=== PATIENT | male | born 1935 | race Caucasian/White ===

== ENCOUNTER 2016-11-29 00:54 | Inpatient (IN) | payer OTHER ==
[2016-11-29] VITALS (12 sets, daily range): BP systolic 162–170; BP diastolic 66–93; PULSE 68–85; TEMP 36.4–36.7; O2SAT 93–98; Ht 167.6 cm; Wt 61.0 kg
[~2016-11-29] VITALS: Ht 167.6 cm; Wt 61.0 kg
[~2016-11-29 00:54] MED LIST: ALBUAER INH; FERR325T51 PO; GLIP10TA3 PO; GUAI100L PO; ISOS-10 PO; MULT-506 PO
[2016-11-29] MEDS ORDERED: SODIUM CHLORIDE 0.9% 500ML 500 ML IV STA (01:03)
--- NOTE | 2016-11-29 01:09 | EMERGENCY ROOM VISIT NOTE ---
History Report prepared by Scribe: Rosy Osullivan Under the Supervision of: Dr. Matt Maynard M.D. First contact with patient: 00:56 Chief Complaint: ALTERED MENTAL STATUS Stated Complaint: ALTERED MENTAL STATUS History of Present Illness The patient is an 81 year old male who presents to the Emergency Room with complaints of altered mental status that started prior to arrival. He was brought to the ED via EMS from his home. EMS reports the patient was found nonverbal and unable to follow commands. He has a history of diabetes and his BSG was 88, 71 and 65 when checked by EMS. He was given 125 mls of D10 in the field which helped his mental state according to EMS. His lung sounds were course and his Oxygen saturation was at 92% on room air so he was also given a DuoNeb when EMS arrived, which provided relief. The patient states he does remember feeling confused earlier this evening, but feels better here in the ED currently. He denies any recent nausea, vomiting or abdominal pain. 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 A total of 10 systems reviewed and were otherwise negative. Past Medical & Surgical Medical Problems: (1) Aortic valve stenosis (2) COPD (chronic obstructive pulmonary disease) (3) Diabetes mellitus (4) Elevated troponin (5) Heart disease (6) Hypertension (7) Hypoglycemia (8) Myocardial infarction (9) Unresponsive episode Family History FH: cancer FH: diabetes mellitus FH: heart disease FH: hypertension Social History Smoking Status: Former Smoker Alcohol Use: occasionally Drug Use: none Marital Status: Housing Status: lives with family Occupation Status: retired Current/Historical Medications Scheduled Aspirin (Ecotrin Low Strength), 81 MG PO DAILY Atorvastatin (Lipitor), 80 MG PO QPM Budesonide/Formoterol Fumarate (Symbicort 160/4.5 Inhaler ), 2 PUFFS INH BID Cyanocobalamin (B-12), 1,000 MCG PO QAM Ferrous Sulfate (Ferrous Sulfate), 325 MGPE PO BID Folic Acid (Folic Acid), 1 MG PO QAM Glipizide (Glucotrol), 10 MG PO QAM Glipizide (Glucotrol), 5 MG PO QPM Isosorbide Mononitrate (Isosorbide Mononitrate ER), 60 MG PO QAM Lisinopril (Lisinopril), 20 MG PO QAM Metformin Hcl (Glucophage), 1,000 MG PO BID Metoprolol Tartrate (Lopressor) (Lopressor), 75 MG PO BID Multivitamin (Multivitamin), 1 TAB PO QAM Oxybutynin Chloride (Ditropan), 5 MG PO AMPM Scheduled PRN Ipratropium-Albuterol (Duoneb), 1 TREATMENT INH QID PRN for SOB/Wheezing Allergies Coded Allergies: No Known Allergies (Unverified , 11/29/16) Physical Exam Vital Signs Date Time Temp Pulse Resp B/P Pulse Ox O2 Delivery O2 Flow Rate FiO2 11/29/16 02:00 78 24 157/68 93 Room Air 11/29/16 01:10 93 Room Air 11/29/16 01:05 78 11/29/16 00:58 36.4 76 16 169/99 94 Room Air Physical Exam GENERAL: Patient is in no acute distress. HEENT: No acute trauma, normocephalic atraumatic, mucous membranes moist, no nasal congestion, no scleral icterus. NECK: No stridor, no adenopathy, no meningismus, trachea is midline. LUNGS: Moist cough noted, rhonchi at the bases, especially with exhalation, breath sounds are equal, no wheezing. HEART: Without murmurs gallops or rubs, regular rate and rhythm. ABDOMEN: Soft, nontender, bowel sounds positive, no hernias, no peritonitis. EXTREMITIES: No cyanosis or edema, full range of motion of all the joints without pain or difficulty, no signs for acute trauma. NEUROLOGIC: Awake and alert. Moving all extremities. Following commands, no speech slur, no facial droop. SKIN: No rash, no jaundice, no diaphoresis. Medical Decision & Procedures ER Provider Diagnostic Interpretation: This X-Ray was reviewed and interpreted by myself as we do not have a radiologist on staff overnight. CHEST X-RAY There is a potential right base infiltrate. No CHF or pneumothorax seen on X- Ray. This CT scan was reviewed and interpreted by the radiologist and reviewed by myself. CT HEAD: Comparison: 04/28/2016 No evidence of acute infarct, hemorrhage, mass or edema. Chronic small vessel ischemic disease and senescent changes. Mild mucosal thickening of the paranasal sinuses. Partial opacification mastoid air cells. No acute osseous abnormality. Radiologist: Abundio Hamilton MD Laboratory Results 11/29/16 01:25 Red Blood Count 3.66, Mean Corpuscular Volume 91.0, Mean Corpuscular Hemoglobin 30.9, Mean Corpuscular Hemoglobin Concent 33.9, Mean Platelet Volume 9.7, Neutrophils (%) (Auto) 75.1, Lymphocytes (%) (Auto) 10.8, Monocytes (%) (Auto) 10.0, Eosinophils (%) (Auto) 3.3, Basophils (%) (Auto) 0.3, Neutrophils # (Auto ) 9.21, Lymphocytes # (Auto) 1.32, Monocytes # (Auto) 1.22, Eosinophils # (Auto ) 0.40, Basophils # (Auto) 0.04 11/29/16 01:25 Test 11/29/16 01:01 11/29/16 01:25 Bedside Glucose 89 mg/dl (70-99) White Blood Count 12.25 K/uL (4.8-10.8) Red Blood Count 3.66 M/uL (4.7-6.1) Hemoglobin 11.3 g/dL (14.0-18.0) Hematocrit 33.3 % (42-52) Mean Corpuscular Volume 91.0 fL (80-100) Mean Corpuscular Hemoglobin 30.9 pg (25-34) Mean Corpuscular Hemoglobin Concent 33.9 g/dl (32-36) Platelet Count 235 K/uL (130-400) Mean Platelet Volume 9.7 fL (7.4-10.4) Neutrophils (%) (Auto) 75.1 % Lymphocytes (%) (Auto) 10.8 % Monocytes (%) (Auto) 10.0 % Eosinophils (%) (Auto) 3.3 % Basophils (%) (Auto) 0.3 % Neutrophils # (Auto) 9.21 K/uL (1.4-6.5) Lymphocytes # (Auto) 1.32 K/uL (1.2-3.4) Monocytes # (Auto) 1.22 K/uL (0.11-0.59) Eosinophils # (Auto) 0.40 K/uL (0-0.5) Basophils # (Auto) 0.04 K/uL (0-0.2) RDW Standard Deviation 45.2 fL (36.4-46.3) RDW Coefficient of Variation 13.8 % (11.5-14.5) Immature Granulocyte % (Auto) 0.5 % Immature Granulocyte # (Auto) 0.06 K/uL (0.00-0.02) Prothrombin Time 10.7 SECONDS (9.0-12.0) Prothromb Time International Ratio 1.0 (0.9-1.1) Activated Partial Thromboplast Time 28.6 SECONDS (21.0-31.0) Partial Thromboplastin Ratio 1.1 Urine Color YELLOW Urine Appearance CLEAR (CLEAR) Urine pH 7.0 (4.5-7.5) Urine Specific [place] 1.013 (1.000-1.030) Urine Protein 2+ (NEG) Urine Glucose (UA) NEG (NEG) Urine Ketones NEG (NEG) Urine Occult Blood NEG (NEG) Urine Nitrite NEG (NEG) Urine Bilirubin NEG (NEG) Urine Urobilinogen NEG (NEG) Urine Leukocyte Esterase NEG (NEG) Urine WBC (Auto) 0 /hpf (0-5) Urine RBC (Auto) 0-4 /hpf (0-4) Urine Hyaline Casts (Auto) 1-5 /lpf (0-5) Urine Epithelial Cells (Auto) 10-20 /lpf (0-5) Urine Bacteria (Auto) NEG (NEG) Anion Gap 12.0 mmol/L (3-11) Est Creatinine Clear Calc Drug Dose 38.8 ml/min Estimated GFR () 58.5 Estimated GFR (Non- 50.5 BUN/Creatinine Ratio 21.9 (10-20) Calcium Level 8.6 mg/dl (8.5-10.1) Magnesium Level 1.5 mg/dl (1.8-2.4) Total Bilirubin 0.5 mg/dl (0.2-1) Direct Bilirubin 0.1 mg/dl (0-0.2) Aspartate Amino Transf (AST/SGOT) 17 U/L (15-37) Alanine Aminotransferase (ALT/SGPT) 30 U/L (12-78) Alkaline Phosphatase 227 U/L (45-117) Troponin I < 0.015 ng/ml (0-0.045) Total Protein 7.1 gm/dl (6.4-8.2) Albumin 3.3 gm/dl (3.4-5.0) Thyroid Stimulating Hormone (TSH) 2.420 uIu/ml (0.300-4.500) Urine Opiates Screen NEG (NEG) Urine Methadone, Qualitative NEG (NEG) Urine Barbiturates NEG (NEG) Urine Phencyclidine (PCP) Level NEG (NEG) Ur Amphetamine/Methamphetamine NEG (NEG) MDMA (Ecstasy) Screen NEG (NEG) Urine Benzodiazepines Screen NEG (NEG) Urine Cocaine Metabolite NEG (NEG) Urine Marijuana (THC) NEG (NEG) Laboratory results reviewed by me. Medications Administered Medications (Trade) Dose Ordered Sig/Caesar Route Start Time Stop Time Status Last Admin Dose Admin Sodium Chloride (Nss 500ml) 500 ml @ 999 mls/hr Q31M STAT IV 11/29/16 01:03 11/29/16 01:33 DC 11/29/16 01:31 999 MLS/HR Magnesium Sulfate (Magnesium Sulfate) 1 gm NOW STAT IV 11/29/16 01:59 11/29/16 02:00 DC 11/29/16 02:18 1 GM Piperacillin Sod/ Tazobactam Sod (Zosyn Iv) 4.5 gm NOW STAT IV 11/29/16 02:19 11/29/16 02:20 DC 11/29/16 02:54 4.5 GM ECG Indication: altered mental status Rate (beats per minute): 77 Rhythm: normal sinus (normal sinus rhythm) Findings: no acute ischemic change, no ectopy, other (baseline artifact) ED Course 0058: The patient was evaluated in room B7. A complete history and physical exam was performed. 0103: NSS 500 ml @ 999 mls/hr IV. 0159: Magnesium Sulfate 1 gm IV. 0219: Zosyn 4.5 gm IV. 0239: I reevaluated the patient. He is resting comfortably. I discussed my recommendation that he remain in the hospital for further evaluation and management with his family and they verbalized complete understanding and agreement. 0314: I discussed the patients case with Dr. Terrell, [facility] Hospitalist. The patient will be further evaluated. Medical Decision The differential diagnoses considered include stroke, electrolyte imbalance, anemia, dysrhythmia, infection, intracranial bleeding and dehydration. There is a mild leukocytosis at 12,000, this could be consistent with infection. No significant anemia. No evidence for kidney failure. Magnesium is low at 1.5. No hepatitis. The patient does appear to be in a euthyroid state. Urinalysis does not show infection. EKG shows a sinus rhythm, no acute ischemia. Cardiac enzyme testing times one is not consistent with acute cardiac injury. Chest film shows a right lower lung pneumonia, no pneumothorax or CHF. Blood cultures are pending. Urine tox is negative. Brain CT shows some possible sinus disease, no acute bleed or mass effect. On exam, the patient did not have any focal neurologic deficits. There is no speech slurring or facial droop. The patient was able to eat a turkey sandwich here without difficulty-this was given to keep his sugar adequate. He has maintained his baseline mentation and neurologic status while here in the emergency room. He was given IV saline, he received IV magnesium, he received a dose of IV Zosyn as antibiotic coverage. Given the change in mental status, the leukocytosis, the pneumonia, admission/ observation was felt warranted. I suspect the pneumonia is the root cause of his difficulty this evening. I spoke to the patient and his family. I spoke with case management. The on-call hospitalist was consulted. Consults Time Called: [phone] Consulting Physician: Dr. Terrell [facility] Hospitalist Returned Call: [phone] I discussed the patients case with Dr. Terrell [facility] Hospitalist. The patient will be further evaluated. Impression Primary Impression: Change in mental status Additional Impressions: Pneumonia Hypomagnesemia Scribe Attestation The scribe's documentation has been prepared under my direction and personally reviewed by me in its entirety. I confirm that the note above accurately reflects all work, treatment, procedures, and medical decision making performed by me. Departure Information Dispostion Being Evaluated By Hospitalist Referrals Kassy Purvis (PCP) Patient Instructions My [facility] Problem Qualifiers
[2016-11-29 01:36] LABS: BASO % 0.3 %; BASO ABS # 0.04 K/uL (0-0.2); COMPLETE YES; EOS % 3.3 %; HEMATOCRIT 33.3 % (42-52); IG% 0.5 %; LYMPH % 10.8 %; LYMPH ABS # 1.32 K/uL (1.2-3.4); MEAN CORPUSCULAR HEMOGLOBIN 30.9 pg (25-34); MEAN CORPUSCULAR HGB CONC 33.9 g/dl (32-36); MEAN PLATELET VOLUME 9.7 fL (7.4-10.4); NEUT % 75.1 %; PLATELET COUNT 235 K/uL (130-400); RED BLOOD COUNT 3.66 M/uL (4.7-6.1); WHITE BLOOD COUNT 12.25 K/uL (4.8-10.8)
[2016-11-29 01:47] LABS: PARTIAL THROMBOPLASTIN RATIO 1.1; PROTHROMBIN TIME (PATIENT) 10.7 SECONDS (9.0-12.0)
[2016-11-29 01:57] LABS: BENZODIAZEPINE, URINE NEG (NEG); COCAINE,URINE NEG (NEG); PHENCYCLIDINE, URINE NEG (NEG)
[2016-11-29 01:58] LABS: ALT/SGPT 30 U/L (12-78); AST/SGOT 17 U/L (15-37); BLOOD UREA NITROGEN 28 mg/dl (7-18); BUN/CREATININE RATIO 21.9 (10-20); CALCIUM 8.6 mg/dl (8.5-10.1); CARBON DIOXIDE 25 mmol/L (21-32); CHLORIDE 107 mmol/L (98-107); GLUCOSE 114 mg/dl (70-99); MAGNESIUM 1.5 mg/dl (1.8-2.4); POTASSIUM 3.7 mmol/L (3.5-5.1); SODIUM 144 mmol/L (136-145)
[2016-11-29] MEDS ORDERED: MAGNESIUM SULFATE 1GM / D5W 1 GM BAG IV STA (01:59)
[2016-11-29 02:09] LABS: ALKALINE PHOSPHATASE 227 U/L (45-117)
[2016-11-29] MEDS ORDERED: PIPERACILLIN/TAZOBACTAM 4.5 GM/100ML D5W IV STA (02:19)
[2016-11-29 02:24] LABS: URINE APPEARANCE CLEAR (CLEAR); URINE BILIRUBIN NEG (NEG); URINE COLOR YELLOW; URINE NITRITE NEG (NEG); URINE SPECIFIC GRAVITY 1.013 (1.000-1.030); UROBILINOGEN NEG (NEG)
[2016-11-29 02:34] LABS: MANUAL MICROSCOPIC REQUIRED? NO; REVIEW REQ? NO
--- NOTE | 2016-11-29 03:39 | History and Physical ---
History & Physical Date & Time of Service: Nov 29, 2016 at 03:39 Chief Complaint: Altered Mental Status Primary Care Physician: Kassy Purvis History of Present Illness Source: patient, family This is an 81 y/o M with a history of COPD, Type 2 DM, CAD s/p stent, Mitral Valve replacement, Mild dementia who presents to the ED after being found by family to be minimally responsive and unable to follow commands. Family report that he was found on the couch zoned out and not responding to verbal stimuli. They called EMS and when they arrived, BSG readings were 88, 71 and 65. He was given D10, after which he returned to baseline mentation. EMS also gave him nebulizer treatments. Family report that he has generally been well the last few days though he has his moments were he will be zoned out. The patient currently says he feels fine. He says he's here because of pneumonia but denies chest pain, shortness of breath. He has a history of unresponsive episodes attributed primarily to dehydration. Quit smoking few years ago. He denies chest pain, shortness o fbreath, headaches, dizziness, presyncope, abdminal pain, nausea/vomiting, fevers, chill, numbness/tingling, weakness of extremities, speech difficulties Family reports he has a regular diet- has not had any trouble with dysphagia. Past Medical/Surgical History Medical Problems: (1) Aortic valve stenosis Status: Chronic (2) COPD (chronic obstructive pulmonary disease) Status: Chronic (3) Diabetes mellitus Status: Chronic (4) Heart disease Status: Chronic (5) Hypertension Status: Chronic (6) Myocardial infarction Status: Resolved Family History FH: cancer FH: diabetes mellitus FH: heart disease FH: hypertension Social History Smoking Status: Former Smoker Alcohol Use: none Drug Use: none Marital Status: Housing status: lives alone Occupational Status: retired Immunizations History of Influenza Vaccine: Unknown Influenza Vaccine Date: May 23, 2011 History of Tetanus Vaccine?: Unknown History of Pneumococcal: Unknown History of Hepatitis B Vaccine: Unknown Multi-Drug Resistant Organisms History of MDRO: No Allergies Coded Allergies: No Known Allergies (Unverified , 11/29/16) Home Medications Scheduled Aspirin (Ecotrin Low Strength), 81 MG PO DAILY Atorvastatin (Lipitor), 80 MG PO QPM Budesonide/Formoterol Fumarate (Symbicort 160/4.5 Inhaler ), 2 PUFFS INH BID Cyanocobalamin (B-12), 1,000 MCG PO QAM Ferrous Sulfate (Ferrous Sulfate), 325 MGPE PO BID Folic Acid (Folic Acid), 1 MG PO QAM Glipizide (Glucotrol), 10 MG PO QAM Glipizide (Glucotrol), 5 MG PO QPM Isosorbide Mononitrate (Isosorbide Mononitrate ER), 60 MG PO QAM Lisinopril (Lisinopril), 20 MG PO QAM Metformin Hcl (Glucophage), 1,000 MG PO BID Metoprolol Tartrate (Lopressor) (Lopressor), 75 MG PO BID Multivitamin (Multivitamin), 1 TAB PO QAM Oxybutynin Chloride (Ditropan), 5 MG PO AMPM Scheduled PRN Ipratropium-Albuterol (Duoneb), 1 TREATMENT INH QID PRN for SOB/Wheezing Review of Systems Constitutional: No chills, No fever Eyes: No worsening of vision ENT: No hearing loss Respiratory: + cough, + sputum, + wheezing, No dyspnea at rest, No dyspnea on exertion, No shortness of breath Cardiovascular: No chest pain Abdomen: No diarrhea, No nausea, No pain, No vomiting Genitourinary - Male: No dysuria, No hematuria, No urinary frequency Neurologic: No numbness/tingling, No paralysis, No vertigo, No weakness Physical Exam Vital Signs Date Time Temp Pulse Resp B/P Pulse Ox O2 Delivery O2 Flow Rate FiO2 11/29/16 02:00 78 24 157/68 93 Room Air 11/29/16 01:10 93 Room Air 11/29/16 01:05 78 11/29/16 00:58 36.4 76 16 169/99 94 Room Air General Appearance: no apparent distress Head: normocephalic, atraumatic Eyes: PERRL, EOMI ENT: hearing grossly normal (with aids) Neck: supple, no adenopathy, no JVD Respiratory/Chest: no respiratory distress, no accessory muscle use, + decreased breath sounds (R>L), + rhonchi, + wheezing Cardiovascular: regular rate, rhythm, no edema, + systolic murmur Abdomen/GI: normal bowel sounds, non tender, soft Back: normal inspection, no CVA tenderness, normal range of motion Extremities/Musculoskelatal: normal capillary refill, no pedal edema, normal range of motion, + pertinent finding (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) 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1 % Lymphocytes (%) (Auto) 10.8 % Monocytes (%) (Auto) 10.0 % Eosinophils (%) (Auto) 3.3 % Basophils (%) (Auto) 0.3 % Neutrophils # (Auto) 9.21 1.4-6.5 K/uL Lymphocytes # (Auto) 1.32 1.2-3.4 K/uL Monocytes # (Auto) 1.22 0.11-0.59 K/uL Eosinophils # (Auto) 0.40 0-0.5 K/uL Basophils # (Auto) 0.04 0-0.2 K/uL RDW Standard Deviation 45.2 36.4-46.3 fL RDW Coefficient of Variation 13.8 11.5-14.5 % Immature Granulocyte % (Auto) 0.5 % Immature Granulocyte # (Auto) 0.06 0.00-0.02 K/uL Prothrombin Time 10.7 9.0-12.0 SECONDS Prothromb Time International Ratio 1.0 0.9-1.1 Activated Partial Thromboplast Time 28.6 21.0-31.0 SECONDS Partial Thromboplastin Ratio 1.1 Urine Color YELLOW Urine Appearance CLEAR CLEAR Urine pH 7.0 4.5-7.5 Urine Specific [place] 1.013 1.000-1.030 Urine Protein 2+ NEG Urine Glucose (UA) NEG NEG Urine Ketones NEG NEG Urine Occult Blood NEG NEG Urine Nitrite NEG NEG Urine Bilirubin NEG NEG Urine Urobilinogen NEG NEG Urine Leukocyte Esterase NEG NEG Urine WBC (Auto) 0 0-5 /hpf Urine RBC (Auto) 0-4 0-4 /hpf Urine Hyaline Casts (Auto) 1-5 0-5 /lpf Urine Epithelial Cells (Auto) 10-20 0-5 /lpf Urine Bacteria (Auto) NEG NEG Sodium Level 144 136-145 mmol/L Potassium Level 3.7 3.5-5.1 mmol/L Chloride Level 107 98-107 mmol/L Carbon Dioxide Level 25 21-32 mmol/L Anion Gap 12.0 3-11 mmol/L Blood Urea Nitrogen 28 7-18 mg/dl Creatinine 1.30 0.60-1.40 mg/dl Est Creatinine Clear Calc Drug Dose 38.8 ml/min Estimated GFR () 58.5 Estimated GFR (Non- 50.5 BUN/Creatinine Ratio 21.9 10-20 Random Glucose 114 70-99 mg/dl Calcium Level 8.6 8.5-10.1 mg/dl Magnesium Level 1.5 1.8-2.4 mg/dl Total Bilirubin 0.5 0.2-1 mg/dl Direct Bilirubin 0.1 0-0.2 mg/dl Aspartate Amino Transf (AST/SGOT) 17 15-37 U/L Alanine Aminotransferase (ALT/SGPT) 30 12-78 U/L Alkaline Phosphatase 227 45-117 U/L Troponin I < 0.015 0-0.045 ng/ml Total Protein 7.1 6.4-8.2 gm/dl Albumin 3.3 3.4-5.0 gm/dl Thyroid Stimulating Hormone (TSH) 2.420 0.300-4.500 uIu/ml Urine Opiates Screen NEG NEG Urine Methadone, Qualitative NEG NEG Urine Barbiturates NEG NEG Urine Phencyclidine (PCP) Level NEG NEG Ur Amphetamine/Methamphetamine NEG NEG MDMA (Ecstasy) Screen NEG NEG Urine Benzodiazepines Screen NEG NEG Urine Cocaine Metabolite NEG NEG Urine Marijuana (THC) NEG NEG Microbiology Results 11/29/16 Blood Culture, Received Pending 4/3/17 Blood Culture, Received Pending Impression Assessment and Plan This is an 81 y/o M who presents with altered mental status AMS (Metabolic derangements vs. Infection vs. CVA) CT head negative for hemorrhage /CVA, mild sinus disease Metabolic derangements include Hypomag, and reported Hypoglycemia by EMS BSG AC/hs Patient is currently at baseline mentation possibly secondary to RLL pneumonia Dysphagia screen Neuro checks RLL pneumonia Aspiration vs. CAP mild leucocytosis Will treat with Zosyn and Levaquin Sputum Cultures/ blood cultures pending add pro-dameon COPD with mild exacerbation Continue Duonebs, Symbicort Hypomagnesemia: Replaced with 1 gm- recheck tomorrow Normocytic, normochromic Anemia: At baseline would follow outpatient with iron studies/ 12/folate Elevated Alkphos possibly some underlying hepatic steatosis Diabetes BSG Accuchecks Start with ISS, can add lantus if necessary monitor for hypoglycemia- aggressive goals CAD continue Imdur, Aspirin, Statin, metoprolol, lisinopril DVT: Lovenox Code: Full Level of Care Telemetry Resuscitation Status FULL RESUSCITATION Assessment and Plan Attending Addendum: I have physically seen and examined this patient, have directed their medical care, have supervised the medical residents activities, and agree with the H&P as noted above, with the following changes: The patient is awake, well-developed and adequately nourished, alert and oriented 3, normocephalic and atraumatic, lying in bed and in no acute distress. HEENT--PERRL, EOMI, mucous membranes and oropharynx dry. Neck--supple, no JVD or bruits, thyroid normal, trachea midline, no adenopathy. Heart--normal S1 and S2, 2/6 systolic murmur, no rubs or gallops. Lungs--decreased breath sounds throughout, few coarse breath sounds and wheezes bilaterally, no respiratory distress, no accessory muscle use. Abdomen--normal bowel sounds and soft, nontender and nondistended, no hernias or masses, no organomegaly. Extremities--no cyanosis, clubbing or edema. There are good distal pulses b/l. 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 Dermatologic--normal skin turgor, normal color, warm and dry, no abnormal lymph nodes, no rash. Neurologic--cranial nerves II through XII grossly intact, motor and sensory examination normal. Rheumatologic--normal range of motion, nontender, muscles and joints. Psychiatric--normal affect. Assessment and Plan: Altered mental status--likely multifactorial, was transient and has returned to baseline. Right lower lobe pneumonia/COPD exacerbation--possible aspiration. Place on vancomycin IV, Zosyn IV and Levaquin IV. Follow sputum Gram stain and cultures and blood cultures. We'll continue DuoNeb's, and hold Symbicort. CAD/hypertension--continue aspirin 81 mg by mouth daily, isosorbide mononitrate ER 60 mg by mouth every morning, lisinopril 20 mg by mouth every morning and metoprolol tartrate 75 mg by mouth twice a day with hold parameters. Diabetes mellitus--patient was hypoglycemic on arrival. Will hold glipizide 10 mg by mouth every morning 5 mg by mouth every afternoon and metformin 1000 mg by mouth twice a day. Place on Accu-Cheks before meals and at bedtime with NovoLog coverage. Hypercholesterolemia--continue atorvastatin 80 mg by mouth every afternoon. Vitamin B-12 deficiency--continue supplement 1000micrograms by mouth every morning. Bladder spasm--continue oxybutynin 5 mg by mouth twice a day.
[2016-11-29] MEDS ORDERED: MAGNESIUM HYDROXIDE SUSP 30 ML UDC PO PRN (03:45)
[2016-11-29] MEDS ORDERED: NITROGLYCERIN 0.4 MG SL PER TAB CHARGE SL PRN (03:45)
[2016-11-29] MEDS ORDERED: POLYETHYLENE (MIRALAX) 17 GM PACK PO PRN (03:45)
[2016-11-29] MEDS ORDERED: ALBUT/IPRATROP 3MG/0.5MG NEB 3 ML VIAL INH PRN (03:45)
[2016-11-29] MEDS ORDERED: ONDANSETRON INJ 2 MG/ML 2 ML VIAL IV PRN (03:45)
[2016-11-29] MEDS ORDERED: ALUMINUM/MAGNESIUM/SIMETH (MAALOX MAX) 30 ML UDC PO PRN (03:45)
[2016-11-29] MEDS ORDERED: ACETAMINOPHEN 325 MG TAB PO PRN (03:45)
[2016-11-29] MEDS ORDERED: GLUCAGON FOR INJ 1 MG VIAL SQ PRN (05:00)
[2016-11-29] MEDS ORDERED: GLUCOSE 10 TABS/TUBE PO PRN (05:00)
[2016-11-29] MEDS ORDERED: GLUCOSE 40% GEL 15 GM TUBE PO PRN (05:00)
[2016-11-29] MEDS ORDERED: DEXTROSE 50% 50 ML SYR IV PRN (05:00)
[2016-11-29] MEDS: INSULIN ASPART 100 UNITS/ML 3 ML PEN SC SCH ×3 (06:00→18:00)
[2016-11-29] MEDS: SODIUM CHLORIDE 0.9% 1000ML 1,000 ML IV SCH ×2 (06:28→17:22)
--- NOTE | 2016-11-29 06:46 | DIAGNOSTIC IMAGING REPORT ---
CHEST ONE VIEW PORTABLE CLINICAL HISTORY: Stroke mental status change COMPARISON STUDY: 04/28/2016 FINDINGS: Mild stable cardiomegaly. Increased prominence of pulmonary vasculature. Diaphragms smooth. IMPRESSION: Mild congestive heart failure Electronically signed by: Will Light M.D. 11/29/2016 6:45 AM Dictated Date/Time: 11/29/2016 6:44 AM
[2016-11-29] MEDS ORDERED: PIPERACILL/TAZOBAC CONSULT ACTIVE PRN (07:15)
[2016-11-29] MEDS ORDERED: LEVOFLOXACIN CONSULT ACTIVE PRN (07:15)
--- NOTE | 2016-11-29 07:29 | DIAGNOSTIC IMAGING REPORT ---
HEAD CT NONCONTRAST CT DOSE: 537.48 mGy.cm HISTORY: Stroke TECHNIQUE: Multiaxial CT images of the head were performed without the use of intravenous contrast. Automated exposure control was utilized for this study. Comparison: None. Findings: The paranasal sinuses and mastoid air cells are clear. The calvarium and skull base are intact. There is no mass, hematoma, midline shift, acute infarct. White matter hypodensity is nonspecific but suggestive of microvascular ischemic change. The ventricles and sulci demonstrate mild age-related involutional changes. Impression: No significant change compared to the prior study. No acute intracranial abnormality. Electronically signed by: Homero Rodriguez M.D. 11/29/2016 7:27 AM Dictated Date/Time: 11/29/2016 7:24 AM
[2016-11-29] MEDS: LEVOFLOXACIN / D5W 750 MG in PREMIXED IN D5W 150 ML IV SCH (08:00)
[2016-11-29] MEDS: BUDESONIDE/FORMOTEROL FUMARATE 160/4.5 60 PUFFS/INHALER INH SCH ×2 (08:00→20:49)
[2016-11-29] MEDS: ASPIRIN 81 MG ECTAB PO SCH (08:00)
[2016-11-29] MEDS: MULTIVITAMIN TAB PO SCH (08:01)
[2016-11-29] MEDS: LISINOPRIL 20 MG TAB PO SCH (08:01)
[2016-11-29] MEDS: CYANOCOBALAMIN 500 MCG TAB (VIT B-12) PO SCH (08:01)
[2016-11-29] MEDS: OXYBUTYNIN CHLORIDE 5 MG TAB PO SCH ×2 (08:01→20:50)
[2016-11-29] MEDS: ISOSORBIDE MONONITRATE 60 MG TABCR PO SCH (08:01)
[2016-11-29] MEDS: METOPROLOL TARTRATE 50 MG TAB PO SCH ×2 (08:02→20:50)
[2016-11-29] MEDS: ENOXAPARIN 40 MG/0.4 ML SYR SC SCH (08:03)
[2016-11-29] MEDS: ALBUT/IPRATROP 3MG/0.5MG NEB 3 ML VIAL INH SCH ×4 (08:12→19:24)
[2016-11-29] MEDS: PIPERACILL/TAZOBAC IV 3.375 GM in DEXTROSE 5% 100ML 100 ML IV SCH ×2 (10:42→17:22)
--- NOTE | 2016-11-29 19:12 | Progress Note ---
Progress Note Date of Service Nov 29, 2016. Progress Note seen in f/u from early AM admission notes breathing feeling better nursing notes did very poorly on bedside swallow lungs R base rhonchi vitals noted no respiratory distress AMS (Metabolic derangements & Infection) CT head negative for hemorrhage /CVA, mild sinus disease Metabolic derangements include Hypomag, and reported Hypoglycemia by EMS BSG AC/hs Patient is currently at baseline mentation apparently also secondary to RLL pneumonia Dysphagia screen/speech eval RLL pneumonia Aspiration vs. CAP but aspiration far more likely mild leucocytosis Will treat with levaquin and hold zosyn Sputum Cultures/ blood cultures pending COPD with mild exacerbation Continue Duonebs, Symbicort Hypomagnesemia: Replaced with 1 gm- recheck tomorrow Normocytic, normochromic Anemia: At baseline would follow outpatient with iron studies/ 12/folate Elevated Alkphos possibly some underlying hepatic steatosis Diabetes BSG Accuchecks Start with ISS, can add lantus if necessary monitor for hypoglycemia- aggressive goals CAD continue Imdur, Aspirin, Statin, metoprolol, lisinopril DVT: Lovenox Code: Full
[2016-11-29] MEDS: ATORVASTATIN 40 MG TAB PO SCH (20:51)
[2016-11-30] VITALS (11 sets, daily range): BP systolic 148–194; BP diastolic 63–86; PULSE 75–93; TEMP 36.3–36.7; O2SAT 93–96
[2016-11-30] MEDS ORDERED: NURSING VERBAL MED ORDER ONE (01:45)
[2016-11-30] MEDS: HydrALAZINE HCL 20 MG/ML VIAL IV. PRN ×2 (03:43→16:28)
[2016-11-30] MEDS ORDERED: AMLODIPINE BESYLATE 5 MG TAB PO STA (05:00)
[2016-11-30] MEDS: SODIUM CHLORIDE 0.9% 1000ML 1,000 ML IV SCH ×2 (05:53→19:26)
[2016-11-30] MEDS: INSULIN ASPART 100 UNITS/ML 3 ML PEN SC SCH ×5 (06:00→21:09)
[2016-11-30] MEDS: ALBUT/IPRATROP 3MG/0.5MG NEB 3 ML VIAL INH SCH ×4 (07:17→20:13)
[2016-11-30 08:04] LABS: BASO % 0.2 %; BASO ABS # 0.02 K/uL (0-0.2); COMPLETE YES; EOS % 2.7 %; HEMATOCRIT 31.3 % (42-52); IG% 0.5 %; LYMPH % 10.4 %; LYMPH ABS # 0.99 K/uL (1.2-3.4); MEAN CELL VOLUME 90.5 fL (80-100); MEAN CORPUSCULAR HEMOGLOBIN 30.3 pg (25-34); MEAN CORPUSCULAR HGB CONC 33.5 g/dl (32-36); MEAN PLATELET VOLUME 10.2 fL (7.4-10.4); MONO % 10.1 %; NEUT % 76.1 %; PLATELET COUNT 235 K/uL (130-400); RED BLOOD COUNT 3.46 M/uL (4.7-6.1); WHITE BLOOD COUNT 9.55 K/uL (4.8-10.8)
[2016-11-30 08:30] LABS: ALB/GLOB RATIO 0.8 (0.9-2); BUN/CREATININE RATIO 13.7 (10-20); CALCIUM 8.7 mg/dl (8.5-10.1); CREATININE 1.1 mg/dl (0.60-1.40); MAGNESIUM 1.5 mg/dl (1.8-2.4); POTASSIUM 3.3 mmol/L (3.5-5.1)
[2016-11-30] MEDS: MULTIVITAMIN TAB PO SCH (08:36)
[2016-11-30] MEDS: METOPROLOL TARTRATE 50 MG TAB PO SCH ×2 (08:36→19:28)
[2016-11-30] MEDS: ASPIRIN 81 MG ECTAB PO SCH (08:36)
[2016-11-30] MEDS: OXYBUTYNIN CHLORIDE 5 MG TAB PO SCH ×2 (08:36→19:27)
[2016-11-30] MEDS: CYANOCOBALAMIN 500 MCG TAB (VIT B-12) PO SCH (08:36)
[2016-11-30] MEDS: ENOXAPARIN 40 MG/0.4 ML SYR SC SCH (08:37)
[2016-11-30] MEDS: LISINOPRIL 20 MG TAB PO SCH (08:37)
[2016-11-30] MEDS: BUDESONIDE/FORMOTEROL FUMARATE 160/4.5 60 PUFFS/INHALER INH SCH ×2 (08:37→19:27)
[2016-11-30] MEDS: ISOSORBIDE MONONITRATE 60 MG TABCR PO SCH (08:37)
[2016-11-30] MEDS: ATORVASTATIN 40 MG TAB PO SCH (19:26)
--- NOTE | 2016-11-30 19:34 | Progress Note ---
Subjective Date of Service: Nov 30, 2016. Subjective Pt evaluation today including: conversation w/ patient, physical exam, chart review, lab review, review of inpatient medication list no meaningful HPI or ROS obtainble from pt denies sob denies cp doesn't recall choking on food, but also relates that he lives with his sisters , "who are in their 20's" Problem List Medical Problems: (1) Altered mental status Status: Acute (2) Change in mental status Status: Acute (3) Hypoglycemia Status: Acute (4) Hypomagnesemia Status: Acute (5) Non-STEMI (non-ST elevated myocardial infarction) Status: Acute (6) Pneumonia Status: Acute Review of Systems ros otherwise negative except for as above as best can be ascertained Objective Vital Signs Date Time Temp Pulse Resp B/P Pulse Ox O2 Delivery O2 Flow Rate FiO2 11/30/16 17:31 148/63 11/30/16 16:00 Nasal Cannula 2.0 11/30/16 15:59 85 16 95 Nasal Cannula 2.0 11/30/16 15:56 36.7 93 16 171/72 94 Room Air 2.0 11/30/16 11:47 85 16 95 Nasal Cannula 2.0 11/30/16 10:30 Nasal Cannula 2.0 11/30/16 09:59 36.3 75 17 153/73 95 Nasal Cannula 2.0 11/30/16 09:59 36.3 75 17 95 2.0 11/30/16 08:21 36.5 87 20 194/82 96 Nasal Cannula 2.0 11/30/16 08:00 Nasal Cannula 2.0 11/30/16 07:17 85 16 96 Nasal Cannula 2.0 11/30/16 04:00 93 Nasal Cannula 2.0 11/30/16 03:40 36.4 75 18 183/86 94 Nasal Cannula 2.0 11/29/16 23:59 93 Nasal Cannula 2.0 11/29/16 23:59 36.5 76 18 170/93 97 Nasal Cannula 2.0 11/29/16 20:09 36.4 82 18 169/75 94 Nasal Cannula 2.0 11/29/16 20:00 93 Nasal Cannula 2.0 Physical Exam General Appearance: no apparent distress Eyes: EOMI ENT: hearing grossly normal Neck: trachea midline Respiratory/Chest: no respiratory distress, no accessory muscle use Extremities: normal range of motion 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 tested, alert, normal mood/affect Laboratory Results Last 24 Hours Test 11/30/16 00:23 11/30/16 06:20 11/30/16 07:20 11/30/16 11:44 Bedside Glucose 88 mg/dl 111 mg/dl 154 mg/dl White Blood Count 9.55 K/uL Red Blood Count 3.46 M/uL Hemoglobin 10.5 g/dL Hematocrit 31.3 % Mean Corpuscular Volume 90.5 fL Mean Corpuscular Hemoglobin 30.3 pg Mean Corpuscular Hemoglobin Concent 33.5 g/dl Platelet Count 235 K/uL Mean Platelet Volume 10.2 fL Neutrophils (%) (Auto) 76.1 % Lymphocytes (%) (Auto) 10.4 % Monocytes (%) (Auto) 10.1 % Eosinophils (%) (Auto) 2.7 % Basophils (%) (Auto) 0.2 % Neutrophils # (Auto) 7.27 K/uL Lymphocytes # (Auto) 0.99 K/uL Monocytes # (Auto) 0.96 K/uL Eosinophils # (Auto) 0.26 K/uL Basophils # (Auto) 0.02 K/uL RDW Standard Deviation 45.2 fL RDW Coefficient of Variation 13.8 % Immature Granulocyte % (Auto) 0.5 % Immature Granulocyte # (Auto) 0.05 K/uL Sodium Level 144 mmol/L Potassium Level 3.3 mmol/L Chloride Level 109 mmol/L Carbon Dioxide Level 25 mmol/L Anion Gap 10.0 mmol/L Blood Urea Nitrogen 15 mg/dl Creatinine 1.10 mg/dl Est Creatinine Clear Calc Drug Dose 43.4 ml/min Estimated GFR () 71.6 Estimated GFR (Non- 61.8 BUN/Creatinine Ratio 13.7 Random Glucose 119 mg/dl Calcium Level 8.7 mg/dl Magnesium Level 1.5 mg/dl Total Bilirubin 0.5 mg/dl Direct Bilirubin 0.2 mg/dl Aspartate Amino Transf (AST/SGOT) 16 U/L Alanine Aminotransferase (ALT/SGPT) 24 U/L Alkaline Phosphatase 208 U/L Total Protein 6.7 gm/dl Albumin 3.0 gm/dl Globulin 3.7 gm/dl Albumin/Globulin Ratio 0.8 Test 11/30/16 16:28 Bedside Glucose 184 mg/dl Assessment and Plan AMS (Metabolic derangements & Infection) CT head negative for hemorrhage /CVA, mild sinus disease Metabolic derangements include Hypomag, and reported Hypoglycemia by EMS BSG AC/hs also secondary to RLL pneumonia Dysphagia screen/speech eval appreciated Patient is currently at baseline mentation apparently RLL pneumonia Aspiration vs. CAP but aspiration far more likely mild leucocytosis improved - treat w short course of levaquin as long as ongoing improvement Sputum Cultures/ blood cultures pending COPD with mild exacerbation Continue Duonebs Symbicort Hypomagnesemia: -ongoing replacement Normocytic, normochromic Anemia: At baseline would follow outpatient with iron studies/ 12/folate Elevated Alkphos possibly some underlying hepatic steatosis Diabetes BSG Accuchecks Start with ISS, can add lantus if necessary but sugars have been reasonable CAD continue Imdur, Aspirin, Statin, metoprolol, lisinopril DVT proph: Lovenox Code: Full dispo - will need to discuss w family - with apparently severe dementia, aspiration risk - will likely need 24hr supervision
[2016-11-30] MEDS: MAGNESIUM OXIDE 400 MG TAB PO SCH (21:08)
[2016-12-01] VITALS (7 sets, daily range): BP systolic 130–184; BP diastolic 55–74; PULSE 77–89; TEMP 36.3–36.7; O2SAT 91–96
[2016-12-01] MEDS: INSULIN ASPART 100 UNITS/ML 3 ML PEN SC SCH ×4 (06:30→21:41)
[2016-12-01] MEDS: HydrALAZINE HCL 20 MG/ML VIAL IV. PRN (06:37)
[2016-12-01] MEDS: ALBUT/IPRATROP 3MG/0.5MG NEB 3 ML VIAL INH SCH ×4 (07:07→19:58)
[2016-12-01 07:56] LABS: BUN/CREATININE RATIO 15.2 (10-20); CALCIUM 8.3 mg/dl (8.5-10.1); CREATININE 1.1 mg/dl (0.60-1.40); POTASSIUM 3.3 mmol/L (3.5-5.1)
[2016-12-01] MEDS: MAGNESIUM OXIDE 400 MG TAB PO SCH ×2 (09:21→20:14)
[2016-12-01] MEDS: LEVOFLOXACIN / D5W 750 MG in PREMIXED IN D5W 150 ML IV SCH (09:21)
[2016-12-01] MEDS: BUDESONIDE/FORMOTEROL FUMARATE 160/4.5 60 PUFFS/INHALER INH SCH ×2 (09:21→20:10)
[2016-12-01] MEDS: METOPROLOL TARTRATE 50 MG TAB PO SCH ×2 (09:22→20:13)
[2016-12-01] MEDS: MULTIVITAMIN TAB PO SCH (09:23)
[2016-12-01] MEDS: ISOSORBIDE MONONITRATE 60 MG TABCR PO SCH (09:24)
[2016-12-01] MEDS: CYANOCOBALAMIN 500 MCG TAB (VIT B-12) PO SCH (09:24)
[2016-12-01] MEDS: ASPIRIN 81 MG ECTAB PO SCH (09:24)
[2016-12-01] MEDS: OXYBUTYNIN CHLORIDE 5 MG TAB PO SCH ×2 (09:25→20:11)
[2016-12-01] MEDS: LISINOPRIL 20 MG TAB PO SCH (09:25)
[2016-12-01] MEDS: ENOXAPARIN 40 MG/0.4 ML SYR SC SCH (09:26)
[2016-12-01] MEDS: SODIUM CHLORIDE 0.9% 1000ML 1,000 ML IV SCH ×2 (09:27→21:43)
--- NOTE | 2016-12-01 19:02 | Progress Note ---
Subjective Date of Service: Dec 01, 2016. Subjective Pt evaluation today including: conversation w/ patient, physical exam, chart review, lab review, review of inpatient medication list waiting for family to arrive to have face to face discussion pt denies sob denies cp/pressure, no abdominal pain no troubles pleasantly confused, however, significantly limiting HPI and ROS Problem List Medical Problems: (1) Altered mental status Status: Acute (2) Change in mental status Status: Acute (3) Hypoglycemia Status: Acute (4) Hypomagnesemia Status: Acute (5) Non-STEMI (non-ST elevated myocardial infarction) Status: Acute (6) Pneumonia Status: Acute Review of Systems ros otherwise negative except for as above Objective Vital Signs Date Time Temp Pulse Resp B/P Pulse Ox O2 Delivery O2 Flow Rate FiO2 12/01/16 16:00 93 Room Air 12/01/16 15:38 36.7 86 16 130/55 93 Room Air 12/01/16 11:17 20 91 Room Air 12/01/16 11:15 Nasal Cannula 2.0 12/01/16 10:23 89 16 92 Room Air 12/01/16 07:07 80 16 96 Nasal Cannula 2.0 12/01/16 06:46 36.3 87 20 184/74 95 Nasal Cannula 2.0 12/01/16 00:00 Nasal Cannula 2.0 11/30/16 20:13 86 16 95 Nasal Cannula 2.0 11/30/16 20:00 93 156/69 11/30/16 19:30 Nasal Cannula 2.0 Physical Exam General Appearance: no apparent distress Eyes: EOMI ENT: hearing grossly normal Neck: trachea midline Respiratory/Chest: lungs clear, normal breath sounds, no respiratory distress, no accessory muscle use Cardiovascular: regular rate, rhythm 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 as tested, alert, + disoriented Laboratory Results Last 24 Hours Test 11/30/16 20:25 12/01/16 06:06 12/01/16 09:18 12/01/16 11:30 Bedside Glucose 209 mg/dl 160 mg/dl 198 mg/dl Sodium Level 145 mmol/L Potassium Level 3.3 mmol/L Chloride Level 113 mmol/L Carbon Dioxide Level 24 mmol/L Anion Gap 8.0 mmol/L Blood Urea Nitrogen 17 mg/dl Creatinine 1.10 mg/dl Est Creatinine Clear Calc Drug Dose 44.7 ml/min Estimated GFR () 71.6 Estimated GFR (Non- 61.8 BUN/Creatinine Ratio 15.2 Random Glucose 137 mg/dl Calcium Level 8.3 mg/dl Test 12/01/16 16:41 Bedside Glucose 148 mg/dl Assessment and Plan AMS (Metabolic derangements & Infection) CT head negative for hemorrhage /CVA, mild sinus disease Metabolic derangements include Hypomag, and reported Hypoglycemia by EMS BSG AC/hs also secondary to RLL pneumonia Dysphagia screen/speech eval appreciated Patient is currently at baseline mentation apparently appears to have been metabolic encephalopathy from above that has now settled to baseline RLL pneumonia Aspiration vs. CAP but aspiration far more likely improved - treat w short course of levaquin as long as ongoing improvement big concern will be ongoing risk for recurrent aspiration - which likely will require ongoing modified diet and supervision COPD with mild exacerbation Continue Duonebs, Symbicort Hypomagnesemia: -ongoing replacement Normocytic, normochromic Anemia: At baseline would follow outpatient with iron studies/ 12/folate Elevated Alkphos possibly some underlying hepatic steatosis Diabetes BSG Accuchecks Start with ISS, can add lantus if necessary but sugars have been reasonable CAD continue Imdur, Aspirin, Statin, metoprolol, lisinopril dementia -seems to have fairly severe baseline dementia -concern on home situation given mental state, aspiration, etc - want to discuss w family - would prefer face to face but have not seen as of yet DVT proph: Lovenox Code: Full dispo - will need to discuss w family - with apparently severe dementia, aspiration risk - will likely need 24hr supervision
[2016-12-01] MEDS: ATORVASTATIN 40 MG TAB PO SCH (20:12)
[2016-12-02] VITALS (9 sets, daily range): BP systolic 162–192; BP diastolic 73–88; PULSE 77–85; TEMP 36.4–36.7; O2SAT 91–95
[2016-12-02 07:03] LABS: HEMATOCRIT 34.2 % (42-52); MEAN CELL VOLUME 90.5 fL (80-100); MEAN CORPUSCULAR HGB CONC 34.2 g/dl (32-36); PLATELET COUNT 278 K/uL (130-400); RED BLOOD COUNT 3.78 M/uL (4.7-6.1); WHITE BLOOD COUNT 9.37 K/uL (4.8-10.8)
[2016-12-02 07:11] LABS: CREATININE 1.3 mg/dl (0.60-1.40)
[2016-12-02] MEDS: ALBUT/IPRATROP 3MG/0.5MG NEB 3 ML VIAL INH SCH ×4 (07:31→20:12)
[2016-12-02] MEDS: INSULIN ASPART 100 UNITS/ML 3 ML PEN SC SCH ×4 (08:09→21:14)
[2016-12-02] MEDS: LISINOPRIL 20 MG TAB PO SCH (09:46)
[2016-12-02] MEDS: ENOXAPARIN 40 MG/0.4 ML SYR SC SCH (09:46)
[2016-12-02] MEDS: MAGNESIUM OXIDE 400 MG TAB PO SCH ×2 (09:46→21:08)
[2016-12-02] MEDS: CYANOCOBALAMIN 500 MCG TAB (VIT B-12) PO SCH (09:47)
[2016-12-02] MEDS: OXYBUTYNIN CHLORIDE 5 MG TAB PO SCH ×2 (09:47→21:09)
[2016-12-02] MEDS: ISOSORBIDE MONONITRATE 60 MG TABCR PO SCH (09:47)
[2016-12-02] MEDS: METOPROLOL TARTRATE 50 MG TAB PO SCH ×2 (09:48→21:07)
[2016-12-02] MEDS: ASPIRIN 81 MG ECTAB PO SCH (09:48)
[2016-12-02] MEDS: BUDESONIDE/FORMOTEROL FUMARATE 160/4.5 60 PUFFS/INHALER INH SCH ×2 (09:49→21:06)
[2016-12-02] MEDS: MULTIVITAMIN TAB PO SCH (09:49)
[2016-12-02] MEDS: SODIUM CHLORIDE 0.9% 1000ML 1,000 ML IV SCH (11:41)
[2016-12-02] MEDS: HydrALAZINE HCL 20 MG/ML VIAL IV. PRN (15:38)
--- NOTE | 2016-12-02 18:18 | Progress Note ---
Subjective Date of Service: Dec 02, 2016. Subjective Pt evaluation today including: conversation w/ patient, physical exam, chart review, lab review, review of inpatient medication list feeling OK doesn't know where he is no sob no cp no abdominal pain no noted choking when eating case management working with family for safe return home and 21/03 supervision Problem List Medical Problems: (1) Altered mental status Status: Acute (2) Change in mental status Status: Acute (3) Hypoglycemia Status: Acute (4) Hypomagnesemia Status: Acute (5) Non-STEMI (non-ST elevated myocardial infarction) Status: Acute (6) Pneumonia Status: Acute Review of Systems ros essentially negative although can't be meaningfully obtained w mental status Objective Vital Signs Date Time Temp Pulse Resp B/P Pulse Ox O2 Delivery O2 Flow Rate FiO2 12/02/16 16:00 Room Air 12/02/16 15:38 79 18 91 Room Air 12/02/16 15:28 36.4 78 16 164/77 92 187/87 12/02/16 11:49 85 18 92 Room Air 12/02/16 11:06 84 93 12/02/16 08:07 Room Air 12/02/16 07:36 84 18 93 Room Air 12/02/16 07:02 36.4 85 16 192/88 92 Room Air 12/02/16 00:58 36.7 77 18 162/73 91 Room Air 12/02/16 00:00 95 Room Air 12/01/16 19:58 77 18 95 Room Air Physical Exam General Appearance: no apparent distress Eyes: EOMI ENT: hearing grossly normal Neck: trachea midline Respiratory/Chest: lungs clear, normal breath sounds, no respiratory distress, no accessory muscle use Cardiovascular: regular rate, rhythm Extremities: normal range of motion 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 as tested, alert, + disoriented Skin: normal color Laboratory Results Last 24 Hours Test 12/01/16 20:45 12/02/16 06:18 12/02/16 07:13 12/02/16 11:17 Bedside Glucose 183 mg/dl 151 mg/dl 228 mg/dl White Blood Count 9.37 K/uL Red Blood Count 3.78 M/uL Hemoglobin 11.7 g/dL Hematocrit 34.2 % Mean Corpuscular Volume 90.5 fL Mean Corpuscular Hemoglobin 31.0 pg Mean Corpuscular Hemoglobin Concent 34.2 g/dl RDW Standard Deviation 45.7 fL RDW Coefficient of Variation 13.8 % Platelet Count 278 K/uL Mean Platelet Volume 10.0 fL Creatinine 1.30 mg/dl Est Creatinine Clear Calc Drug Dose 37.1 ml/min Estimated GFR () 58.5 Estimated GFR (Non- 50.5 Test 12/02/16 16:39 Bedside Glucose 242 mg/dl Assessment and Plan AMS (Metabolic derangements & Infection) CT head negative for hemorrhage /CVA, mild sinus disease Metabolic derangements include Hypomag, and reported Hypoglycemia by EMS BSG AC/hs also secondary to RLL pneumonia Dysphagia screen/speech eval appreciated Patient is currently at baseline mentation apparently appears to have been metabolic encephalopathy from above that has now settled to baseline RLL pneumonia Aspiration vs. CAP but aspiration far more likely improving, finish course of levaquin big concern will be ongoing risk for recurrent aspiration - which likely will require ongoing modified diet and supervision COPD with mild exacerbation Continue Duonelatricia Symbicort, appearing stable, probably around baseline Hypomagnesemia: -ongoing replacement Normocytic, normochromic Anemia: At baseline would follow outpatient with iron studies/ 12/folate Elevated Alkphos possibly some underlying hepatic steatosis Diabetes BSG Accuchecks Start with ISS, can add lantus if necessary but continue to follow sugars for now - a few higher readings to day - if continues into tomorrow will add basal CAD continue Imdur, Aspirin, Statin, metoprolol, lisinopril dementia -seems to have fairly severe baseline dementia -concern on home situation given mental state, aspiration, etc - will need 24/7 supervision - case management working with family in this regard DVT proph: Lovenox Code: Full dispo - - with apparently severe dementia, aspiration risk - will likely need 24hr supervision
[2016-12-02] MEDS: ATORVASTATIN 40 MG TAB PO SCH (21:08)
[2016-12-03] VITALS (8 sets, daily range): BP systolic 145–186; BP diastolic 68–89; PULSE 75–101; TEMP 36.4–36.5; O2SAT 91–94
[2016-12-03] MEDS: INSULIN ASPART 100 UNITS/ML 3 ML PEN SC SCH ×3 (06:30→16:30)
[2016-12-03] MEDS: HydrALAZINE HCL 20 MG/ML VIAL IV. PRN (07:00)
[2016-12-03] MEDS: ALBUT/IPRATROP 3MG/0.5MG NEB 3 ML VIAL INH SCH ×3 (07:29→15:25)
[2016-12-03] MEDS: CYANOCOBALAMIN 500 MCG TAB (VIT B-12) PO SCH (09:02)
[2016-12-03] MEDS: MULTIVITAMIN TAB PO SCH (09:02)
[2016-12-03] MEDS: ASPIRIN 81 MG ECTAB PO SCH (09:02)
[2016-12-03] MEDS: MAGNESIUM OXIDE 400 MG TAB PO SCH (09:02)
[2016-12-03] MEDS: ISOSORBIDE MONONITRATE 60 MG TABCR PO SCH (09:02)
[2016-12-03] MEDS: BUDESONIDE/FORMOTEROL FUMARATE 160/4.5 60 PUFFS/INHALER INH SCH (09:02)
[2016-12-03] MEDS: OXYBUTYNIN CHLORIDE 5 MG TAB PO SCH (09:02)
[2016-12-03] MEDS: LISINOPRIL 20 MG TAB PO SCH (09:02)
[2016-12-03] MEDS: METOPROLOL TARTRATE 50 MG TAB PO SCH (09:03)
[2016-12-03] MEDS: ENOXAPARIN 40 MG/0.4 ML SYR SC SCH (09:03)
[2016-12-03] MEDS ORDERED: LEVOFLOXACIN 750 MG TAB PO SCH (11:00)
--- NOTE | 2016-12-03 12:30 | Discharge Instructions ---
Discharge Instructions Date of Service Dec 03, 2016. Admission Reason for Admission: Change In Mental Status, Hypoglycemia Discharge Discharge Diagnosis / Problem: aspiration pneumonia Discharge Goals Goal(s): Diagnostic testing, Therapeutic intervention Activity Recommendations Activity Limitations: resume your previous activity . Instructions / Follow-Up Instructions / Follow-Up pneumonia -the pneumonia appears very consistent with an aspiration pneumonia, meaning food went down the wrong pipe and caused irritation in his lungs. based on the speech evaluation here, as well as his coughing at meals described by you all, it appears this has probably been slowly building for a while - as is often the case. the speech therapist has modified the consistencies of the food and liquids in his diet and so far he's done well with these changes; our care team is arranging speech therapy to help work with him at home as well -the pneumonia itself has been treated and he fortunately doesn't need to go home on any further antibiotics dementia -as we discussed, his clinical presentation is quite consistent with fairly severe dementia. certainly have him follow up with his regular doctors, and it never hurts to have input from a neurologist as far as helping to define the type of dementia - but most commonly it would be Alzheimer's type (as is most consistent with what we've seen while he's here). the medications that "treat" Alzheimer's really just (maybe) slow the progression of things a little bit, so it's not clear that they'd be of much benefit to him (and they can cause agitation and nausea, so if his family doc does feel they might be worth a try, I'd have you watch for anything with agitation or change in appetite closely for a few weeks after starting). most importantly is just keeping him safe. fortunately he does appear quite functional, he just needs 24 hour supervision to not be at risk of wandering off, eating/drinking things he could aspirate on , or other similar problems Current Hospital Diet Patient's current hospital diet: Diabetes Type 2 Diet, AHA Diet (Heart Healthy) Discharge Diet Recommended Diet: AHA Diet (Heart Healthy) (with modified consistencies of food and liquids as defined by the speech therapists), Diabetes Type 2 Diet Pending Studies Studies pending at discharge: no Medical Emergencies . Who to Call and When: Medical Emergencies: If at any time you feel your situation is an emergency, please call 911 immediately. . Non-Emergent Contact Non-Emergency issues call your: Primary Care Provider . . "Provider Documentation" section prepared by Abundio Dalton. VTE Core Measure Inpt VTE Proph given/why not?: Enoxaparin (Lovenox)SQ
--- NOTE | 2016-12-03 16:09 | Discharge Summary ---
Discharge Summary Date of Service Dec 03, 2016. Discharge Summary Admission Date: Nov 29, 2016 at 03:44 Discharge Date: Dec 03, 2016 Discharge Disposition: Home with services Principal Diagnosis: aspiration pneumonia Problems/Secondary Diagnoses: dementia Immunizations: Have You Had Influenza Vaccine: Unknown Influenza Vaccine Date: May 23, 2011 History of Tetanus Vaccine?: Unknown History of Pneumococcal: Unknown History of Hepatitis B Vaccine: Unknown Procedures: CHEST ONE VIEW PORTABLE CLINICAL HISTORY: Stroke mental status change COMPARISON STUDY: 04/28/2016 FINDINGS: Mild stable cardiomegaly. Increased prominence of pulmonary vasculature. Diaphragms smooth. IMPRESSION: Mild congestive heart failure Electronically signed by: Will Light M.D. 11/29/2016 6:45 AM Dictated Date/Time: 11/29/2016 6:44 AM Consultations: speech: Rehab Assessment Type * Speech/Language Eval [facility]LE CONSULTANT Evaluation Type * Bedside Swallowing Assess Admission Date * Nov 29, 2016 Admission Diagnosis * Change in mental status Events Leading to Admission * This patient was admitted to [facility] from home after being found on the couch and was minimally responsive. He was also hypoglycemic. A speech evaluation was ordered as the patient was having coughing episodes with water and has noted right lung base rhonchi. Other Past Medical Hx (Including Prior [facility]LE CONSULTANT Intervention) * Dementia, MVR, CAD s/p stent, COPD, DM II No previous speech treatments documented at [facility]. Current Diet * NPO Results of Imaging Studies * Head CT: Findings: The paranasal sinuses and mastoid air cells are clear. The calvarium and skull base are intact. There is no mass, hematoma, midline shift, acute infarct. White matter hypodensity is nonspecific but suggestive of microvascular ischemic change. The ventricles and sulci demonstrate mild age-related involutional changes. Impression: No significant change compared to the prior study. No acute intracranial abnormality. CXR: FINDINGS: Mild stable cardiomegaly. Increased prominence of pulmonary vasculature. Diaphragms smooth. IMPRESSION: Mild congestive heart failure Report * Swallowing evaluation completed today at ~ 920. The patient was alert and oriented to person only. Confusion noted. He was unsure of the month or year, and stated he was in [place]. Also a little restless but cooperative with redirection. Removed oxygen at times also and needed to be redirected. Oral motor assessment limited as the patient did not always follow directions. Lingual ROM was generally wnl, oral mucosa noted to be dry. The patient was positioned upright in bed and was given ice chips, sips of water from the teaspoon and cup, applesauce, and a club cracker. No difficulty with mastication and swallowing the ice chips. Swallow was mildly delayed with reduced hyolaryngeal excursion. With teaspoon sips x2, the patient was noted to have increased crackles but voicing was clear. He then presented with a delayed wet cough, suspicious for aspiraion. He did not have a baseline cough at the onset of the evaluation. A rest break was given. The patient was then able to self-present 4 oz of applesauce. Tended to take large bites quickly. No difficulty with oral propulsion or swallowing. No coughing. Increased time was needed to masicate the cracker, partially due to dry oral mucosa. With time he was able to propel and swallow, no overt aspiration. Mild retention cleared with applesauce bolus. He did have some increased SOB with chewing. Water was then re-assessed with small sips from the cup, self-presented. Again, vocal quality was initially clear but he presented with another delayed wet cough. No further water trials given due to aspiration. Report was given to the patient (uncertain as to full comprehension of his swallowing issues given his compromised cognitive status) and Rayn SKAGGS. Also, ORACLE CONSULTANT is uncertain of this patient's baseline cognitive status but given his current confusion and dementia his safety at home independantly would be a concern for discharge planning. Speech will continue to follow for tolerance. May benefit from a video swallow study when closer to discharge as well. Time spent: 20 minutes Recommendations * 1. Mechanical soft diet and [place] thick liquids. 2. Aspiration precautions, No straws. Fully upright for meals and for 30-60 minutes after meals are complete. Stringent oral care to reduced oral bacteria than can be aspirated in saliva. 3. Small bite, small sips, slow rate. Alternate solids and liquids. 4. Speech will follow for tolerance. Speech Therapy Discharge Instructions * 1. Moist Mechanical soft diet and [place] thick liquids. 2. Aspiration Precautions: No straws. Fully upright for meals and for 30-60 minutes after meals are complete. Small bite, small sips, slow rate. Alternate solids and liquids. 3. Follow oral hygiene protocol 4. Would be beneficial to have Home Health [facility]LE CONSULTANT services for dysphagia management. Diet, Aspiration Precautions and Oral Hygiene Protocol provided in writing, as well. Medication Reconciliation Continued Medications: Aspirin (Ecotrin Low Strength) 81 Mg Tab 81 MG PO DAILY Atorvastatin (Lipitor) 80 Mg Tab 80 MG PO QPM, TAB Budesonide/Formoterol Fumarate (Symbicort 160/4.5 Inhaler ) Aero 2 PUFFS INH BID, INHALER Cyanocobalamin (B-12) 500 Mcg Tab 1000 MCG PO QAM Ferrous Sulfate (Ferrous Sulfate) 325 Mg Tab 325 MGPE PO BID Folic Acid (Folic Acid) 1 Mg Tab 1 MG PO QAM Glipizide (Glucotrol) 10 Mg Tab 10 MG PO QAM, 3 Refills Ipratropium-Albuterol (Duoneb) 3 Ml Nebu 1 TREATMENT INH QID PRN for SOB/Wheezing, INHA Isosorbide Mononitrate (Isosorbide Mononitrate ER) 60 Mg Tabcr 60 MG PO QAM for 30 Days, TABS 1 Refill Lisinopril (Lisinopril) 20 Mg Tab 20 MG PO QAM Metformin Hcl (Glucophage) 1,000 Mg Tab 1000 MG PO BID, TAB Metoprolol Tartrate (Lopressor) (Lopressor) 50 Mg Tab 75 MG PO BID, TAB 1&1/2 tab dose Multivitamin (Multivitamin) Tab 1 TAB PO QAM CENTRUM Oxybutynin Chloride (Ditropan) 5 Mg Tab 5 MG PO AMPM, TAB Discontinued Medications: Glipizide (Glucotrol) 10 Mg Tab 5 MG PO QPM 1/2 TABLET DOSE Discharge Exam Physical Exam: General Appearance: no apparent distress Eyes: EOMI Neck: trachea midline Respiratory/Chest: no respiratory distress, no accessory muscle use 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 CAP but aspiration far more likely improving, finished course of levaquin big concern will be ongoing risk for recurrent aspiration - which likely will require ongoing modified diet and supervision (see speech notes above dysphagia -as above COPD with mild exacerbation Continue Duonebs, Symbicort, appearing stable, probably around baseline Hypomagnesemia: -outpt f/u level in ~1-2wks Normocytic, normochromic Anemia: At baseline would follow outpatient with iron studies/ 12/folate Elevated Alkphos f/u as outpt with above labs Diabetes -d/c home on home meds, except with degree of dementia will stop PM sulfonylurea to protect against lows. ongoign outpt f/u -- may need to reduce meds further slowly CAD continue Imdur, Aspirin, Statin, metoprolol, lisinopril dementia -seems to have fairly severe baseline dementia -concern on home situation given mental state, aspiration, etc - will need 24/7 supervision -ongoing PCP f/u DVT proph: Lovenox utilized during his stay stable for home as above PCP f/u in short order home speech set up Total Time Spent: Greater than 30 minutes This includes examination of the patient, discharge planning, medication reconciliation, and communication with other providers. Discharge Instructions Please refer to the electronic Patient Visit Report (Discharge Instructions) for additional information.
[2017-05-05] MEDS ORDERED: FLV1 PO (00:37)
[2017-05-05] MEDS ORDERED: ASPI-428 PO (00:39)
[2017-05-05] MEDS ORDERED: METO50TA16 PO (01:22)
[2017-05-05] MEDS ORDERED: CYAN1TAB4 PO (01:23)
[2017-05-05] MEDS ORDERED: FERR325T5 PO (01:42)
[2017-05-05] MEDS ORDERED: METF-384 PO (01:45)
[2017-05-05] MEDS ORDERED: IPRASOL4 INH (01:46)
[2017-05-05] MEDS ORDERED: DTR/5 PO (01:48)
[2017-05-05] MEDS ORDERED: LSN20 PO (01:48)
[2017-05-05] MEDS ORDERED: ATOR-26 PO (01:51)
[2017-05-05] MEDS ORDERED: GLIP10TA3 PO (01:51)
[2017-05-05] MEDS ORDERED: SYMIN160 INH (01:52)
[2017-05-07] MEDS ORDERED: AMOX1TAB43 PO ×2 (10:33→16:19)
[2017-05-07] MEDS ORDERED: METH4PAK PO ×2 (10:34→16:19)
[2017-07-06] MEDS ORDERED: AMOX1TAB43 PO (11:23)
== END 2016-12-03 18:53 | disposition home or self-care (01) | DRG 190 ==
LOC: ENRESERVTM → ENRESERVDT → EDBD 00:54 → C.EDB 00:54 → C.2T 03:44 → EDBEDREQ 03:48 → C.MS4W 11-30 09:57
PROVIDERS: ADMIT Student in an Organized Health Care Education/Training Program; ATTEND Family Medicine
DX: J44.0 Chronic obstructive pulmonary disease with (acute) lower respiratory infection (principal); J69.0 Pneumonitis due to inhalation of food and vomit; J44.1 Chronic obstructive pulmonary disease with (acute) exacerbation; E11.649 Type 2 diabetes mellitus with hypoglycemia without coma; I25.10 Atherosclerotic heart disease of native coronary artery without angina pectoris; E83.42 Hypomagnesemia; F03.90 Unspecified dementia, unspecified severity, without behavioral disturbance, psychotic disturbance, mood disturbance, and anxiety; E78.00 Pure hypercholesterolemia, unspecified; R41.82 Altered mental status, unspecified; R74.8 Abnormal levels of other serum enzymes; D64.9 Anemia, unspecified; N32.89 Other specified disorders of bladder; R13.10 Dysphagia, unspecified; I35.0 Nonrheumatic aortic (valve) stenosis; I10 Essential (primary) hypertension; Z95.2 Presence of prosthetic heart valve; I25.2 Old myocardial infarction; Z87.891 Personal history of nicotine dependence; Z95.5 Presence of coronary angioplasty implant and graft; Z79.82 Long term (current) use of aspirin; Z79.51 Long term (current) use of inhaled steroids; Z79.84 Long term (current) use of oral hypoglycemic drugs; Z79.899 Other long term (current) drug therapy

== ENCOUNTER 2017-03-04 11:53 | Emergency (ER) | payer OTHER ==
[~2017-03-04] VITALS: Ht 167.6 cm; Wt 62.6 kg
[~2017-03-04 11:53] MED LIST changes: -ALBUAER INH; -FERR325T51 PO; -GLIP10TA3 PO; -GUAI100L PO
[2017-03-04 12:10] VITALS: TEMP 36.8; Ht 167.6 cm; Wt 62.6 kg
[2017-03-04] MEDS ORDERED: SODIUM CHLORIDE 0.9% 1000ML 500 ML IV STA (12:33)
[2017-03-04 12:58] VITALS: O2SAT 95
--- NOTE | 2017-03-04 12:58 | DIAGNOSTIC IMAGING REPORT ---
CHEST ONE VIEW PORTABLE HISTORY:81 yearsMaleEVALUATE ALTERED MENTAL STATUS/WEAKNESS COMPARISON: Portable chest radiograph 11/29/2016. TECHNIQUE: Upright AP view of the chest. FINDINGS: Cardiac silhouette is upper limits of normal and unchanged. Prior median sternotomy. There is no pneumothorax or large pleural effusion. Minimal blunting of the right costophrenic angle suggests atelectasis. There is mild pulmonary vascular congestion with background coarsened reticular opacities, unchanged. The bones are grossly intact. IMPRESSION: Cardiomegaly with mild pulmonary vascular congestion and reticular opacities suggests mild pulmonary edema or chronic parenchymal changes. The above report was generated using voice recognition software. It may contain grammatical, syntax or spelling errors. Electronically signed by: Ryan Moffett 03/04/2017 12:57 PM Dictated Date/Time: 03/04/2017 12:55 PM
[2017-03-04 13:16] LABS: BASO % 0.5 %; BASO ABS # 0.03 K/uL (0-0.2); COMPLETE YES; EOS % 4.3 %; HEMATOCRIT 36.1 % (42-52); IG% 0.5 %; LYMPH % 11.1 %; MEAN CELL VOLUME 92.8 fL (80-100); MEAN CORPUSCULAR HEMOGLOBIN 29.8 pg (25-34); MEAN CORPUSCULAR HGB CONC 32.1 g/dl (32-36); MEAN PLATELET VOLUME 9.9 fL (7.4-10.4); MONO % 8.1 %; NEUT % 75.5 %; PLATELET COUNT 247 K/uL (130-400); RED BLOOD COUNT 3.89 M/uL (4.7-6.1); WHITE BLOOD COUNT 6.32 K/uL (4.8-10.8)
[2017-03-04 13:18] LABS: URINE APPEARANCE CLEAR (CLEAR); URINE BILIRUBIN NEG (NEG); URINE COLOR YELLOW; URINE EPITHELIAL CELL AUTO 0-5 /lpf (0-5); URINE NITRITE NEG (NEG); URINE SPECIFIC GRAVITY 1.012 (1.000-1.030); UROBILINOGEN NEG (NEG); ZZUR CULT IF INDIC CLEAN CATCH NO
[2017-03-04 13:19] LABS: MANUAL MICROSCOPIC REQUIRED? NO; REVIEW REQ? NO
[2017-03-04 13:36] LABS: ALT/SGPT 30 U/L (12-78); BLOOD UREA NITROGEN 22 mg/dl (7-18); BUN/CREATININE RATIO 18.7 (10-20); CALCIUM 9.2 mg/dl (8.5-10.1); CARBON DIOXIDE 25 mmol/L (21-32); CHLORIDE 108 mmol/L (98-107); GLUCOSE 142 mg/dl (70-99); POTASSIUM 4.3 mmol/L (3.5-5.1); SODIUM 141 mmol/L (136-145)
[2017-03-04 13:47] LABS: ALKALINE PHOSPHATASE 183 U/L (45-117); AST/SGOT 18 U/L (15-37); THYROID STIMULATING HORMONE 0.836 uIu/ml (0.300-4.500)
--- NOTE | 2017-03-04 14:01 | EMERGENCY ROOM VISIT NOTE ---
History Report prepared by Bobbi: Vicente Marsh Under the Supervision of: Dr. Matt Maynard M.D. First contact with patient: 12:26 Chief Complaint: LETHARGIC Stated Complaint: lethagy Nursing Triage Summary: Family reporting patient to be lethargic this AM, noted improvement since then. History of Present Illness The patient is a 81 year old male who presents to the Emergency Room by EMS with complaints of an episode of shortness of breath occurring a few hours ago. Per family, the patient's caregiver reported that the patient had difficulty with shortness of breath which was resolved with use of a nebulizer. They state that the patient was reported to have been "unable to communicate" as well during that time. They state that upon arrival of EMS, the patient was able to communicate again and his shortness of breath had improved. The patient's family states that the patient appears to be at his mental baseline. They deny any fevers. They feel that the patient could possibly be dehydrated. The patient 's family denies any known falls. They note that the patient has a history of chronic cough. The patient is not on supplemental oxygen at home. HPI limited secondary to dementia. Source of History: family History Limited By: dementia Onset: A few hours ago Quality: other (shortness of breath) Timing: other (episode) Modifying Factors (Relieving): other (Nebulizer) Associated Symptoms: No fevers Review of Systems ROS limited secondary to dementia. Past Medical & Surgical Medical Problems: (1) Aortic valve stenosis (2) COPD (chronic obstructive pulmonary disease) (3) Diabetes mellitus (4) Elevated troponin (5) Heart disease (6) Hypertension (7) Hypoglycemia (8) Myocardial infarction (9) Unresponsive episode Family History FH: cancer FH: diabetes mellitus FH: heart disease FH: hypertension Social History Smoking Status: Unknown if Ever Smoked Alcohol Use: occasionally Drug Use: none Marital Status: Housing Status: lives with family Occupation Status: retired Current/Historical Medications Scheduled Aspirin (Ecotrin Low Strength), 81 MG PO DAILY Atorvastatin (Lipitor), 80 MG PO QPM Budesonide/Formoterol Fumarate (Symbicort 160/4.5 Inhaler ), 2 PUFFS INH BID Cyanocobalamin (B-12), 1,000 MCG PO QAM Ferrous Sulfate (Ferrous Sulfate), 325 MGPE PO BID Folic Acid (Folic Acid), 1 MG PO QAM Glipizide (Glucotrol), 10 MG PO QAM Isosorbide Mononitrate (Isosorbide Mononitrate ER), 60 MG PO QAM Lisinopril (Lisinopril), 20 MG PO QAM Metformin Hcl (Glucophage), 1,000 MG PO BID Metoprolol Tartrate (Lopressor) (Lopressor), 75 MG PO BID Multivitamin (Multivitamin), 1 TAB PO QAM Oxybutynin Chloride (Ditropan), 5 MG PO AMPM Scheduled PRN Ipratropium-Albuterol (Duoneb), 1 TREATMENT INH QID PRN for SOB/Wheezing Allergies Coded Allergies: No Known Allergies (Unverified , 11/29/16) Physical Exam Vital Signs Date Time Temp Pulse Resp B/P (MAP) Pulse Ox O2 Delivery O2 Flow Rate FiO2 03/04/17 15:28 65 18 182/70 96 03/04/17 14:38 66 22 200/74 96 Room Air 03/04/17 13:00 70 17 186/78 95 Room Air 03/04/17 12:58 95 Room Air 03/04/17 12:10 36.8 70 18 193/92 94 Room Air 03/04/17 12:07 71 Physical Exam GENERAL: Patient is in no acute distress. HEENT: No acute trauma, normocephalic atraumatic, mucous membranes dry, no nasal congestion, no scleral icterus. NECK: No stridor, no adenopathy, no meningismus, trachea is midline. LUNGS: Clear to auscultation bilaterally when listening anterior, no wheeze, no rhonchi, breath sounds equal. HEART: 2/6 systolic murmur with a regular rate and rhythm. ABDOMEN: Soft, nontender, bowel sounds positive, no hernias, no peritonitis. EXTREMITIES: No cyanosis or edema, full range of motion of all the joints without pain or difficulty, no signs for acute trauma. NEUROLOGIC: Awake and alert. Moving all extremities equally. Following simple commands. SKIN: No rash, no jaundice, no diaphoresis. Medical Decision & Procedures ER Provider Diagnostic Interpretation: Radiology results as stated below per my review and radiologist interpretation: HEAD CT NONCONTRAST Findings: The paranasal sinuses and mastoid air cells are clear. The calvarium and skull base are intact. The ventricles and sulci are within normal limits. There is no mass, hematoma, midline shift, or acute infarct. Impression: No acute intracranial abnormality. Electronically signed by: Will Light M.D. CHEST ONE VIEW PORTABLE FINDINGS: Cardiac silhouette is upper limits of normal and unchanged. Prior median sternotomy. There is no pneumothorax or large pleural effusion. Minimal blunting of the right costophrenic angle suggests atelectasis. There is mild pulmonary vascular congestion with background coarsened reticular opacities, unchanged. The bones are grossly intact. IMPRESSION: Cardiomegaly with mild pulmonary vascular congestion and reticular opacities suggests mild pulmonary edema or chronic parenchymal changes. The above report was generated using voice recognition software. It may contain grammatical, syntax or spelling errors. Electronically signed by: Ryan Moffett Laboratory Results 03/04/17 12:50 Red Blood Count 3.89, Mean Corpuscular Volume 92.8, Mean Corpuscular Hemoglobin 29.8, Mean Corpuscular Hemoglobin Concent 32.1, Mean Platelet Volume 9.9, Neutrophils (%) (Auto) 75.5, Lymphocytes (%) (Auto) 11.1, Monocytes (%) (Auto) 8.1, Eosinophils (%) (Auto) 4.3, Basophils (%) (Auto) 0.5, Neutrophils # (Auto) 4.78, Lymphocytes # (Auto) 0.70, Monocytes # (Auto) 0.51, Eosinophils # (Auto) 0.27, Basophils # (Auto) 0.03 03/04/17 12:50 Test 03/04/17 12:50 White Blood Count 6.32 K/uL (4.8-10.8) Red Blood Count 3.89 M/uL (4.7-6.1) Hemoglobin 11.6 g/dL (14.0-18.0) Hematocrit 36.1 % (42-52) Mean Corpuscular Volume 92.8 fL (80-100) Mean Corpuscular Hemoglobin 29.8 pg (25-34) Mean Corpuscular Hemoglobin Concent 32.1 g/dl (32-36) Platelet Count 247 K/uL (130-400) Mean Platelet Volume 9.9 fL (7.4-10.4) Neutrophils (%) (Auto) 75.5 % Lymphocytes (%) (Auto) 11.1 % Monocytes (%) (Auto) 8.1 % Eosinophils (%) (Auto) 4.3 % Basophils (%) (Auto) 0.5 % Neutrophils # (Auto) 4.78 K/uL (1.4-6.5) Lymphocytes # (Auto) 0.70 K/uL (1.2-3.4) Monocytes # (Auto) 0.51 K/uL (0.11-0.59) Eosinophils # (Auto) 0.27 K/uL (0-0.5) Basophils # (Auto) 0.03 K/uL (0-0.2) RDW Standard Deviation 47.0 fL (36.4-46.3) RDW Coefficient of Variation 13.8 % (11.5-14.5) Immature Granulocyte % (Auto) 0.5 % Immature Granulocyte # (Auto) 0.03 K/uL (0.00-0.02) Urine Color YELLOW Urine Appearance CLEAR (CLEAR) Urine pH 7.0 (4.5-7.5) Urine Specific [place] 1.012 (1.000-1.030) Urine Protein 2+ (NEG) Urine Glucose (UA) NEG (NEG) Urine Ketones NEG (NEG) Urine Occult Blood NEG (NEG) Urine Nitrite NEG (NEG) Urine Bilirubin NEG (NEG) Urine Urobilinogen NEG (NEG) Urine Leukocyte Esterase NEG (NEG) Urine WBC (Auto) 0 /hpf (0-5) Urine RBC (Auto) 0-4 /hpf (0-4) Urine Hyaline Casts (Auto) 0 /lpf (0-5) Urine Epithelial Cells (Auto) 0-5 /lpf (0-5) Urine Bacteria (Auto) NEG (NEG) Anion Gap 8.0 mmol/L (3-11) Est Creatinine Clear Calc Drug Dose 41.3 ml/min Estimated GFR () 64.4 Estimated GFR (Non- 55.6 BUN/Creatinine Ratio 18.7 (10-20) Calcium Level 9.2 mg/dl (8.5-10.1) Total Bilirubin 0.4 mg/dl (0.2-1) Aspartate Amino Transf (AST/SGOT) 18 U/L (15-37) Alanine Aminotransferase (ALT/SGPT) 30 U/L (12-78) Alkaline Phosphatase 183 U/L (45-117) Troponin I < 0.015 ng/ml (0-0.045) Total Protein 7.1 gm/dl (6.4-8.2) Albumin 3.5 gm/dl (3.4-5.0) Globulin 3.6 gm/dl (2.5-4.0) Albumin/Globulin Ratio 1.0 (0.9-2) Thyroid Stimulating Hormone (TSH) 0.836 uIu/ml (0.300-4.500) Laboratory results reviewed by me. Medications Administered Medications (Trade) Dose Ordered Sig/Caesar Route Start Time Stop Time Status Last Admin Dose Admin Sodium Chloride 500 ml @ 999 mls/hr Q31M STAT IV 03/04/17 12:33 03/04/17 13:03 DC 03/04/17 14:13 999 MLS/HR ECG Indication: SOB/dyspnea Rate (beats per minute): 69 Rhythm: normal sinus Findings: no acute ischemic change, no ectopy, other (Old septal infarct) ED Course 1227: The patient was evaluated in room A3. A complete history and physical exam was performed. 1233: Ordered Sodium Chloride 500 ml @ 999 mls/hr IV. 1425: Reevaluated the patient. Discussed results and discharge instructions: his family verbalized understanding and agreement. The patient is ready for discharge. Medical Decision The patient is a 81 year old male who presents to the ED with complaints of an episode of shortness of breath. Differential diagnoses considered include ICH, stroke, dehydration, infection, electrolyte imbalance, anemia, DC, pneumonia, and UTI. Blood Pressure Screening: Patient was found to have an elevated blood pressure and was referred to their primary doctor for recheck and further treatment. Medication Reconciliation: I attest that I have personally reviewed the patient' s current medication list. There is no leukocytosis or concerning anemia. No significant electrolyte abnormality or kidney failure, no hepatitis. Urinalysis does not show infection. Brain CT shows no acute bleed or mass effect. EKG shows a sinus rhythm, no acute ischemia. Cardiac enzyme testing 1 is not consistent with acute cardiac injury. Chest x-ray shows some chronic findings, no CHF, no obvious pneumonia. The patient appears to be in a euthyroid state. On exam, there are no focal neurologic deficits. The patient was given IV saline, his has done well. His mentation is back to baseline as per his family, he has no complaints, he is not febrile. The patient is being discharged to have his care continued as before. If he has a fever, more shortness breath or worsening mental status issues, he can be brought back for reassessment. At this point, the cause for the presentation is unclear. Impression Primary Impression: Change in mental status Additional Impression: Dehydration Scribe Attestation The scribe's documentation has been prepared under my direction and personally reviewed by me in its entirety. I confirm that the note above accurately reflects all work, treatment, procedures, and medical decision making performed by me. Departure Information Dispostion Home / Self-Care Referrals Kassy Purvis (PCP) Forms HOME CARE DOCUMENTATION FORM, IMPORTANT VISIT INFORMATION, WORK / SCHOOL INSTRUCTIONS Patient Instructions My [facility] Additional Instructions stay better hydrated return for worsening symptoms or fever see chuy meyer for a recheck this week testing today was all ok Problem Qualifiers
--- NOTE | 2017-03-04 14:04 | DIAGNOSTIC IMAGING REPORT ---
HEAD CT NONCONTRAST CT DOSE: 638.56 mGycm HISTORY: Mental status change EVALUATE ALTERED MENTAL STATUS/WEAKNESS TECHNIQUE: Multiaxial CT images of the head were performed without the use of intravenous contrast. Comparison: 11/29/2016 Findings: The paranasal sinuses and mastoid air cells are clear. The calvarium and skull base are intact. The ventricles and sulci are within normal limits. There is no mass, hematoma, midline shift, or acute infarct. Impression: No acute intracranial abnormality. Electronically signed by: Will Light M.D. 03/04/2017 2:02 PM Dictated Date/Time: 03/04/2017 1:53 PM
[2017-03-04 15:28] VITALS: BP 182/70; PULSE 65; O2SAT 96
[2017-05-05] MEDS ORDERED: FLV1 PO (00:37)
[2017-05-05] MEDS ORDERED: ASPI-428 PO (00:39)
[2017-05-05] MEDS ORDERED: METO50TA16 PO (01:22)
[2017-05-05] MEDS ORDERED: CYAN1TAB4 PO (01:23)
[2017-05-05] MEDS ORDERED: FERR325T5 PO (01:42)
[2017-05-05] MEDS ORDERED: METF-384 PO (01:45)
[2017-05-05] MEDS ORDERED: IPRASOL4 INH (01:46)
[2017-05-05] MEDS ORDERED: LSN20 PO (01:48)
[2017-05-05] MEDS ORDERED: OXYB5TAB74 PO (01:48)
[2017-05-05] MEDS ORDERED: ATOR-26 PO (01:51)
[2017-05-05] MEDS ORDERED: GLIP10TA3 PO (01:51)
[2017-05-05] MEDS ORDERED: SYMIN160 INH (01:52)
[2017-05-07] MEDS ORDERED: AMOX1TAB43 PO ×2 (10:33→16:19)
[2017-05-07] MEDS ORDERED: METH4PAK PO ×2 (10:34→16:19)
== END 2017-03-04 15:32 | disposition home or self-care (01) ==
LOC: EDBD 11:53 → C.EDA 11:53
DX: R41.82 Altered mental status, unspecified (principal); E86.0 Dehydration; I35.0 Nonrheumatic aortic (valve) stenosis; J44.9 Chronic obstructive pulmonary disease, unspecified; E11.9 Type 2 diabetes mellitus without complications; I10 Essential (primary) hypertension; I25.2 Old myocardial infarction; Z80.9 Family history of malignant neoplasm, unspecified; Z83.3 Family history of diabetes mellitus; Z82.49 Family history of ischemic heart disease and other diseases of the circulatory system; Z79.82 Long term (current) use of aspirin; Z79.899 Other long term (current) drug therapy

== ENCOUNTER 2017-05-05 15:42 | Inpatient (IN) | payer OTHER ==
[~2017-05-05] VITALS: Ht 167.6 cm; Wt 61.5 kg
[~2017-05-05 15:42] MED LIST changes: +ASPI-428 PO; +ATOR-26 PO; +CYAN1TAB4 PO; +FERR325T5 PO; +FLV1 PO; +GLIP10TA3 PO; +IPRASOL4 INH; +LSN20 PO; +METF-384 PO; +METO50TA16 PO; +OXYB5TAB74 PO; +SYMIN160 INH
[2017-05-05] MEDS ORDERED: METHYLPREDNISOLONE 125 MG VIAL IV STA (15:54)
[2017-05-05] MEDS ORDERED: MAGNESIUM SULFATE 1GM / D5W 1 GM BAG IV STA (15:54)
[2017-05-05] MEDS ORDERED: ALBUT/IPRATROP 3MG/0.5MG NEB 3 ML VIAL INH ONE (16:00)
[2017-05-05 16:13] LABS: VEN BLOOD GAS BASE EXCESS 0.7 mEq/L; VENOUS BLOOD GAS PCO2 52 mmHg (38.0-50.0); VENOUS BLOOD GAS PO2 28 mmHg
[2017-05-05 16:18] VITALS: PULSE 70; O2SAT 94
[2017-05-05 16:19] LABS: BASO % 0.3 %; BASO ABS # 0.04 K/uL (0-0.2); COMPLETE YES; EOS % 4.5 %; HEMATOCRIT 32.4 % (42-52); IG% 0.6 %; LYMPH % 7.2 %; LYMPH ABS # 0.89 K/uL (1.2-3.4); MEAN CELL VOLUME 93.9 fL (80-100); MEAN CORPUSCULAR HEMOGLOBIN 31.6 pg (25-34); MEAN CORPUSCULAR HGB CONC 33.6 g/dl (32-36); MEAN PLATELET VOLUME 10.1 fL (7.4-10.4); MONO % 4.9 %; NEUT % 82.5 %; PLATELET COUNT 229 K/uL (130-400); RED BLOOD COUNT 3.45 M/uL (4.7-6.1); WHITE BLOOD COUNT 12.34 K/uL (4.8-10.8)
--- NOTE | 2017-05-05 16:19 | EMERGENCY ROOM VISIT NOTE ---
History Report prepared by Bobbi: Zheng Hercules Under the Supervision of: Dr. Jluis Lorenzo M.D. First contact with patient: 15:46 Chief Complaint: COUGH Stated Complaint: SYNCOPE/NAUSEA, VOMIT History of Present Illness The patient is a 82 year old male who presents to the Emergency Room with complaints of a constant cough since earlier today in the setting of worsening cough and congestion x 2 weeks. The patient additionally states that he is nauseous and vomiting. The patient states that he does not smoke or use chewing tobacco. He denies any abdominal pain. History limited 2/2 dementia. Source of History: patient Onset: earlier today Position: other (global) Quality: other (cough) Timing: constant Associated Symptoms: + nausea, + vomiting, No abdominal pain Review of Systems See HPI for pertinent positives and negatives. A total of ten systems were reviewed and were otherwise negative. Past Medical & Surgical Medical Problems: (1) Aortic valve stenosis (2) COPD (chronic obstructive pulmonary disease) (3) Diabetes mellitus (4) Elevated troponin (5) Heart disease (6) Hypertension (7) Hypoglycemia (8) Myocardial infarction (9) Unresponsive episode Family History FH: cancer FH: diabetes mellitus FH: heart disease FH: hypertension Social History Smoking Status: Unknown if Ever Smoked Alcohol Use: occasionally Drug Use: none Marital Status: Housing Status: lives with family Occupation Status: retired Current/Historical Medications Scheduled Aspirin (Ecotrin Low Strength), 81 MG PO DAILY Atorvastatin (Lipitor), 80 MG PO QPM Budesonide/Formoterol Fumarate (Symbicort 160/4.5 Inhaler ), 2 PUFFS INH BID Cyanocobalamin (B-12), 1,000 MCG PO QAM Ferrous Sulfate (Ferrous Sulfate), 325 MG PO BID Folic Acid (Folic Acid), 1 MG PO QAM Glipizide (Glucotrol), 10 MG PO QAM Glipizide (Glipizide), 5 MG PO QPM Isosorbide Mononitrate Ext Rel (Imdur Ext Rel), 60 MG PO QAM Lisinopril (Lisinopril), 20 MG PO QAM Metformin Hcl (Glucophage), 1,000 MG PO BID Metoprolol Tartrate (Lopressor) (Lopressor), 75 MG PO BID Multiple Vitamins W/ Minerals (Centrum), 1 TAB PO QAM Oxybutynin Chloride (Ditropan), 5 MG PO AMPM Scheduled PRN Guaifenesin (Guaifenesin), 10 ML PO UD PRN for Cough Ipratropium-Albuterol (Duoneb), 1 TREATMENT INH QID PRN for SOB/Wheezing Allergies Coded Allergies: No Known Allergies (Unverified , 11/29/16) Physical Exam Vital Signs Date Time Temp Pulse Resp B/P (MAP) Pulse Ox O2 Delivery O2 Flow Rate FiO2 05/05/17 18:26 86 20 180/80 97 Nasal Cannula 4.0 05/05/17 18:01 92 Nasal Cannula 4.0 05/05/17 17:39 88 19 161/70 98 05/05/17 17:13 81 22 208/86 100 Nebulizer 05/05/17 16:18 70 23 94 Room Air 05/05/17 16:06 Room Air 05/05/17 15:57 36.7 71 24 145/61 95 Room Air 05/05/17 15:50 74 Physical Exam GENERAL: Awake, alert, chronicaly ill appearing, in no distress HENT: Dy mucous membranes. Normocephalic, atraumatic. Oropharynx unremarkable. EYES: Normal conjunctiva. Sclera non-icteric. NECK: Supple. No nuchal rigidity. FROM. No JVD. RESPIRATORY: Diminished breath sounds at the bases with scattered wheezes. CARDIAC: Regular rate, normal rhythm. Extremities warm and well perfused. Pulses equal. ABDOMEN: Soft, non-distended. No tenderness to palpation. No rebound or guarding. No masses. RECTAL: Deferred. MUSCULOSKELETAL: Chest examination reveals no tenderness. The back is symmetrical on inspection without obvious abnormality. There is no CVA tenderness to palpation. No joint edema. LOWER EXTREMITIES: Calves are equal size bilaterally and non-tender. No edema. No discoloration. NEURO: Normal sensorium. No sensory or motor deficits noted. SKIN: No rash or jaundice noted. Medical Decision & Procedures ER Provider Diagnostic Interpretation: Radiology results as stated below per my review and radiologist interpretation: CHEST ONE VIEW PORTABLE CLINICAL HISTORY: Chest pain and shortness of breath. COMPARISON STUDY: Chest radiograph March 04, 2017. FINDINGS: There are median sternotomy wires. No pneumothorax or pleural effusion is present. There is no consolidation. Mild cardiomegaly is unchanged. There is pulmonary vascular congestion without overt pulmonary edema. IMPRESSION: No change in pulmonary vascular congestion. Electronically signed by: Alon Olsen M.D. 05/05/2017 4:32 PM Dictated Date/Time: 05/05/2017 4:29 PM US has a limited bedside ech done, and it was grossly normal LV and RH function. Laboratory Results 05/05/17 16:00 Red Blood Count 3.45, Mean Corpuscular Volume 93.9, Mean Corpuscular Hemoglobin 31.6, Mean Corpuscular Hemoglobin Concent 33.6, Mean Platelet Volume 10.1, Neutrophils (%) (Auto) 82.5, Lymphocytes (%) (Auto) 7.2, Monocytes (%) (Auto) 4.9, Eosinophils (%) (Auto) 4.5, Basophils (%) (Auto) 0.3, Neutrophils # (Auto) 10.18, Lymphocytes # (Auto) 0.89, Monocytes # (Auto) 0.60, Eosinophils # (Auto) 0.55, Basophils # (Auto) 0.04 05/05/17 16:00 Test 05/05/17 16:00 White Blood Count 12.34 K/uL (4.8-10.8) Red Blood Count 3.45 M/uL (4.7-6.1) Hemoglobin 10.9 g/dL (14.0-18.0) Hematocrit 32.4 % (42-52) Mean Corpuscular Volume 93.9 fL (80-100) Mean Corpuscular Hemoglobin 31.6 pg (25-34) Mean Corpuscular Hemoglobin Concent 33.6 g/dl (32-36) Platelet Count 229 K/uL (130-400) Mean Platelet Volume 10.1 fL (7.4-10.4) Neutrophils (%) (Auto) 82.5 % Lymphocytes (%) (Auto) 7.2 % Monocytes (%) (Auto) 4.9 % Eosinophils (%) (Auto) 4.5 % Basophils (%) (Auto) 0.3 % Neutrophils # (Auto) 10.18 K/uL (1.4-6.5) Lymphocytes # (Auto) 0.89 K/uL (1.2-3.4) Monocytes # (Auto) 0.60 K/uL (0.11-0.59) Eosinophils # (Auto) 0.55 K/uL (0-0.5) Basophils # (Auto) 0.04 K/uL (0-0.2) RDW Standard Deviation 47.3 fL (36.4-46.3) RDW Coefficient of Variation 13.9 % (11.5-14.5) Immature Granulocyte % (Auto) 0.6 % Immature Granulocyte # (Auto) 0.08 K/uL (0.00-0.02) Prothrombin Time 10.3 SECONDS (9.0-12.0) Prothromb Time International Ratio 1.0 (0.9-1.1) Activated Partial Thromboplast Time 24.3 SECONDS (21.0-31.0) Partial Thromboplastin Ratio 0.9 Venous Blood pH 7.34 (7.36-7.41) Venous Blood Partial Pressure CO2 52 mmHg (38.0-50.0) Venous Blood Partial Pressure O2 28 mmHg Venous Blood HCO3 27 mmol/L Venous Blood Oxygen Saturation < 60.0 % Venous Blood Base Excess 0.7 mEq/L Anion Gap 7.0 mmol/L (3-11) Est Creatinine Clear Calc Drug Dose 41.3 ml/min Estimated GFR () 64.0 Estimated GFR (Non- 55.2 BUN/Creatinine Ratio 26.5 (10-20) Calcium Level 9.2 mg/dl (8.5-10.1) Total Bilirubin 0.3 mg/dl (0.2-1) Direct Bilirubin < 0.1 mg/dl (0-0.2) Aspartate Amino Transf (AST/SGOT) 21 U/L (15-37) Alanine Aminotransferase (ALT/SGPT) 32 U/L (12-78) Alkaline Phosphatase 153 U/L (45-117) Troponin I < 0.015 ng/ml (0-0.045) Pro-B-Type Natriuretic Peptide 891 pg/ml (0-1800) Total Protein 7.3 gm/dl (6.4-8.2) Albumin 3.6 gm/dl (3.4-5.0) Lipase 238 U/L (73-393) Laboratory results reviewed by me Medications Administered Medications (Trade) Dose Ordered Sig/Caesar Route Start Time Stop Time Status Last Admin Dose Admin Albuterol/ Ipratropium (Duoneb) 12 ml ONE ONCE INH 05/05/17 16:00 05/05/17 16:01 DC 05/05/17 16:18 12 ML Methylprednisolone Sodium Succinate (Solu-Medrol IV) 125 mg NOW STAT IV 05/05/17 15:54 05/05/17 15:56 DC 05/05/17 16:10 125 MG Magnesium Sulfate (Magnesium Sulfate) 2 gm NOW STAT IV 05/05/17 15:54 05/05/17 15:56 DC 05/05/17 16:13 2 GM Azithromycin 500 mg/Dextrose 255 ml @ 125 mls/hr ONE ONCE IV 05/05/17 18:15 05/05/17 19:08 DC 05/05/17 18:27 125 MLS/HR Ondansetron HCl (Zofran Inj) 4 mg Q6H PRN IV 05/05/17 18:45 06/04/17 18:44 05/05/17 20:41 4 MG ECG Indication: vomiting, other (cough) Rate (beats per minute): 70 Rhythm: normal sinus Findings: other (normal intervals) Comparison ECG Date: 03/04/17 Change: no significant change ED Course 1546: The patient was evaluated in room A10. A complete history and physical exam was performed. 1554: Magnesium Sulfate 2gm IV, Solu-Medrol 125mg IV 1600: DuoNeb 12ml INH 1755: I reevaluated the patient, and he was 88% on room air. I discussed the treatment plan with the patient, and he was agreeable. He was only marginally improved with breathing treatments. 1815: Azithromycin 500mg/ Dextrose 255ml @ 125ml/hr IV 1820: Discussed the patient's case with Dr. Story, [facility] Hospitalist. The patient will be evaluated for further treatment and disposition. Medical Decision I reviewed the patient's past medical history, medications, and the nursing notes as described above. Differential Diagnoses include: COPD exacerbation, pneumonia, bronchitis, ACS, CHF, PE, gastritis, and pancreatitis. Patient is a 82-year-old gentleman with past medical history of dementia COPD, ACS who presents to emergency Department with persisting cough and congestion sputum production per history of present illness. On exam, patient has diffuse wheezing and diminished at the bases c/w COPD exacerbation. No JVD or lower extremity edema to suggest CHF at this time. Will treat with nebs and steroids and reassess. Will further r/o for possible pneumonia or ACS. Chest x-ray negative for pneumonia and otherwise shows stable vascular congestion without overt pulmonary edema. BNP within normal limits. Limited bedside echo shows grossly normal LV and RV function. Troponin negative. EKG unremarkable. The patient did have marginal improvement with nebs, therefore will add azithromycin for COPD exacerbation. Case discussed with medicine hospitalist who will admit the patient for further management. Medication Reconcilliation Current Medication List: was personally reviewed by me Blood Pressure Screening Patient's blood pressure: Elevated blood pressure Monitored by the hospitalist Consults Time Called: 1814 Consulting Physician: Dr. Story Returned Call: [phone] Discussed the patient's case with Dr. Story, [facility] Hospitalist. The patient will be evaluated for further treatment and disposition. Impression Primary Impression: COPD exacerbation Scribe Attestation The scribe's documentation has been prepared under my direction and personally reviewed by me in its entirety. I confirm that the note above accurately reflects all work, treatment, procedures, and medical decision making performed by me. Departure Information Dispostion Being Evaluated By Hospitalist Referrals Kassy Purvis (PCP) Patient Instructions My [facility]
[2017-05-05 16:24] LABS: VEN BLD GAS O2 SATURATION < 60.0 %
--- NOTE | 2017-05-05 16:33 | DIAGNOSTIC IMAGING REPORT ---
CHEST ONE VIEW PORTABLE CLINICAL HISTORY: Chest pain and shortness of breath. COMPARISON STUDY: Chest radiograph March 04, 2017. FINDINGS: There are median sternotomy wires. No pneumothorax or pleural effusion is present. There is no consolidation. Mild cardiomegaly is unchanged. There is pulmonary vascular congestion without overt pulmonary edema. IMPRESSION: No change in pulmonary vascular congestion. Electronically signed by: Alon Olsen M.D. 05/05/2017 4:32 PM Dictated Date/Time: 05/05/2017 4:29 PM
[2017-05-05 16:39] LABS: ALT/SGPT 32 U/L (12-78); AST/SGOT 21 U/L (15-37); BLOOD UREA NITROGEN 32 mg/dl (7-18); BUN/CREATININE RATIO 26.5 (10-20); CALCIUM 9.2 mg/dl (8.5-10.1); CARBON DIOXIDE 27 mmol/L (21-32); CHLORIDE 110 mmol/L (98-107); GLUCOSE 97 mg/dl (70-99); POTASSIUM 4.5 mmol/L (3.5-5.1); SODIUM 144 mmol/L (136-145)
[2017-05-05 16:44] LABS: ALKALINE PHOSPHATASE 153 U/L (45-117)
[2017-05-05] MEDS ORDERED: GLIP10TA10 PO (16:48)
[2017-05-05] MEDS ORDERED: GUAI100S16 PO (16:49)
[2017-05-05] MEDS ORDERED: MULTTAB5 PO (16:49)
[2017-05-05] MEDS ORDERED: ISOS60TA25 PO (16:49)
[2017-05-05] MEDS ORDERED: AZITHROMYCIN IV 500 MG in DEXTROSE 5% 250ML 250 ML IV ONE (18:15)
[2017-05-05] MEDS ORDERED: MAGNESIUM HYDROXIDE SUSP 30 ML UDC PO PRN (18:45)
[2017-05-05] MEDS ORDERED: POLYETHYLENE (MIRALAX) 17 GM PACK PO PRN (18:45)
[2017-05-05] MEDS ORDERED: ACETAMINOPHEN 325 MG TAB PO PRN (18:45)
[2017-05-05] MEDS ORDERED: ALUMINUM/MAGNESIUM/SIMETH (MAALOX MAX) 30 ML UDC PO PRN (18:45)
[2017-05-05] MEDS ORDERED: ONDANSETRON INJ 2 MG/ML 2 ML VIAL IV PRN (18:45)
[2017-05-05] MEDS ORDERED: SODIUM CHLORIDE 0.9% 1000ML 1,000 ML IV ONE (19:15)
--- NOTE | 2017-05-05 19:15 | History and Physical ---
History & Physical Date & Time of Service: May 05, 2017 at 18:54 Chief Complaint: Syncope/Nausea, Vomit Primary Care Physician: Kassy Purvis History of Present Illness Source: patient, family (at bedside), clinic records, hospital records Patient is a pleasant 82 y/o male, with PMHx of COPD, T2DM, HTN, CAD s/p stent placement, mitral valve replacement, mild dementia, and chronic anemia, who presented to the ED because of excessive cough x1 day. Due to patient's dementia /difficulty w/ hearing, majority of history came from family present at bedside. Per family, they are the patient's primary caretakers, with caretakers who visit the house while they were working. While family was at work, they got a call from the caretakers who state patient was eating lunch when he started choking, coughing, and vomited x1. Since that time, patient has been coughing excessively, producing large amounts of phlegm, and worsening SOB. Patient has a known history of aspiration. He was last seen at [facility] in November with aspiration PNA. He was seen by speech therapy who recommended mechanical soft and nectar thick liquids- per family, he has been following this diet at home. Patient denies any fever, chills, sweats, lightheadedness, dizziness, vision changes, CP, palpitations, edema, wheezing, abdominal pain, nausea, diarrhea, urinary symptoms, melena, numbness/tingling, weakness, muscle/joint pain, anxiety/depression, active bleeding, or new skin discoloration/changes. 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 Family History FH: cancer FH: diabetes mellitus FH: heart disease FH: hypertension Social History Smoking Status: Unknown if Ever Smoked Drug Use: none Marital Status: Housing status: lives alone Occupational Status: retired Immunizations History of Influenza Vaccine: Unknown Influenza Vaccine Date: May 23, 2011 History of Tetanus Vaccine?: Unknown History of Pneumococcal: Unknown History of Hepatitis B Vaccine: Unknown Multi-Drug Resistant Organisms History of MDRO: No Allergies Coded Allergies: No Known Allergies (Unverified , 11/29/16) Home Medications Scheduled Aspirin (Ecotrin Low Strength), 81 MG PO DAILY Atorvastatin (Lipitor), 80 MG PO QPM Budesonide/Formoterol Fumarate (Symbicort 160/4.5 Inhaler ), 2 PUFFS INH BID Cyanocobalamin (B-12), 1,000 MCG PO QAM Ferrous Sulfate (Ferrous Sulfate), 325 MG PO BID Folic Acid (Folic Acid), 1 MG PO QAM Glipizide (Glucotrol), 10 MG PO QAM Glipizide (Glipizide), 5 MG PO QPM Isosorbide Mononitrate Ext Rel (Imdur Ext Rel), 60 MG PO QAM Lisinopril (Lisinopril), 20 MG PO QAM Metformin Hcl (Glucophage), 1,000 MG PO BID Metoprolol Tartrate (Lopressor) (Lopressor), 75 MG PO BID Multiple Vitamins W/ Minerals (Centrum), 1 TAB PO QAM Oxybutynin Chloride (Ditropan), 5 MG PO AMPM Scheduled PRN Guaifenesin (Guaifenesin), 10 ML PO UD PRN for Cough Ipratropium-Albuterol (Duoneb), 1 TREATMENT INH QID PRN for SOB/Wheezing Physical Exam Vital Signs Date Time Temp Pulse Resp B/P (MAP) Pulse Ox O2 Delivery O2 Flow Rate FiO2 05/05/17 18:26 86 20 180/80 97 Nasal Cannula 4.0 05/05/17 18:01 92 Nasal Cannula 4.0 05/05/17 17:39 88 19 161/70 98 05/05/17 17:13 81 22 208/86 100 Nebulizer 05/05/17 16:18 70 23 94 Room Air 05/05/17 16:06 Room Air 05/05/17 15:57 36.7 71 24 145/61 95 Room Air 05/05/17 15:50 74 General Appearance: no apparent distress, + pertinent finding (frail appearing ) Head: normocephalic, atraumatic Eyes: normal inspection, PERRL ENT: + pertinent finding (hard of hearing ) Neck: supple Respiratory/Chest: no respiratory distress, no accessory muscle use, + decreased breath sounds Cardiovascular: regular rate, rhythm, + systolic murmur Abdomen/GI: normal bowel sounds, non tender, soft Back: normal inspection Extremities/Musculoskelatal: no calf tenderness, no pedal edema Neurologic/Psych: alert, normal mood/affect Skin: normal color, warm/dry, no rash Diagnostics Laboratory Results Results Past 24 Hours Test 05/05/17 16:00 Range/Units White Blood Count 12.34 4.8-10.8 K/uL Red Blood Count 3.45 4.7-6.1 M/uL Hemoglobin 10.9 14.0-18.0 g/dL Hematocrit 32.4 42-52 % Mean Corpuscular Volume 93.9 80-100 fL Mean Corpuscular Hemoglobin 31.6 25-34 pg Mean Corpuscular Hemoglobin Concent 33.6 32-36 g/dl Platelet Count 229 130-400 K/uL Mean Platelet Volume 10.1 7.4-10.4 fL Neutrophils (%) (Auto) 82.5 % Lymphocytes (%) (Auto) 7.2 % Monocytes (%) (Auto) 4.9 % Eosinophils (%) (Auto) 4.5 % Basophils (%) (Auto) 0.3 % Neutrophils # (Auto) 10.18 1.4-6.5 K/uL Lymphocytes # (Auto) 0.89 1.2-3.4 K/uL Monocytes # (Auto) 0.60 0.11-0.59 K/uL Eosinophils # (Auto) 0.55 0-0.5 K/uL Basophils # (Auto) 0.04 0-0.2 K/uL RDW Standard Deviation 47.3 36.4-46.3 fL RDW Coefficient of Variation 13.9 11.5-14.5 % Immature Granulocyte % (Auto) 0.6 % Immature Granulocyte # (Auto) 0.08 0.00-0.02 K/uL Venous Blood pH 7.34 7.36-7.41 Venous Blood Partial Pressure CO2 52 38.0-50.0 mmHg Venous Blood Partial Pressure O2 28 mmHg Venous Blood HCO3 27 mmol/L Venous Blood Oxygen Saturation < 60.0 % Venous Blood Base Excess 0.7 mEq/L Sodium Level 144 136-145 mmol/L Potassium Level 4.5 3.5-5.1 mmol/L Chloride Level 110 98-107 mmol/L Carbon Dioxide Level 27 21-32 mmol/L Anion Gap 7.0 3-11 mmol/L Blood Urea Nitrogen 32 7-18 mg/dl Creatinine 1.20 0.60-1.40 mg/dl Est Creatinine Clear Calc Drug Dose 41.3 ml/min Estimated GFR () 64.0 Estimated GFR (Non- 55.2 BUN/Creatinine Ratio 26.5 10-20 Random Glucose 97 70-99 mg/dl Calcium Level 9.2 8.5-10.1 mg/dl Total Bilirubin 0.3 0.2-1 mg/dl Direct Bilirubin < 0.1 0-0.2 mg/dl Aspartate Amino Transf (AST/SGOT) 21 15-37 U/L Alanine Aminotransferase (ALT/SGPT) 32 12-78 U/L Alkaline Phosphatase 153 45-117 U/L Troponin I < 0.015 0-0.045 ng/ml Pro-B-Type Natriuretic Peptide 891 0-1800 pg/ml Total Protein 7.3 6.4-8.2 gm/dl Albumin 3.6 3.4-5.0 gm/dl Lipase 238 73-393 U/L Diagnostic Radiology CHEST ONE VIEW PORTABLE CLINICAL HISTORY: Chest pain and shortness of breath. COMPARISON STUDY: Chest radiograph March 04, 2017. FINDINGS: There are median sternotomy wires. No pneumothorax or pleural effusion is present. There is no consolidation. Mild cardiomegaly is unchanged. There is pulmonary vascular congestion without overt pulmonary edema. IMPRESSION: No change in pulmonary vascular congestion. Electronically signed by: Alon Olsen M.D. 05/05/2017 4:32 PM Dictated Date/Time: 05/05/2017 4:29 PM The status of this report is Signed. Draft = Not yet reviewed or approved by Radiologist. Signed = Reviewed and approved by Radiologist. EKG HIGINIO PANDYA ID:[id number] 05-MAY-2017 15:50:41 [facility] sinus rhythm Poor R wave progression, consider anterior [place] vs. lead placement vs. LVH Abnormal ECG When compared with ECG of 04-MAR-2017 12:56, Confirmed by Leo Giraldo ([id number]) on 05/05/2017 5:24:50 PM 25mm/s 10mm/mV 150Hz 8.0 SP2 12SL 241 BRANDI: 10 Referred by: ED Confirmed By: Leo Hernandez. rate 70 BPM [place] interval 158 ms QRS duration 78 ms QT/QTc 402/434 ms P-R-T axes -7 3 72 1935 (82 yr) Male Room: Loc:15 Oracle Database Developer:Verónica Nugent ind: Impression Assessment and Plan Patient is a pleasant 82 y/o male, with PMHx of COPD, T2DM, HTN, CAD s/p stent placement, mitral valve replacement, mild dementia, who presented to the ED because of excessive cough x1 day. Acute on chronic COPD exacerbation, ?secondary to aspiration: - Admit to med/surg - O2 protocol, wean as tolerated- does NOT wear O2 supplement at home - DuoNeb QID and PRN SOB/wheezing - IV Solu Medrol 125 mg given in ED; IV Solu Medrol 60 mg daily w/ taper - Continue Symbicort - Given Azithromycin 500 mg x1 in ED; start Augmentin 875 mg BID to cover aspiration PNA - Sputum culture and MRSA nasal swab pending - Speech therapy consultation - Follow CBC and PRP CAD s/p stent, mitral valve replacement, HDL: ASA 81 mg daily, Imdur 60 daily, Lopressor 75 mg BID, Lipitor 80 mg HS T2DM: - Hold Glipizide and Metformin - BSG ACHS and sliding insulin scale HTN: - Lisinopril 20 mg daily - Hydralazine 10 mg IV PRN sbp >180 or dbp >100 Chronic anemia- STABLE: Continue b12/folate and iron supplement Urinary incontinence: Oxybutynin 5 mg BID GI prophylaxis: Protonix 40 mg daily DVT prophylaxis: Heparin SQ BID Code Status: LEVEL III, FULL NO MECH VENTILATION Dispo: From home, lives w/ family, has caretakers- social work nurse consulted Level of Care Med/Surg Resuscitation Status FULL NO MECH VENTILATION VTE Prophylaxis VTE Risk Assessment Done? Y/N: Yes Risk Level: Moderate Given or contraindicated: Unfractionated heparin SQ, T.E.D. Stockings, SCD's Reviewed: Pt Seen/Exam by Me History Pt brought to ED by family. Apparently he started choking with lunch and then had an ongoing cough that lead to emesis in which they noted pieces of food. Pt with hx of aspiration PNA in November. Was d/c'd with nectar think/mech soft diet which family states he is compliant with and was not straying from this today when choking event occurred. Pt denies current SOB. He is still somewhat nauseated and holding an emesis bag. Agree with HPI/ROS as noted. General Appearance: WD/WN, no apparent distress Respiratory: normal breath sounds, no respiratory distress Cardiovascular: normal peripheral pulses, regular rate, rhythm Gastrointestinal: non tender, soft Neurologic/Psychiatric: alert (answers some questions, follows basic commands) Skin Characteristics: normal color, warm/dry Assessment/Plan Agree with plan as outlined above Pt with cough and emesis with food Recent asp PNA, concern for same CXR neg, but would not expect to see asp PNA for 48 hours on XR Augmentin PO Mildly elevated WBC Hx of COPD, no wheezing noted but is s/p nebs/steroids Continue Speech eval pending
[2017-05-05] MEDS ORDERED: HydrALAZINE HCL 20 MG/ML VIAL IV. PRN (19:30)
[2017-05-05 20:00] VITALS: BP_SYST 179; BP_SYST 189; BP_DIAS 74; BP_DIAS 79; PULSE 86; TEMP 36.8; O2SAT 94; Ht 167.6 cm; Wt 61.5 kg
[2017-05-05 20:03] LABS: PARTIAL THROMBOPLASTIN RATIO 0.9; PROTHROMBIN TIME (PATIENT) 10.3 SECONDS (9.0-12.0)
[2017-05-05 21:00] VITALS: PULSE 75; O2SAT 96
[2017-05-05] MEDS: ALBUT/IPRATROP 3MG/0.5MG NEB 3 ML VIAL INH SCH (21:00)
[2017-05-05] MEDS: BUDESONIDE/FORMOTEROL FUMARATE 160/4.5 60 PUFFS/INHALER INH SCH (21:30)
[2017-05-05] MEDS: METOPROLOL TARTRATE 50 MG TAB PO SCH (21:31)
[2017-05-05] MEDS: ATORVASTATIN 40 MG TAB PO SCH (21:32)
[2017-05-05] MEDS: FERROUS SULFATE 325 MG TAB PO SCH (21:32)
[2017-05-05] MEDS: OXYBUTYNIN CHLORIDE 5 MG TAB PO SCH (21:32)
[2017-05-05] MEDS: HEPARIN SOD 5000 UNIT/0.5 ML CARP SQ SCH (21:34)
[2017-05-05] MEDS: INSULIN ASPART 100 UNITS/ML 3 ML PEN SC SCH (21:49)
[2017-05-05 23:38] VITALS: BP 139/61; PULSE 85; TEMP 36.6; O2SAT 96
[2017-05-06] VITALS (8 sets, daily range): BP systolic 146–161; BP diastolic 63–67; PULSE 69–80; TEMP 36.4–36.6; O2SAT 91–99
[2017-05-06] MEDS: ALBUT/IPRATROP 3MG/0.5MG NEB 3 ML VIAL INH SCH ×4 (07:09→19:07)
[2017-05-06 07:40] LABS: HEMATOCRIT 30.9 % (42-52); MEAN CELL VOLUME 93.9 fL (80-100); MEAN CORPUSCULAR HEMOGLOBIN 30.4 pg (25-34); MEAN CORPUSCULAR HGB CONC 32.4 g/dl (32-36); MEAN PLATELET VOLUME 10.3 fL (7.4-10.4); PLATELET COUNT 216 K/uL (130-400); RED BLOOD COUNT 3.29 M/uL (4.7-6.1); WHITE BLOOD COUNT 16.23 K/uL (4.8-10.8)
[2017-05-06] MEDS ORDERED: LISINOPRIL 20 MG TAB PO SCH (08:00)
[2017-05-06 08:13] LABS: CALCIUM 8.8 mg/dl (8.5-10.1); CREATININE 1.5 mg/dl (0.60-1.40); POTASSIUM 4.1 mmol/L (3.5-5.1)
[2017-05-06] MEDS: INSULIN ASPART 100 UNITS/ML 3 ML PEN SC SCH ×4 (08:34→21:22)
[2017-05-06] MEDS: HEPARIN SOD 5000 UNIT/0.5 ML CARP SQ SCH ×2 (08:35→21:20)
[2017-05-06] MEDS: BUDESONIDE/FORMOTEROL FUMARATE 160/4.5 60 PUFFS/INHALER INH SCH ×2 (08:36→19:37)
[2017-05-06] MEDS: METHYLPREDNISOLONE IV 60 MG in SYRINGE 0 ML IV SCH (08:37)
[2017-05-06] MEDS: AMOXICILLIN/CLAVULANATE TAB 875 MG TAB PO SCH ×2 (08:39→18:39)
[2017-05-06] MEDS: OXYBUTYNIN CHLORIDE 5 MG TAB PO SCH ×2 (08:39→21:16)
[2017-05-06] MEDS: ISOSORBIDE MONONITRATE 60 MG TABCR PO SCH (08:40)
[2017-05-06] MEDS: FERROUS SULFATE 325 MG TAB PO SCH ×2 (08:40→21:16)
[2017-05-06] MEDS: ASPIRIN 81 MG ECTAB PO SCH (08:40)
[2017-05-06] MEDS: METOPROLOL TARTRATE 50 MG TAB PO SCH ×2 (08:41→19:38)
[2017-05-06] MEDS: CYANOCOBALAMIN 500 MCG TAB (VIT B-12) PO SCH (08:42)
[2017-05-06] MEDS: CEROVITE ADV FORMULA TAB PO SCH (08:42)
[2017-05-06] MEDS: PANTOprazole SOD 40 MG TAB PO SCH (08:42)
[2017-05-06] MEDS ORDERED: AZITHROMYCIN 250 MG TAB PO SCH (09:00)
--- NOTE | 2017-05-06 13:17 | DIAGNOSTIC IMAGING REPORT ---
VIDEO SWALLOW HISTORY: Aspiration. Stroke. TECHNIQUE: Video fluoroscopic evaluation of swallowing was performed in the AP and lateral projections by the speech pathology staff. The patient is fed nectar-thick and thin liquid barium, a barium coated wafer, and barium pudding. FLUOROSCOPY TIME: 2 minutes. NUMBER OF FLUOROSCOPY IMAGES: 0 COMPARISON STUDY: None. FINDINGS: The patient was administered thin liquid barium via a teaspoon. There was an episode of penetration as well as an episode of aspiration. The patient was then administered thin liquid barium via cup. There was penetration and vallecular residue aspiration. There was no aspiration when swallowing pudding or a cracker with paste. There is no aspiration when swallowing nectar thick liquids. There is mild disordered esophageal motility. IMPRESSION: 1. Aspiration of thin liquids was identified. 2. Please see the speech pathologist report for detailed findings and recommendations. Electronically signed by: Boby Jefferson M.D. 05/06/2017 1:16 PM Dictated Date/Time: 05/06/2017 1:14 PM
--- NOTE | 2017-05-06 15:41 | Progress Note ---
Subjective Date of Service: May 06, 2017. Subjective Pt evaluation today including: conversation w/ patient, physical exam, chart review, lab review, review of studies, review of inpatient medication list Resting comfortably in bed Poor historian States he is hungry No acute events overnight Problem List Medical Problems: (1) Altered mental status Status: Acute (2) Change in mental status Status: Acute (3) Change in mental status Status: Acute (4) COPD exacerbation Status: Acute (5) Dehydration Status: Acute (6) Hypoglycemia Status: Acute (7) Hypomagnesemia Status: Acute (8) Non-STEMI (non-ST elevated myocardial infarction) Status: Acute (9) Pneumonia Status: Acute Review of Systems Constitutional: No fever, No chills, No sweats, No weight loss ENT: + trouble swallowing, No hearing loss, No unusual epistaxis, No nasal symptoms, No sore throat Respiratory: No cough, No sputum, No wheezing, No shortness of breath, No dyspnea on exertion Cardiac: No chest pain, No orthopnea, No PND, No edema Abdomen: No pain, No nausea, No vomiting, No diarrhea, No constipation Musculoskeletal: No joint pain, No muscle pain, No swelling, No calf pain Male : No dysuria, No urinary frequency, No incontinence, No nocturia more than once/night Neurologic: No memory loss, No paralysis, No weakness, No numbness/tingling Psychiatric: No depression symptoms, No anhedonism, No anxiety, No insomnia Heme: No abnormal bleeding/bruising, No clotting problems Endo: No fatigue, No excessive thirst Skin: No rash, No itch Objective Vital Signs Date Time Temp Pulse Resp B/P (MAP) Pulse Ox O2 Delivery O2 Flow Rate FiO2 05/06/17 15:25 36.6 69 18 158/67 (97) 99 Room Air 05/06/17 11:10 80 16 93 Room Air 05/06/17 08:00 91 Room Air 05/06/17 07:23 36.4 74 20 146/66 (92) 99 Room Air 05/06/17 07:09 77 18 94 Room Air 05/06/17 00:05 Nasal Cannula 2.0 05/05/17 23:38 36.6 85 16 139/61 (87) 96 Nasal Cannula 2.0 05/05/17 21:00 75 18 96 Nasal Cannula 2.0 05/05/17 20:00 36.8 86 16 179/79 94 Nasal Cannula 3.0 189/74 05/05/17 19:22 85 20 169/73 99 Nasal Cannula 4.0 05/05/17 18:26 86 20 180/80 97 Nasal Cannula 4.0 05/05/17 18:01 92 Nasal Cannula 4.0 05/05/17 17:39 88 19 161/70 98 05/05/17 17:13 81 22 208/86 100 Nebulizer 05/05/17 16:18 70 23 94 Room Air 05/05/17 16:06 Room Air 05/05/17 15:57 36.7 71 24 145/61 95 Room Air 05/05/17 15:50 74 Physical Exam General Appearance: WD/WN, no apparent distress Eyes: normal inspection, PERRL, EOMI, sclerae normal ENT: normal ENT inspection, hearing grossly normal, TMs normal, pharynx normal Neck: supple, no adenopathy, thyroid normal, no JVD Respiratory/Chest: chest non-tender, lungs clear, normal breath sounds, no respiratory distress Cardiovascular: regular rate, rhythm, no edema, no gallop, no JVD Abdomen: normal bowel sounds, non tender, soft, no organomegaly Extremities: normal range of motion, non-tender, normal inspection, no pedal edema Neurologic/Psychiatric: no motor/sensory deficits, alert, normal mood/affect, + disoriented Laboratory Results Last 24 Hours Test 05/05/17 16:00 05/05/17 21:43 05/06/17 06:56 05/06/17 07:40 White Blood Count 12.34 K/uL 16.23 K/uL Red Blood Count 3.45 M/uL 3.29 M/uL Hemoglobin 10.9 g/dL 10.0 g/dL Hematocrit 32.4 % 30.9 % Mean Corpuscular Volume 93.9 fL 93.9 fL Mean Corpuscular Hemoglobin 31.6 pg 30.4 pg Mean Corpuscular Hemoglobin Concent 33.6 g/dl 32.4 g/dl Platelet Count 229 K/uL 216 K/uL Mean Platelet Volume 10.1 fL 10.3 fL Neutrophils (%) (Auto) 82.5 % Lymphocytes (%) (Auto) 7.2 % Monocytes (%) (Auto) 4.9 % Eosinophils (%) (Auto) 4.5 % Basophils (%) (Auto) 0.3 % Neutrophils # (Auto) 10.18 K/uL Lymphocytes # (Auto) 0.89 K/uL Monocytes # (Auto) 0.60 K/uL Eosinophils # (Auto) 0.55 K/uL Basophils # (Auto) 0.04 K/uL RDW Standard Deviation 47.3 fL 47.2 fL RDW Coefficient of Variation 13.9 % 13.7 % Immature Granulocyte % (Auto) 0.6 % Immature Granulocyte # (Auto) 0.08 K/uL Prothrombin Time 10.3 SECONDS Prothromb Time International Ratio 1.0 Activated Partial Thromboplast Time 24.3 SECONDS Partial Thromboplastin Ratio 0.9 Venous Blood pH 7.34 Venous Blood Partial Pressure CO2 52 mmHg Venous Blood Partial Pressure O2 28 mmHg Venous Blood HCO3 27 mmol/L Venous Blood Oxygen Saturation < 60.0 % Venous Blood Base Excess 0.7 mEq/L Sodium Level 144 mmol/L 141 mmol/L Potassium Level 4.5 mmol/L 4.1 mmol/L Chloride Level 110 mmol/L 109 mmol/L Carbon Dioxide Level 27 mmol/L 24 mmol/L Anion Gap 7.0 mmol/L 8.0 mmol/L Blood Urea Nitrogen 32 mg/dl 38 mg/dl Creatinine 1.20 mg/dl 1.50 mg/dl Est Creatinine Clear Calc Drug Dose 41.3 ml/min 31.9 ml/min Estimated GFR () 64.0 48.8 Estimated GFR (Non- 55.2 42.1 BUN/Creatinine Ratio 26.5 25.0 Random Glucose 97 mg/dl 222 mg/dl Calcium Level 9.2 mg/dl 8.8 mg/dl Total Bilirubin 0.3 mg/dl Direct Bilirubin < 0.1 mg/dl Aspartate Amino Transf (AST/SGOT) 21 U/L Alanine Aminotransferase (ALT/SGPT) 32 U/L Alkaline Phosphatase 153 U/L Troponin I < 0.015 ng/ml Pro-B-Type Natriuretic Peptide 891 pg/ml Total Protein 7.3 gm/dl Albumin 3.6 gm/dl Lipase 238 U/L Bedside Glucose 262 mg/dl 215 mg/dl Test 05/06/17 11:43 Bedside Glucose 216 mg/dl Assessment and Plan Patient is a pleasant 82 y/o male, with PMHx of COPD, T2DM, HTN, CAD s/p stent placement, mitral valve replacement, mild dementia, who presented to the ED because of excessive cough x1 day. Acute on chronic COPD exacerbation, ?secondary to aspiration: - Admit to med/surg, WBC elev from 12-->16 - O2 protocol, wean as tolerated- does NOT wear O2 supplement at home - DuoNeb QID and PRN SOB/wheezing - IV Solu Medrol 125 mg given in ED; IV Solu Medrol 60 mg daily w/ taper - Continue Symbicort - Given Azithromycin 500 mg x1 in ED; cont Augmentin 875 mg BID to cover aspiration PNA - Sputum culture and MRSA nasal swab pending - Speech therapy consultation, rec honey thick mechanical soft - Follow CBC and PRP AMBER likely related to dehydration, Cont IVF, hold lisinopril CAD s/p stent, mitral valve replacement, HDL: ASA 81 mg daily, Imdur 60 daily, Lopressor 75 mg BID, Lipitor 80 mg HS T2DM: - Hold Glipizide and Metformin - BSG ACHS and sliding insulin scale HTN: - Hold Lisinopril 20 mg daily - Hydralazine 10 mg IV PRN sbp >180 or dbp >100 Chronic anemia- STABLE: Continue b12/folate and iron supplement Urinary incontinence: Oxybutynin 5 mg BID GI prophylaxis: Protonix 40 mg daily DVT prophylaxis: Heparin SQ BID Code Status: LEVEL III, FULL NO MECH VENTILATION Dispo: From home, lives w/ family, has caretakers- pediatric social worker consulted
[2017-05-06] MEDS: ATORVASTATIN 40 MG TAB PO SCH (21:17)
[2017-05-07 00:47] VITALS: BP 160/73; PULSE 81; TEMP 36.6; O2SAT 92
[2017-05-07 07:22] VITALS: BP 164/71; PULSE 72; TEMP 36.7; O2SAT 90
[2017-05-07 07:43] LABS: HEMATOCRIT 30.3 % (42-52); MEAN CELL VOLUME 93.8 fL (80-100); MEAN CORPUSCULAR HEMOGLOBIN 29.7 pg (25-34); MEAN CORPUSCULAR HGB CONC 31.7 g/dl (32-36); MEAN PLATELET VOLUME 9.7 fL (7.4-10.4); PLATELET COUNT 201 K/uL (130-400); RED BLOOD COUNT 3.23 M/uL (4.7-6.1); WHITE BLOOD COUNT 11.91 K/uL (4.8-10.8)
[2017-05-07] MEDS: ALBUT/IPRATROP 3MG/0.5MG NEB 3 ML VIAL INH SCH ×3 (08:00→15:14)
[2017-05-07 08:23] LABS: BUN/CREATININE RATIO 24.7 (10-20); CALCIUM 9.1 mg/dl (8.5-10.1); CREATININE 1.5 mg/dl (0.60-1.40); POTASSIUM 3.9 mmol/L (3.5-5.1)
[2017-05-07] MEDS: BUDESONIDE/FORMOTEROL FUMARATE 160/4.5 60 PUFFS/INHALER INH SCH (08:28)
[2017-05-07] MEDS: METHYLPREDNISOLONE IV 60 MG in SYRINGE 0 ML IV SCH (08:28)
[2017-05-07] MEDS: OXYBUTYNIN CHLORIDE 5 MG TAB PO SCH (08:29)
[2017-05-07] MEDS: AMOXICILLIN/CLAVULANATE TAB 875 MG TAB PO SCH (08:29)
[2017-05-07] MEDS: FERROUS SULFATE 325 MG TAB PO SCH (08:29)
[2017-05-07] MEDS: METOPROLOL TARTRATE 50 MG TAB PO SCH (08:30)
[2017-05-07] MEDS: HEPARIN SOD 5000 UNIT/0.5 ML CARP SQ SCH (08:33)
[2017-05-07] MEDS: ASPIRIN 81 MG ECTAB PO SCH (10:23)
[2017-05-07] MEDS: CEROVITE ADV FORMULA TAB PO SCH (10:23)
[2017-05-07] MEDS: ISOSORBIDE MONONITRATE 60 MG TABCR PO SCH (10:23)
[2017-05-07] MEDS: PANTOprazole SOD 40 MG TAB PO SCH (10:24)
[2017-05-07] MEDS: INSULIN ASPART 100 UNITS/ML 3 ML PEN SC SCH ×2 (10:31→13:29)
[2017-05-07] MEDS ORDERED: AMOX1TAB43 PO ×2 (10:33→16:19)
[2017-05-07] MEDS ORDERED: METH4PAK PO ×2 (10:34→16:19)
--- NOTE | 2017-05-07 10:39 | Discharge Instructions ---
Discharge Instructions Date of Service May 07, 2017. Admission Reason for Admission: Copd Exacerbation Discharge Discharge Diagnosis / Problem: Aspiration pneumonia, copd exacerbation Discharge Goals Goal(s): Decrease discomfort, Improve function, Increase independence, Improve disease control, Improve nutritional status, Learn about illness, Diagnostic testing, Prevent Disease Progression Activity Recommendations Activity Limitations: resume your previous activity Exercise/Sports Limitations: as tolerated . Instructions / Follow-Up Instructions / Follow-Up Patient likely presented with aspiration pneumonia in addition to COPD exacerbation Prescriptions for antibiotic augmentin twice a day for 6 more days Please also take prednisone taper as directed for COPD exacerbation Prescriptions sent electronically to pharmacy. Speech-Language Pathologist recommendations: This patient presents with moderate oral-pharyngeal dysphagia and s/s esophageal dysfunction. The following is recommended: 1.MOIST mechanical soft; Continue NECTAR THICK LIQUIDS 2.Aspiration precautions: FULLY UPRIGHT for meals and for 15-30 minutes after meals; No straws; encourage throat clearing throughout meal 3.Pt will need STRINGENT oral hygiene to minimize bacteria he will aspirate in his own secretions/saliva and with pharyngeal residuals. Clean all surfaces of mouth PRIOR TO oral intake in the morning, after meals, and before going to bed for the night. This patient will be high risk for aspiration at all times due to the combination of age, dementia and COPD. There is no way to eliminate aspiration risk. Oral hygiene will be most helpful in minimizing risks associated with aspiration. Current Hospital Diet Patient's current hospital diet: AHA Diet (Heart Healthy), Diabetes Type 2 Diet Discharge Diet Recommended Diet: AHA Diet (Heart Healthy), Diabetes Type 2 Diet Liquid Consistency: [place] Thick Pending Studies Studies pending at discharge: no Medical Emergencies . Who to Call and When: Medical Emergencies: If at any time you feel your situation is an emergency, please call 911 immediately. . Non-Emergent Contact Non-Emergency issues call your: Primary Care Provider Call Non-Emergent contact if: you have a fever . . "Provider Documentation" section prepared by Armin Bean. . VTE Core Measure Inpt VTE Proph given/why not?: Unfractionated heparin RADHA, T.ERebecca Thurston, SCD 's
[2017-05-07] MEDS: CYANOCOBALAMIN 500 MCG TAB (VIT B-12) PO SCH (10:44)
[2017-05-07 11:14] VITALS: PULSE 76; O2SAT 90
[2017-05-07 11:34] VITALS: BP 173/74; PULSE 67; O2SAT 91
--- NOTE | 2017-05-07 12:56 | Discharge Summary ---
Discharge Summary Date of Service May 07, 2017. Discharge Summary Admission Date: May 05, 2017 at 18:53 Discharge Date: May 07, 2017 Discharge Disposition: Home Principal Diagnosis: COPD exacerbation, Aspiration pneumonia Immunizations: Have You Had Influenza Vaccine: Unknown Influenza Vaccine Date: May 23, 2011 History of Tetanus Vaccine?: Unknown History of Pneumococcal: Unknown History of Hepatitis B Vaccine: Unknown Medication Reconciliation New Medications: Methylprednisolone (Medrol Dosepak) 4 Mg Dontrell 0 PO DAILY, #1 PKT Amoxicillin & Pot Clavulanate (Amoxicillin/Clavulanate P) 1 Tab Tab 875 MG PO BIDM for 6 Days, #12 TAB Continued Medications: Aspirin (Ecotrin Low Strength) 81 Mg Tab 81 MG PO DAILY Atorvastatin (Lipitor) 80 Mg Tab 80 MG PO QPM, TAB Budesonide/Formoterol Fumarate (Symbicort 160/4.5 Inhaler ) Aero 2 PUFFS INH BID, INHALER Cyanocobalamin (B-12) 500 Mcg Tab 1000 MCG PO QAM Ferrous Sulfate (Ferrous Sulfate) 325 Mg Tab 325 MG PO BID Folic Acid (Folic Acid) 1 Mg Tab 1 MG PO QAM Glipizide (Glucotrol) 10 Mg Tab 10 MG PO QAM Glipizide (Glipizide) 10 Mg Tab 5 MG PO QPM Guaifenesin (Guaifenesin) 100 Mg/5 Ml Syp 10 ML PO UD PRN for Cough TAKE PER PACKAGE DIRECTIONS Ipratropium-Albuterol (Duoneb) 3 Ml Nebu 1 TREATMENT INH QID PRN for SOB/Wheezing, INHA Isosorbide Mononitrate Ext Rel (Imdur Ext Rel) 60 Mg Ertab 60 MG PO QAM, TAB Lisinopril (Lisinopril) 20 Mg Tab 20 MG PO QAM Metformin Hcl (Glucophage) 1,000 Mg Tab 1000 MG PO BID, TAB Metoprolol Tartrate (Lopressor) (Lopressor) 50 Mg Tab 75 MG PO BID, TAB 1&1/2 tab dose Multiple Vitamins W/ Minerals (Centrum) 1 Tab Tab 1 TAB PO QAM Oxybutynin Chloride (Ditropan) 5 Mg Tab 5 MG PO AMPM, TAB Discharge Exam Review of Systems: Constitutional: No fever, No chills ENT: No hearing loss, No unusual epistaxis, No nasal symptoms, No sore throat, No tinnitus Respiratory: No cough, No sputum, No wheezing, No shortness of breath Cardiovascular: No chest pain, No orthopnea, No PND Abdomen: No pain, No nausea, No vomiting, No diarrhea Musculoskeletal: No joint pain, No muscle pain, No swelling Genitourinary - Male: No hematuria, No dysuria, No urinary frequency, No urinary urgency Neurologic: No memory loss, No paralysis, No weakness, No numbness/tingling Psychiatric: No depression symptoms, No anhedonism, No anxiety, No insomnia Endocrine: No fatigue, No excessive thirst Integumentary: No rash, No itch Physical Exam: General Appearance: WD/WN, no apparent distress Eyes: normal inspection, PERRL, EOMI, sclerae normal Neck: supple, no adenopathy, thyroid normal, no JVD Respiratory/Chest: chest non-tender, lungs clear, normal breath sounds, no respiratory distress Cardiovascular: regular rate, rhythm, no edema, no gallop, no JVD Abdomen / GI: normal bowel sounds, non tender, soft, no organomegaly Extremities: normal inspection, no calf tenderness, normal capillary refill , no pedal edema Neurologic/Psychiatric: no motor/sensory deficits, alert, normal mood/affect , + disoriented Skin: normal color, warm/dry, no rash Lymphatic: no adenopathy Hospital Course Patient is a pleasant 82 y/o male, with PMHx of COPD, T2DM, HTN, CAD s/p stent placement, mitral valve replacement, mild dementia, who presented to the ED because of excessive cough x1 day. Acute on chronic COPD exacerbation, ?secondary to aspiration: - Admit to med/surg, WBC elev from 12-->16-->11 - O2 protocol, wean as tolerated- does NOT wear O2 supplement at home - DuoNeb QID and PRN SOB/wheezing - IV Solu Medrol 125 mg given in ED, steroid taper on DC - Continue Symbicort - Given Azithromycin 500 mg x1 in ED; cont Augmentin 875 mg BID to cover aspiration PNA, 6 more days of augmentin on DC - Sputum culture and MRSA nasal swab neg - Speech therapy consultation, rec honey thick mechanical soft AMBER likely related to dehydration, Cont IVF, hold lisinopril, cont on DC CAD s/p stent, mitral valve replacement, HDL: ASA 81 mg daily, Imdur 60 daily, Lopressor 75 mg BID, Lipitor 80 mg HS T2DM: - Hold Glipizide and Metformin - BSG ACHS and sliding insulin scale HTN: - Hold Lisinopril 20 mg daily, cont on DC - Hydralazine 10 mg IV PRN sbp >180 or dbp >100 Chronic anemia- STABLE: Continue b12/folate and iron supplement Urinary incontinence: Oxybutynin 5 mg BID GI prophylaxis: Protonix 40 mg daily DVT prophylaxis: Heparin SQ BID Code Status: LEVEL III, FULL NO MECH VENTILATION Dispo: From home, lives w/ family, has caretakers- drug abuse social worker consulted Total Time Spent: Greater than 30 minutes This includes examination of the patient, discharge planning, medication reconciliation, and communication with other providers. Discharge Instructions Please refer to the electronic Patient Visit Report (Discharge Instructions) for additional information. Additional Copies To Kassy Purvis
[2017-05-07 13:31] VITALS: BP 173/74; PULSE 67; TEMP 36.7; O2SAT 91
[2017-05-07 15:14] VITALS: PULSE 64; O2SAT 93
[2017-05-07] MEDS ORDERED: AMOXICILLIN/CLAVULANATE TAB 875 MG TAB PO SCH (16:15)
== END 2017-05-07 17:21 | disposition home or self-care (01) | DRG 178 ==
LOC: EDBD 15:42 → C.EDA 15:44 → C.4E 18:53 → ENRESERV 19:15
PROVIDERS: ADMIT Family Medicine; ATTEND Hospitalist
DX: J69.0 Pneumonitis due to inhalation of food and vomit (principal); N17.9 Acute kidney failure, unspecified; J44.1 Chronic obstructive pulmonary disease with (acute) exacerbation; R32 Unspecified urinary incontinence; E11.9 Type 2 diabetes mellitus without complications; I10 Essential (primary) hypertension; I25.10 Atherosclerotic heart disease of native coronary artery without angina pectoris; D64.9 Anemia, unspecified; F03.90 Unspecified dementia, unspecified severity, without behavioral disturbance, psychotic disturbance, mood disturbance, and anxiety; Z83.3 Family history of diabetes mellitus; Z79.82 Long term (current) use of aspirin; Z79.84 Long term (current) use of oral hypoglycemic drugs; Z79.899 Other long term (current) drug therapy; Z95.2 Presence of prosthetic heart valve; Z95.5 Presence of coronary angioplasty implant and graft

== ENCOUNTER → 2017-12-31 | Outpatient (CLI) | payer OTHER ==
[~2017-12-31] MED LIST changes: +AMOX1TAB43 PO; +DTR/5 PO; +GUAI100S66 PO; -ISOS-10 PO; +ISOS60TA25 PO; -MULT-506 PO; +MULTTAB5 PO; -OXYB5TAB74 PO
== END | disposition home or self-care (01) ==
LOC: C.LABWYN 10:35
PROVIDERS: ATTEND Physician Assistant
DX: N39.0 Urinary tract infection, site not specified (principal)

== ENCOUNTER 2018-01-07 12:09 | Inpatient (IN) | payer OTHER ==
[~2018-01-07] VITALS: Ht 167.6 cm; Wt 59.9 kg
[2018-01-07] MEDS ORDERED: SODIUM CHLORIDE 0.9% 1000ML 1,000 ML IV STA (12:29)
--- NOTE | 2018-01-07 13:00 | DIAGNOSTIC IMAGING REPORT ---
HEAD WITHOUT CONTRAST (CT) CLINICAL HISTORY: 82 years-old Male with EVALUATE WEAKNESS. Acute weakness with altered mental status TECHNIQUE: Multiple axial CT images of the head were obtained without contrast. A dose lowering technique was utilized adhering to the principles of ALARA. CT DOSE: 687.98 mGy.cm COMPARISON: CT head 07/03/2017. FINDINGS: No acute intracranial hemorrhage, midline shift, intracranial mass, hydrocephalus, territorial ischemia or abnormal extra-axial collection. Moderate atrophy with ex vacuo ventriculomegaly. Cerebral vascular calcifications are seen at the level of the skull base. Mild degree of ill-defined low-attenuation within the periventricular white matter suggests chronic microvascular ischemic changes. The calvarium is intact. The paranasal sinuses, mastoid air cells, and middle ear cavities are clear. Leftward bowing and spurring of the nasal septum. Evidence of prior bilateral cataract repair. IMPRESSION: No acute intracranial abnormality identified. The above report was generated using voice recognition software. It may contain grammatical, syntax or spelling errors. Electronically signed by: Ryan Moffett M.D. 01/07/2018 12:59 PM Dictated Date/Time: 01/07/2018 12:55 PM
--- NOTE | 2018-01-07 13:11 | DIAGNOSTIC IMAGING REPORT ---
CHEST ONE VIEW PORTABLE HISTORY: 82 years-old Male EVALUATE WEAKNESS acute weakness COMPARISON: Chest radiograph 07/04/2017 TECHNIQUE: Portable AP view of the chest FINDINGS: Cardiomediastinal and hilar silhouettes are within normal limits. There is no pneumothorax, pleural effusion, focal airspace consolidation or overt pulmonary edema. Prior median sternotomy. Atherosclerosis of the aorta. Degenerative changes of the shoulders and spine. IMPRESSION: No acute process. The above report was generated using voice recognition software. It may contain grammatical, syntax or spelling errors. Electronically signed by: Ryan Moffett M.D. 01/07/2018 1:10 PM Dictated Date/Time: 01/07/2018 1:09 PM
[2018-01-07] MEDS ORDERED: POLY1POW2 PO (13:30)
[2018-01-07] MEDS ORDERED: DONE10TA12 PO (13:30)
[2018-01-07] MEDS ORDERED: GLIP5TAB3 PO (13:30)
[2018-01-07] MEDS ORDERED: IPRA1AER2 INH (13:30)
[2018-01-07] MEDS ORDERED: CYAN10004 PO (13:30)
[2018-01-07 13:41] LABS: BASO % 0.5 %; BASO ABS # 0.04 K/uL (0-0.2); EOS % 2.3 %; HEMATOCRIT 34.2 % (42-52); HEMOGLOBIN 11.6 g/dL (14.0-18.0); IG# 0.06 K/uL (0.00-0.02); LYMPH % 13.9 %; LYMPH ABS # 1.19 K/uL (1.2-3.4); MEAN CELL VOLUME 90.7 fL (80-100); MEAN CORPUSCULAR HEMOGLOBIN 30.8 pg (25-34); MEAN CORPUSCULAR HGB CONC 33.9 g/dl (32-36); MEAN PLATELET VOLUME 9.5 fL (7.4-10.4); MONO % 6.2 %; MONO ABS # 0.53 K/uL (0.11-0.59); NEUT % 76.4 %; NEUT ABS # 6.52 K/uL (1.4-6.5); PLATELET COUNT 236 K/uL (130-400); RED CELL DISTRIBUTION WIDTH CV 13.2 % (11.5-14.5); RED CELL DISTRIBUTION WIDTH SD 43.4 fL (36.4-46.3); WHITE BLOOD COUNT 8.54 K/uL (4.8-10.8)
[2018-01-07 13:51] LABS: PTT PATIENT 23.5 SECONDS (21.0-31.0)
[2018-01-07 14:00] LABS: ALBUMIN 3.3 gm/dl (3.4-5.0); ALT/SGPT 22 U/L (12-78); AST/SGOT 13 U/L (15-37); BLOOD UREA NITROGEN 44 mg/dl (7-18); CALCIUM 8.9 mg/dl (8.5-10.1); CARBON DIOXIDE 26 mmol/L (21-32); CREATININE 1.37 mg/dl (0.60-1.40); GLUCOSE 117 mg/dl (70-99); LIPASE 157 U/L (73-393); POTASSIUM 4.2 mmol/L (3.5-5.1); SODIUM 143 mmol/L (136-145)
[2018-01-07 14:08] LABS: ALKALINE PHOSPHATASE 185 U/L (45-117); CKMB 1.1 ng/ml (0.5-3.6); TOTAL PROTEIN 7.2 gm/dl (6.4-8.2)
[2018-01-07] MEDS ORDERED: SODIUM CHLORIDE 0.9% 500ML 500 ML IV STA (14:10)
--- NOTE | 2018-01-07 14:11 | EMERGENCY ROOM VISIT NOTE ---
History Report prepared by Bobbi: Perez Mac Under the Supervision of: Dr. Ajay Neri M.D. First contact with patient: 12:22 Stated Complaint: AMS / [place] History of Present Illness The patient is an 82 year old male with a history of diabetes and hypertension who presents to the Emergency Room from the [facility] with persistent lack of responsiveness this morning. Per the nursing staff, the patient had a choking episode a couple days ago, and "now he does not respond". The nursing staff notes that "he looks like he is slowly dying". Per notes from the senior living, they want us to do a chest x-ray and evaluate for possible sepsis. History limited secondary to patient's unresponsiveness. Per the patient's notes , he is okay with antibiotics but does not want prolonged tube feedings. CPR is okay but he does not want to be on a ventilator. Source of History: nursing staff History Limited By: other (unresponsiveness) Onset: This morning Position: other (global) Symptom Intensity: "looks like slowly dying" Quality: other (lack of responsiveness) Timing: other (persistent) Note: Associated symptoms: Choking episode a couple days ago. Review of Systems ROS limited secondary to patient's unresponsiveness. Past Medical & Surgical Medical Problems: (1) Aortic valve stenosis (2) Aspiration pneumonia (3) COPD (chronic obstructive pulmonary disease) (4) Diabetes mellitus (5) Elevated troponin (6) Heart disease (7) Hypertension (8) Hypoglycemia (9) Myocardial infarction (10) Unresponsive episode Family History FH: cancer FH: diabetes mellitus FH: heart disease FH: hypertension Social History Smoking Status: Unknown if Ever Smoked Alcohol Use: occasionally Drug Use: none Marital Status: Housing Status: lives with family Occupation Status: retired Current/Historical Medications Scheduled Aspirin (Ecotrin Low Strength), 81 MG PO DAILY Atorvastatin (Lipitor), 80 MG PO QPM Budesonide/Formoterol Fumarate (Symbicort 160/4.5 Inhaler ), 2 PUFFS INH BID Cyanocobalamin (Vitamin B-12 1000 Mcg), 2,000 MCG PO DAILY Donepezil Hydrochloride (Aricept), 10 MG PO DAILY Ferrous Sulfate (Ferrous Sulfate), 325 MG PO BID Folic Acid (Folic Acid), 1 MG PO QAM Glipizide (Glucotrol), 5 MG PO BID Ipratropium-Albuterol (Duoneb), 1 TREATMENT INH QID Ipratropium-Albuterol (Combivent Respimat), 1 PUFFS INH BID Isosorbide Mononitrate Ext Rel (Imdur Ext Rel), 60 MG PO QAM Lisinopril (Lisinopril), 20 MG PO QAM Metformin Hcl (Glucophage), 1,000 MG PO BID Metoprolol Tartrate (Lopressor) (Lopressor), 75 MG PO BID Multiple Vitamins W/ Minerals (Centrum), 1 TAB PO QAM Oxybutynin Chloride (Ditropan), 5 MG PO AMPM Polyethylene Glycol 3350 (Bulk (Polyethylene Glycol 3350), 17 GM PO DAILY Scheduled PRN Guaifenesin (Guaifenesin), 10 ML PO UD PRN for Cough Allergies Coded Allergies: No Known Allergies (Unverified , 07/03/17) Physical Exam Vital Signs Date Time Temp Pulse Resp B/P (MAP) Pulse Ox O2 Delivery O2 Flow Rate FiO2 01/07/18 15:53 72 18 168/76 92 Room Air 01/07/18 15:10 91 Room Air 01/07/18 15:00 74 21 170/100 91 Room Air 01/07/18 14:30 76 20 179/80 91 Room Air 01/07/18 14:00 72 20 161/77 93 Room Air 01/07/18 13:39 73 16 162/75 Room Air 01/07/18 12:51 72 20 164/74 92 Room Air 01/07/18 12:44 69 01/07/18 12:11 93 Room Air 01/07/18 12:11 37.5 68 14 168/70 94 Room Air Physical Exam GENERAL: Grimaces to pain, minimally responsive, not following commands. HENT: Normocephalic, atraumatic. Oropharynx unremarkable. EYES: Normal conjunctiva. Sclera non-icteric. NECK: Supple. No nuchal rigidity. FROM. No masses. RESPIRATORY: Clear to auscultation. No wheezes. No rales. Normal respiratory effort. CARDIAC: Normal rate. Normal rhythm. No murmurs. No rubs. Extremities warm and well perfused. Pulses equal. No JVD. GI: Soft, non-distended. No tenderness to palpation. No rebound or guarding. No masses. RECTAL: Deferred. 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 Chest examination reveals no tenderness. The back is symmetrical on inspection without obvious abnormality. There is no CVA tenderness to palpation. No joint edema. LOWER EXTREMITIES: Calves are equal size bilaterally and non-tender. No edema. No discoloration. NEURO: Grimaces to pain, minimally responsive, not following commands. SKIN: No rash or jaundice noted. Medical Decision & Procedures ER Provider Diagnostic Interpretation: Radiology results as stated below per my review and radiologist interpretation: HEAD WITHOUT CONTRAST (CT) CLINICAL HISTORY: 82 years-old Male with EVALUATE WEAKNESS. Acute weakness with altered mental status TECHNIQUE: Multiple axial CT images of the head were obtained without contrast. A dose lowering technique was utilized adhering to the principles of ALARA. CT DOSE: 687.98 mGy.cm COMPARISON: CT head 07/03/2017. FINDINGS: No acute intracranial hemorrhage, midline shift, intracranial mass, hydrocephalus, territorial ischemia or abnormal extra-axial collection. Moderate atrophy with ex vacuo ventriculomegaly. Cerebral vascular calcifications are seen at the level of the skull base. Mild degree of ill-defined low-attenuation within the periventricular white matter suggests chronic microvascular ischemic changes. The calvarium is intact. The paranasal sinuses, mastoid air cells, and middle ear cavities are clear. Leftward bowing and spurring of the nasal septum. Evidence of prior bilateral cataract repair. IMPRESSION: No acute intracranial abnormality identified. The above report was generated using voice recognition software. It may contain grammatical, syntax or spelling errors. Electronically signed by: Ryan Moffett M.D. 01/07/2018 12:59 PM Dictated Date/Time: 01/07/2018 12:55 PM CHEST ONE VIEW PORTABLE HISTORY: 82 years-old Male EVALUATE WEAKNESS acute weakness COMPARISON: Chest radiograph 07/04/2017 TECHNIQUE: Portable AP view of the chest FINDINGS: Cardiomediastinal and hilar silhouettes are within normal limits. There is no pneumothorax, pleural effusion, focal airspace consolidation or overt pulmonary edema. Prior median sternotomy. Atherosclerosis of the aorta. Degenerative changes of the shoulders and spine. IMPRESSION: No acute process. The above report was generated using voice recognition software. It may contain grammatical, syntax or spelling errors. Electronically signed by: Ryan Moffett M.D. 01/07/2018 1:10 PM Dictated Date/Time: 01/07/2018 1:09 PM Laboratory Results 01/07/18 13:28 Red Blood Count 3.77, Mean Corpuscular Volume 90.7, Mean Corpuscular Hemoglobin 30.8, Mean Corpuscular Hemoglobin Concent 33.9, Mean Platelet Volume 9.5, Neutrophils (%) (Auto) 76.4, Lymphocytes (%) (Auto) 13.9, Monocytes (%) (Auto) 6.2, Eosinophils (%) (Auto) 2.3, Basophils (%) (Auto) 0.5, Neutrophils # (Auto) 6.52, Lymphocytes # (Auto) 1.19, Monocytes # (Auto) 0.53, Eosinophils # (Auto) 0.20, Basophils # (Auto) 0.04 01/07/18 13:28 Test 01/07/18 13:28 01/07/18 13:33 01/07/18 14:18 White Blood Count 8.54 K/uL (4.8-10.8) Red Blood Count 3.77 M/uL (4.7-6.1) Hemoglobin 11.6 g/dL (14.0-18.0) Hematocrit 34.2 % (42-52) Mean Corpuscular Volume 90.7 fL (80-100) Mean Corpuscular Hemoglobin 30.8 pg (25-34) Mean Corpuscular Hemoglobin Concent 33.9 g/dl (32-36) Platelet Count 236 K/uL (130-400) Mean Platelet Volume 9.5 fL (7.4-10.4) Neutrophils (%) (Auto) 76.4 % Lymphocytes (%) (Auto) 13.9 % Monocytes (%) (Auto) 6.2 % Eosinophils (%) (Auto) 2.3 % Basophils (%) (Auto) 0.5 % Neutrophils # (Auto) 6.52 K/uL (1.4-6.5) Lymphocytes # (Auto) 1.19 K/uL (1.2-3.4) Monocytes # (Auto) 0.53 K/uL (0.11-0.59) Eosinophils # (Auto) 0.20 K/uL (0-0.5) Basophils # (Auto) 0.04 K/uL (0-0.2) RDW Standard Deviation 43.4 fL (36.4-46.3) RDW Coefficient of Variation 13.2 % (11.5-14.5) Immature Granulocyte % (Auto) 0.7 % Immature Granulocyte # (Auto) 0.06 K/uL (0.00-0.02) Prothrombin Time 10.4 SECONDS (9.0-12.0) Prothromb Time International Ratio 1.0 (0.9-1.1) Activated Partial Thromboplast Time 23.5 SECONDS (21.0-31.0) Partial Thromboplastin Ratio 0.9 Anion Gap 7.0 mmol/L (3-11) Estimated GFR () 54.5 Estimated GFR (Non- 47.0 BUN/Creatinine Ratio 32.3 (10-20) Calcium Level 8.9 mg/dl (8.5-10.1) Magnesium Level 1.6 mg/dl (1.8-2.4) Total Bilirubin 0.5 mg/dl (0.2-1) Direct Bilirubin 0.1 mg/dl (0-0.2) Aspartate Amino Transf (AST/SGOT) 13 U/L (15-37) Alanine Aminotransferase (ALT/SGPT) 22 U/L (12-78) Alkaline Phosphatase 185 U/L (45-117) Total Creatine Kinase 44 U/L (39-308) Creatine Kinase MB 1.1 ng/ml (0.5-3.6) Creatine Kinase MB Ratio 2.5 (0-3.0) Troponin I < 0.015 ng/ml (0-0.045) Total Protein 7.2 gm/dl (6.4-8.2) Albumin 3.3 gm/dl (3.4-5.0) Lipase 157 U/L (73-393) Thyroid Stimulating Hormone (TSH) 0.735 uIu/ml (0.300-4.500) Bedside Lactic Acid Venous 1.01 mmol/L (0.90-1.70) Arterial Blood pH 7.44 (7.35-7.45) Arterial Blood Partial Pressure CO2 37 mmHg (35-46) Arterial Blood Partial Pressure O2 67 mm/Hg (80-95) Arterial Blood HCO3 25 mmol/L (19-24) Arterial Blood Oxygen Saturation 91.2 % (90-95) Arterial Blood Base Excess 0.9 mEq/L (-9-1.8) Arterial Blood Gas Delivery RA Ryan Test POS (POS) Ammonia 15.0 umol/L (11-32) Laboratory results reviewed by me Medications Administered Medications (Trade) Dose Ordered Sig/Caesar Route Start Time Stop Time Status Last Admin Dose Admin Sodium Chloride 1,000 ml @ 125 mls/hr Q8H STAT IV 01/07/18 12:29 01/07/18 18:39 DC 01/07/18 13:42 125 MLS/HR Sodium Chloride 500 ml @ 999 mls/hr Q31M STAT IV 01/07/18 14:10 01/07/18 14:40 DC 01/07/18 14:10 999 MLS/HR ECG Per My Interpretation Indication: other (unresponsiveness) Rate (beats per minute): 68 Rhythm: normal sinus Findings: no acute ischemic change, no ectopy ED Course 1222: The patient was evaluated in room A3. A limited history and physical exam was performed. 1229: NSS 1000 ml @ 125 mls/hr IV. 1400: The cath urine was done and the dip was unremarkable. 1458: Upon reexamination, the patient was more alert. I discussed the test results and treatment plan with him. The patient will be evaluated for further management. 1600: I discussed the patient with Dr. Garcia - [facility] [place] - he will evaluate the patient for further treatment. Medical Decision Prior records/ancillary studies reviewed and summarized above. Nursing notes reviewed and agree them. Additional history obtained from family.. The patient's history was concerning for altered mental status. Differential diagnosis: Etiologies such as infection, hypoglycemia, electrolyte abnormalities, cardiac sources, intracerebral event, toxicologic, neurologic, as well as others were entertained. Physical examination: As above. Awake but minimally responsive. Maintaining airway. ER treatment provided: IV Lock Normal saline hydration, 500 bolus and 125 an hour. On reassessment the patient felt better. He was more alert and responsive. Family still states he was not at baseline but was much improved Diagnostics interpretation by me: ECG: No acute ischemia or dysrhythmia. The labs revealed an unremarkable CBC and chemistry panel except for mild dehydration. Urine dip unremarkable. LFTs unremarkable. Ammonia was negative. ABG did not reveal hypercarbia. Cardiac markers negative. Imaging studies: CT scan of the head and chest x-ray as above The patient had some mild dehydration. He was altered. He did better after IV hydration but still family noted he was not at baseline. The exact etiology is not obvious at this time. Family did note that he had some medication changes recently. Further management in the hospital will be necessary. Consultation: A consultation was placed with the hospitalist. The case was discussed and diagnostics were reviewed. The patient was evaluated in the ER for further treatment. Medication Reconcilliation Current Medication List: was personally reviewed by me Blood Pressure Screening Patient's blood pressure: Elevated blood pressure Referred to hospitalist. Consults Time Called: 1500 Consulting Physician: Dr. Radha CALLOWAY electrical engineer Returned Call: 1600 I discussed the patient with Dr. Radha CALLOWAY electrical engineer - he will evaluate the patient for further treatment. Impression Primary Impression: Altered mental status Additional Impression: Dehydration Scribe Attestation The scribe's documentation has been prepared under my direction and personally reviewed by me in its entirety. I confirm that the note above accurately reflects all work, treatment, procedures, and medical decision making performed by me. Departure Information Dispostion Being Evaluated By Hospitalist Referrals BRITTANI YEBOAH (PCP) Problem Qualifiers
[2018-01-07 15:10] VITALS: O2SAT 91; BMI 21.5
[2018-01-07] MEDS ORDERED: MoRPHine SULFATE 4 MG/ML 1 ML CARP\\VIAL IV PRN (16:30)
[2018-01-07] MEDS ORDERED: ACETAMINOPHEN 325 MG TAB PO PRN (16:30)
[2018-01-07] MEDS ORDERED: ALUMINUM/MAGNESIUM/SIMETH (MAALOX MAX) 30 ML UDC PO PRN (16:30)
[2018-01-07] MEDS ORDERED: ONDANSETRON INJ 2 MG/ML 2 ML VIAL IV PRN (16:30)
[2018-01-07] MEDS ORDERED: MAGNESIUM HYDROXIDE SUSP 30 ML UDC PO PRN (16:30)
--- NOTE | 2018-01-07 16:52 | History and Physical ---
History & Physical Date & Time of Service: January 07, 2018 at 16:34 Chief Complaint: [facility] / [facility] Primary Care Physician: Kang Laughlin History of Present Illness Source: family, hospital records, other 82 y/o M advanced dementia, CAD, DM II, COPD, HTN, HPL. Pt resides at a [facility] and was found poorly responsive this AM. He was sent to the ER emergently and evaluated extensively by the attending physician. On initial evaluation, there is no evidence of sepsis or an acute neurological event. The pt was however noted to be severely dehydrated. Following 2L of IVF, he gradually regained awareness and is lethargic but responsive at the time of admission. He has not exhibited a fever or hypotension. The pt cannot contribute to the HPI. Family are present at bedside to confirm the preceding information. Past Medical/Surgical History 1) HTN 2) HPL 3) CAD - history of OH 4) COPD 5) DM II 6) Advanced dementia 7) Aortic stenosis Family History FH: cancer FH: diabetes mellitus FH: heart disease FH: hypertension Social History Care-dependent due to dementia, former smoker - does not drink Smoking Status: Former Smoker Drug Use: none Marital Status: Housing status: lives alone Occupational Status: retired Immunizations History of Influenza Vaccine: Unknown Influenza Vaccine Date: May 23, 2011 History of Tetanus Vaccine?: Unknown History of Pneumococcal: Unknown History of Hepatitis B Vaccine: Unknown Allergies Coded Allergies: No Known Allergies (Unverified , 07/03/17) Home Medications Scheduled Aspirin (Ecotrin Low Strength), 81 MG PO DAILY Atorvastatin (Lipitor), 80 MG PO QPM Budesonide/Formoterol Fumarate (Symbicort 160/4.5 Inhaler ), 2 PUFFS INH BID Cyanocobalamin (Vitamin B-12 1000 Mcg), 2,000 MCG PO DAILY Donepezil Hydrochloride (Aricept), 10 MG PO DAILY Ferrous Sulfate (Ferrous Sulfate), 325 MG PO BID Folic Acid (Folic Acid), 1 MG PO QAM Glipizide (Glucotrol), 5 MG PO BID Ipratropium-Albuterol (Duoneb), 1 TREATMENT INH QID Ipratropium-Albuterol (Combivent Respimat), 1 PUFFS INH BID Isosorbide Mononitrate Ext Rel (Imdur Ext Rel), 60 MG PO QAM Lisinopril (Lisinopril), 20 MG PO QAM Metformin Hcl (Glucophage), 1,000 MG PO BID Metoprolol Tartrate (Lopressor) (Lopressor), 75 MG PO BID Multiple Vitamins W/ Minerals (Centrum), 1 TAB PO QAM Oxybutynin Chloride (Ditropan), 5 MG PO AMPM Polyethylene Glycol 3350 (Bulk (Polyethylene Glycol 3350), 17 GM PO DAILY Scheduled PRN Guaifenesin (Guaifenesin), 10 ML PO UD PRN for Cough Review of Systems Cannot obtain ROS - pt brought in poorly responsive - no preceding illness is reported Physical Exam Vital Signs Date Time Temp Pulse Resp B/P (MAP) Pulse Ox O2 Delivery O2 Flow Rate FiO2 01/07/18 15:53 72 18 168/76 92 Room Air 01/07/18 15:10 91 Room Air 01/07/18 15:00 74 21 170/100 91 Room Air 01/07/18 14:30 76 20 179/80 91 Room Air 01/07/18 14:00 72 20 161/77 93 Room Air 01/07/18 13:39 73 16 162/75 Room Air 01/07/18 12:51 72 20 164/74 92 Room Air 01/07/18 12:44 69 01/07/18 12:11 93 Room Air 01/07/18 12:11 37.5 68 14 168/70 94 Room Air General Appearance: + pertinent finding (Lethargic, elderly male in no distress ) Head: normocephalic Eyes: normal inspection ENT: + pertinent finding (There is black disoloration of the tongue without thrush - mucosal membranes are dry) Neck: supple, no JVD Respiratory/Chest: chest non-tender, + pertinent finding (Limited exam due to poor resp effort - no wheezing - poor air movement) Cardiovascular: regular rate, rhythm, no edema, no gallop, + pertinent finding (Systolic murmur - mild) Abdomen/GI: normal bowel sounds, non tender, soft Back: normal inspection, no CVA tenderness Extremities/Musculoskelatal: normal inspection, no calf tenderness, no pedal edema Neurologic/Psych: + pertinent finding (Pt will not comply with a neuro exam - he is hard of hearing but can follow some simple commands - he does not exhibit any unilateral deficits - global weakness is present) Diagnostics Laboratory Results Results Past 24 Hours Test 01/07/18 13:28 01/07/18 13:33 01/07/18 14:18 Range/Units White Blood Count 8.54 4.8-10.8 K/uL Red Blood Count 3.77 4.7-6.1 M/uL Hemoglobin 11.6 14.0-18.0 g/dL Hematocrit 34.2 42-52 % Mean Corpuscular Volume 90.7 80-100 fL Mean Corpuscular Hemoglobin 30.8 25-34 pg Mean Corpuscular Hemoglobin Concent 33.9 32-36 g/dl Platelet Count 236 130-400 K/uL Mean Platelet Volume 9.5 7.4-10.4 fL Neutrophils (%) (Auto) 76.4 % Lymphocytes (%) (Auto) 13.9 % Monocytes (%) (Auto) 6.2 % Eosinophils (%) (Auto) 2.3 % Basophils (%) (Auto) 0.5 % Neutrophils # (Auto) 6.52 1.4-6.5 K/uL Lymphocytes # (Auto) 1.19 1.2-3.4 K/uL Monocytes # (Auto) 0.53 0.11-0.59 K/uL Eosinophils # (Auto) 0.20 0-0.5 K/uL Basophils # (Auto) 0.04 0-0.2 K/uL RDW Standard Deviation 43.4 36.4-46.3 fL RDW Coefficient of Variation 13.2 11.5-14.5 % Immature Granulocyte % (Auto) 0.7 % Immature Granulocyte # (Auto) 0.06 0.00-0.02 K/uL Prothrombin Time 10.4 9.0-12.0 SECONDS Prothromb Time International Ratio 1.0 0.9-1.1 Activated Partial Thromboplast Time 23.5 21.0-31.0 SECONDS Partial Thromboplastin Ratio 0.9 Sodium Level 143 136-145 mmol/L Potassium Level 4.2 3.5-5.1 mmol/L Chloride Level 110 98-107 mmol/L Carbon Dioxide Level 26 21-32 mmol/L Anion Gap 7.0 3-11 mmol/L Blood Urea Nitrogen 44 7-18 mg/dl Creatinine 1.37 0.60-1.40 mg/dl Estimated GFR () 54.5 Estimated GFR (Non- 47.0 BUN/Creatinine Ratio 32.3 10-20 Random Glucose 117 70-99 mg/dl Calcium Level 8.9 8.5-10.1 mg/dl Magnesium Level 1.6 1.8-2.4 mg/dl Total Bilirubin 0.5 0.2-1 mg/dl Direct Bilirubin 0.1 0-0.2 mg/dl Aspartate Amino Transf (AST/SGOT) 13 15-37 U/L Alanine Aminotransferase (ALT/SGPT) 22 12-78 U/L Alkaline Phosphatase 185 45-117 U/L Total Creatine Kinase 44 39-308 U/L Creatine Kinase MB 1.1 0.5-3.6 ng/ml Creatine Kinase MB Ratio 2.5 0-3.0 Troponin I < 0.015 0-0.045 ng/ml Total Protein 7.2 6.4-8.2 gm/dl Albumin 3.3 3.4-5.0 gm/dl Lipase 157 73-393 U/L Thyroid Stimulating Hormone (TSH) 0.735 0.300-4.500 uIu/ml Bedside Lactic Acid Venous 1.01 0.90-1.70 mmol/L Arterial Blood pH 7.44 7.35-7.45 Arterial Blood Partial Pressure CO2 37 35-46 mmHg Arterial Blood Partial Pressure O2 67 80-95 mm/Hg Arterial Blood HCO3 25 19-24 mmol/L Arterial Blood Oxygen Saturation 91.2 90-95 % Arterial Blood Base Excess 0.9 -9-1.8 mEq/L Arterial Blood Gas Delivery RA Ryan Test POS POS Ammonia 15.0 11-32 umol/L Microbiology Results 01/07/18 Blood Culture, Received Pending 01/07/18 Blood Culture, Received Pending 01/07/18 Urine Culture, Received Pending Impression Assessment and Plan 82 y/o M advanced dementia, CAD, DM II, COPD, HTN, HPL. Pt resides at a [facility] and was found poorly responsive this AM. He was sent to the ER emergently and evaluated extensively by the attending physician. On initial evaluation, there is no evidence of sepsis or an acute neurological event. The pt was however noted to be severely dehydrated. Following 2L of IVF, he gradually regained awareness and is lethargic but responsive at the time of admission. He has not exhibited a fever or hypotension. The pt cannot contribute to the HPI. Family are present at bedside to confirm the preceding information. 1) AMS - poorly responsive - this has largely resolved with IVF - he will be monitored overnight - we do not have evidence of an alternative etiology at the time of admission. 2) Dehydration - the pt has difficulty maintaining intake due to dementia. We will hydrate overnight and reassess AM. His BUN is elevated on admission although creatinine is near-normal. 3) CAD - no evidence of ACS - cont ASA, statin, B omar 4) DM II - no evidence of hypoglycemia per EMS - placed on SS - Glipizide/ Metformin held 5) HTN - cont CHUYITA, Metoprolol 6) HPL - cont Statin 7) COPD - no evidence of exacerbation - cont prescribed inhalers/nebs 7) Dementia - cont Aricept - pt is care-dependent and resides in a [facility]. 8) Black tongue - do not believe this is yeast-related - would likely improve with better oral hygiene DNI - CPR OK per family Heparin prophylaxis Total time for this admit including review of labs, meds, imaging, records - discussion with pt's family and ER attending - 38 min Advanced Directives Existing Living Will: Yes Existing Power of Patient Portal Representative: Yes Resuscitation Status VTE Prophylaxis Will order VTE Prophylaxis: Yes
[2018-01-07 18:00] VITALS: BP 209/81; PULSE 74; TEMP 36.7; O2SAT 94
[2018-01-07] MEDS: SODIUM CHLORIDE 0.9% 1000ML 1,000 ML IV SCH (18:44)
[2018-01-07] MEDS: INSULIN ASPART 100 UNITS/ML 3 ML PEN SC SCH (18:44)
[2018-01-07 19:12] VITALS: BP 196/79; PULSE 73; TEMP 36.8; O2SAT 92
[2018-01-07 19:15] VITALS: PULSE 73; O2SAT 89
[2018-01-07] MEDS: ALBUT/IPRATROP 3MG/0.5MG NEB 3 ML VIAL INH SCH (19:15)
[2018-01-07] MEDS ORDERED: IV FLUIDS COMPLETED PRN ×2 (20:30→23:15)
[2018-01-07] MEDS: IPRATROPIUM BROMIDE/ALBUTEROL respimat INH INH SCH (21:26)
[2018-01-07] MEDS: FERROUS SULFATE 325 MG TAB PO SCH (21:27)
[2018-01-07] MEDS: BUDESONIDE/FORMOTEROL FUMARATE 160/4.5 60 PUFFS/INHALER INH SCH (21:27)
[2018-01-07] MEDS: METOPROLOL TARTRATE 50 MG TAB PO SCH (21:27)
[2018-01-07] MEDS: ATORVASTATIN 40 MG TAB PO SCH (21:27)
[2018-01-07] MEDS: HEPARIN SOD 5000 UNIT/0.5 ML CARP SQ SCH (21:31)
[2018-01-07 23:38] VITALS: BP 183/73; PULSE 64; TEMP 36.6; O2SAT 94
[2018-01-08] VITALS (11 sets, daily range): BP systolic 151–218; BP diastolic 66–90; PULSE 60–72; TEMP 36.4–36.7; O2SAT 89–94; Ht 167.6 cm; Wt 59.9 kg
[2018-01-08] MEDS ORDERED: NURSING VERBAL MED ORDER ONE (01:30)
[2018-01-08] MEDS: SODIUM CHLORIDE 0.9% 1000ML 1,000 ML IV SCH (04:45)
[2018-01-08] MEDS: ALBUT/IPRATROP 3MG/0.5MG NEB 3 ML VIAL INH SCH ×3 (07:11→15:05)
[2018-01-08 07:45] LABS: CALCIUM 7.9 mg/dl (8.5-10.1); CREATININE 0.94 mg/dl (0.60-1.40); POTASSIUM 3.7 mmol/L (3.5-5.1)
[2018-01-08] MEDS: INSULIN ASPART 100 UNITS/ML 3 ML PEN SC SCH ×5 (08:09→21:13)
[2018-01-08] MEDS: BUDESONIDE/FORMOTEROL FUMARATE 160/4.5 60 PUFFS/INHALER INH SCH ×2 (08:34→21:10)
[2018-01-08] MEDS: DONEPEZIL HCL 10 MG TAB PO SCH (08:34)
[2018-01-08] MEDS: OXYBUTYNIN CHLORIDE 5 MG TAB PO SCH (08:34)
[2018-01-08] MEDS: IPRATROPIUM BROMIDE/ALBUTEROL respimat INH INH SCH ×2 (08:34→21:10)
[2018-01-08] MEDS: LISINOPRIL 20 MG TAB PO SCH (08:35)
[2018-01-08] MEDS: ASPIRIN 81 MG ECTAB PO SCH (08:35)
[2018-01-08] MEDS: METOPROLOL TARTRATE 50 MG TAB PO SCH ×2 (08:35→21:11)
[2018-01-08] MEDS: CYANOCOBALAMIN 500 MCG TAB (VIT B-12) PO SCH (08:35)
[2018-01-08] MEDS: ISOSORBIDE MONONITRATE 60 MG TABCR PO SCH (08:35)
[2018-01-08] MEDS: FERROUS SULFATE 325 MG TAB PO SCH ×2 (08:36→21:10)
[2018-01-08] MEDS: POLYETHYLENE (MIRALAX) 17 GM PACK PO SCH (08:36)
[2018-01-08] MEDS: HEPARIN SOD 5000 UNIT/0.5 ML CARP SQ SCH ×2 (08:38→21:14)
[2018-01-08] MEDS ORDERED: MAGNESIUM SULFATE 1GM / D5W 100 ML IV ONE (10:30)
--- NOTE | 2018-01-08 13:05 | Hospitalist Progress Note ---
Hospitalist Progress Note Date of Service January 08, 2018. (Pema Munoz PA-C) Subjective Pt evaluation today including: conversation w/ patient, physical exam, chart review, lab review, review of studies Pain: None PO Intake: Poor Voiding: stafford catheter in place The patient was seen and examined this morning. Pt says maria rbambi, and states he knows he is in a hospital however does not provide more verbally than this. He denies pain when asked. He is unable to answer any of my other questions however , but does follow commands. Per nursing he has been like this through the morning, and those few words are a small improvement compared to yesterday. ROS: unobtainable other than listed above. (Pema Munoz PA-C) Objective Vital Signs Date Time Temp Pulse Resp B/P (MAP) Pulse Ox O2 Delivery O2 Flow Rate FiO2 01/08/18 11:56 36.6 68 16 151/66 (94) 94 Room Air 01/08/18 11:07 68 16 89 Room Air 01/08/18 10:04 172/74 (106) 01/08/18 08:10 36.4 65 20 205/84 (124) 91 Room Air 207/82 (123) 01/08/18 08:00 Room Air 01/08/18 07:14 66 16 91 Room Air 01/08/18 05:30 180/68 (105) 01/08/18 04:11 36.4 70 20 218/90 (132) 93 Room Air 01/08/18 04:00 Room Air 01/08/18 00:02 Room Air 01/07/18 23:38 36.6 64 16 183/73 (109) 94 Room Air 01/07/18 20:00 Room Air 01/07/18 19:15 73 16 89 Room Air 01/07/18 19:12 36.8 73 16 196/79 (118) 92 Room Air 01/07/18 18:00 94 Room Air 01/07/18 18:00 36.7 74 18 209/81 (123) 94 Room Air 01/07/18 18:00 94 Room Air 01/07/18 17:29 75 18 188/82 92 01/07/18 15:53 72 18 168/76 92 Room Air 01/07/18 15:10 91 Room Air 01/07/18 15:00 74 21 170/100 91 Room Air 01/07/18 14:30 76 20 179/80 91 Room Air 01/07/18 14:00 72 20 161/77 93 Room Air 01/07/18 13:39 73 16 162/75 Room Air 01/07/18 12:51 72 20 164/74 92 Room Air (Pema Munoz PA-C) Physical Exam General Appearance: WD/WN, no apparent distress, + thin (cachetic) Eyes: PERRL, EOMI, + pertinent finding (bilateral eye crusting, left eye slightly closed during exam) ENT: hearing grossly normal, + pertinent finding (MM dry, tongue is black, poor dentition) Neck: no JVD Respiratory/Chest: + pertinent finding (on 2 L via nc, coarse wet sounding cough, + diminished breath sounds in the left puente with + exp wheeze, R sided breath sounds adequate.) Cardiovascular: regular rate, rhythm, + systolic murmur (grade II/) Abdomen: normal bowel sounds, non tender, soft Extremities: non-tender, no pedal edema, no calf tenderness Neurologic/Psychiatric: alert, + pertinent finding (flat affect, oriented to place, unable to answer other orientation questions, follows commands appropriately) Skin: normal color, warm/dry (Pema Munoz, SAIMA-C) Laboratory Results Last 24 Hours Test 01/07/18 13:28 01/07/18 13:33 01/07/18 14:18 01/07/18 20:15 White Blood Count 8.54 K/uL Red Blood Count 3.77 M/uL Hemoglobin 11.6 g/dL Hematocrit 34.2 % Mean Corpuscular Volume 90.7 fL Mean Corpuscular Hemoglobin 30.8 pg Mean Corpuscular Hemoglobin Concent 33.9 g/dl Platelet Count 236 K/uL Mean Platelet Volume 9.5 fL Neutrophils (%) (Auto) 76.4 % Lymphocytes (%) (Auto) 13.9 % Monocytes (%) (Auto) 6.2 % Eosinophils (%) (Auto) 2.3 % Basophils (%) (Auto) 0.5 % Neutrophils # (Auto) 6.52 K/uL Lymphocytes # (Auto) 1.19 K/uL Monocytes # (Auto) 0.53 K/uL Eosinophils # (Auto) 0.20 K/uL Basophils # (Auto) 0.04 K/uL RDW Standard Deviation 43.4 fL RDW Coefficient of Variation 13.2 % Immature Granulocyte % (Auto) 0.7 % Immature Granulocyte # (Auto) 0.06 K/uL Prothrombin Time 10.4 SECONDS Prothromb Time International Ratio 1.0 Activated Partial Thromboplast Time 23.5 SECONDS Partial Thromboplastin Ratio 0.9 Sodium Level 143 mmol/L Potassium Level 4.2 mmol/L Chloride Level 110 mmol/L Carbon Dioxide Level 26 mmol/L Anion Gap 7.0 mmol/L Blood Urea Nitrogen 44 mg/dl Creatinine 1.37 mg/dl Estimated GFR () 54.5 Estimated GFR (Non- 47.0 BUN/Creatinine Ratio 32.3 Random Glucose 117 mg/dl Calcium Level 8.9 mg/dl Magnesium Level 1.6 mg/dl Total Bilirubin 0.5 mg/dl Direct Bilirubin 0.1 mg/dl Aspartate Amino Transf (AST/SGOT) 13 U/L Alanine Aminotransferase (ALT/SGPT) 22 U/L Alkaline Phosphatase 185 U/L Total Creatine Kinase 44 U/L Creatine Kinase MB 1.1 ng/ml Creatine Kinase MB Ratio 2.5 Troponin I < 0.015 ng/ml Total Protein 7.2 gm/dl Albumin 3.3 gm/dl Lipase 157 U/L Thyroid Stimulating Hormone (TSH) 0.735 uIu/ml Bedside Lactic Acid Venous 1.01 mmol/L Arterial Blood pH 7.44 Arterial Blood Partial Pressure CO2 37 mmHg Arterial Blood Partial Pressure O2 67 mm/Hg Arterial Blood HCO3 25 mmol/L Arterial Blood Oxygen Saturation 91.2 % Arterial Blood Base Excess 0.9 mEq/L Arterial Blood Gas Delivery RA Ryan Test POS Ammonia 15.0 umol/L Urine Color YELLOW Urine Appearance CLEAR Urine pH 6.0 Urine Specific Mckenzie 1.019 Urine Protein 2+ Urine Glucose (UA) NEG Urine Ketones 1+ Urine Occult Blood NEG Urine Nitrite NEG Urine Bilirubin NEG Urine Urobilinogen NEG Urine Leukocyte Esterase TRACE Urine WBC (Auto) 5-10 /hpf Urine RBC (Auto) 0-4 /hpf Urine Hyaline Casts (Auto) 10-30 /lpf Urine Epithelial Cells (Auto) 20-30 /lpf Urine Bacteria (Auto) NEG Urine Pathogenic Casts /lpf Urine Mucus PRESENT Test 01/07/18 20:56 01/08/18 06:55 01/08/18 07:25 01/08/18 11:16 Bedside Glucose 105 mg/dl 88 mg/dl 183 mg/dl Sodium Level 143 mmol/L Potassium Level 3.7 mmol/L Chloride Level 110 mmol/L Carbon Dioxide Level 24 mmol/L Anion Gap 9.0 mmol/L Blood Urea Nitrogen 31 mg/dl Creatinine 0.94 mg/dl Est Creatinine Clear Calc Drug Dose 48.7 ml/min Estimated GFR () 85.9 Estimated GFR (Non- 74.2 BUN/Creatinine Ratio 33.3 Random Glucose 87 mg/dl Calcium Level 7.9 mg/dl Magnesium Level 1.2 mg/dl (Pema Munoz, YULIA) Assessment and Plan 82 y/o M advanced dementia, CAD, DM II, COPD, HTN, HPL. Pt resides at a [facility] and was found poorly responsive this AM. He was sent to the ER emergently and evaluated extensively by the attending physician. On initial evaluation, there is no evidence of sepsis or an acute neurological event. The pt was however noted to be severely dehydrated. Following 2L of IVF, he gradually regained awareness and is lethargic but responsive at the time of admission. He has not exhibited a fever or hypotension. AMS - poorly responsive at time of admission Dehydration Possible pulmonary source? - Speech therapy eval ordered with coarse breath sounds - high potential for aspiration with dementia- Will repeat CXR now s/p fluid resuscitation to r/o pneumonia. Will add mucinex to thin secretions, continue nebulizer tx prn. - Continue on NSS at 100ml/hr, currently net positive 1200ml - still appears to be volume depleted. - No infectious etiology apparent at time of admission - follow BCx, UCx, no WBC , no fever, VSS - Dehydration secondary to poor oral intake - pt with dementia and likely contributing. - Follow BUN and Cr which are baseline at this time - Follow strict urine outs via stafford cath Hypomagnesemia - 1.2 today, replaced with 1 g this morning, follow am labs CAD - no evidence of ACS - cont ASA, statin, B omar DM II - no evidence of hypoglycemia per EMS - placed on ISS with accuchecks - Glipizide/Metformin held HTN - cont CHUYITA, Metoprolol - BP was significantly elevated this morning with SBP > 200. After administration of home meds BP improved into the 170s. - Stable, no signs of hypotension upon admission HPL - cont Statin COPD - no evidence of exacerbation - cont prescribed Combivent BID, will switch duonebs to QID prn at this time. Dementia - cont Aricept - pt is care-dependent and resides in a [facility]. Black tongue - Continue oral hygeine care - encourage brushing teeth, tongue, hydration orally - not thrush DVT ppx: teds, scds CODE: DNR Disposition: From snf, to assist with dc. Return upon discharge. (Pema Munoz, PAJosephC) Supervising Note Dr. Sutton I performed a history and physical examination on the patient. I reviewed above note and agree with it. I discussed plan with APC and patient. During my face to face encounter with the patient, I answered all of the patient's questions. Creatinine improved after fluid resuscitation. Patient however does not answer questions and remains confused. Will continue to monitor. Will place PT/OT orders. (Yovany Sutton M.D.)
--- NOTE | 2018-01-08 13:53 | DIAGNOSTIC IMAGING REPORT ---
CHEST ONE VIEW PORTABLE HISTORY: Altered mental status. COMPARISON: Chest 01/07/2018. FINDINGS: Rotated study. Post sternotomy changes. The heart is normal in size. No pneumothorax. No pleural effusions. Bibasilar interstitial thickening. No focal lung consolidations. Low lung volumes. IMPRESSION: Bibasilar interstitial thickening which may be due to the low lung volumes. No focal lung consolidations. Electronically signed by: Homero Rodriguez M.D. 01/08/2018 1:52 PM Dictated Date/Time: 01/08/2018 1:51 PM
[2018-01-08] MEDS ORDERED: ALBUT/IPRATROP 3MG/0.5MG NEB 3 ML VIAL INH PRN (17:00)
[2018-01-08] MEDS: ATORVASTATIN 40 MG TAB PO SCH (21:10)
[2018-01-08] MEDS: GUAIFENESIN 600 MG TABCR PO SCH (21:11)
[2018-01-09] VITALS (8 sets, daily range): BP systolic 143–210; BP diastolic 57–81; PULSE 60–81; TEMP 36.3–36.8; O2SAT 94–96
[2018-01-09] MEDS: INSULIN ASPART 100 UNITS/ML 3 ML PEN SC SCH ×4 (07:00→22:09)
[2018-01-09] MEDS: ISOSORBIDE MONONITRATE 60 MG TABCR PO SCH (07:31)
[2018-01-09] MEDS: METOPROLOL TARTRATE 50 MG TAB PO SCH ×2 (07:31→21:27)
[2018-01-09] MEDS: DONEPEZIL HCL 10 MG TAB PO SCH (07:31)
[2018-01-09] MEDS: LISINOPRIL 20 MG TAB PO SCH (07:31)
[2018-01-09] MEDS: OXYBUTYNIN CHLORIDE 5 MG TAB PO SCH (07:31)
[2018-01-09] MEDS: IPRATROPIUM BROMIDE/ALBUTEROL respimat INH INH SCH ×2 (07:32→21:26)
[2018-01-09] MEDS: ASPIRIN 81 MG ECTAB PO SCH (07:32)
[2018-01-09] MEDS: BUDESONIDE/FORMOTEROL FUMARATE 160/4.5 60 PUFFS/INHALER INH SCH ×2 (07:32→21:26)
[2018-01-09] MEDS: CYANOCOBALAMIN 500 MCG TAB (VIT B-12) PO SCH (07:32)
[2018-01-09] MEDS: GUAIFENESIN 600 MG TABCR PO SCH ×2 (07:32→21:29)
[2018-01-09] MEDS: FERROUS SULFATE 325 MG TAB PO SCH ×2 (07:32→21:29)
[2018-01-09] MEDS: POLYETHYLENE (MIRALAX) 17 GM PACK PO SCH (07:33)
[2018-01-09] MEDS: HEPARIN SOD 5000 UNIT/0.5 ML CARP SQ SCH ×2 (07:33→22:08)
[2018-01-09 08:02] LABS: CALCIUM 8.4 mg/dl (8.5-10.1); CREATININE 1.07 mg/dl (0.60-1.40); POTASSIUM 3.6 mmol/L (3.5-5.1)
--- NOTE | 2018-01-09 08:14 | Hospitalist Progress Note ---
Hospitalist Progress Note Date of Service January 09, 2018. (Pema Munoz PA-C) Subjective Pt evaluation today including: conversation w/ patient, physical exam, chart review, lab review, review of studies Pain: None PO Intake: Fair Voiding: stafford catheter in place The patient was seen and examined this morning. Pt reports doing "good" today. He is much answering all questions appropriately and is oriented to self and place. He tells me he had oatmeal for breakfast and handled it without difficulty. He has been up in the bedside chair, however has not ambulated much. PT/OT are consulted at this point as he does reside at [facility]. Pt denies any other acute complaints. Constitutional: No fever, No chills, No sweats Eyes: + problem reported (chronic watering eyes), No worsening of vision, No diplopia ENT: No nasal symptoms, No sore throat, No trouble swallowing Respiratory: No cough, No shortness of breath Cardiovascular: No chest pain, No palpitations Abdomen: No pain, No nausea, No vomiting, No diarrhea, No constipation Musculoskeletal: No joint pain, No muscle pain, No swelling Neurologic: No weakness, No numbness/tingling Endo: No fatigue Skin: No rash, No itch (Pema Munoz, YULIA) Objective Vital Signs Date Time Temp Pulse Resp B/P (MAP) Pulse Ox O2 Delivery O2 Flow Rate FiO2 01/09/18 07:39 36.6 70 18 210/79 (122) 94 Room Air 01/09/18 04:00 Room Air 01/09/18 03:43 36.4 60 16 191/81 (117) 94 Room Air 01/09/18 00:02 Room Air 01/08/18 23:40 36.4 60 17 176/72 (106) 94 Room Air 01/08/18 20:00 Room Air 01/08/18 19:24 36.4 72 16 155/71 (99) 92 Room Air 01/08/18 16:00 93 Room Air 01/08/18 15:06 67 16 93 Room Air 01/08/18 15:06 36.7 66 16 181/77 (111) 93 Room Air 01/08/18 12:00 Room Air 01/08/18 11:56 36.6 68 16 151/66 (94) 94 Room Air 01/08/18 11:07 68 16 89 Room Air 01/08/18 10:04 172/74 (106) 01/08/18 08:10 36.4 65 20 205/84 (124) 91 Room Air 207/82 (123) (Pema Muonz PA-C) Physical Exam Notes: General Appearance: WD/WN, no apparent distress, + thin (cachetic), awake and alert Eyes: PERRL, EOMI, + pertinent finding (bilateral eye watering, both eyes open) ENT: hearing grossly normal, + pertinent finding (MMM, tongue is black, poor dentition) Neck: no JVD Respiratory/Chest: + pertinent finding (on RA, + diminished breath sounds in the left puente, no exp wheeze, R sided breath sounds adequate.) Cardiovascular: regular rate, rhythm, + systolic murmur (grade II/) Abdomen: normal bowel sounds, non tender, soft, + stafford catheter with hematuria Extremities: non-tender, no pedal edema, no calf tenderness Neurologic/Psychiatric: alert, + pertinent finding (brighter affect, oriented to place and self, follows commands appropriately) Skin: normal color, warm/dry (Pema Munoz PA-C) Laboratory Results Last 24 Hours Test 01/08/18 11:16 01/08/18 16:31 01/08/18 20:46 01/09/18 07:28 Bedside Glucose 183 mg/dl 266 mg/dl 216 mg/dl 140 mg/dl Test 01/09/18 07:35 Sodium Level 140 mmol/L Potassium Level 3.6 mmol/L Chloride Level 107 mmol/L Carbon Dioxide Level 26 mmol/L Anion Gap 7.0 mmol/L Blood Urea Nitrogen 22 mg/dl Creatinine 1.07 mg/dl Est Creatinine Clear Calc Drug Dose 43.3 ml/min Estimated GFR () 73.5 Estimated GFR (Non- 63.4 BUN/Creatinine Ratio 20.1 Random Glucose 139 mg/dl Calcium Level 8.4 mg/dl (Pema Munoz PA-C) Assessment and Plan 82 y/o M advanced dementia, CAD, DM II, COPD, HTN, HPL. Pt resides at a [facility] and was found poorly responsive this AM. He was sent to the ER emergently and evaluated extensively by the attending physician. On initial evaluation, there is no evidence of sepsis or an acute neurological event. The pt was however noted to be severely dehydrated. Following 2L of IVF, he gradually regained awareness and is lethargic but responsive at the time of admission. He has not exhibited a fever or hypotension. Encephalopathy/AMS - poorly responsive at time of admission- greatly improving Dehydration - Speech therapy eval ordered - pt on mechanical soft diet with nectar thick liquids - high potential for aspiration with dementia- - Repeat CXR 01/08 essentially unchanged. Cont mucinex to thin secretions, continue nebulizer tx prn. - Off IVFs, appears euvolemic - No infectious etiology apparent at time of admission - follow BCx, UCx, no WBC , no fever, VSS - Dehydration secondary to poor oral intake - pt with dementia and likely contributing. - Follow BUN and Cr which are baseline at this time - Follow strict urine outs via stafford cath - PT/OT consults Hematuria - Recheck UA today as darkened urine - Hgb is stable - possible from traumatic placement? - Stop heparin subq Hypomagnesemia - 1.4 today, replaced with 1 g, follow am labs CAD - no evidence of ACS - cont ASA, statin, metoprolol 75 mg BID, lisinopril 20 mg, imdur 60 mg DM II - no evidence of hypoglycemia per EMS - placed on ISS with accuchecks - Glipizide/Metformin held HTN - cont lisinopril 20 qam, Metoprolol tartrate 75 mg BID- BP was significantly elevated again this morning with SBP > 200 around 0400. After administration of morning meds BP improved into the 160s-170s. Will order lisinopril 20 mg QPM tonight and see if this help bp - monitor am prp - Stable, no signs of hypotension upon admission HPL - cont Statin COPD - no evidence of exacerbation - cont prescribed Combivent BID, will switch duonebs to QID prn at this time. Dementia - cont Aricept - pt is care-dependent and resides in a [facility]. Black tongue - Continue oral hygiene care - encourage brushing teeth, tongue, hydration orally - not thrush DVT ppx: teds, scds CODE: DNR Disposition: From [facility] to assist with dc. PT/OT consults. (Filtrenaowicz,Pema G., YULIA) SAIMA Physician Supervision Note: I interviewed and examined the patient. Discussed with Pema Munoz PAC and agree with findings and plan as documented in the note. Any exceptions or clarifications are listed here: None Patient was seen he is mildly confused but oriented to place and closely the time he states that he feels somewhat better than when he presented with regard to his breathing his blood pressure still is mildly elevated vital signs shows temperature 36.3 pulse 65 respiration rate 18 BP 166/77 magnesium is noted to be low and will be augmented His air movement is poor he has mild respiratory distress cardiac exam is regular his extremities without edema Patient is coming from encephalopathy present on admission with a baseline history of COPD diabetes hypertension. His hypertension is poorly controlled and his lisinopril be increased his encephalopathy is improving and may have been from dehydration present on admission Documented By: Maxx Scott (Maxx Scott M.D.)
[2018-01-09 08:49] LABS: HEMATOCRIT 34.4 % (42-52); HEMOGLOBIN 11.5 g/dL (14.0-18.0); MEAN CELL VOLUME 90.1 fL (80-100); MEAN CORPUSCULAR HEMOGLOBIN 30.1 pg (25-34); MEAN CORPUSCULAR HGB CONC 33.4 g/dl (32-36); MEAN PLATELET VOLUME 9.5 fL (7.4-10.4); PLATELET COUNT 231 K/uL (130-400); RED CELL DISTRIBUTION WIDTH CV 13.3 % (11.5-14.5); RED CELL DISTRIBUTION WIDTH SD 43.3 fL (36.4-46.3); WHITE BLOOD COUNT 9.88 K/uL (4.8-10.8)
--- NOTE | 2018-01-09 11:00 | Clinical Documentation Query ---
CLINICAL DOCUMENTATION QUERY 82 yo male admitted with altered mental status and lethargy. In your clinical opinion is this patient being managed for: ( x ) Encephalopathy ( ) Not Agree ( ) Other explanation of clinical findings (No explanation is considered a No Response) ( ) Unable to determine ( ) Need to Discuss (Phone CDS or qliq) (No discussion is considered a No Response) The medical record reflects the following clinical findings, treatment, and risk factors. Clinical Indicators: As above Treatment: IV hydration, CT head, telemetry Risk Factors: Age, dehydration, dementia, possible aspiration pneumonia Please clarify and document your clinical opinion in the progress notes and discharge summary. Terms such as "probable", "suspected", "likely", "questionable", "possible", or "still to be ruled out" are acceptable. IF IN AGREEMENT, YOU MUST DOCUMENT ABOVE DIAGNOSTIC STATEMENT IN DAILY PROGRESS NOTES AND DISCHARGE SUMMARY. This document is not part of the patient's record. Thank You, Khalida Deras RN [phone]
[2018-01-09] MEDS ORDERED: MAGNESIUM SULFATE 1GM / D5W 100 ML IV ONE (12:45)
--- NOTE | 2018-01-09 15:27 | DIAGNOSTIC IMAGING REPORT ---
VIDEO SWALLOW HISTORY: r/o s/s of aspiration TECHNIQUE: Video fluoroscopic evaluation of swallowing was performed in the AP and lateral projections by the speech pathology staff. The patient is fed nectar-thick and thin liquid barium, a barium coated wafer, and barium pudding. FLUOROSCOPY TIME: 2.2 minutes. A cine loop submitted.. COMPARISON STUDY: None. FINDINGS: There is normal hyoid excursion and epiglottic deflection. Multiple episodes of premature spillover past the epiglottis resulting in silent aspiration with the thin liquid barium. No aspiration identified with the remaining barium consistencies. IMPRESSION: 1. Multiple episodes of silent aspiration with the thin liquid barium due to premature spillover. 2. Please see the speech pathologist report for detailed findings and recommendations. Electronically signed by: Homero Rodriguez M.D. 01/09/2018 3:26 PM Dictated Date/Time: 01/09/2018 3:23 PM
[2018-01-09] MEDS ORDERED: LISINOPRIL 20 MG TAB PO SCH (21:00)
[2018-01-09] MEDS: ATORVASTATIN 40 MG TAB PO SCH (21:28)
[2018-01-10] VITALS (10 sets, daily range): BP systolic 144–188; BP diastolic 56–78; PULSE 64–71; TEMP 36.3–36.5; O2SAT 90–95
[2018-01-10 07:37] LABS: HEMATOCRIT 33.7 % (42-52); HEMOGLOBIN 11.6 g/dL (14.0-18.0); MEAN CELL VOLUME 88.9 fL (80-100); MEAN CORPUSCULAR HEMOGLOBIN 30.6 pg (25-34); MEAN CORPUSCULAR HGB CONC 34.4 g/dl (32-36); MEAN PLATELET VOLUME 9.8 fL (7.4-10.4); PLATELET COUNT 229 K/uL (130-400); RED CELL DISTRIBUTION WIDTH CV 13.2 % (11.5-14.5); RED CELL DISTRIBUTION WIDTH SD 42.3 fL (36.4-46.3); WHITE BLOOD COUNT 10.55 K/uL (4.8-10.8)
[2018-01-10 08:04] LABS: CALCIUM 8.4 mg/dl (8.5-10.1); CREATININE 1.21 mg/dl (0.60-1.40); POTASSIUM 3.4 mmol/L (3.5-5.1)
[2018-01-10] MEDS: INSULIN ASPART 100 UNITS/ML 3 ML PEN SC SCH ×4 (08:09→20:49)
[2018-01-10] MEDS: HEPARIN SOD 5000 UNIT/0.5 ML CARP SQ SCH ×2 (08:10→20:49)
[2018-01-10] MEDS ORDERED: POTASSIUM CHLORIDE 10 MEQ TABCR PO STA (08:57)
[2018-01-10] MEDS ORDERED: MAGNESIUM SULFATE 1GM / D5W 100 ML IV STA (08:58)
--- NOTE | 2018-01-10 08:59 | Hospitalist Progress Note ---
Hospitalist Progress Note Date of Service January 10, 2018. (Pema Munoz PA-C) Subjective Pt evaluation today including: conversation w/ patient, physical exam, chart review, lab review, review of studies Pain: None Voiding: stafford catheter in place The patient was seen and examined this morning. Pt is lethargic again this morning comparable to 2 days ago. He wakes up intermittently to me talking to him, but is essentially unable to participate in conversation. Nursing has not been able to administer meds yet. He appears comfortable. VSS, labs WNL, no overnight events on tele. ROS: Unobtainable due to lethargy. (Pema Munoz PA-C) Objective Vital Signs Date Time Temp Pulse Resp B/P (MAP) Pulse Ox O2 Delivery O2 Flow Rate FiO2 01/10/18 08:07 70 24 178/68 (104) 91 Room Air 01/10/18 07:10 36.4 69 16 182/56 (98) 93 Room Air 01/10/18 04:00 95 Room Air 01/10/18 03:43 36.5 71 20 188/78 (114) 90 Room Air 01/10/18 00:00 95 Room Air 01/09/18 23:40 36.4 65 17 177/77 (110) 94 Room Air 01/09/18 20:00 95 Room Air 01/09/18 19:59 36.8 81 16 143/57 (85) 95 Room Air 01/09/18 16:09 67 18 185/76 (112) 95 Room Air 01/09/18 16:00 Room Air 01/09/18 12:00 Room Air 01/09/18 11:30 36.3 65 18 166/77 (106) 96 Room Air (Pema Munoz PA-C) Physical Exam Notes: General Appearance: WD/WN, no apparent distress, + thin (cachetic), lethargic Eyes: PERRL, EOMI, + pertinent finding (bilateral eye watering, pupils are pinpoint but unchanged) ENT: hearing grossly normal, + pertinent finding (MM slightly dry, tongue is black, poor dentition) Neck: no JVD Respiratory/Chest: + pertinent finding (on RA, + diminished breath sounds in the left puente, no exp wheeze, R sided breath sounds adequate.) Cardiovascular: regular rate, rhythm, + systolic murmur (grade II/) Abdomen: normal bowel sounds, non tender, soft, + stafford catheter with hematuria , light pink Extremities: non-tender, no pedal edema, no calf tenderness Neurologic/Psychiatric: + pertinent finding (lethargic, wakes to verbal stimuli but quickly falls back asleep) Skin: normal color, warm/dry (Pema Munoz PA-C) Laboratory Results Last 24 Hours Test 01/09/18 11:15 01/09/18 12:25 01/09/18 17:14 01/09/18 21:00 Bedside Glucose 201 mg/dl 229 mg/dl 219 mg/dl Urine Color BROWN Urine Appearance CLOUDY Urine pH 6.0 Urine Specific [place] >= 1.030 Urine Protein 3+ Urine Glucose (UA) NEG Urine Ketones TRACE Urine Occult Blood 3+ Urine Nitrite POS Urine Bilirubin NEG Urine Urobilinogen NEG Urine Leukocyte Esterase TRACE Urine RBC >30 /hpf Urine WBC >30 /hpf Urine Epithelial Cells 10-20 /lpf Urine Bacteria 1+ Urine Granular Casts 0-3 /lpf Test 01/10/18 06:54 White Blood Count 10.55 K/uL Red Blood Count 3.79 M/uL Hemoglobin 11.6 g/dL Hematocrit 33.7 % Mean Corpuscular Volume 88.9 fL Mean Corpuscular Hemoglobin 30.6 pg Mean Corpuscular Hemoglobin Concent 34.4 g/dl RDW Standard Deviation 42.3 fL RDW Coefficient of Variation 13.2 % Platelet Count 229 K/uL Mean Platelet Volume 9.8 fL Sodium Level 141 mmol/L Potassium Level 3.4 mmol/L Chloride Level 108 mmol/L Carbon Dioxide Level 26 mmol/L Anion Gap 7.0 mmol/L Blood Urea Nitrogen 19 mg/dl Creatinine 1.21 mg/dl Est Creatinine Clear Calc Drug Dose 38.1 ml/min Estimated GFR () 63.3 Estimated GFR (Non- 54.6 BUN/Creatinine Ratio 15.9 Random Glucose 165 mg/dl Calcium Level 8.4 mg/dl Magnesium Level 1.6 mg/dl (Pema Munoz PA-C) Assessment and Plan 82 y/o M advanced dementia, CAD, DM II, COPD, HTN, HPL. Pt resides at a halfway and was found poorly responsive this AM. He was sent to the ER emergently and evaluated extensively by the attending physician. On initial evaluation, there is no evidence of sepsis or an acute neurological event. The pt was however noted to be severely dehydrated. Following 2L of IVF, he gradually regained awareness and is lethargic but responsive at the time of admission. He has not exhibited a fever or hypotension. Encephalopathy/AMS - poorly responsive at time of admission- waxing and waning Dehydration - Speech therapy eval ordered - pt on mechanical soft diet with nectar thick liquids - high potential for aspiration with dementia- dementia contributing to PO intake at baseline - Repeat CXR 01/08 essentially unchanged. Cont mucinex to thin secretions, continue nebulizer tx prn. - Lungs improved - Off IVFs, appears euvolemic - encourage PO hydration once more awake today - No infectious etiology apparent at time of admission - follow BCx, UCx, no WBC , no fever, VSS - Follow BUN and Cr - slighty bumped with extra dose of lisinopril given last evening for htn - Follow strict urine outs via stafford cath - PT/OT consults Hematuria Possible UTI with UA + nitrates, trace esterase, >30 WBC, 1+ bacteria - UA completed, follow UCx - Hgb is stable - possible from traumatic placement? Urine appears jukebox routeman pink today compared to dark red yesterday. - Stop heparin subq Hypomagnesemia - 1.6 today, replaced with 1 g, follow am labs CAD - no evidence of ACS - cont ASA, statin, metoprolol 75 mg BID, lisinopril 20 mg, imdur 60 mg DM II - no evidence of hypoglycemia per EMS - placed on ISS with accuchecks - Glipizide/Metformin held HTN - cont lisinopril 20 qam, Metoprolol tartrate 75 mg BID- BP was significantly elevated again this morning with SBP > 200 around 0400. After administration of morning meds BP improved into the 160s-170s.Administered lisinopril 20 mg QPM last night which did help with BP but Cr slightly bumped so will not continue this. - Stable, no signs of hypotension upon admission HPL - cont Statin COPD - no evidence of exacerbation - cont prescribed Combivent BID, will switch duonebs to QID prn at this time. Dementia - cont Aricept - pt is care-dependent and resides in a halfway. - waxing and waning mental status Black tongue - Continue oral hygiene care - encourage brushing teeth, tongue, hydration orally - not thrush DVT ppx: teds, scds CODE: DNR Disposition: From [facility] to assist with dc. PT/OT consults. Possible dc in 1-2 days (Pema Munoz, YULIA) PA Physician Supervision Note: I interviewed and examined the patient. Discussed with Pema Munoz PAC and agree with findings and plan as documented in the note. Any exceptions or clarifications are listed here: None Patient's had waxing and waning mental status now today he is awake but is of limited conversation there are no defined psychoactive medicines given his no focal deficits repleting his hypokalemia hypomagnesemia and we are awaiting a repeat urinalysis temperature 36 4 pulse 70 respiration rate 24 BP 170/68 he is awake he is appropriate response to commands he does not speak except and slow muffled tones short sounds to be regular lungs are clear Encephalopathy the patient with a known history of diabetes ruling out metabolic causes repleting his electrolyte abnormalities we will discontinue his Mucinex at this time and reevaluate his mental state with physical and occupational therapy helping evaluate for appropriate post discharge placement Documented By: Maxx Scott (Maxx Scott M.D.)
[2018-01-10] MEDS: DONEPEZIL HCL 10 MG TAB PO SCH ×2 (09:00→12:18)
[2018-01-10] MEDS: METOPROLOL TARTRATE 50 MG TAB PO SCH ×3 (09:00→20:45)
[2018-01-10] MEDS: ASPIRIN 81 MG ECTAB PO SCH ×2 (09:00→12:16)
[2018-01-10] MEDS: LISINOPRIL 20 MG TAB PO SCH ×2 (09:00→12:16)
[2018-01-10] MEDS: FERROUS SULFATE 325 MG TAB PO SCH ×3 (09:00→20:44)
[2018-01-10] MEDS: POLYETHYLENE (MIRALAX) 17 GM PACK PO SCH (09:00)
[2018-01-10] MEDS: IPRATROPIUM BROMIDE/ALBUTEROL respimat INH INH SCH ×2 (09:00→20:43)
[2018-01-10] MEDS: BUDESONIDE/FORMOTEROL FUMARATE 160/4.5 60 PUFFS/INHALER INH SCH ×2 (09:00→20:43)
[2018-01-10] MEDS: ISOSORBIDE MONONITRATE 60 MG TABCR PO SCH ×2 (09:00→12:21)
[2018-01-10] MEDS: OXYBUTYNIN CHLORIDE 5 MG TAB PO SCH ×2 (09:00→12:18)
[2018-01-10] MEDS: CYANOCOBALAMIN 500 MCG TAB (VIT B-12) PO SCH ×2 (09:00→12:20)
[2018-01-10] MEDS: GUAIFENESIN 600 MG TABCR PO SCH ×2 (09:00→12:21)
[2018-01-10] MEDS: POTASSIUM CHLR 10 MEQ / WTR 100 ML IV SCH ×2 (12:49→13:33)
[2018-01-10] MEDS: CIPROFLOXACIN / D5W 400 MG in PREMIXED IN D5W 200 ML IV SCH (14:53)
[2018-01-10] MEDS: ATORVASTATIN 40 MG TAB PO SCH (20:44)
[2018-01-11] VITALS (7 sets, daily range): BP systolic 157–168; BP diastolic 66–76; PULSE 61–66; TEMP 36.4–36.6; O2SAT 92–95
[2018-01-11] MEDS: CIPROFLOXACIN / D5W 400 MG in PREMIXED IN D5W 200 ML IV SCH ×2 (02:22→13:35)
[2018-01-11] MEDS: ISOSORBIDE MONONITRATE 60 MG TABCR PO SCH (08:26)
[2018-01-11] MEDS: LISINOPRIL 20 MG TAB PO SCH (08:26)
[2018-01-11] MEDS: CYANOCOBALAMIN 500 MCG TAB (VIT B-12) PO SCH (08:27)
[2018-01-11] MEDS: BUDESONIDE/FORMOTEROL FUMARATE 160/4.5 60 PUFFS/INHALER INH SCH (08:27)
[2018-01-11] MEDS: OXYBUTYNIN CHLORIDE 5 MG TAB PO SCH (08:27)
[2018-01-11] MEDS: FERROUS SULFATE 325 MG TAB PO SCH (08:27)
[2018-01-11] MEDS: ASPIRIN 81 MG ECTAB PO SCH (08:27)
[2018-01-11] MEDS: IPRATROPIUM BROMIDE/ALBUTEROL respimat INH INH SCH (08:27)
[2018-01-11] MEDS: METOPROLOL TARTRATE 50 MG TAB PO SCH (08:27)
[2018-01-11] MEDS: POLYETHYLENE (MIRALAX) 17 GM PACK PO SCH (08:27)
[2018-01-11] MEDS: DONEPEZIL HCL 10 MG TAB PO SCH (08:27)
[2018-01-11] MEDS: HEPARIN SOD 5000 UNIT/0.5 ML CARP SQ SCH (08:40)
[2018-01-11] MEDS: INSULIN ASPART 100 UNITS/ML 3 ML PEN SC SCH ×3 (08:40→17:10)
--- NOTE | 2018-01-11 09:26 | Discharge Instructions ---
Discharge Instructions Date of Service January 11, 2018. Admission Reason for Admission: Altered Mental Status Discharge Discharge Diagnosis / Problem: Encephalopathy due to dehydration, UTI Discharge Goals Goal(s): Decrease discomfort, Improve function, Increase independence, Improve disease control Activity Recommendations Activity Level: Assistance Required Therapies: Physical Therapy, Occupational Therapy Lifting Limitations: no more than 10 pounds, gradually increase as tolerated Shower/Bathe: no limitations (with assistance) . Additional Information Patient informed of condition: Yes Advance Directives: Yes DNR: No (Full, no mechanical ventilation) Level of Care: Skilled Communicable Disease: No Prognosis: Stable Instructions / Follow-Up Instructions / Follow-Up You were admitted to [facility] with Altered mental status and diagnosed with encephalopathy secondary to dehydration and electrolyte abnormalities. You were also found to have a urinary tract infection and were treated with antibiotics. During your stay here you were treated with intravenous fluids and supportive care. . Imaging studies which were completed include CT head and CXR , and were without acute abnormalities. Medications: Continue taking your medications as prescribed. Continue taking Ciprofloxacin for 3 more days for urinary tract infection. Appointments: Follow up with PCP within 1 week. Current Hospital Diet Patient's current hospital diet: Diabetes Type 2 Diet Discharge Diet Recommended Diet: Low Sodium Diet (2gm Na) Diet Texture: Pureed (blended smooth) Liquid Consistency: [place] Thick Pending Studies Studies pending at discharge: no Medical Emergencies . Who to Call and When: Medical Emergencies: If at any time you feel your situation is an emergency, please call 911 immediately. . Non-Emergent Contact Non-Emergency issues call your: Primary Care Provider Call Non-Emergent contact if: you have a fever, temperature is above 100.5, your pain is not controlled, your pain is worsening, your pain is unusual for you, your pain is concerning you, you have any medication questions other concerns with your health. Call 911 or go directly to the Emergency Department if you experience any of the following: Chest pain, chest tightness, shortness of breath, abdominal pain , lightheadedness, dizziness, gastrointestinal bleeding, or have any other concerns regarding your health. . Past History Medical & Surgical History: (1) Dehydration (2) Acute metabolic encephalopathy (3) Hypertension (4) Diabetes mellitus (5) COPD (chronic obstructive pulmonary disease) . "Provider Documentation" section prepared by Vielka Munoz. . Core Measure Problem Core Measures: None [place] Drug Monitoring Program Search Results: no issues identified
[2018-01-11] MEDS ORDERED: CIPR-255 PO (09:32)
--- NOTE | 2018-01-11 14:24 | Discharge Summary ---
Discharge Summary Date of Service January 11, 2018. Discharge Summary Admission Date: January 08, 2018 at 21:47 Discharge Date: January 11, 2018 Discharge Disposition: correction facility ([facility]) Principal Diagnosis: Encephalopathy due to dehydration, UTI Problems/Secondary Diagnoses: Medical Problems: (1) Acute metabolic encephalopathy (2) Aortic valve stenosis (3) Aspiration pneumonia (4) COPD (chronic obstructive pulmonary disease) (5) Diabetes mellitus (6) Elevated troponin (7) Encephalopathy acute (8) Heart disease (9) Hypertension (10) Hypoglycemia (11) Myocardial infarction (12) Unresponsive episode Immunizations: Have You Had Influenza Vaccine: Unknown Influenza Vaccine Date: May 23, 2011 History of Tetanus Vaccine?: Unknown History of Pneumococcal: Unknown History of Hepatitis B Vaccine: Unknown Procedures: HEAD WITHOUT CONTRAST (CT) 01/07/18 IMPRESSION: No acute intracranial abnormality identified. CHEST ONE VIEW PORTABLE 01/07/18 IMPRESSION: No acute process. CHEST ONE VIEW PORTABLE 01/08/18 IMPRESSION: Bibasilar interstitial thickening which may be due to the low lung volumes. No focal lung consolidations. VIDEO SWALLOW 01/09/18 IMPRESSION: 1. Multiple episodes of silent aspiration with the thin liquid barium due to premature spillover. 2. Please see the speech pathologist report for detailed findings and recommendations. Consultations: None Medication Reconciliation New Medications: Ciprofloxacin Hcl (Cipro) 500 Mg Tab 1 TAB PO BID for 3 Days, #6 TAB Continued Medications: Aspirin (Ecotrin Low Strength) 81 Mg Tab 81 MG PO DAILY Atorvastatin (Lipitor) 80 Mg Tab 80 MG PO QPM Budesonide/Formoterol Fumarate (Symbicort 160/4.5 Inhaler ) Aero 2 PUFFS INH BID Cyanocobalamin (Vitamin B-12 1000 Mcg) 1,000 Mcg Tab 2000 MCG PO DAILY Donepezil Hydrochloride (Aricept) 10 Mg Tab 10 MG PO DAILY Ferrous Sulfate (Ferrous Sulfate) 325 Mg Tab 325 MG PO BID Folic Acid (Folic Acid) 1 Mg Tab 1 MG PO QAM Glipizide (Glucotrol) 5 Mg Tab 5 MG PO BID Guaifenesin (Guaifenesin) 100 Mg/5 Ml Syp 10 ML PO UD PRN for Cough Ipratropium-Albuterol (Duoneb) 3 Ml Nebu 1 TREATMENT INH QID, INHA Ipratropium-Albuterol (Combivent Respimat) 1 Aer Aer 1 PUFFS INH BID Isosorbide Mononitrate Ext Rel (Imdur Ext Rel) 60 Mg Ertab 60 MG PO QAM Lisinopril (Lisinopril) 20 Mg Tab 20 MG PO QAM Metformin Hcl (Glucophage) 1,000 Mg Tab 1000 MG PO BID Metoprolol Tartrate (Lopressor) (Lopressor) 50 Mg Tab 75 MG PO BID 1&1/2 tab dose Multiple Vitamins W/ Minerals (Centrum) 1 Tab Tab 1 TAB PO QAM Oxybutynin Chloride (Ditropan) 5 Mg Tab 5 MG PO AMPM Polyethylene Glycol 3350 (Bulk (Polyethylene Glycol 3350) 1 Pow Pow 17 GM PO DAILY Discharge Exam The patient was seen and examined this morning. Pt reports doing well today. He is wide awake sitting up in bedside chair. He answers all of my questions without difficulty and is oriented to place and self, not time. ROS: Constitutional: No fever, No chills, No sweats Eyes: + problem reported (chronic watering eyes), No worsening of vision, No diplopia ENT: No nasal symptoms, No sore throat, No trouble swallowing Respiratory: No cough, No shortness of breath Cardiovascular: No chest pain, No palpitations Abdomen: No pain, No nausea, No vomiting, No diarrhea, No constipation Musculoskeletal: No joint pain, No muscle pain, No swelling Neurologic: No weakness, No numbness/tingling Endo: + fatigue Skin: No rash, No itch PE: General Appearance: WD/WN, no apparent distress, + thin (cachetic) Eyes: PERRL, EOMI, + pertinent finding (bilateral eye watering, pupils are pinpoint but unchanged) ENT: hearing grossly normal, + pertinent finding (MMM, tongue is black, poor dentition) Neck: no JVD Respiratory/Chest: + pertinent finding (on RA, breath sounds improved, no exp wheeze, crackles or rales) Cardiovascular: regular rate, rhythm, + systolic murmur (grade II/) Abdomen: normal bowel sounds, non tender, soft, + stafford catheter with hematuria , light pink Extremities: non-tender, no pedal edema, no calf tenderness Neurologic/Psychiatric: + pertinent finding (lethargic, wakes to verbal stimuli but quickly falls back asleep) Skin: normal color, warm/dry Hospital Course 82 y/o M advanced dementia, CAD, DM II, COPD, HTN, HPL. Pt resides at a longterm and was found poorly responsive this AM. He was sent to the ER emergently and evaluated extensively by the attending physician. On initial evaluation, there is no evidence of sepsis or an acute neurological event. The pt was however noted to be severely dehydrated. Following 2L of IVF, he gradually regained awareness and is lethargic but responsive at the time of admission. He has not exhibited a fever or hypotension. Encephalopathy/AMS - poorly responsive at time of admission- waxing and waning Dehydration - Speech therapy eval ordered - pt on mechanical soft diet with nectar thick liquids - high potential for aspiration with dementia- dementia contributing to PO intake at baseline - Repeat CXR 01/08 essentially unchanged. Cont mucinex to thin secretions, continue nebulizer tx prn. - Lungs improved - Off IVFs, appears euvolemic - encourage PO hydration once more awake today - No infectious etiology apparent at time of admission - follow BCx, UCx, no WBC , no fever, VSS - Follow BUN and Cr - slighty bumped with extra dose of lisinopril given last evening for htn - Follow strict urine outs via stafford cath - PT/OT consults Hematuria - resolved Possible UTI with UA + nitrates, trace esterase, >30 WBC, 1+ bacteria - UA completed, follow UCx - Continue on cipro 500 mg PO x 3 more days- complete a 5 day course on 01/14. Will follow up urine culture sensitivity and call if cipro not sensitive. - Hgb is stable - possible from traumatic placement? Urine appears physical therapist assistant - yellow today. - Stop heparin subq Hypomagnesemia - 1.6 01/10, replaced with 1 g IV CAD - no evidence of ACS - cont ASA, statin, metoprolol 75 mg BID, lisinopril 20 mg, imdur 60 mg DM II - no evidence of hypoglycemia per EMS - placed on ISS with accuchecks - Glipizide/Metformin held HTN - cont lisinopril 20 qam, Metoprolol tartrate 75 mg BID- BP improved in past 24 hours. Trialed lisinopril 20 mg QPM 01/09 which did help with BP but Cr slightly bumped so will not continue this. Will ask PCP to follow as outpatient and adjust as needed. HPL - cont Statin COPD - no evidence of exacerbation - cont prescribed Combivent BID, duonebs to QID prn at this time. Dementia - cont Aricept - pt is care-dependent and resides in a longterm. - waxing and waning mental status Black tongue - Continue oral hygiene care - encourage brushing teeth, tongue, hydration orally - not thrush DVT ppx: teds, scds CODE: DNR Disposition: From [facility], to assist with dc. PT/OT consults. Dc today PA Physician Supervision Note: I interviewed and examined the patient. Discussed with Pema Munoz PAC and agree with findings and plan as documented in the note. Any exceptions or clarifications are listed here: None Patient seen prior to discharge she is more near his baseline he is able to converse he knows he is oriented to person place and time likely this is from metabolic encephalopathy from urinary tract infection present on admission his vitals are reviewed and are stable patient does not have his final micro resulted prior to discharge Bird review this tomorrow and if his antibiotics need to be amended will amend them. His heart is regular lungs are clear to return to [facility] Documented By: Maxx Scott Total Time Spent: Greater than 30 minutes This includes examination of the patient, discharge planning, medication reconciliation, and communication with other providers. Discharge Instructions Please refer to the electronic Patient Visit Report (Discharge Instructions) for additional information. Follow-Up Follow up with PCP within 1 week, or provider at [facility] within 24-48 hours upon arrival. Additional Copies To [facility]
== END 2018-01-11 17:55 | disposition home or self-care (01) | DRG 640 ==
LOC: EDBD 12:09 → C.EDA 12:10 → C.2T 16:32 → ENRESERV 16:50 → OBSVTOIN 01-08 21:47
PROVIDERS: ADMIT Internal Medicine; ATTEND Internal Medicine
DX: E86.0 Dehydration (principal); G93.41 Metabolic encephalopathy; J69.0 Pneumonitis due to inhalation of food and vomit; N39.0 Urinary tract infection, site not specified; F03.90 Unspecified dementia, unspecified severity, without behavioral disturbance, psychotic disturbance, mood disturbance, and anxiety; E83.42 Hypomagnesemia; I25.10 Atherosclerotic heart disease of native coronary artery without angina pectoris; E11.9 Type 2 diabetes mellitus without complications; E78.5 Hyperlipidemia, unspecified; J44.9 Chronic obstructive pulmonary disease, unspecified; K14.3 Hypertrophy of tongue papillae; Z82.49 Family history of ischemic heart disease and other diseases of the circulatory system; Z83.3 Family history of diabetes mellitus; Z79.82 Long term (current) use of aspirin; I10 Essential (primary) hypertension

== ENCOUNTER 2018-12-08 16:56 | Inpatient (IN) ==
[2018-12-08] MEDS ORDERED: ICU PROTOCOL FOR HYPERGLYCEMIA PRN (20:29)
[2018-12-08] MEDS ORDERED: PIPERACILL/TAZOBAC CONSULT ACTIVE PRN (20:34)
[2018-12-08] MEDS ORDERED: VANCOMYCIN CONSULT ACTIVE PRN (20:34)
[2018-12-08] MEDS ORDERED: PIPERACILLIN/TAZOBACTAM 4.5 GM in DEXTROSE 5% 100 ML IV STA (20:34)
[2018-12-08] MEDS ORDERED: ALBUTEROL 0.5% NEB SOLN 2.5 MG/0.5 ML VIAL NEB PRN (20:39)
[2018-12-08] MEDS ORDERED: GLUCOSE 40% GEL 15 GM TUBE PO PRN (20:45)
[2018-12-08] MEDS ORDERED: GLUCOSE 10 TABS/TUBE PO PRN (20:45)
[2018-12-08] MEDS ORDERED: VANCOMYCIN HCL 1,000 MG in SODIUM CHLORIDE 0.9% 250 ML IV SCH (20:45)
[2018-12-08] MEDS ORDERED: GLUCAGON FOR INJ 1 MG VIAL SQ PRN (20:45)
[2018-12-08] MEDS ORDERED: CARBOHYDRATES FOR HYPOGLYCEMIA PO PRN (20:45)
--- NOTE | 2018-12-08 20:57 | XRay Report ---
XR chest 1V portable CLINICAL HISTORY: hypoxia dysphagia COMPARISON STUDY: 01/23/2018 FINDINGS: Prior median sternotomy. Parenchymal infiltrate left base. No significant consolidative maria m nge. Right lung is considered clear. Mild emphysematous change with mild diaphragmatic flattening. IMPRESSION: Infiltrate left base. The above report was generated using voice recognition software. It may contain grammatical, syntax or spelling errors. Electronically signed by: Will Light M.D. 12/08/2018 8:55 PM
[2018-12-08] MEDS ORDERED: INSULIN ASPART 100 UNITS/ML 3 ML PEN SC SCH (21:00)
[2018-12-08] MEDS ORDERED: ALBUTEROL 0.083% NEBU SOLN 3 ML VIAL NEB PRN (21:00)
--- NOTE | 2018-12-08 21:02 | History & Physical Report ---
Date of Service December 08, 2018 Assessment & Plan (1) Hypoxia: 83yo C male with history of CAD, HTN, HLP, COPD and dysphagia. NH resident sent to OSH with concern for aspiration event after PO feeding resumed. Patient unresponsive at present, concern for CVA on outpatient CT Head 1. Neuro - patient presently unresponsive - GCS=6 (no eye opening, no verbal response, withdrawing from pain). Etiology uncertain. ?infection, aspiration, CVA, electrolyte abnormality, AMBER. Patient with hypernatremia and AMBER from OSH labs. Patient with history of end-stage dementia. On Aricept at home. History of depression -Admit to MICU -Check CBC, BMP, Mg, PO4, Lactate -Check MRI brain - ideally with and without contrast, however, patient with poor GFR and is unable to take contrast -Family is at bedside -Hold Aricept for now as patient is unable to take po intake -Hold Fluoxetine 2. Pulm - patient with history of COPD, possible aspiration event at alf. Presently with adequate oxygenation and ventilation on BiPAP 14/7, 50%. CXR suggests left basilar infiltrate -Check procalcitonin -DuoNeb q 6 hours -Albuterol q 2 hours PRN -Continue BiPAP, target saturation 88 - 92% -Empiric antibiotics with Vancomycin and Zosyn for now 3. Cardiovascular - patient presently hemodynamically stable. Has history of CAD, HTN, HLP, bioprosthetic valve -Check troponin -Check EKG -Hold ASA, Atorvastatin, Metoprolol and Imdur while patient is NPO 4. GI - NPO secondary to mental status. Patient with history of dysphagia, possible aspiration event -NPO for now -Pepcid ppx -Aspiration precautions 5. - Elevated BUN and Cr on outpatient labs -Check BMP and UA here -Avoid nephrotoxic medications -Renal dosing where appropriate 6. Heme - no active bleeding -Hold PO Fe for now -Hold Folic Acid for now -Check CBC 7. ID - patient febrile, tachycardic, tachypneic. Had elevated lactate at OSH. Concern for sepsis, most likely pulmonary source -Check blood cultures x 2, UA and culture, procalcitonin -Empiric antibiotics with Vancomycin and Zosyn -Continue to monitor 8. Endo - patient with DM, hyperglycemia -Lantus 12u BID with insulin sliding scale -Blood sugars q 4 hours F/E/N - awaiting lab results. Patient will most likely need IVF pending results, NPO for now. Ppx - SCDs, Pepcid Code - DNR/DNI per records and discussion with family (BRANDON Haji [phone]) Dispo - MICU (2) Heart disease: (3) Hypertension: (4) COPD (chronic obstructive pulmonary disease): (5) Hyperglycemia: (6) Acute metabolic encephalopathy: (7) Aspiration pneumonia: History of Present Illness Chief Complaint: Dyspnea Primary Care Provider: NO PCP Patient is an 83yo C [place] resident presenting to [facility] with complaint of dyspnea. He was [place] with reported RA saturation of 84% and tachypnea as well as fever. Patient has history of dysphagia and was just restarted on oral feeds. Thought to have aspirated. At OSH noted to be altered, unresponsive verbally, withdrawing from light touch. Bilateral rhonchi, 84% on room air, placed on 12L NRB with improvement to 95%. Vargas catheter placed. He was administered Levaquin and Ceftriaxone and started on insulin gtt. CT of the head with concern for CVA vs primary or metastatic lesions. OSH: NSS x 3 L Ativan 1mg IV Ceftriaxone x 1gm Levaquin x 750mg Insulin x 5u then gtt DuoNeb Allergies Allergy/AdvReac Type Severity Reaction Status Date / Time No Known Allergies Allergy Unverified 07/03/17 21:04 Home Medications Home Medications Medication Instructions Recorded Confirmed Type Metoprolol Tartrate (Lopressor) 75 mg PO BID #0 06/29/13 History (Lopressor) ASPIRIN (ECOTRIN LOW STRENGTH) 81 mg PO DAILY #0 03/03/14 History Folic Acid 1 mg PO QAM #0 03/03/14 History ATORVASTATIN (LIPITOR) 80 mg PO QPM #0 01/26/16 History Budesonide/Formoterol Fumarate 2 puff INHALATION BID #0 01/26/16 History (Symbicort 160/4.5 Inhaler ) Lisinopril 20 mg PO QAM #0 01/26/16 History METFORMIN HCL (GLUCOPHAGE) 1,000 mg PO BID #0 01/26/16 History OXYBUTYNIN CHLORIDE (DITROPAN) 5 mg PO AMPM #0 05/30/16 History FERROUS SULFATE 325 mg PO BID #0 11/29/16 History IPRATROPIUM-ALBUTEROL (DUONEB) 1 treatment INHALATION QID #0 inh 11/29/16 History GUAIFENESIN 10 ml PO UD PRN #0 05/05/17 History Isosorbide Mononitrate Ext Rel 60 mg PO QAM #0 05/05/17 History (Imdur Ext Rel) MULTIPLE VITAMINS W/ MINERALS 1 tab PO QAM #0 05/05/17 History (CENTRUM) CYANOCOBALAMIN (VITAMIN B-12 1000 2,000 mcg PO DAILY #0 01/07/18 History MCG) DONEPEZIL HYDROCHLORIDE (ARICEPT) 10 mg PO DAILY #0 01/07/18 History GLIPIZIDE (GLUCOTROL) 5 mg PO BID #0 01/07/18 History IPRATROPIUM-ALBUTEROL (COMBIVENT 1 puff INHALATION BID #0 01/07/18 History RESPIMAT) POLYETHYLENE GLYCOL 3350 (BULK 17 g PO DAILY #0 01/07/18 History (POLYETHYLENE GLYCOL 3350) Past Med/Surg History Medical History CAD (coronary artery disease) COPD (chronic obstructive pulmonary disease) Dementia Diabetes Dysphagia Hyperlipidemia Hypertension Surgical History H/O heart surgery Family History Other Family history non-contributory Social History Communication Ability: Unable Beliefs That Will Affect Care: None Current Living Situation: Personal Care Facility Other Information That Helps Us Care for You: No (UNKNOWN AT THIS TIME) Feels Safe at Home: Declines to Answer Smoking Status: Unknown if ever smoked Hx Alcohol Use: No (UNKNOWN AT THIS TIME) Hx Substance Use: No (UNKNOWN AT THIS TIME) Review of Systems Unobtainable due to cognitive status Physical Exam Vital Signs (Past 24 Hours): Last Vital Signs Temp 39.5 C H 12/08/18 20:36 Pulse 67 12/08/18 20:36 Resp 28 H 12/08/18 20:36 BP 119/57 L 12/08/18 20:36 Physical Exam: General: patient obtunded, not following commands, no verbal response, withdraws from painful stimuli Skin: warm, dry, intact, no rashes or lesions, well healed sternotomy scar HEENT: NC/AT, Pupils small, sluggish, anicteric sclera, conjunctiva without injection, external ear normal to inspection and nontender, nares patent, moist mucus membranes, no oropharyngeal lesions, neck supple, trachea midline, no LAD, no thyromegaly, no JVD Heart: +S1/S2, regular, tachycardic, no m/r/g Lungs: equal air entry bilaterally, coarse rhonchi in bilateral lung puente, R > L Abd: +BS, soft, NT/ND, no masses/organomegaly/ascites Ext: warm, 1+ pulses in UE/LE bilaterally, no clubbing/cyanosis or edema Neuro:patient nonverbal, not following commands, pupils small and reactive, withdrawing from painful stimuli Results & Data Laboratory Results OSH RESULTS: 7.44/32.8/50.1 WBC=12, Hg=13.4, Hct=41, Plt=83 Mj=492, K=4.7, Ck=856, CO2=26, BUN=68, Cr=2.23, Cvx=275, Ca=9.7, INR=1.09, Trop=0.02 (neg), UA +glu, negative ketones, Lactate=2.4, LFTs HZ=929 CXR = No active cardiopulmonary disease CT Head = Rounded low-attenuation lesion inthe left mesial temporal lobe consistent with infarct. This should be further evaluated by MRI of the brain with lisa. Low attenuation lesion in the inferior left cerebellar hemisphere c/w inrarct. Primary or metastatic neoplastic lesions no excluded. Age-related cerebral atrophy and chroinc white matter ischemic changes Code Status & VTE Plan Code Status DNR/DNI, LT per review of NH documentation VTE Prophylaxis Plan VTE Prophylaxis will be ordered: Yes Critical Care Time Critical Care Time: Yes Total Critical Care Time: 60
[2018-12-08 21:08] LABS: Appearance Urine Cloudy (Clear); Bilirubin Urine Negative (Negative); Blood Urine 3+ (Negative); Color Urine Yellow; Epithelial Cell Urine Auto >30 /lpf (0-5); Glucose Urine UA 3+ (Negative); Ketones Urine Trace (Negative); Leukocyte Esterase Urine 1+ (Negative); Nitrite Urine Negative (Negative); Protein Urine 3+ (Negative); Urobilinogen Urine Negative (Negative); WBC Urine Automated >30 /hpf (0-5)
[2018-12-08 21:15] LABS: Bacteria Urine Automated 1+ (Negative)
[2018-12-08 21:24] LABS: iSTAT Allen Test Pass; iSTAT Arterial Blood Gas HCO3 23 meg/L (19-24); iSTAT Arterial Blood Gas pCO2 40 mmHg (35-46); iSTAT Arterial Blood Gas pH 7.37 (7.35-7.45); iSTAT Carbon Dioxide 24 mEq/l (24-31); iSTAT FiO2 50 %; iSTAT Site R Radial
[2018-12-08] MEDS: ACETAMINOPHEN 65 ML IV PRN (21:29)
[2018-12-08] MEDS ORDERED: INFLUENZA ADMINISTRATION CHARGE ONE (21:30)
[2018-12-08] MEDS ORDERED: VANCOMYCIN HCL 1,250 MG in SODIUM CHLORIDE 0.9% 250 ML IV ONE (21:30)
[2018-12-08] MEDS ORDERED: PIPERACILLIN/TAZOBACTAM 3.375 GM in DEXTROSE 5% 100 ML IV ONE (21:30)
[2018-12-08] MEDS ORDERED: INFLUENZA VIRUS QUAD VACCINE 0.5 ML SYR IM ONE (21:30)
[2018-12-08] MEDS ORDERED: PNEUMOCOCCAL POLYSACCHARIDES 25 MCG/0.5 ML VIAL/SYR IM ONE (21:30)
[2018-12-08] MEDS ORDERED: PNEUMOCOCCAL ADMINISTRATION CHARGE ONE (21:30)
[2018-12-08 21:44] LABS: Basophils # (auto) 0.01 K/uL (0-0.2); Basophils % (auto) 0.1 %; Eosinophils # (auto) 0.01 K/uL (0-0.5); Eosinophils % (auto) 0.1 %; Hematocrit (blood only) 38.6 % (42-52); Hemoglobin 12.3 g/dL (14.0-18.0); Immature Granulocytes # (auto) 0.04 K/uL (0.00-0.02); Immature Granulocytes % (auto) 0.4 %; Lymphocytes % (auto) 6.1 %; Mean Corpuscular Hgb Conc 31.9 g/dL (32-36); Mean Platelet Volume 11.1 fL (7.4-10.4); Monocytes # (auto) 0.78 K/uL (0.11-0.59); Monocytes % (auto) 7.9 %; Neutrophils % (auto) 85.4 %; Platelet Count 249 K/uL (130-400); RDW Coefficient of Variation 14.4 % (11.5-14.5); RDW Standard Deviation 52.4 fL (36.4-46.3); Red Blood Count 3.86 M/uL (4.7-6.1); White Blood Count 9.84 K/uL (4.8-10.8)
[2018-12-08] MEDS: INSULIN GLARGINE SOLOSTAR 100 UNITS/ML 3 ML PEN SC SCH (21:50)
[2018-12-08] MEDS: INSULIN ASPART 100 UNITS/ML 3 ML PEN SC SCH (21:51)
[2018-12-08 21:56] LABS: Prothrombin Time 10.6 Seconds (9.0-12.0)
[2018-12-08 22:14] LABS: Albumin Level 2.8 gm/dl (3.4-5.0); BUN Creatinine Ratio 25.7 (10-20); Bilirubin Direct 0.1 mg/dl (0-0.2); Bilirubin,Total 0.3 mg/dl (0.2-1); Creatinine Clr Calc Pharmacy 18.1 ml/min; Est GFR (African American) 27.9; Est GFR (Non-African American) 24.1; Magnesium 2.3 mg/dl (1.8-2.4); Phosphorus 2.7 mg/dl (2.5-4.9); Potassium 4.3 mmol/L (3.5-5.1); Total Protein 6.9 gm/dl (6.4-8.2); Troponin I 0.033 ng/ml (0-0.045)
--- NOTE | 2018-12-08 22:17 | XRay Report ---
XR orbits for MRI HISTORY: pre-MRI screening. COMPARISON: None. FINDINGS: There are no radiopaque foreign bodies identified within the orbits. IMPRESSION: No radiopaque foreign bodies identified within the orbits. The above report was generated using voice recognition software. It may contain grammatical, syntax or spelling errors. Electronically signed by: Will Light M.D. 12/08/2018 10:16 PM
[2018-12-08 22:29] LABS: Beta-Hydroxybutyrate 2.59 mg/dl (0.2-2.81)
--- NOTE | 2018-12-08 23:00 | Magnetic Resonance Report ---
MR brain wo con HISTORY: Mental status change ?CVA vs metastatic lesions TECHNIQUE: Multiplanar multisequence MRI of the brain was performed without the use of contrast. COMPARISON STUDY: CT 01/15/2018 FINDINGS: Severely compromised exam due to the absence of contrast enhancement findings of generalize d cerebellar as well as cerebral atrophy. Old left cerebellar infarct. Moderate chronic small vessel change. Jugular system is midline. Mild compensatory prominence of the ventricular system. Diffusion images are considered negative for an acute ischemic insult. IMPRESSION: 1. Severely compromised exam due to the absence of contrast enhancement given the history presented. 2. Generalized cerebellar as well as cerebral atrophy. 3.. Old left cerebellar infarct. 4. No evidence for an acute ischemic process. The above report was generated using voice recognition software. It may contain grammatical, syntax or spelling errors. Electronically signed by: Will Light M.D. 12/08/2018 10:58 PM
[2018-12-08] MEDS: SODIUM CHLORIDE 0.45 % 1,000 ML IV SCH (23:14)
[2018-12-09] MEDS: INSULIN ASPART 100 UNITS/ML 3 ML PEN SC SCH ×6 (00:14→20:19)
[2018-12-09 01:50] LABS: BUN Creatinine Ratio 25.6 (10-20); Calcium 8.4 mg/dl (8.5-10.1); Creatinine Clr Calc Pharmacy 16.5 ml/min; Est GFR (African American) 25.1; Est GFR (Non-African American) 21.6; Potassium 4.2 mmol/L (3.5-5.1)
[2018-12-09] MEDS: ALBUT/IPRATROP 3MG/0.5MG NEB 3 ML VIAL NEB SCH ×4 (01:56→20:12)
[2018-12-09 02:01] LABS: Beta-Hydroxybutyrate 0.86 mg/dl (0.2-2.81)
[2018-12-09] MEDS: SODIUM CHLORIDE 0.45 % 1,000 ML IV SCH ×3 (04:49→19:14)
[2018-12-09] MEDS: ACETAMINOPHEN 65 ML IV PRN ×2 (06:42→14:44)
[2018-12-09 06:53] LABS: Basophils # (auto) 0.02 K/uL (0-0.2); Basophils % (auto) 0.2 %; Hematocrit (blood only) 38.4 % (42-52); Hemoglobin 11.8 g/dL (14.0-18.0); Immature Granulocytes # (auto) 0.03 K/uL (0.00-0.02); Immature Granulocytes % (auto) 0.3 %; Lymphocytes # (auto) 1.06 K/uL (1.2-3.4); Lymphocytes % (auto) 9.7 %; Mean Corpuscular Volume 101.9 fL (80-100); Mean Platelet Volume 10.6 fL (7.4-10.4); Monocytes # (auto) 0.73 K/uL (0.11-0.59); Monocytes % (auto) 6.7 %; Neutrophils # (auto) 9.07 K/uL (1.4-6.5); Neutrophils % (auto) 83.1 %; Platelet Count 212 K/uL (130-400); RDW Coefficient of Variation 14.4 % (11.5-14.5); RDW Standard Deviation 53.8 fL (36.4-46.3); Red Blood Count 3.77 M/uL (4.7-6.1); White Blood Count 10.91 K/uL (4.8-10.8)
[2018-12-09 06:58] LABS: Mean Corpuscular Hgb Conc 30.7 g/dL (32-36)
[2018-12-09 07:13] LABS: Albumin Level 2.4 gm/dl (3.4-5.0); Bilirubin Direct 0.1 mg/dl (0-0.2); Bilirubin,Total 0.4 mg/dl (0.2-1); Magnesium 2.4 mg/dl (1.8-2.4); Total Protein 6.2 gm/dl (6.4-8.2)
[2018-12-09] MEDS ORDERED: PIPERACILLIN/TAZOBACTAM 3.375 GM in DEXTROSE 5% 100 ML IV SCH (08:00)
[2018-12-09] MEDS: INSULIN GLARGINE SOLOSTAR 100 UNITS/ML 3 ML PEN SC SCH ×2 (08:05→20:20)
[2018-12-09] MEDS: FAMOTIDINE 20 MG in SYRINGE 3 ML IV SCH (08:12)
--- NOTE | 2018-12-09 09:48 | Pharmacy Report ---
Pharmacy Abx Initial Consult - Date of Service December 09, 2018 - Pharmacy Dosing Scope Date of Consult: 12/08 Consultation requested by: Dr. Montes Pharmacy is consulted to initiate vancomycin/zosyn IV/PO dosing therapy, order appropriate labs and adjust drug dose/frequency. - Subjective The patient is a 83 year old M admitted on 12/08/18 20:10. - Objective Height: 5 ft 7 in Weight: 56.3 kg Vital Signs (Past 12hrs): Vital Signs Pulse Pulse Resp BP Pulse Ox 12/09/18 09:00 104 H 23 108/57 L 98 12/09/18 08:00 109 H 26 H 123/54 L 95 12/09/18 07:43 105 H 105 H 24 95 12/09/18 07:00 107 H 32 H 129/56 L 96 12/09/18 06:00 107 H 29 H 115/54 L 97 12/09/18 05:16 102 H 29 H 100 12/09/18 05:00 100 H 27 H 146/65 H 100 12/09/18 04:30 101 H 27 H 119/58 L 100 12/09/18 04:00 104 H 27 H 119/57 L 98 12/09/18 03:30 108 H 28 H 128/55 L 92 12/09/18 03:00 108 H 28 H 112/51 L 94 12/09/18 02:31 114 H 33 H 120/56 L 91 12/09/18 02:01 112 H 32 H 98/66 L 100 12/09/18 01:58 102 H 29 H 100 12/09/18 01:57 102 H 29 H 100 12/09/18 01:31 97 H 27 H 144/63 H 100 12/09/18 01:00 94 H 23 120/55 L 100 12/09/18 00:30 95 H 34 H 133/61 99 12/09/18 00:00 95 H 26 H 96/50 L 100 12/08/18 23:33 96 H 26 H 95/46 L 88 L 12/08/18 23:19 101 H 28 H 89 L 12/08/18 22:30 102 H 24 93 12/08/18 22:01 106/50 L 12/08/18 22:00 90 Lab Results (24hrs): Laboratory Tests (24 Hours) 12/09/18 12/09/18 12/08/18 06:46 01:16 21:20 WBC 10.91 H Neut # (Auto) 9.07 H Creatinine 2.59 H Est Cr Clr Drug Dosing 16.5 Procalcitonin 0.40 12/08/18 12/08/18 21:20 21:20 WBC 9.84 Neut # (Auto) 8.40 H Creatinine 2.37 H Est Cr Clr Drug Dosing 18.1 Procalcitonin Micro Results: 12/08/18 21:20 Blood Culture - Pending Blood 12/08/18 21:26 Blood Culture - Pending Blood 12/08/18 Unknown Urine Culture - Pending Urine,Clean Catch - Risk Factors for Resistance * Resident in a long term or extended-care facility - Assessment & Plan Assessment 83 year old M with history of CAD, HTN, HLP, COPD, dysphagia presents from outside hospital (initially sent from long term) with concerns for aspiration. Patient unresponsive and does have end-stage dementia per reports. Patient is febrile, tachycardic, elevated lactate, WBC 10.9. Started on empiric vanco/zosyn for presumed pulmonary source. Blood cultures, urine culture pending. AMBER on admission worsened this morning. Plan Vancomycin IV * Estimated PK Parameters: T1/2 38 hrs * Loading dose: 1250 mg IV x 1 * Will dose by levels at this time as half life predicts >24 hours * Ordered random level for tonight ~24 hours after dose Piperacillin/tazobactam * 3.375 g bolus administered over 30 minutes, then 3.375 g IV extended infusion every 12 hours for CrCl 20 mL/min or less and dialysis. Pharmacy will continue to follow and will adjust dose/frequency as necessary. Thank you.
--- NOTE | 2018-12-09 10:32 | Critical Care Consultation ---
Date of Consultation December 09, 2018 Assessment & Plan (1) Admitted to intensive care unit: Reason Critically Ill: 83-year-old male with long-standing history of dementia possibly end-stage with acute hypoxic respiratory failure PLAN: Neuro: Acute encephalopathy -Likely metabolic/multifactorial -No definitive signs of meningitis Dementia -Long-standing resides in personal snf Resp: Acute hypoxic respiratory failure Infiltrates on chest x-ray -Aspiration pneumonitis versus aspiration pneumonia CV: History hypertension -Troponins negative x1 -EKG sinus tachycardia Tachycardia -Possibly related to fever Fluids/Renal: Hypernatremia -2.7-3.8 L free water deficit -Half NS at 125 mL's per hour Acute kidney injury ID: Febrile illness -Pro calcitonin 0.4 -Definitive oxygen requirement, infiltrates on chest x-ray Urinalysis reviewed -Urine culture and blood culture pending -Zosyn and vancomycin started -Convert Zosyn to cefepime for less sodium load and in the setting of AK I -MRSA swab positive will continue vancomycin GI/Nutrition: Elevated alkaline phosphatase Hypoalbuminemia and hypoproteinemia -Sarcopena Heme: Anemia: Most likely of chronic disease -At baseline DVT prophylaxis: Heparin 5000 twice daily Endocrine: ICU hyperglycemia protocol Hyperglycemia -Sliding scale with basal insulin Vascular access: Peripheral IVs Code Status: DO NOT RESUSCITATE in event of cardiac arrest I have personally spent 45 minutes of critical care time in the direct management of this patient. This is a life/limb threatening event. This inc ludes time spent evaluating patient, direct bedside care, chart review, placing orders, interpretation of diagnostic studies, discussion with consultants, patient, and/or family members regarding treatment decisions, as well as other required patient management activities. This time is exclusive of all separately billable procedures, and teaching time and separate from and in addition to any other critical care service time. (2) Hypernatremia: History of Present Illness Attending Physician: Henna Ford MD History is obtainable from prior records secondary to patient's acute encephalopathy. He is a 83-year-old male with a history of coronary artery disease, hypertension hyperlipidemia, COPD and dysphasia who is a [facility] resident was sent for evaluation of possible aspiration from his [facility] to an outside hospital. Patient's CODE STATUS is DNR, no heroic efforts are to be undertaken based off of prior records, at the outside hospital the patient was noted to have acute hypoxic respiratory failure which improved with supplemental oxygen as well as noninvasive ventilation. He was believed to have a aspiration pneumonia started on Levaquin and ceftriaxone as well as an insulin drip. He acute encephalopathy there is concern for a CVA versus metastatic lesions. He was transferred to the ICU for further aggressive care. The only prior records I have at the time of this dictation were a neurology consultation from January 16, 2018. There is a long-standing history of dementia for which she was taking 10 mg of Aricept at the time of the consultation he was oriented to person alone not place and time he did not know year president and could not do simple calculations. He could follow one-step commands but was easily confused. At that time a consideration was given to an MRI of the brain however it would be difficult to obtain secondary to his ability to cooperate. Allergies Allergy/AdvReac Type Severity Reaction Status Date / Time No Known Allergies Allergy Unverified 07/03/17 21:04 Home Medications Home Medications Medication Instructions Recorded Confirmed Type aspirin 81 mg PO DAILY 12/09/18 12/09/18 History atorvastatin 40 mg PO HS 12/09/18 12/09/18 History cyanocobalamin (vitamin B-12) 1,000 mcg PO BID 12/09/18 12/09/18 History [Vitamin B-12] dextran 70-hypromellose 1 drp OPHTHALMIC (EYE) Q12 PRN 12/09/18 12/09/18 History [Artificial Tears (PF)] donepezil [Aricept] 10 mg PO HS 12/09/18 12/09/18 History ferrous sulfate 325 mg PO BID 12/09/18 12/09/18 History fluoxetine 40 mg PO HS 12/09/18 12/09/18 History folic acid 1 mg PO DAILY 12/09/18 12/09/18 History glipizide 2.5 mg PO DAILY 12/09/18 12/09/18 History hyoscyamine sulfate [Levsin/SL] 0.125 mg SUBLINGUAL BID 12/09/18 12/09/18 History ipratropium-albuterol 3 ml INHALATION QID PRN 12/09/18 12/09/18 History isosorbide mononitrate 60 mg PO QAM 12/09/18 12/09/18 History ketoconazole 1 applic TOPICAL Q3D 12/09/18 12/09/18 History levofloxacin [Levaquin] 500 mg PO DAILY 12/09/18 12/09/18 History lorazepam 0.5 mg PO QAM 12/09/18 12/09/18 History lorazepam 1 mg PO HS 12/09/18 12/09/18 History metoprolol tartrate 50 mg PO BID 12/09/18 12/09/18 History mirtazapine 7.5 mg PO HS 12/09/18 12/09/18 History prednisone 40 mg PO DAILY 12/09/18 12/09/18 History sennosides [senna] 17.2 mg PO DAILY PRN 12/09/18 12/09/18 History therapeutic multivitamin [Therems] 1 tab PO DAILY 12/09/18 12/09/18 History Patient History Medical History CAD (coronary artery disease) COPD (chronic obstructive pulmonary disease) Dementia Diabetes Dysphagia Hyperlipidemia Hypertension Surgical History H/O heart surgery Family History Other Family history non-contributory Social History Communication Ability: Unable Beliefs That Will Affect Care: None Current Living Situation: Personal Care Facility Other Information That Helps Us Care for You: No (UNKNOWN AT THIS TIME) Feels Safe at Home: Declines to Answer Smoking Status: Unknown if ever smoked Hx Alcohol Use: No (UNKNOWN AT THIS TIME) Hx Substance Use: No (UNKNOWN AT THIS TIME) Review of Systems Unable to obtain secondary to patient's clinical condition: Encephalopathy Physical Exam Vital Signs (Past 24 Hours): Last Vital Signs Temp 39.5 C H 12/08/18 20:36 Pulse 104 H 12/09/18 09:00 Resp 23 12/09/18 09:00 BP 108/57 L 12/09/18 09:00 Pulse Ox 98 12/09/18 09:00 General: Elderly aged male I have reviewed the recorded vital signs Neurological: RASS score: 0, Moves all 4 extremities, Psychological: Glascow Coma Scale: Eyes: 4, Verbal 4, Motor 6, Total 14 follows simple commands Eyes: Pupils are equal, round and reactive to light, anicteric sclera. Symmetrical lids. HENT: Oropharynx clear, dry mucous membranes. Neck: Supple. Symmetric. trachea midline. No thyromegaly. Cardiovascular: Normal peripheral perfusion. Distal pulses and capillary refill intact. No JVD. Respiratory: Respirations are non-labored, no accessory muscle use. Gastrointestinal: Soft. Non-distended. Lymphatic: No cervical lymphadenopathy. Musculoskeletal: No deformity. No clubbing nor cyanosis. Results & Data Laboratory Results 12/09/18 12/09/18 12/09/18 Range/Units 11:29 08:06 06:46 WBC (4.8-10.8) K/uL RBC (4.7-6.1) M/uL Hgb (14.0-18.0) g/dL Hct (42-52) % MCV (80-100) fL MCH (25-34) pg MCHC (32-36) g/dL RDW Std Deviation (36.4-46.3) fL RDW Coeff of Hollie (11.5-14.5) % Plt Count (130-400) K/uL MPV (7.4-10.4) fL Immature Gran % (Auto) % Neut % (Auto) % Lymph % (Auto) % Walker % (Auto) % Eos % (Auto) % Baso % (Auto) % Immature Gran # (Auto) (0.00-0.02) K/uL Neut # (Auto) (1.4-6.5) K/uL Lymph # (Auto) (1.2-3.4) K/uL Walker # (Auto) (0.11-0.59) K/uL Eos # (Auto) (0-0.5) K/uL Baso # (Auto) (0-0.2) K/uL PT (9.0-12.0) Seconds INR (0.9-1.1) Sample Site POC pH (7.35-7.45) POC pCO2 (35-46) mmHg POC pO2 (80-95) mmHg POC HCO3 (19-24) ethan/L POC Total CO2 (24-31) mEq/l POC Base Excess (-9-1.8) ethan/L POC ABG O2 Sat (90-95) % Ryan Test O2 Delivery Device POC O2 Rate POC FiO2 % IPAP Sodium (136-145) mmol/L Potassium (3.5-5.1) mmol/L Chloride (98-107) mmol/L Carbon Dioxide (21-32) mmol/L Anion Gap (3-11) BUN (7-18) mg/dl Creatinine (0.6-1.4) mg/dl Est Cr Clr Drug Dosing ml/min Est GFR ( Amer) Est GFR (Non-Af Amer) BUN/Creatinine Ratio (10-20) Glucose (70-99) mg/dl POC Glucose 220 H 201 H (70-99) Lactate 1.7 (0.4-2.0) mmol/L Calcium (8.5-10.1) mg/dl Phosphorus (2.5-4.9) mg/dl Magnesium (1.8-2.4) mg/dl Total Bilirubin (0.2-1) mg/dl Direct Bilirubin (0-0.2) mg/dl AST (15-37) U/L ALT (12-78) U/L Alkaline Phosphatase (45-117) U/L Troponin I (0-0.045) ng/ml Total Protein (6.4-8.2) gm/dl Albumin (3.4-5.0) gm/dl Beta-Hydroxybutyric Acd (0.2-2.81) mg/dl Procalcitonin (0-0.5) ng/ml Urine Color Urine Appearance (Clear) Urine pH (4.5-7.5) Ur Specific [place] (1.000-1.030) Urine Protein (Negative) Urine Glucose (UA) (Negative) Urine Ketones (Negative) Urine Blood (Negative) Urine Nitrite (Negative) Urine Bilirubin (Negative) Urine Urobilinogen (Negative) Ur Leukocyte Esterase (Negative) Urine WBC (Auto) (0-5) /hpf Urine RBC (Auto) (0-4) /hpf U Hyaline Cast (Auto) (0-5) /lpf U Epithel Cells (Auto) (0-5) /lpf Urine Bacteria (Auto) (Negative) Ur Renal Epithelial Cell Granular Casts (0) /lpf Urine Yeast Nasal Screen MRSA (PCR) (Negative) 12/09/18 12/09/18 12/09/18 Range/Units 06:46 06:46 04:34 WBC 10.91 H (4.8-10.8) K/uL RBC 3.77 L (4.7-6.1) M/uL Hgb 11.8 L (14.0-18.0) g/dL Hct 38.4 L (42-52) % MCV 101.9 H (80-100) fL MCH 31.3 (25-34) pg MCHC 30.7 L (32-36) g/dL RDW Std Deviation 53.8 H (36.4-46.3) fL RDW Coeff of Hollie 14.4 (11.5-14.5) % Plt Count 212 (130-400) K/uL MPV 10.6 H (7.4-10.4) fL Immature Gran % (Auto) 0.3 % Neut % (Auto) 83.1 % Lymph % (Auto) 9.7 % Walker % (Auto) 6.7 % Eos % (Auto) 0.0 % Baso % (Auto) 0.2 % Immature Gran # (Auto) 0.03 H (0.00-0.02) K/uL Neut # (Auto) 9.07 H (1.4-6.5) K/uL Lymph # (Auto) 1.06 L (1.2-3.4) K/uL Walker # (Auto) 0.73 H (0.11-0.59) K/uL Eos # (Auto) 0.00 (0-0.5) K/uL Baso # (Auto) 0.02 (0-0.2) K/uL PT (9.0-12.0) Seconds INR (0.9-1.1) Sample Site POC pH (7.35-7.45) POC pCO2 (35-46) mmHg POC pO2 (80-95) mmHg POC HCO3 (19-24) ethan/L POC Total CO2 (24-31) mEq/l POC Base Excess (-9-1.8) ethan/L POC ABG O2 Sat (90-95) % Ryan Test O2 Delivery Device POC O2 Rate POC FiO2 % IPAP Sodium (136-145) mmol/L Potassium (3.5-5.1) mmol/L Chloride (98-107) mmol/L Carbon Dioxide (21-32) mmol/L Anion Gap (3-11) BUN (7-18) mg/dl Creatinine (0.6-1.4) mg/dl Est Cr Clr Drug Dosing ml/min Est GFR ( Amer) Est GFR (Non-Af Amer) BUN/Creatinine Ratio (10-20) Glucose (70-99) mg/dl POC Glucose 252 H (70-99) Lactate (0.4-2.0) mmol/L Calcium (8.5-10.1) mg/dl Phosphorus (2.5-4.9) mg/dl Magnesium 2.4 (1.8-2.4) mg/dl Total Bilirubin 0.4 (0.2-1) mg/dl Direct Bilirubin 0.1 (0-0.2) mg/dl AST 21 (15-37) U/L ALT 31 (12-78) U/L Alkaline Phosphatase 189 H (45-117) U/L Troponin I (0-0.045) ng/ml Total Protein 6.2 L (6.4-8.2) gm/dl Albumin 2.4 L (3.4-5.0) gm/dl Beta-Hydroxybutyric Acd (0.2-2.81) mg/dl Procalcitonin (0-0.5) ng/ml Urine Color Urine Appearance (Clear) Urine pH (4.5-7.5) Ur Specific [place] (1.000-1.030) Urine Protein (Negative) Urine Glucose (UA) (Negative) Urine Ketones (Negative) Urine Blood (Negative) Urine Nitrite (Negative) Urine Bilirubin (Negative) Urine Urobilinogen (Negative) Ur Leukocyte Esterase (Negative) Urine WBC (Auto) (0-5) /hpf Urine RBC (Auto) (0-4) /hpf U Hyaline Cast (Auto) (0-5) /lpf U Epithel Cells (Auto) (0-5) /lpf Urine Bacteria (Auto) (Negative) Ur Renal Epithelial Cell Granular Casts (0) /lpf Urine Yeast Nasal Screen MRSA (PCR) (Negative) 12/09/18 12/09/18 12/08/18 Range/Units 01:16 00:03 Unknown WBC (4.8-10.8) K/uL RBC (4.7-6.1) M/uL Hgb (14.0-18.0) g/dL Hct (42-52) % MCV (80-100) fL MCH (25-34) pg MCHC (32-36) g/dL RDW Std Deviation (36.4-46.3) fL RDW Coeff of Hollie (11.5-14.5) % Plt Count (130-400) K/uL MPV (7.4-10.4) fL Immature Gran % (Auto) % Neut % (Auto) % Lymph % (Auto) % Walker % (Auto) % Eos % (Auto) % Baso % (Auto) % Immature Gran # (Auto) (0.00-0.02) K/uL Neut # (Auto) (1.4-6.5) K/uL Lymph # (Auto) (1.2-3.4) K/uL Walker # (Auto) (0.11-0.59) K/uL Eos # (Auto) (0-0.5) K/uL Baso # (Auto) (0-0.2) K/uL PT (9.0-12.0) Seconds INR (0.9-1.1) Sample Site POC pH (7.35-7.45) POC pCO2 (35-46) mmHg POC pO2 (80-95) mmHg POC HCO3 (19-24) ethan/L POC Total CO2 (24-31) mEq/l POC Base Excess (-9-1.8) ethan/L POC ABG O2 Sat (90-95) % Ryan Test O2 Delivery Device POC O2 Rate POC FiO2 % IPAP Sodium 159 H* (136-145) mmol/L Potassium 4.2 (3.5-5.1) mmol/L Chloride 131 H (98-107) mmol/L Carbon Dioxide 25 (21-32) mmol/L Anion Gap 4.0 (3-11) BUN 66 H (7-18) mg/dl Creatinine 2.59 H (0.6-1.4) mg/dl Est Cr Clr Drug Dosing 16.5 ml/min Est GFR ( Amer) 25.1 Est GFR (Non-Af Amer) 21.6 BUN/Creatinine Ratio 25.6 H (10-20) Glucose 308 H (70-99) mg/dl POC Glucose 326 H (70-99) Lactate (0.4-2.0) mmol/L Calcium 8.4 L (8.5-10.1) mg/dl Phosphorus (2.5-4.9) mg/dl Magnesium (1.8-2.4) mg/dl Total Bilirubin (0.2-1) mg/dl Direct Bilirubin (0-0.2) mg/dl AST (15-37) U/L ALT (12-78) U/L Alkaline Phosphatase (45-117) U/L Troponin I (0-0.045) ng/ml Total Protein (6.4-8.2) gm/dl Albumin (3.4-5.0) gm/dl Beta-Hydroxybutyric Acd 0.86 (0.2-2.81) mg/dl Procalcitonin (0-0.5) ng/ml Urine Color Yellow Urine Appearance Cloudy H (Clear) Urine pH 5.0 (4.5-7.5) Ur Specific [place] 1.030 (1.000-1.030) Urine Protein 3+ H (Negative) Urine Glucose (UA) 3+ H (Negative) Urine Ketones Trace H (Negative) Urine Blood 3+ H (Negative) Urine Nitrite Negative (Negative) Urine Bilirubin Negative (Negative) Urine Urobilinogen Negative (Negative) Ur Leukocyte Esterase 1+ H (Negative) Urine WBC (Auto) >30 H (0-5) /hpf Urine RBC (Auto) 10-30 H (0-4) /hpf U Hyaline Cast (Auto) 1-5 (0-5) /lpf U Epithel Cells (Auto) >30 H (0-5) /lpf Urine Bacteria (Auto) 1+ H (Negative) Ur Renal Epithelial Cell Not Reportable Granular Casts 5-10 H (0) /lpf Urine Yeast Not Reportable Nasal Screen MRSA (PCR) (Negative) 12/08/18 12/08/18 12/08/18 Range/Units Unknown 21:20 21:20 WBC (4.8-10.8) K/uL RBC (4.7-6.1) M/uL Hgb (14.0-18.0) g/dL Hct (42-52) % MCV (80-100) fL MCH (25-34) pg MCHC (32-36) g/dL RDW Std Deviation (36.4-46.3) fL RDW Coeff of Hollie (11.5-14.5) % Plt Count (130-400) K/uL MPV (7.4-10.4) fL Immature Gran % (Auto) % Neut % (Auto) % Lymph % (Auto) % Walker % (Auto) % Eos % (Auto) % Baso % (Auto) % Immature Gran # (Auto) (0.00-0.02) K/uL Neut # (Auto) (1.4-6.5) K/uL Lymph # (Auto) (1.2-3.4) K/uL Walker # (Auto) (0.11-0.59) K/uL Eos # (Auto) (0-0.5) K/uL Baso # (Auto) (0-0.2) K/uL PT (9.0-12.0) Seconds INR (0.9-1.1) Sample Site POC pH (7.35-7.45) POC pCO2 (35-46) mmHg POC pO2 (80-95) mmHg POC HCO3 (19-24) ethan/L POC Total CO2 (24-31) mEq/l POC Base Excess (-9-1.8) ethan/L POC ABG O2 Sat (90-95) % Ryan Test O2 Delivery Device POC O2 Rate POC FiO2 % IPAP Sodium (136-145) mmol/L Potassium (3.5-5.1) mmol/L Chloride (98-107) mmol/L Carbon Dioxide (21-32) mmol/L Anion Gap (3-11) BUN (7-18) mg/dl Creatinine (0.6-1.4) mg/dl Est Cr Clr Drug Dosing ml/min Est GFR ( Amer) Est GFR (Non-Af Amer) BUN/Creatinine Ratio (10-20) Glucose (70-99) mg/dl POC Glucose (70-99) Lactate 3.4 H* (0.4-2.0) mmol/L Calcium (8.5-10.1) mg/dl Phosphorus (2.5-4.9) mg/dl Magnesium (1.8-2.4) mg/dl Total Bilirubin (0.2-1) mg/dl Direct Bilirubin (0-0.2) mg/dl AST (15-37) U/L ALT (12-78) U/L Alkaline Phosphatase (45-117) U/L Troponin I (0-0.045) ng/ml Total Protein (6.4-8.2) gm/dl Albumin (3.4-5.0) gm/dl Beta-Hydroxybutyric Acd (0.2-2.81) mg/dl Procalcitonin 0.40 (0-0.5) ng/ml Urine Color Urine Appearance (Clear) Urine pH (4.5-7.5) Ur Specific [place] (1.000-1.030) Urine Protein (Negative) Urine Glucose (UA) (Negative) Urine Ketones (Negative) Urine Blood (Negative) Urine Nitrite (Negative) Urine Bilirubin (Negative) Urine Urobilinogen (Negative) Ur Leukocyte Esterase (Negative) Urine WBC (Auto) (0-5) /hpf Urine RBC (Auto) (0-4) /hpf U Hyaline Cast (Auto) (0-5) /lpf U Epithel Cells (Auto) (0-5) /lpf Urine Bacteria (Auto) (Negative) Ur Renal Epithelial Cell Granular Casts (0) /lpf Urine Yeast Nasal Screen MRSA (PCR) Positive A (Negative) 12/08/18 12/08/18 12/08/18 Range/Units 21:20 21:20 21:20 WBC 9.84 (4.8-10.8) K/uL RBC 3.86 L (4.7-6.1) M/uL Hgb 12.3 L (14.0-18.0) g/dL Hct 38.6 L (42-52) % MCV 100.0 (80-100) fL MCH 31.9 (25-34) pg MCHC 31.9 L (32-36) g/dL RDW Std Deviation 52.4 H (36.4-46.3) fL RDW Coeff of Hollie 14.4 (11.5-14.5) % Plt Count 249 (130-400) K/uL MPV 11.1 H (7.4-10.4) fL Immature Gran % (Auto) 0.4 % Neut % (Auto) 85.4 % Lymph % (Auto) 6.1 % Walker % (Auto) 7.9 % Eos % (Auto) 0.1 % Baso % (Auto) 0.1 % Immature Gran # (Auto) 0.04 H (0.00-0.02) K/uL Neut # (Auto) 8.40 H (1.4-6.5) K/uL Lymph # (Auto) 0.60 L (1.2-3.4) K/uL Walker # (Auto) 0.78 H (0.11-0.59) K/uL Eos # (Auto) 0.01 (0-0.5) K/uL Baso # (Auto) 0.01 (0-0.2) K/uL PT 10.6 (9.0-12.0) Seconds INR 1.0 (0.9-1.1) Sample Site POC pH (7.35-7.45) POC pCO2 (35-46) mmHg POC pO2 (80-95) mmHg POC HCO3 (19-24) ethan/L POC Total CO2 (24-31) mEq/l POC Base Excess (-9-1.8) ethan/L POC ABG O2 Sat (90-95) % Ryan Test O2 Delivery Device POC O2 Rate POC FiO2 % IPAP Sodium 164 H* (136-145) mmol/L Potassium 4.3 (3.5-5.1) mmol/L Chloride 130 H (98-107) mmol/L Carbon Dioxide 26 (21-32) mmol/L Anion Gap 8.0 (3-11) BUN 61 H (7-18) mg/dl Creatinine 2.37 H (0.6-1.4) mg/dl Est Cr Clr Drug Dosing 18.1 ml/min Est GFR ( Amer) 27.9 Est GFR (Non-Af Amer) 24.1 BUN/Creatinine Ratio 25.7 H (10-20) Glucose 324 H (70-99) mg/dl POC Glucose (70-99) Lactate (0.4-2.0) mmol/L Calcium 9.0 (8.5-10.1) mg/dl Phosphorus 2.7 (2.5-4.9) mg/dl Magnesium 2.3 (1.8-2.4) mg/dl Total Bilirubin 0.3 (0.2-1) mg/dl Direct Bilirubin 0.1 (0-0.2) mg/dl AST 16 (15-37) U/L ALT 35 (12-78) U/L Alkaline Phosphatase 225 H (45-117) U/L Troponin I 0.033 (0-0.045) ng/ml Total Protein 6.9 (6.4-8.2) gm/dl Albumin 2.8 L (3.4-5.0) gm/dl Beta-Hydroxybutyric Acd 2.59 (0.2-2.81) mg/dl Procalcitonin (0-0.5) ng/ml Urine Color Urine Appearance (Clear) Urine pH (4.5-7.5) Ur Specific [place] (1.000-1.030) Urine Protein (Negative) Urine Glucose (UA) (Negative) Urine Ketones (Negative) Urine Blood (Negative) Urine Nitrite (Negative) Urine Bilirubin (Negative) Urine Urobilinogen (Negative) Ur Leukocyte Esterase (Negative) Urine WBC (Auto) (0-5) /hpf Urine RBC (Auto) (0-4) /hpf U Hyaline Cast (Auto) (0-5) /lpf U Epithel Cells (Auto) (0-5) /lpf Urine Bacteria (Auto) (Negative) Ur Renal Epithelial Cell Granular Casts (0) /lpf Urine Yeast Nasal Screen MRSA (PCR) (Negative) 12/08/18 12/08/18 Range/Units 21:11 20:42 WBC (4.8-10.8) K/uL RBC (4.7-6.1) M/uL Hgb (14.0-18.0) g/dL Hct (42-52) % MCV (80-100) fL MCH (25-34) pg MCHC (32-36) g/dL RDW Std Deviation (36.4-46.3) fL RDW Coeff of Hollie (11.5-14.5) % Plt Count (130-400) K/uL MPV (7.4-10.4) fL Immature Gran % (Auto) % Neut % (Auto) % Lymph % (Auto) % Walker % (Auto) % Eos % (Auto) % Baso % (Auto) % Immature Gran # (Auto) (0.00-0.02) K/uL Neut # (Auto) (1.4-6.5) K/uL Lymph # (Auto) (1.2-3.4) K/uL Walker # (Auto) (0.11-0.59) K/uL Eos # (Auto) (0-0.5) K/uL Baso # (Auto) (0-0.2) K/uL PT (9.0-12.0) Seconds INR (0.9-1.1) Sample Site R Radial POC pH 7.37 (7.35-7.45) POC pCO2 40 (35-46) mmHg POC pO2 73 L (80-95) mmHg POC HCO3 23 (19-24) ethan/L POC Total CO2 24 (24-31) mEq/l POC Base Excess -2.0 (-9-1.8) ethan/L POC ABG O2 Sat 91.0 (90-95) % Ryan Test Pass O2 Delivery Device BIPAP POC O2 Rate 12 POC FiO2 50 % IPAP 14 Sodium (136-145) mmol/L Potassium (3.5-5.1) mmol/L Chloride (98-107) mmol/L Carbon Dioxide (21-32) mmol/L Anion Gap (3-11) BUN (7-18) mg/dl Creatinine (0.6-1.4) mg/dl Est Cr Clr Drug Dosing ml/min Est GFR ( Amer) Est GFR (Non-Af Amer) BUN/Creatinine Ratio (10-20) Glucose (70-99) mg/dl POC Glucose 302 H (70-99) Lactate (0.4-2.0) mmol/L Calcium (8.5-10.1) mg/dl Phosphorus (2.5-4.9) mg/dl Magnesium (1.8-2.4) mg/dl Total Bilirubin (0.2-1) mg/dl Direct Bilirubin (0-0.2) mg/dl AST (15-37) U/L ALT (12-78) U/L Alkaline Phosphatase (45-117) U/L Troponin I (0-0.045) ng/ml Total Protein (6.4-8.2) gm/dl Albumin (3.4-5.0) gm/dl Beta-Hydroxybutyric Acd (0.2-2.81) mg/dl Procalcitonin (0-0.5) ng/ml Urine Color Urine Appearance (Clear) Urine pH (4.5-7.5) Ur Specific [place] (1.000-1.030) Urine Protein (Negative) Urine Glucose (UA) (Negative) Urine Ketones (Negative) Urine Blood (Negative) Urine Nitrite (Negative) Urine Bilirubin (Negative) Urine Urobilinogen (Negative) Ur Leukocyte Esterase (Negative) Urine WBC (Auto) (0-5) /hpf Urine RBC (Auto) (0-4) /hpf U Hyaline Cast (Auto) (0-5) /lpf U Epithel Cells (Auto) (0-5) /lpf Urine Bacteria (Auto) (Negative) Ur Renal Epithelial Cell Granular Casts (0) /lpf Urine Yeast Nasal Screen MRSA (PCR) (Negative)
[2018-12-09] MEDS: HEPARIN SOD 5,000 UNIT/0.5 ML VIAL SQ SCH ×3 (11:23→20:18)
[2018-12-09] MEDS ORDERED: LORazepam 0.5 MG/1 ML VIAL IV PRN (16:35)
[2018-12-09] MEDS ORDERED: CEFEPIME 500 MG in SYRINGE 0 ML IV SCH (17:00)
[2018-12-09 17:20] LABS: Calcium 8.3 mg/dl (8.5-10.1); Creatinine Clr Calc Pharmacy 17.3 ml/min; Est GFR (African American) 26.3; Est GFR (Non-African American) 22.7; Potassium 3.5 mmol/L (3.5-5.1)
[2018-12-09] MEDS ORDERED: DEXTROSE 5% 1,000 ML IV SCH (17:30)
[2018-12-09] MEDS ORDERED: METOPROLOL TARTRATE 1 MG/ML VIAL IV PRN (18:34)
--- NOTE | 2018-12-09 18:37 | Hospitalist Progress Note ---
Date of Service December 09, 2018 Assessment & Plan (1) Hypoxia: This patient is an 83yo male with history of CAD, HTN, HLP, COPD and dysphagia. NH resident sent to OSH with concern for aspiration event after PO feeding resumed. He was transferred here as per patient's family request. He was unresponsive upon admission and there was concern for CVA on outpatient CT Head. He was found to have aspiration pneumonia, sepsis, severe hypernatremia, acute kidney injury, and acute hypoxic respiratory failure -Admitted to the ICU Continues to be lethargic but is more alert today than upon admission -Continue supplemental O2 to keep pulse ox greater than 90% -Continue to treat aspiration pneumonia as below (2) Aspiration pneumonia: - patient with history of COPD, possible aspiration event at [facility]. Has been febrile since admission Chest x-ray with left basilar infiltrate Initially treated with BiPAP 14/7, 50% and now weaned to 4 L nasal cannula procalcitonin negative -Continue DuoNeb q 6 hours -Continue albuterol q 2 hours PRN -Initially treated with empiric antibiotics with Vancomycin and Zosyn- wood tile installer changed him to cefepime and vancomycin in order to decrease sodium input -Consider adding on Flagyl for aspiration coverage if not improving although with acute presentation with fever, as per up-to-date, it is more likely that his staph or gram-negative infection causing his presentation in the setting of aspiration -Keep n.p.o. for now and will need speech evaluation (3) Hypernatremia: Sodium severely elevated upon admission at 164 but when corrected for hyperglycemia, would be 169. Is severely dehydrated Was on half-normal saline at 125 mL's per hour since admission and sodium is only minimally trended downward to 161 -Recommend discontinuing half-normal saline and starting D5W at 100 mL's per hour, however will defer to wood tile installer -Follow BMP in the morning (4) AMBER (acute kidney injury): Creatinine elevated at 2.59 and now trending downward with hydration to 2.59, BUN elevated likely secondary to prerenal azotemia from severe dehydration Blood pressures are elevated, potassium and bicarbonate are within normal limits -Continue hydration -He has a Vargas catheter in place -Follow BMP in the morning -If creatinine does not continue to improve, consider renal ultrasound to rule out ureteral obstruction (5) Hypertension: Blood pressures on the high side, he is not able to take p.o. at all and therefore has not taken his isosorbide, metoprolol -Continue to follow (6) Heart disease: Has history of CAD, HTN, HLP, bioprosthetic valve Troponin here is negative at 0.033 EKG with sinus tachycardia with a rate of 106 with old septal infarct present, no acute ischemia -Continue to hold ASA, Atorvastatin, Metoprolol and Imdur while patient is NPO -Can give IV Lopressor as needed for heart rate greater than 110 (7) COPD (chronic obstructive pulmonary disease): Stable -Continue nebulizers as needed (8) Acute metabolic encephalopathy: Secondary to sepsis, hypernatremia -Treating as above (9) Dementia: Fairly severe as per report from RN who spoke with the daughter-he is mostly nonverbal on some days long-term notes do report that he walks with a walker but at times is in a wheelchair (10) Sinus tachycardia: Likely secondary to fevers, sepsis, and could be some beta-omar withdrawal - will give IV Lopressor for heart rate greater than 110 (11) Dysphagia: Chronic -Consulting speech therapy (12) Diabetes mellitus: With hyperglycemia here secondary to stress -Check hemoglobin A1c -Treating with basal bolus insulin-tighten sliding scale insulin down today (13) Sepsis: As above Present on Admission?: Yes (14) DVT prophylaxis: Heparin SQ Disposition-remain in ICU DNR/DNI Prognosis is pretty poor overall, consider palliative care consult in the morning Need discussion with family Subjective Patient is awake but just stares at me when I ask him questions. He did try to answer one question but it was a very soft mumble and I could not understand him. RN reports he has been a little agitated off and on throughout the day. I discussed the case with the wood tile installer. Review of Systems Unobtainable due to cognitive status Physical Exam Vital Signs (Past 24 Hours): Last Vital Signs Temp 38.0 C H 12/09/18 18:00 Pulse 110 H 12/09/18 18:00 Resp 24 12/09/18 18:00 BP 143/62 H 12/09/18 18:00 Pulse Ox 96 12/09/18 18:00 Constitutional: + ill appearing (And lethargic) and + thin Eyes: + scleral abnormality (Mild injection of sclerae bilaterally) ENMT: Nose: no external nose abnormality Mouth: + tongue abnormality (Dry with black coating) Neck: trachea midline, no thyromegaly Respiratory: + labored breathing (Mild) Auscultation: + diminished lung sounds (At the bases) and + rhonchi (Diffuse but more in the upper airways); no wheezes Cardiovascular: Rate/Rhythm: regular rhythm and + tachycardic Heart Sounds: no murmur Extremities: no edema Gastrointestinal (Abdomen): normal bowel sounds, soft, nontender, no hepatosplenomegaly Musculoskeletal: Extremities: extremities normal to inspection; no cyanosis and no clubbing Skin: no rashes, warm and dry Neurologic: awake and + confused Motor/Sensory: no tremor Psychiatric: Orientation: + not alert (Lethargic) Eye Contact: + fair eye contact Genitourinary: Vargas catheter in place Results & Data Laboratory Results 12/09/18 12/09/18 12/09/18 Range/Units 16:37 16:02 11:29 WBC (4.8-10.8) K/uL RBC (4.7-6.1) M/uL Hgb (14.0-18.0) g/dL Hct (42-52) % MCV (80-100) fL MCH (25-34) pg MCHC (32-36) g/dL RDW Std Deviation (36.4-46.3) fL RDW Coeff of Hollie (11.5-14.5) % Plt Count (130-400) K/uL MPV (7.4-10.4) fL Immature Gran % (Auto) % Neut % (Auto) % Lymph % (Auto) % [place] % (Auto) % Eos % (Auto) % Baso % (Auto) % Immature Gran # (Auto) (0.00-0.02) K/uL Neut # (Auto) (1.4-6.5) K/uL Lymph # (Auto) (1.2-3.4) K/uL [place] # (Auto) (0.11-0.59) K/uL Eos # (Auto) (0-0.5) K/uL Baso # (Auto) (0-0.2) K/uL PT (9.0-12.0) Seconds INR (0.9-1.1) Sample Site POC pH (7.35-7.45) POC pCO2 (35-46) mmHg POC pO2 (80-95) mmHg POC HCO3 (19-24) ethan/L POC Total CO2 (24-31) mEq/l POC Base Excess (-9-1.8) ethan/L POC ABG O2 Sat (90-95) % Ryan Test O2 Delivery Device POC O2 Rate POC FiO2 % IPAP Sodium 159 H* (136-145) mmol/L Potassium 3.5 D (3.5-5.1) mmol/L Chloride 128 H (98-107) mmol/L Carbon Dioxide 22 (21-32) mmol/L Anion Gap 9.0 (3-11) BUN 60 H (7-18) mg/dl Creatinine 2.49 H (0.6-1.4) mg/dl Est Cr Clr Drug Dosing 17.3 ml/min Est GFR ( Amer) 26.3 Est GFR (Non-Af Amer) 22.7 BUN/Creatinine Ratio 24.0 H (10-20) Glucose 203 H (70-99) mg/dl POC Glucose 217 H 220 H (70-99) Lactate (0.4-2.0) mmol/L Calcium 8.3 L (8.5-10.1) mg/dl Phosphorus (2.5-4.9) mg/dl Magnesium (1.8-2.4) mg/dl Total Bilirubin (0.2-1) mg/dl Direct Bilirubin (0-0.2) mg/dl AST (15-37) U/L ALT (12-78) U/L Alkaline Phosphatase (45-117) U/L Troponin I (0-0.045) ng/ml Total Protein (6.4-8.2) gm/dl Albumin (3.4-5.0) gm/dl Beta-Hydroxybutyric Acd (0.2-2.81) mg/dl Procalcitonin (0-0.5) ng/ml Urine Color Urine Appearance (Clear) Urine pH (4.5-7.5) Ur Specific [place] (1.000-1.030) Urine Protein (Negative) Urine Glucose (UA) (Negative) Urine Ketones (Negative) Urine Blood (Negative) Urine Nitrite (Negative) Urine Bilirubin (Negative) Urine Urobilinogen (Negative) Ur Leukocyte Esterase (Negative) Urine WBC (Auto) (0-5) /hpf Urine RBC (Auto) (0-4) /hpf U Hyaline Cast (Auto) (0-5) /lpf U Epithel Cells (Auto) (0-5) /lpf Urine Bacteria (Auto) (Negative) Ur Renal Epithelial Cell Granular Casts (0) /lpf Urine Yeast Nasal Screen MRSA (PCR) (Negative) 12/09/18 12/09/18 12/09/18 Range/Units 08:06 06:46 06:46 WBC (4.8-10.8) K/uL RBC (4.7-6.1) M/uL Hgb (14.0-18.0) g/dL Hct (42-52) % MCV (80-100) fL MCH (25-34) pg MCHC (32-36) g/dL RDW Std Deviation (36.4-46.3) fL RDW Coeff of Hollie (11.5-14.5) % Plt Count (130-400) K/uL MPV (7.4-10.4) fL Immature Gran % (Auto) % Neut % (Auto) % Lymph % (Auto) % [place] % (Auto) % Eos % (Auto) % Baso % (Auto) % Immature Gran # (Auto) (0.00-0.02) K/uL Neut # (Auto) (1.4-6.5) K/uL Lymph # (Auto) (1.2-3.4) K/uL [place] # (Auto) (0.11-0.59) K/uL Eos # (Auto) (0-0.5) K/uL Baso # (Auto) (0-0.2) K/uL PT (9.0-12.0) Seconds INR (0.9-1.1) Sample Site POC pH (7.35-7.45) POC pCO2 (35-46) mmHg POC pO2 (80-95) mmHg POC HCO3 (19-24) ethan/L POC Total CO2 (24-31) mEq/l POC Base Excess (-9-1.8) ethan/L POC ABG O2 Sat (90-95) % Ryan Test O2 Delivery Device POC O2 Rate POC FiO2 % IPAP Sodium (136-145) mmol/L Potassium (3.5-5.1) mmol/L Chloride (98-107) mmol/L Carbon Dioxide (21-32) mmol/L Anion Gap (3-11) BUN (7-18) mg/dl Creatinine (0.6-1.4) mg/dl Est Cr Clr Drug Dosing ml/min Est GFR ( Amer) Est GFR (Non-Af Amer) BUN/Creatinine Ratio (10-20) Glucose (70-99) mg/dl POC Glucose 201 H (70-99) Lactate 1.7 (0.4-2.0) mmol/L Calcium (8.5-10.1) mg/dl Phosphorus (2.5-4.9) mg/dl Magnesium 2.4 (1.8-2.4) mg/dl Total Bilirubin 0.4 (0.2-1) mg/dl Direct Bilirubin 0.1 (0-0.2) mg/dl AST 21 (15-37) U/L ALT 31 (12-78) U/L Alkaline Phosphatase 189 H (45-117) U/L Troponin I (0-0.045) ng/ml Total Protein 6.2 L (6.4-8.2) gm/dl Albumin 2.4 L (3.4-5.0) gm/dl Beta-Hydroxybutyric Acd (0.2-2.81) mg/dl Procalcitonin (0-0.5) ng/ml Urine Color Urine Appearance (Clear) Urine pH (4.5-7.5) Ur Specific [place] (1.000-1.030) Urine Protein (Negative) Urine Glucose (UA) (Negative) Urine Ketones (Negative) Urine Blood (Negative) Urine Nitrite (Negative) Urine Bilirubin (Negative) Urine Urobilinogen (Negative) Ur Leukocyte Esterase (Negative) Urine WBC (Auto) (0-5) /hpf Urine RBC (Auto) (0-4) /hpf U Hyaline Cast (Auto) (0-5) /lpf U Epithel Cells (Auto) (0-5) /lpf Urine Bacteria (Auto) (Negative) Ur Renal Epithelial Cell Granular Casts (0) /lpf Urine Yeast Nasal Screen MRSA (PCR) (Negative) 12/09/18 12/09/18 12/09/18 Range/Units 06:46 04:34 01:16 WBC 10.91 H (4.8-10.8) K/uL RBC 3.77 L (4.7-6.1) M/uL Hgb 11.8 L (14.0-18.0) g/dL Hct 38.4 L (42-52) % MCV 101.9 H (80-100) fL MCH 31.3 (25-34) pg MCHC 30.7 L (32-36) g/dL RDW Std Deviation 53.8 H (36.4-46.3) fL RDW Coeff of Hollie 14.4 (11.5-14.5) % Plt Count 212 (130-400) K/uL MPV 10.6 H (7.4-10.4) fL Immature Gran % (Auto) 0.3 % Neut % (Auto) 83.1 % Lymph % (Auto) 9.7 % [place] % (Auto) 6.7 % Eos % (Auto) 0.0 % Baso % (Auto) 0.2 % Immature Gran # (Auto) 0.03 H (0.00-0.02) K/uL Neut # (Auto) 9.07 H (1.4-6.5) K/uL Lymph # (Auto) 1.06 L (1.2-3.4) K/uL [place] # (Auto) 0.73 H (0.11-0.59) K/uL Eos # (Auto) 0.00 (0-0.5) K/uL Baso # (Auto) 0.02 (0-0.2) K/uL PT (9.0-12.0) Seconds INR (0.9-1.1) Sample Site POC pH (7.35-7.45) POC pCO2 (35-46) mmHg POC pO2 (80-95) mmHg POC HCO3 (19-24) ethan/L POC Total CO2 (24-31) mEq/l POC Base Excess (-9-1.8) ethan/L POC ABG O2 Sat (90-95) % Ryan Test O2 Delivery Device POC O2 Rate POC FiO2 % IPAP Sodium 159 H* (136-145) mmol/L Potassium 4.2 (3.5-5.1) mmol/L Chloride 131 H (98-107) mmol/L Carbon Dioxide 25 (21-32) mmol/L Anion Gap 4.0 (3-11) BUN 66 H (7-18) mg/dl Creatinine 2.59 H (0.6-1.4) mg/dl Est Cr Clr Drug Dosing 16.5 ml/min Est GFR ( Amer) 25.1 Est GFR (Non-Af Amer) 21.6 BUN/Creatinine Ratio 25.6 H (10-20) Glucose 308 H (70-99) mg/dl POC Glucose 252 H (70-99) Lactate (0.4-2.0) mmol/L Calcium 8.4 L (8.5-10.1) mg/dl Phosphorus (2.5-4.9) mg/dl Magnesium (1.8-2.4) mg/dl Total Bilirubin (0.2-1) mg/dl Direct Bilirubin (0-0.2) mg/dl AST (15-37) U/L ALT (12-78) U/L Alkaline Phosphatase (45-117) U/L Troponin I (0-0.045) ng/ml Total Protein (6.4-8.2) gm/dl Albumin (3.4-5.0) gm/dl Beta-Hydroxybutyric Acd 0.86 (0.2-2.81) mg/dl Procalcitonin (0-0.5) ng/ml Urine Color Urine Appearance (Clear) Urine pH (4.5-7.5) Ur Specific [place] (1.000-1.030) Urine Protein (Negative) Urine Glucose (UA) (Negative) Urine Ketones (Negative) Urine Blood (Negative) Urine Nitrite (Negative) Urine Bilirubin (Negative) Urine Urobilinogen (Negative) Ur Leukocyte Esterase (Negative) Urine WBC (Auto) (0-5) /hpf Urine RBC (Auto) (0-4) /hpf U Hyaline Cast (Auto) (0-5) /lpf U Epithel Cells (Auto) (0-5) /lpf Urine Bacteria (Auto) (Negative) Ur Renal Epithelial Cell Granular Casts (0) /lpf Urine Yeast Nasal Screen MRSA (PCR) (Negative) 12/09/18 12/08/18 12/08/18 Range/Units 00:03 Unknown Unknown WBC (4.8-10.8) K/uL RBC (4.7-6.1) M/uL Hgb (14.0-18.0) g/dL Hct (42-52) % MCV (80-100) fL MCH (25-34) pg MCHC (32-36) g/dL RDW Std Deviation (36.4-46.3) fL RDW Coeff of Hollie (11.5-14.5) % Plt Count (130-400) K/uL MPV (7.4-10.4) fL Immature Gran % (Auto) % Neut % (Auto) % Lymph % (Auto) % [place] % (Auto) % Eos % (Auto) % Baso % (Auto) % Immature Gran # (Auto) (0.00-0.02) K/uL Neut # (Auto) (1.4-6.5) K/uL Lymph # (Auto) (1.2-3.4) K/uL [place] # (Auto) (0.11-0.59) K/uL Eos # (Auto) (0-0.5) K/uL Baso # (Auto) (0-0.2) K/uL PT (9.0-12.0) Seconds INR (0.9-1.1) Sample Site POC pH (7.35-7.45) POC pCO2 (35-46) mmHg POC pO2 (80-95) mmHg POC HCO3 (19-24) ethan/L POC Total CO2 (24-31) mEq/l POC Base Excess (-9-1.8) ethan/L POC ABG O2 Sat (90-95) % Ryan Test O2 Delivery Device POC O2 Rate POC FiO2 % IPAP Sodium (136-145) mmol/L Potassium (3.5-5.1) mmol/L Chloride (98-107) mmol/L Carbon Dioxide (21-32) mmol/L Anion Gap (3-11) BUN (7-18) mg/dl Creatinine (0.6-1.4) mg/dl Est Cr Clr Drug Dosing ml/min Est GFR ( Amer) Est GFR (Non-Af Amer) BUN/Creatinine Ratio (10-20) Glucose (70-99) mg/dl POC Glucose 326 H (70-99) Lactate (0.4-2.0) mmol/L Calcium (8.5-10.1) mg/dl Phosphorus (2.5-4.9) mg/dl Magnesium (1.8-2.4) mg/dl Total Bilirubin (0.2-1) mg/dl Direct Bilirubin (0-0.2) mg/dl AST (15-37) U/L ALT (12-78) U/L Alkaline Phosphatase (45-117) U/L Troponin I (0-0.045) ng/ml Total Protein (6.4-8.2) gm/dl Albumin (3.4-5.0) gm/dl Beta-Hydroxybutyric Acd (0.2-2.81) mg/dl Procalcitonin (0-0.5) ng/ml Urine Color Yellow Urine Appearance Cloudy H (Clear) Urine pH 5.0 (4.5-7.5) Ur Specific [place] 1.030 (1.000-1.030) Urine Protein 3+ H (Negative) Urine Glucose (UA) 3+ H (Negative) Urine Ketones Trace H (Negative) Urine Blood 3+ H (Negative) Urine Nitrite Negative (Negative) Urine Bilirubin Negative (Negative) Urine Urobilinogen Negative (Negative) Ur Leukocyte Esterase 1+ H (Negative) Urine WBC (Auto) >30 H (0-5) /hpf Urine RBC (Auto) 10-30 H (0-4) /hpf U Hyaline Cast (Auto) 1-5 (0-5) /lpf U Epithel Cells (Auto) >30 H (0-5) /lpf Urine Bacteria (Auto) 1+ H (Negative) Ur Renal Epithelial Cell Not Reportable Granular Casts 5-10 H (0) /lpf Urine Yeast Not Reportable Nasal Screen MRSA (PCR) Positive A (Negative) 12/08/18 12/08/18 12/08/18 Range/Units 21:20 21:20 21:20 WBC (4.8-10.8) K/uL RBC (4.7-6.1) M/uL Hgb (14.0-18.0) g/dL Hct (42-52) % MCV (80-100) fL MCH (25-34) pg MCHC (32-36) g/dL RDW Std Deviation (36.4-46.3) fL RDW Coeff of Hollie (11.5-14.5) % Plt Count (130-400) K/uL MPV (7.4-10.4) fL Immature Gran % (Auto) % Neut % (Auto) % Lymph % (Auto) % [place] % (Auto) % Eos % (Auto) % Baso % (Auto) % Immature Gran # (Auto) (0.00-0.02) K/uL Neut # (Auto) (1.4-6.5) K/uL Lymph # (Auto) (1.2-3.4) K/uL [place] # (Auto) (0.11-0.59) K/uL Eos # (Auto) (0-0.5) K/uL Baso # (Auto) (0-0.2) K/uL PT (9.0-12.0) Seconds INR (0.9-1.1) Sample Site POC pH (7.35-7.45) POC pCO2 (35-46) mmHg POC pO2 (80-95) mmHg POC HCO3 (19-24) ethan/L POC Total CO2 (24-31) mEq/l POC Base Excess (-9-1.8) ethan/L POC ABG O2 Sat (90-95) % Ryan Test O2 Delivery Device POC O2 Rate POC FiO2 % IPAP Sodium 164 H* (136-145) mmol/L Potassium 4.3 (3.5-5.1) mmol/L Chloride 130 H (98-107) mmol/L Carbon Dioxide 26 (21-32) mmol/L Anion Gap 8.0 (3-11) BUN 61 H (7-18) mg/dl Creatinine 2.37 H (0.6-1.4) mg/dl Est Cr Clr Drug Dosing 18.1 ml/min Est GFR ( Amer) 27.9 Est GFR (Non-Af Amer) 24.1 BUN/Creatinine Ratio 25.7 H (10-20) Glucose 324 H (70-99) mg/dl POC Glucose (70-99) Lactate 3.4 H* (0.4-2.0) mmol/L Calcium 9.0 (8.5-10.1) mg/dl Phosphorus 2.7 (2.5-4.9) mg/dl Magnesium 2.3 (1.8-2.4) mg/dl Total Bilirubin 0.3 (0.2-1) mg/dl Direct Bilirubin 0.1 (0-0.2) mg/dl AST 16 (15-37) U/L ALT 35 (12-78) U/L Alkaline Phosphatase 225 H (45-117) U/L Troponin I 0.033 (0-0.045) ng/ml Total Protein 6.9 (6.4-8.2) gm/dl Albumin 2.8 L (3.4-5.0) gm/dl Beta-Hydroxybutyric Acd 2.59 (0.2-2.81) mg/dl Procalcitonin 0.40 (0-0.5) ng/ml Urine Color Urine Appearance (Clear) Urine pH (4.5-7.5) Ur Specific [place] (1.000-1.030) Urine Protein (Negative) Urine Glucose (UA) (Negative) Urine Ketones (Negative) Urine Blood (Negative) Urine Nitrite (Negative) Urine Bilirubin (Negative) Urine Urobilinogen (Negative) Ur Leukocyte Esterase (Negative) Urine WBC (Auto) (0-5) /hpf Urine RBC (Auto) (0-4) /hpf U Hyaline Cast (Auto) (0-5) /lpf U Epithel Cells (Auto) (0-5) /lpf Urine Bacteria (Auto) (Negative) Ur Renal Epithelial Cell Granular Casts (0) /lpf Urine Yeast Nasal Screen MRSA (PCR) (Negative) 12/08/18 12/08/18 12/08/18 Range/Units 21:20 21:20 21:11 WBC 9.84 (4.8-10.8) K/uL RBC 3.86 L (4.7-6.1) M/uL Hgb 12.3 L (14.0-18.0) g/dL Hct 38.6 L (42-52) % MCV 100.0 (80-100) fL MCH 31.9 (25-34) pg MCHC 31.9 L (32-36) g/dL RDW Std Deviation 52.4 H (36.4-46.3) fL RDW Coeff of Hollie 14.4 (11.5-14.5) % Plt Count 249 (130-400) K/uL MPV 11.1 H (7.4-10.4) fL Immature Gran % (Auto) 0.4 % Neut % (Auto) 85.4 % Lymph % (Auto) 6.1 % [place] % (Auto) 7.9 % Eos % (Auto) 0.1 % Baso % (Auto) 0.1 % Immature Gran # (Auto) 0.04 H (0.00-0.02) K/uL Neut # (Auto) 8.40 H (1.4-6.5) K/uL Lymph # (Auto) 0.60 L (1.2-3.4) K/uL [place] # (Auto) 0.78 H (0.11-0.59) K/uL Eos # (Auto) 0.01 (0-0.5) K/uL Baso # (Auto) 0.01 (0-0.2) K/uL PT 10.6 (9.0-12.0) Seconds INR 1.0 (0.9-1.1) Sample Site R Radial POC pH 7.37 (7.35-7.45) POC pCO2 40 (35-46) mmHg POC pO2 73 L (80-95) mmHg POC HCO3 23 (19-24) ethan/L POC Total CO2 24 (24-31) mEq/l POC Base Excess -2.0 (-9-1.8) ethan/L POC ABG O2 Sat 91.0 (90-95) % Ryan Test Pass O2 Delivery Device BIPAP POC O2 Rate 12 POC FiO2 50 % IPAP 14 Sodium (136-145) mmol/L Potassium (3.5-5.1) mmol/L Chloride (98-107) mmol/L Carbon Dioxide (21-32) mmol/L Anion Gap (3-11) BUN (7-18) mg/dl Creatinine (0.6-1.4) mg/dl Est Cr Clr Drug Dosing ml/min Est GFR ( Amer) Est GFR (Non-Af Amer) BUN/Creatinine Ratio (10-20) Glucose (70-99) mg/dl POC Glucose (70-99) Lactate (0.4-2.0) mmol/L Calcium (8.5-10.1) mg/dl Phosphorus (2.5-4.9) mg/dl Magnesium (1.8-2.4) mg/dl Total Bilirubin (0.2-1) mg/dl Direct Bilirubin (0-0.2) mg/dl AST (15-37) U/L ALT (12-78) U/L Alkaline Phosphatase (45-117) U/L Troponin I (0-0.045) ng/ml Total Protein (6.4-8.2) gm/dl Albumin (3.4-5.0) gm/dl Beta-Hydroxybutyric Acd (0.2-2.81) mg/dl Procalcitonin (0-0.5) ng/ml Urine Color Urine Appearance (Clear) Urine pH (4.5-7.5) Ur Specific [place] (1.000-1.030) Urine Protein (Negative) Urine Glucose (UA) (Negative) Urine Ketones (Negative) Urine Blood (Negative) Urine Nitrite (Negative) Urine Bilirubin (Negative) Urine Urobilinogen (Negative) Ur Leukocyte Esterase (Negative) Urine WBC (Auto) (0-5) /hpf Urine RBC (Auto) (0-4) /hpf U Hyaline Cast (Auto) (0-5) /lpf U Epithel Cells (Auto) (0-5) /lpf Urine Bacteria (Auto) (Negative) Ur Renal Epithelial Cell Granular Casts (0) /lpf Urine Yeast Nasal Screen MRSA (PCR) (Negative) 12/08/18 Range/Units 20:42 WBC (4.8-10.8) K/uL RBC (4.7-6.1) M/uL Hgb (14.0-18.0) g/dL Hct (42-52) % MCV (80-100) fL MCH (25-34) pg MCHC (32-36) g/dL RDW Std Deviation (36.4-46.3) fL RDW Coeff of Hollie (11.5-14.5) % Plt Count (130-400) K/uL MPV (7.4-10.4) fL Immature Gran % (Auto) % Neut % (Auto) % Lymph % (Auto) % [place] % (Auto) % Eos % (Auto) % Baso % (Auto) % Immature Gran # (Auto) (0.00-0.02) K/uL Neut # (Auto) (1.4-6.5) K/uL Lymph # (Auto) (1.2-3.4) K/uL [place] # (Auto) (0.11-0.59) K/uL Eos # (Auto) (0-0.5) K/uL Baso # (Auto) (0-0.2) K/uL PT (9.0-12.0) Seconds INR (0.9-1.1) Sample Site POC pH (7.35-7.45) POC pCO2 (35-46) mmHg POC pO2 (80-95) mmHg POC HCO3 (19-24) ethan/L POC Total CO2 (24-31) mEq/l POC Base Excess (-9-1.8) ethan/L POC ABG O2 Sat (90-95) % Ryan Test O2 Delivery Device POC O2 Rate POC FiO2 % IPAP Sodium (136-145) mmol/L Potassium (3.5-5.1) mmol/L Chloride (98-107) mmol/L Carbon Dioxide (21-32) mmol/L Anion Gap (3-11) BUN (7-18) mg/dl Creatinine (0.6-1.4) mg/dl Est Cr Clr Drug Dosing ml/min Est GFR ( Amer) Est GFR (Non-Af Amer) BUN/Creatinine Ratio (10-20) Glucose (70-99) mg/dl POC Glucose 302 H (70-99) Lactate (0.4-2.0) mmol/L Calcium (8.5-10.1) mg/dl Phosphorus (2.5-4.9) mg/dl Magnesium (1.8-2.4) mg/dl Total Bilirubin (0.2-1) mg/dl Direct Bilirubin (0-0.2) mg/dl AST (15-37) U/L ALT (12-78) U/L Alkaline Phosphatase (45-117) U/L Troponin I (0-0.045) ng/ml Total Protein (6.4-8.2) gm/dl Albumin (3.4-5.0) gm/dl Beta-Hydroxybutyric Acd (0.2-2.81) mg/dl Procalcitonin (0-0.5) ng/ml Urine Color Urine Appearance (Clear) Urine pH (4.5-7.5) Ur Specific [place] (1.000-1.030) Urine Protein (Negative) Urine Glucose (UA) (Negative) Urine Ketones (Negative) Urine Blood (Negative) Urine Nitrite (Negative) Urine Bilirubin (Negative) Urine Urobilinogen (Negative) Ur Leukocyte Esterase (Negative) Urine WBC (Auto) (0-5) /hpf Urine RBC (Auto) (0-4) /hpf U Hyaline Cast (Auto) (0-5) /lpf U Epithel Cells (Auto) (0-5) /lpf Urine Bacteria (Auto) (Negative) Ur Renal Epithelial Cell Granular Casts (0) /lpf Urine Yeast Nasal Screen MRSA (PCR) (Negative) Diagnostic Findings MRI brain: IMPRESSION: 1. Severely compromised exam due to the absence of contrast enhancement given the history presented. 2. Generalized cerebellar as well as cerebral atrophy. 3.. Old left cerebellar infarct. 4. No evidence for an acute ischemic process. (1) Diabetes mellitus Diabetes mellitus type: type 2 Diabetes mellitus care home insulin use: without long term care administrator use Diabetes mellitus complication status: with hyperglycemia Qualified Code(s): E11.65 - Type 2 diabetes mellitus with hyperglycemia
[2018-12-09] MEDS ORDERED: ARTIFICIAL TEARS OP PRN (18:45)
[2018-12-09] MEDS ORDERED: metroNIDAZOLE 500 MG/100 ML BAG IV SCH (20:00)
[2018-12-09] MEDS ORDERED: ALBUT/IPRATROP 3MG/0.5MG NEB 3 ML VIAL NEB SCH (22:00)
[2018-12-10] MEDS: INSULIN ASPART 100 UNITS/ML 3 ML PEN SC SCH ×6 (00:35→20:06)
[2018-12-10] MEDS: ALBUT/IPRATROP 3MG/0.5MG NEB 3 ML VIAL NEB SCH ×4 (02:36→19:01)
[2018-12-10] MEDS: SODIUM CHLORIDE 0.45 % 1,000 ML IV SCH ×3 (03:11→20:51)
[2018-12-10] MEDS: DEXTROSE 50% 50 ML SYRINGE IV PRN ×3 (04:06→08:50)
[2018-12-10 05:22] LABS: Basophils # (auto) 0.03 K/uL (0-0.2); Basophils % (auto) 0.3 %; Eosinophils % (auto) 0.9 %; Hematocrit (blood only) 34.4 % (42-52); Immature Granulocytes # (auto) 0.05 K/uL (0.00-0.02); Immature Granulocytes % (auto) 0.4 %; Lymphocytes # (auto) 0.96 K/uL (1.2-3.4); Lymphocytes % (auto) 8.3 %; Mean Corpuscular Volume 97.7 fL (80-100); Mean Platelet Volume 10.3 fL (7.4-10.4); Monocytes # (auto) 0.76 K/uL (0.11-0.59); Monocytes % (auto) 6.6 %; Neutrophils # (auto) 9.62 K/uL (1.4-6.5); Neutrophils % (auto) 83.5 %; Platelet Count 193 K/uL (130-400); RDW Coefficient of Variation 14.3 % (11.5-14.5); RDW Standard Deviation 51.2 fL (36.4-46.3); Red Blood Count 3.52 M/uL (4.7-6.1); White Blood Count 11.52 K/uL (4.8-10.8)
[2018-12-10 06:19] LABS: BUN Creatinine Ratio 23.9 (10-20); Calcium 8.5 mg/dl (8.5-10.1); Creatinine Clr Calc Pharmacy 23.6 ml/min; Est GFR (African American) 37.2; Est GFR (Non-African American) 32.1; Potassium 3.4 mmol/L (3.5-5.1)
[2018-12-10] MEDS ORDERED: VANCOMYCIN HCL 1,000 MG in SODIUM CHLORIDE 0.9% 250 ML IV ONE (07:15)
[2018-12-10] MEDS ORDERED: PHARMACY GLYCEMIC MGMT CONSULT PRN (07:59)
--- NOTE | 2018-12-10 07:59 | Critical Care Progress Note ---
Date of Service December 10, 2018 Assessment & Plan (1) Admitted to intensive care unit: Reason Critically Ill: 83-year-old male with long-standing history of dementia possibly end-stage with acute hypoxic respiratory failure PLAN: Neuro: Acute encephalopathy -Likely metabolic/multifactorial -No definitive signs of meningitis Dementia -Long-standing resides in personal m[facility] Resp: Acute hypoxic respiratory failure Infiltrates on chest x-ray -Aspiration pneumonitis versus aspiration pneumonia -Vancomycin and cefepime CV: History hypertension -Troponins negative x1 -EKG sinus tachycardia Tachycardia -Possibly related to fever Fluids/Renal: Hypernatremia -2.7-3.8 L free water deficit -Half NS at 125 mL's per hour Acute kidney injury ID: Febrile illness -Pro calcitonin 0.4 -Definitive oxygen requirement, infiltrates on chest x-ray Urine culture: No significant growth -Blood culture: No growth to date -We will continue cefepime and vancomycin GI/Nutrition: Elevated alkaline phosphatase Hypoalbuminemia and hypoproteinemia -Sarcopena Will place core safe feeding tube Heme: Anemia: Most likely of chronic disease -At baseline DVT prophylaxis: Heparin 5000 twice daily Endocrine: ICU hyperglycemia protocol Hyperglycemia: Resolved Hypoglycemia: Resolved -Glycemic service consult Vascular access: Peripheral IVs Code Status: DO NOT RESUSCITATE in event of cardiac arrest Patient's critical care needs have largely resolved. Palliative care consult placed May require readdressing goals of care. (2) Hypernatremia: Subjective No overnight events, able to follow simple one-step commands Physical Exam Vital Signs (Past 24 Hours): Last Vital Signs Temp 38.0 C H 12/09/18 18:00 Pulse 88 12/10/18 07:46 Resp 24 12/10/18 07:46 BP 152/65 H 12/10/18 06:00 Pulse Ox 94 12/10/18 07:46 General: Alert. nontoxic. Skin: Warm, dry, Head: Atraumatic Ears, nose, mouth and throat: airway patent Cardiovascular: Normal peripheral perfusion Respiratory: no respiratory distress Gastrointestinal: Non distended Musculoskeletal: No deformity Results & Data Laboratory Results 12/10/18 12/10/18 12/10/18 Range/Units 08:25 08:07 08:05 WBC (4.8-10.8) K/uL RBC (4.7-6.1) M/uL Hgb (14.0-18.0) g/dL Hct (42-52) % MCV (80-100) fL MCH (25-34) pg MCHC (32-36) g/dL RDW Std Deviation (36.4-46.3) fL RDW Coeff of Hollie (11.5-14.5) % Plt Count (130-400) K/uL MPV (7.4-10.4) fL Immature Gran % (Auto) % Neut % (Auto) % Lymph % (Auto) % [place] % (Auto) % Eos % (Auto) % Baso % (Auto) % Immature Gran # (Auto) (0.00-0.02) K/uL Neut # (Auto) (1.4-6.5) K/uL Lymph # (Auto) (1.2-3.4) K/uL [place] # (Auto) (0.11-0.59) K/uL Eos # (Auto) (0-0.5) K/uL Baso # (Auto) (0-0.2) K/uL Sodium (136-145) mmol/L Potassium (3.5-5.1) mmol/L Chloride (98-107) mmol/L Carbon Dioxide (21-32) mmol/L Anion Gap (3-11) BUN (7-18) mg/dl Creatinine (0.6-1.4) mg/dl Est Cr Clr Drug Dosing ml/min Est GFR ( Amer) Est GFR (Non-Af Amer) BUN/Creatinine Ratio (10-20) Glucose (70-99) mg/dl POC Glucose 81 59 L* 51 L* (70-99) Lactate (0.4-2.0) mmol/L Calcium (8.5-10.1) mg/dl Magnesium (1.8-2.4) mg/dl Random Vancomycin mcg/ml 12/10/18 12/10/18 12/10/18 Range/Units 05:15 05:15 05:15 WBC (4.8-10.8) K/uL RBC (4.7-6.1) M/uL Hgb (14.0-18.0) g/dL Hct (42-52) % MCV (80-100) fL MCH (25-34) pg MCHC (32-36) g/dL RDW Std Deviation (36.4-46.3) fL RDW Coeff of Hollie (11.5-14.5) % Plt Count (130-400) K/uL MPV (7.4-10.4) fL Immature Gran % (Auto) % Neut % (Auto) % Lymph % (Auto) % [place] % (Auto) % Eos % (Auto) % Baso % (Auto) % Immature Gran # (Auto) (0.00-0.02) K/uL Neut # (Auto) (1.4-6.5) K/uL Lymph # (Auto) (1.2-3.4) K/uL [place] # (Auto) (0.11-0.59) K/uL Eos # (Auto) (0-0.5) K/uL Baso # (Auto) (0-0.2) K/uL Sodium 157 H* (136-145) mmol/L Potassium 3.4 L (3.5-5.1) mmol/L Chloride 129 H (98-107) mmol/L Carbon Dioxide 22 (21-32) mmol/L Anion Gap 6.0 (3-11) BUN 45 H (7-18) mg/dl Creatinine 1.87 H D (0.6-1.4) mg/dl Est Cr Clr Drug Dosing 23.6 ml/min Est GFR ( Amer) 37.2 Est GFR (Non-Af Amer) 32.1 BUN/Creatinine Ratio 23.9 H (10-20) Glucose 109 H (70-99) mg/dl POC Glucose (70-99) Lactate 0.9 (0.4-2.0) mmol/L Calcium 8.5 (8.5-10.1) mg/dl Magnesium 2.0 (1.8-2.4) mg/dl Random Vancomycin mcg/ml 12/10/18 12/10/18 12/10/18 Range/Units 05:15 04:23 04:04 WBC 11.52 H (4.8-10.8) K/uL RBC 3.52 L (4.7-6.1) M/uL Hgb 11.0 L (14.0-18.0) g/dL Hct 34.4 L (42-52) % MCV 97.7 (80-100) fL MCH 31.3 (25-34) pg MCHC 32.0 (32-36) g/dL RDW Std Deviation 51.2 H (36.4-46.3) fL RDW Coeff of Hollie 14.3 (11.5-14.5) % Plt Count 193 (130-400) K/uL MPV 10.3 (7.4-10.4) fL Immature Gran % (Auto) 0.4 % Neut % (Auto) 83.5 % Lymph % (Auto) 8.3 % [place] % (Auto) 6.6 % Eos % (Auto) 0.9 % Baso % (Auto) 0.3 % Immature Gran # (Auto) 0.05 H (0.00-0.02) K/uL Neut # (Auto) 9.62 H (1.4-6.5) K/uL Lymph # (Auto) 0.96 L (1.2-3.4) K/uL [place] # (Auto) 0.76 H (0.11-0.59) K/uL Eos # (Auto) 0.10 (0-0.5) K/uL Baso # (Auto) 0.03 (0-0.2) K/uL Sodium (136-145) mmol/L Potassium (3.5-5.1) mmol/L Chloride (98-107) mmol/L Carbon Dioxide (21-32) mmol/L Anion Gap (3-11) BUN (7-18) mg/dl Creatinine (0.6-1.4) mg/dl Est Cr Clr Drug Dosing ml/min Est GFR ( Amer) Est GFR (Non-Af Amer) BUN/Creatinine Ratio (10-20) Glucose (70-99) mg/dl POC Glucose 91 62 L* (70-99) Lactate (0.4-2.0) mmol/L Calcium (8.5-10.1) mg/dl Magnesium (1.8-2.4) mg/dl Random Vancomycin mcg/ml 12/10/18 12/10/18 12/10/18 Range/Units 04:03 00:08 00:06 WBC (4.8-10.8) K/uL RBC (4.7-6.1) M/uL Hgb (14.0-18.0) g/dL Hct (42-52) % MCV (80-100) fL MCH (25-34) pg MCHC (32-36) g/dL RDW Std Deviation (36.4-46.3) fL RDW Coeff of Hollie (11.5-14.5) % Plt Count (130-400) K/uL MPV (7.4-10.4) fL Immature Gran % (Auto) % Neut % (Auto) % Lymph % (Auto) % [place] % (Auto) % Eos % (Auto) % Baso % (Auto) % Immature Gran # (Auto) (0.00-0.02) K/uL Neut # (Auto) (1.4-6.5) K/uL Lymph # (Auto) (1.2-3.4) K/uL [place] # (Auto) (0.11-0.59) K/uL Eos # (Auto) (0-0.5) K/uL Baso # (Auto) (0-0.2) K/uL Sodium (136-145) mmol/L Potassium (3.5-5.1) mmol/L Chloride (98-107) mmol/L Carbon Dioxide (21-32) mmol/L Anion Gap (3-11) BUN (7-18) mg/dl Creatinine (0.6-1.4) mg/dl Est Cr Clr Drug Dosing ml/min Est GFR ( Amer) Est GFR (Non-Af Amer) BUN/Creatinine Ratio (10-20) Glucose (70-99) mg/dl POC Glucose 50 L* 80 66 L* (70-99) Lactate (0.4-2.0) mmol/L Calcium (8.5-10.1) mg/dl Magnesium (1.8-2.4) mg/dl Random Vancomycin mcg/ml 12/09/18 12/09/18 12/09/18 Range/Units 23:12 20:17 16:37 WBC (4.8-10.8) K/uL RBC (4.7-6.1) M/uL Hgb (14.0-18.0) g/dL Hct (42-52) % MCV (80-100) fL MCH (25-34) pg MCHC (32-36) g/dL RDW Std Deviation (36.4-46.3) fL RDW Coeff of Hollie (11.5-14.5) % Plt Count (130-400) K/uL MPV (7.4-10.4) fL Immature Gran % (Auto) % Neut % (Auto) % Lymph % (Auto) % [place] % (Auto) % Eos % (Auto) % Baso % (Auto) % Immature Gran # (Auto) (0.00-0.02) K/uL Neut # (Auto) (1.4-6.5) K/uL Lymph # (Auto) (1.2-3.4) K/uL [place] # (Auto) (0.11-0.59) K/uL Eos # (Auto) (0-0.5) K/uL Baso # (Auto) (0-0.2) K/uL Sodium 159 H* (136-145) mmol/L Potassium 3.5 D (3.5-5.1) mmol/L Chloride 128 H (98-107) mmol/L Carbon Dioxide 22 (21-32) mmol/L Anion Gap 9.0 (3-11) BUN 60 H (7-18) mg/dl Creatinine 2.49 H (0.6-1.4) mg/dl Est Cr Clr Drug Dosing 17.3 ml/min Est GFR ( Amer) 26.3 Est GFR (Non-Af Amer) 22.7 BUN/Creatinine Ratio 24.0 H (10-20) Glucose 203 H (70-99) mg/dl POC Glucose 153 H (70-99) Lactate (0.4-2.0) mmol/L Calcium 8.3 L (8.5-10.1) mg/dl Magnesium (1.8-2.4) mg/dl Random Vancomycin 7.5 mcg/ml 12/09/18 12/09/18 Range/Units 16:02 11:29 WBC (4.8-10.8) K/uL RBC (4.7-6.1) M/uL Hgb (14.0-18.0) g/dL Hct (42-52) % MCV (80-100) fL MCH (25-34) pg MCHC (32-36) g/dL RDW Std Deviation (36.4-46.3) fL RDW Coeff of Hollie (11.5-14.5) % Plt Count (130-400) K/uL MPV (7.4-10.4) fL Immature Gran % (Auto) % Neut % (Auto) % Lymph % (Auto) % [place] % (Auto) % Eos % (Auto) % Baso % (Auto) % Immature Gran # (Auto) (0.00-0.02) K/uL Neut # (Auto) (1.4-6.5) K/uL Lymph # (Auto) (1.2-3.4) K/uL [place] # (Auto) (0.11-0.59) K/uL Eos # (Auto) (0-0.5) K/uL Baso # (Auto) (0-0.2) K/uL Sodium (136-145) mmol/L Potassium (3.5-5.1) mmol/L Chloride (98-107) mmol/L Carbon Dioxide (21-32) mmol/L Anion Gap (3-11) BUN (7-18) mg/dl Creatinine (0.6-1.4) mg/dl Est Cr Clr Drug Dosing ml/min Est GFR ( Amer) Est GFR (Non-Af Amer) BUN/Creatinine Ratio (10-20) Glucose (70-99) mg/dl POC Glucose 217 H 220 H (70-99) Lactate (0.4-2.0) mmol/L Calcium (8.5-10.1) mg/dl Magnesium (1.8-2.4) mg/dl Random Vancomycin mcg/ml
[2018-12-10] MEDS: HEPARIN SOD 5,000 UNIT/0.5 ML VIAL SQ SCH ×2 (08:01→20:04)
[2018-12-10] MEDS: FAMOTIDINE 20 MG in SYRINGE 3 ML IV SCH (08:02)
--- NOTE | 2018-12-10 08:45 | Pharmacy Report ---
Pharm Abx/Gly Prg Nt - Date of Service December 10, 2018 - Scope Pharmacy has been consulted to manage vancomycin and glycemic control for this patient as per the Pharmacy & Therapeutics Committee approved dosing protocols. - Objective Vital Signs (Past 12hrs): Vital Signs Pulse Pulse Resp BP Pulse Ox 12/10/18 07:46 88 24 94 12/10/18 06:00 91 H 28 H 152/65 H 92 12/10/18 05:01 85 27 H 149/60 H 92 12/10/18 04:14 84 28 H 135/52 L 92 12/10/18 03:00 94 H 25 H 172/69 H 95 12/10/18 02:01 90 27 H 163/60 H 95 12/10/18 01:00 90 28 H 170/70 H 96 12/10/18 00:02 90 27 H 163/68 H 95 12/10/18 00:00 93 H 12/09/18 23:01 89 25 H 160/67 H 98 12/09/18 22:00 94 H 33 H 158/66 H 91 12/09/18 21:28 91 H 26 H 136/57 L 92 12/09/18 21:18 122 H 140/66 12/09/18 21:01 113 H 31 H 140/66 95 Lab Results: Laboratory Tests (24 Hours) 12/10/18 12/10/18 12/09/18 05:15 05:15 23:12 WBC 11.52 H Neut # (Auto) 9.62 H Creatinine 1.87 H D Est Cr Clr Drug Dosing 23.6 Random Vancomycin 7.5 12/09/18 16:37 WBC Neut # (Auto) Creatinine 2.49 H Est Cr Clr Drug Dosing 17.3 Random Vancomycin Accuchecks BSG (last 24 hours):: 12/09/18 12/09/18 12/09/18 11:29 16:02 16:37 Glucose 203 H POC Glucose 220 H 217 H 12/09/18 12/10/18 12/10/18 20:17 00:06 00:08 Glucose POC Glucose 153 H 66 L* 80 12/10/18 12/10/18 12/10/18 04:03 04:04 04:23 Glucose POC Glucose 50 L* 62 L* 91 12/10/18 05:15 Glucose 109 H POC Glucose HbA1C: 7.2% 01/13/18 - Outpatient Anti-Diabetic Regimen Recent Pertinent Medications: Outpatient Anti-diabetic Regimen: * Glipizide 2.5 mg daily * A1c = pending The patient is currently receiving: * Basal insulin: Lantus 12 units every 12 hours * Correctional Insulin: Novolog Correction per scale ACHS Goal Range: Low 100 mg/dL - High 180 mg/dL Correction Factor: 30 mg/dL/unit * Prandial insulin: Per carb ratio of 1 unit per 12 grams CHO consumed Risk Factors for Insulin Resistance: * Infection:Cefepime/Vancomycin * IVF: 1/2NS * Recent Surgery * Diet: NPO - Assessment & Plan Assessment: ID: * 83 year old M receiving cefepime/vancomycin for treatment of pneumonia, continues to be febrile, WBC increased to 11 * Zosyn switched to cefepime- dosage increased from 500 mg to 2000 mg today for improvement in AMBER this morning * Day # 2-3 of antimicrobial therapy Glycemic: * 83 yo male on glipizide outpatient, new A1c pending, previous 7.2% ~1year ago. * Initially hyperglycemic on admission (300s), patient remains NPO and had hypoglycemic events overnight * Patient received 30 units of insulin yesterday (24 basal; 6 units correctional) * Lantus held this AM, with conservative scale for PM * Continue q4H checks, loosen goal range to 140-180, correction factor and carb ratio. Plan: ANTIMICROBIAL THERAPY Vancomycin * Random level 7.5, patient to be redosed with 1000 mg x 1 (17 mg/kg) * SCr improved to 1.87 today, urine output improved, population kinetics predict T1/2~28 hours * Given improving renal function, will check random level 12 hours from AM dose to determine further dosing requirements * Goal trough level:15-20 mcg/mL * Random level ordered for 12/10 @ 1999 INPATIENT GLYCEMIC CONTROL * Continue to hold outpatient oral diabetes medications Basal Insulin * Lantus held this AM, 0 units if BSG <160, 5 units if BSG 160 or greater Bolus Insulin * NovoLog per scale ACHS or Q6hrs while NPO * Goal Range: Low 140 mg/dL - High 180 mg/dL * Correction Factor: 40 mg/dL/unit * Nutritional / Prandial insulin per carb ratio of 1 unit per = 14 grams CHO consumed * Please note that the plan above was derived based on current level of insulin resistance and hospital stress. These recommendations are appropriate for inpatient admission only. Plan of care upon discharge will need to be reassessed to avoid potential outpatient hypo/hyperglycemia. Pharmacy will follow patient and adjust orders on a daily basis. Thank you for allowing us to participate in this patients care.
[2018-12-10] MEDS: CEFEPIME 2,000 MG in SYRINGE 0 ML IV SCH (09:14)
[2018-12-10] MEDS ORDERED: PEPTAMEN INTENSE VHP 1.0 CAL 1,000 ML BAG GT PRN (10:54)
--- NOTE | 2018-12-10 11:15 | XRay Report ---
XR chest 1V portable CLINICAL HISTORY: infiltrates dyspnea COMPARISON STUDY: 12/08/2018 FINDINGS: Mildly progressive bibasilar parenchymal infiltrative change. Underlying component of conge stive failure may be present. Pulmonary apices are clear. IMPRESSION: Mildly progressive bibasilar parenchymal infiltrates versus atypical components of conge stive failure. Feeding tube placed in the gastric fundus. The above report was generated using voice recognition software. It may contain grammatical, syntax or spelling errors. Electronically signed by: Will Light M.D. 12/10/2018 11:14 AM
--- NOTE | 2018-12-10 17:42 | Hospitalist Progress Note ---
Date of Service December 10, 2018 Assessment & Plan (1) Hypoxia: This patient is an 83yo male with history of CAD, HTN, HLP, COPD and dysphagia. NH resident sent to OSH with concern for aspiration event after PO feeding resumed. He was transferred here as per patient's family request. He was unresponsive upon admission and there was concern for CVA on outpatient CT Head. MRI of the brain negative for CVA He was found to have aspiration pneumonia, sepsis, severe hypernatremia, acute kidney injury, and acute hypoxic respiratory failure -Admitted to the ICU Continues to be lethargic and is now back on BiPAP after aspiration during bedside swallow evaluation for pulse ox in the 70s -Continue supplemental O2/BiPAP to keep pulse ox greater than 90% -Continue to treat aspiration pneumonia as below - will not likely be able to safely swallow indefinitely (2) Aspiration pneumonia: - patient with history of COPD, with aspiration event at halfway. Has been febrile since admission and this continues Chest x-ray with left basilar infiltrate Initially treated with BiPAP 14/7, 50% and then weaned to 4 L nasal cannula; now back on BiPAP as above secondary to recurrent aspiration event with bedside swallow evaluation Failed bedside swallow miserably and has a history now for a while of aspiration secondary to severe dementia procalcitonin negative -Continue DuoNeb q 6 hours -Continue albuterol q 2 hours PRN -Initially treated with empiric antibiotics with Vancomycin and Zosyn- security agent changed him to cefepime and vancomycin in order to decrease sodium input -Consider adding on Flagyl for aspiration coverage if not improving although with acute presentation with fever, as per up-to-date, it is more likely that his staph or gram-negative infection causing his presentation in the setting of aspiration -Keep n.p.o., course if tube in place, however his advanced directive in the chart states "no tube feeds" -Likely to continue to recur (3) Hypernatremia: Sodium severely elevated upon admission at 164 but when corrected for hyperglycemia, would be 169. Is severely dehydrated likely secondary to poor p.o. intake due to chronic aspiration Continues on half-normal saline at 125 mL's per hour since admission and sodium is only minimally trended downward to 157 in 48 hours -Recommend discontinuing half-normal saline and starting D5W at 100 mL's per hour, however again will defer to security agent -Follow BMP in the morning (4) AMBER (acute kidney injury): Creatinine elevated at 2.59 and now continues to trend downward with hydration to 1.8, BUN elevated likely secondary to prerenal azotemia from severe dehydration Blood pressures are elevated, potassium and bicarbonate are acceptable -Continue hydration -He has a Vargas catheter in place -Follow BMP in the morning (5) Hypertension: Blood pressures on the high side, he is not able to take p.o. at all and therefore has not taken his isosorbide, metoprolol -Continue to follow and give IV Lopressor as needed (6) Heart disease: Has history of CAD, HTN, HLP, bioprosthetic valve Troponin here is negative at 0.033 EKG with sinus tachycardia with a rate of 106 with old septal infarct present, no acute ischemia -Continue to hold ASA, Atorvastatin, Metoprolol and Imdur while patient is NPO -Can give IV Lopressor as needed for heart rate greater than 110 (7) COPD (chronic obstructive pulmonary disease): Stable -Continue nebulizers as needed (8) Acute metabolic encephalopathy: Secondary to sepsis, hypernatremia -Treating as above (9) Dementia: Fairly severe as per report from RN who spoke with the daughter-he is mostly nonverbal on some days detention notes do report that he walks with a walker but at times is in a wheelchair (10) Sinus tachycardia: Likely secondary to fevers, sepsis, and could be some beta-omar withdrawal - will give IV Lopressor for heart rate greater than 110 (11) Dysphagia: Chronic -speech therapy consultation appreciated-had overt aspiration at the bedside -Keep n.p.o. and will need discussion with palliative care-plan for tomorrow with family in the afternoon to discuss transition to comfort measures only (12) Diabetes mellitus: With hyperglycemia here secondary to stress initially, then hypoglycemic this morning and was given an amp of D50 -Discontinued Lantus -Continue sliding scale insulin only every 4 hours (13) Sepsis: Present on admission, with persistent fevers, tachycardia, with pneumonia from aspiration -Plan as above (14) DVT prophylaxis: Heparin SQ Disposition-remain in ICU DNR/DNI Prognosis is pretty poor overall, plan to place palliative care consult in the morning Discussed care with his daughter, Melisa, at the bedside today. Plans are in place for a family meeting tomorrow in the afternoon, along with palliative care, to discuss goals of care but likely will transition to comfort measures only 1 Subjective Patient was a little bit more alert this morning as per nurse, but to have a spoonful of pudding for his speech evaluation today and aspirated and subsequently developed hypoxia into the 70s requiring BiPAP to bring his oxygen levels back up. When I saw him in the afternoon, he opened his eyes and tracked them to the right towards me but would not answer my questions. He had his BiPAP on. He was very lethargic. Discussed the case with the security agent and speech therapist today. He had a core safe tube placed Telemetry with sinus tachycardia Review of Systems Unobtainable due to reduced consciousness Physical Exam Vital Signs (Past 24 Hours): Last Vital Signs Temp 38.0 C H 12/09/18 18:00 Pulse 96 H 12/10/18 15:58 Resp 24 12/10/18 15:58 BP 135/63 12/10/18 14:00 Pulse Ox 94 12/10/18 15:58 Constitutional: + ill appearing (And lethargic) and + thin Eyes: PERRL, conjunctivae normal, anicteric sclerae + scleral abnormality (Mild injection of sclerae bilaterally) ENMT: Nose: no external nose abnormality Mouth: + tongue abnormality (Dry with black coating) Neck: trachea midline, no thyromegaly Respiratory: normal respiratory effort (On BiPAP) Auscultation: no crackles, no rhonchi and no wheezes Cardiovascular: Rate/Rhythm: regular rhythm and + tachycardic Heart Sounds: no murmur Extremities: no edema Gastrointestinal (Abdomen): normal bowel sounds, soft, nontender, no hepatosplenomegaly Musculoskeletal: Extremities: extremities normal to inspection; no cyanosis and no clubbing Skin: no rashes, warm and dry Neurologic: Motor/Sensory: no tremor Psychiatric: Orientation: + not alert (Lethargic) Results & Data Laboratory Results 12/10/18 12/10/18 12/10/18 Range/Units 20:00 16:24 12:19 WBC (4.8-10.8) K/uL RBC (4.7-6.1) M/uL Hgb (14.0-18.0) g/dL Hct (42-52) % MCV (80-100) fL MCH (25-34) pg MCHC (32-36) g/dL RDW Std Deviation (36.4-46.3) fL RDW Coeff of Hollie (11.5-14.5) % Plt Count (130-400) K/uL MPV (7.4-10.4) fL Immature Gran % (Auto) % Neut % (Auto) % Lymph % (Auto) % [place] % (Auto) % Eos % (Auto) % Baso % (Auto) % Immature Gran # (Auto) (0.00-0.02) K/uL Neut # (Auto) (1.4-6.5) K/uL Lymph # (Auto) (1.2-3.4) K/uL [place] # (Auto) (0.11-0.59) K/uL Eos # (Auto) (0-0.5) K/uL Baso # (Auto) (0-0.2) K/uL Sodium (136-145) mmol/L Potassium (3.5-5.1) mmol/L Chloride (98-107) mmol/L Carbon Dioxide (21-32) mmol/L Anion Gap (3-11) BUN (7-18) mg/dl Creatinine (0.6-1.4) mg/dl Est Cr Clr Drug Dosing ml/min Est GFR ( Amer) Est GFR (Non-Af Amer) BUN/Creatinine Ratio (10-20) Glucose (70-99) mg/dl POC Glucose 165 H 149 H 110 H (70-99) Lactate (0.4-2.0) mmol/L Calcium (8.5-10.1) mg/dl Magnesium (1.8-2.4) mg/dl Random Vancomycin mcg/ml 12/10/18 12/10/18 12/10/18 Range/Units 09:09 08:25 08:07 WBC (4.8-10.8) K/uL RBC (4.7-6.1) M/uL Hgb (14.0-18.0) g/dL Hct (42-52) % MCV (80-100) fL MCH (25-34) pg MCHC (32-36) g/dL RDW Std Deviation (36.4-46.3) fL RDW Coeff of Hollie (11.5-14.5) % Plt Count (130-400) K/uL MPV (7.4-10.4) fL Immature Gran % (Auto) % Neut % (Auto) % Lymph % (Auto) % [place] % (Auto) % Eos % (Auto) % Baso % (Auto) % Immature Gran # (Auto) (0.00-0.02) K/uL Neut # (Auto) (1.4-6.5) K/uL Lymph # (Auto) (1.2-3.4) K/uL [place] # (Auto) (0.11-0.59) K/uL Eos # (Auto) (0-0.5) K/uL Baso # (Auto) (0-0.2) K/uL Sodium (136-145) mmol/L Potassium (3.5-5.1) mmol/L Chloride (98-107) mmol/L Carbon Dioxide (21-32) mmol/L Anion Gap (3-11) BUN (7-18) mg/dl Creatinine (0.6-1.4) mg/dl Est Cr Clr Drug Dosing ml/min Est GFR ( Amer) Est GFR (Non-Af Amer) BUN/Creatinine Ratio (10-20) Glucose (70-99) mg/dl POC Glucose 127 H 81 59 L* (70-99) Lactate (0.4-2.0) mmol/L Calcium (8.5-10.1) mg/dl Magnesium (1.8-2.4) mg/dl Random Vancomycin mcg/ml 12/10/18 12/10/18 12/10/18 Range/Units 08:05 05:15 05:15 WBC (4.8-10.8) K/uL RBC (4.7-6.1) M/uL Hgb (14.0-18.0) g/dL Hct (42-52) % MCV (80-100) fL MCH (25-34) pg MCHC (32-36) g/dL RDW Std Deviation (36.4-46.3) fL RDW Coeff of Hollie (11.5-14.5) % Plt Count (130-400) K/uL MPV (7.4-10.4) fL Immature Gran % (Auto) % Neut % (Auto) % Lymph % (Auto) % [place] % (Auto) % Eos % (Auto) % Baso % (Auto) % Immature Gran # (Auto) (0.00-0.02) K/uL Neut # (Auto) (1.4-6.5) K/uL Lymph # (Auto) (1.2-3.4) K/uL [place] # (Auto) (0.11-0.59) K/uL Eos # (Auto) (0-0.5) K/uL Baso # (Auto) (0-0.2) K/uL Sodium 157 H* (136-145) mmol/L Potassium 3.4 L (3.5-5.1) mmol/L Chloride 129 H (98-107) mmol/L Carbon Dioxide 22 (21-32) mmol/L Anion Gap 6.0 (3-11) BUN 45 H (7-18) mg/dl Creatinine 1.87 H D (0.6-1.4) mg/dl Est Cr Clr Drug Dosing 23.6 ml/min Est GFR ( Amer) 37.2 Est GFR (Non-Af Amer) 32.1 BUN/Creatinine Ratio 23.9 H (10-20) Glucose 109 H (70-99) mg/dl POC Glucose 51 L* (70-99) Lactate (0.4-2.0) mmol/L Calcium 8.5 (8.5-10.1) mg/dl Magnesium 2.0 (1.8-2.4) mg/dl Random Vancomycin mcg/ml 12/10/18 12/10/18 12/10/18 Range/Units 05:15 05:15 04:23 WBC 11.52 H (4.8-10.8) K/uL RBC 3.52 L (4.7-6.1) M/uL Hgb 11.0 L (14.0-18.0) g/dL Hct 34.4 L (42-52) % MCV 97.7 (80-100) fL MCH 31.3 (25-34) pg MCHC 32.0 (32-36) g/dL RDW Std Deviation 51.2 H (36.4-46.3) fL RDW Coeff of Hollie 14.3 (11.5-14.5) % Plt Count 193 (130-400) K/uL MPV 10.3 (7.4-10.4) fL Immature Gran % (Auto) 0.4 % Neut % (Auto) 83.5 % Lymph % (Auto) 8.3 % [place] % (Auto) 6.6 % Eos % (Auto) 0.9 % Baso % (Auto) 0.3 % Immature Gran # (Auto) 0.05 H (0.00-0.02) K/uL Neut # (Auto) 9.62 H (1.4-6.5) K/uL Lymph # (Auto) 0.96 L (1.2-3.4) K/uL [place] # (Auto) 0.76 H (0.11-0.59) K/uL Eos # (Auto) 0.10 (0-0.5) K/uL Baso # (Auto) 0.03 (0-0.2) K/uL Sodium (136-145) mmol/L Potassium (3.5-5.1) mmol/L Chloride (98-107) mmol/L Carbon Dioxide (21-32) mmol/L Anion Gap (3-11) BUN (7-18) mg/dl Creatinine (0.6-1.4) mg/dl Est Cr Clr Drug Dosing ml/min Est GFR ( Amer) Est GFR (Non-Af Amer) BUN/Creatinine Ratio (10-20) Glucose (70-99) mg/dl POC Glucose 91 (70-99) Lactate 0.9 (0.4-2.0) mmol/L Calcium (8.5-10.1) mg/dl Magnesium (1.8-2.4) mg/dl Random Vancomycin mcg/ml 12/10/18 12/10/18 12/10/18 Range/Units 04:04 04:03 00:08 WBC (4.8-10.8) K/uL RBC (4.7-6.1) M/uL Hgb (14.0-18.0) g/dL Hct (42-52) % MCV (80-100) fL MCH (25-34) pg MCHC (32-36) g/dL RDW Std Deviation (36.4-46.3) fL RDW Coeff of Hollie (11.5-14.5) % Plt Count (130-400) K/uL MPV (7.4-10.4) fL Immature Gran % (Auto) % Neut % (Auto) % Lymph % (Auto) % [place] % (Auto) % Eos % (Auto) % Baso % (Auto) % Immature Gran # (Auto) (0.00-0.02) K/uL Neut # (Auto) (1.4-6.5) K/uL Lymph # (Auto) (1.2-3.4) K/uL [place] # (Auto) (0.11-0.59) K/uL Eos # (Auto) (0-0.5) K/uL Baso # (Auto) (0-0.2) K/uL Sodium (136-145) mmol/L Potassium (3.5-5.1) mmol/L Chloride (98-107) mmol/L Carbon Dioxide (21-32) mmol/L Anion Gap (3-11) BUN (7-18) mg/dl Creatinine (0.6-1.4) mg/dl Est Cr Clr Drug Dosing ml/min Est GFR ( Amer) Est GFR (Non-Af Amer) BUN/Creatinine Ratio (10-20) Glucose (70-99) mg/dl POC Glucose 62 L* 50 L* 80 (70-99) Lactate (0.4-2.0) mmol/L Calcium (8.5-10.1) mg/dl Magnesium (1.8-2.4) mg/dl Random Vancomycin mcg/ml 12/10/18 12/09/18 12/09/18 Range/Units 00:06 23:12 20:17 WBC (4.8-10.8) K/uL RBC (4.7-6.1) M/uL Hgb (14.0-18.0) g/dL Hct (42-52) % MCV (80-100) fL MCH (25-34) pg MCHC (32-36) g/dL RDW Std Deviation (36.4-46.3) fL RDW Coeff of Hollie (11.5-14.5) % Plt Count (130-400) K/uL MPV (7.4-10.4) fL Immature Gran % (Auto) % Neut % (Auto) % Lymph % (Auto) % [place] % (Auto) % Eos % (Auto) % Baso % (Auto) % Immature Gran # (Auto) (0.00-0.02) K/uL Neut # (Auto) (1.4-6.5) K/uL Lymph # (Auto) (1.2-3.4) K/uL [place] # (Auto) (0.11-0.59) K/uL Eos # (Auto) (0-0.5) K/uL Baso # (Auto) (0-0.2) K/uL Sodium (136-145) mmol/L Potassium (3.5-5.1) mmol/L Chloride (98-107) mmol/L Carbon Dioxide (21-32) mmol/L Anion Gap (3-11) BUN (7-18) mg/dl Creatinine (0.6-1.4) mg/dl Est Cr Clr Drug Dosing ml/min Est GFR ( Amer) Est GFR (Non-Af Amer) BUN/Creatinine Ratio (10-20) Glucose (70-99) mg/dl POC Glucose 66 L* 153 H (70-99) Lactate (0.4-2.0) mmol/L Calcium (8.5-10.1) mg/dl Magnesium (1.8-2.4) mg/dl Random Vancomycin 7.5 mcg/ml (1) Diabetes mellitus Diabetes mellitus complication status: with hyperglycemia Diabetes mellitus penitentiary insulin use: without penitentiary use Diabetes mellitus type: type 2 Qualified Code(s): E11.65 - Type 2 diabetes mellitus with hyperglycemia
[2018-12-10] MEDS ORDERED: INSULIN GLARGINE SOLOSTAR 100 UNITS/ML 3 ML PEN SC ONE (21:00)
[2018-12-10] MEDS ORDERED: VANCOMYCIN HCL 750 MG in SODIUM CHLORIDE 0.9% 250 ML IV ONE (21:30)
[2018-12-11] MEDS ORDERED: NORMOSOL-R 1,000 ML IV SCH (00:15)
[2018-12-11] MEDS ORDERED: SODIUM CHLORIDE 0.45 % 1,000 ML IV SCH ×2 (00:15→15:30)
[2018-12-11] MEDS ORDERED: SODIUM CHLORIDE 0.9% 1000ML 1,000 ML IV SCH (00:15)
[2018-12-11] MEDS: INSULIN ASPART 100 UNITS/ML 3 ML PEN SC SCH ×3 (00:24→08:43)
[2018-12-11] MEDS: ALBUT/IPRATROP 3MG/0.5MG NEB 3 ML VIAL NEB SCH ×4 (02:18→19:21)
[2018-12-11 05:14] LABS: Albumin Level 1.9 gm/dl (3.4-5.0); Bilirubin Direct 0.1 mg/dl (0-0.2); Bilirubin,Total 0.4 mg/dl (0.2-1); Total Protein 5.4 gm/dl (6.4-8.2)
[2018-12-11 05:41] LABS: Basophils # (auto) 0.02 K/uL (0-0.2); Basophils % (auto) 0.2 %; Eosinophils # (auto) 0.38 K/uL (0-0.5); Eosinophils % (auto) 4.7 %; Hematocrit (blood only) 31.1 % (42-52); Hemoglobin 9.8 g/dL (14.0-18.0); Immature Granulocytes # (auto) 0.04 K/uL (0.00-0.02); Immature Granulocytes % (auto) 0.5 %; Lymphocytes # (auto) 0.74 K/uL (1.2-3.4); Lymphocytes % (auto) 9.1 %; Mean Corpuscular Hgb Conc 31.5 g/dL (32-36); Mean Corpuscular Volume 98.4 fL (80-100); Mean Platelet Volume 10.8 fL (7.4-10.4); Monocytes # (auto) 0.48 K/uL (0.11-0.59); Monocytes % (auto) 5.9 %; Neutrophils # (auto) 6.45 K/uL (1.4-6.5); Neutrophils % (auto) 79.6 %; Platelet Count 183 K/uL (130-400); Red Blood Count 3.16 M/uL (4.7-6.1); White Blood Count 8.11 K/uL (4.8-10.8)
[2018-12-11 07:33] LABS: Estimated Average Glucose 252 mg/dl; Hemoglobin A1C 10.4 % (4.5-5.6)
[2018-12-11] MEDS: HEPARIN SOD 5,000 UNIT/0.5 ML VIAL SQ SCH (08:26)
[2018-12-11] MEDS: CEFEPIME 2,000 MG in SYRINGE 0 ML IV SCH (08:26)
[2018-12-11] MEDS: FAMOTIDINE 20 MG in SYRINGE 3 ML IV SCH (08:26)
--- NOTE | 2018-12-11 08:37 | XRay Report ---
SINGLE VIEW CHEST CLINICAL HISTORY: Hypoxia. FINDINGS: An AP, portable, upright chest radiograph is compared to study dated 12/10/2018. Correlation is made with chest CT dated 03/03/2014. The examination is degraded by portable technique and patient rotation. An enteric tube is unchanged in position, with the tip projecting over the proximal stomac h. The patient is status post midline sternotomy. The heart is enlarged and there is atherosclerotic calcification of the thoracic aorta. There is prominence of the central pulmonary vasculature. Emphys annabel and chronic interstitial thickening are similar to previous. There is left basilar consolidation and a small left pleural effusion. There is improved aeration at the right lung base from previous. N o pneumothorax is seen. The skeletal structures are osteopenic. The bony thorax is grossly intact. IMPRESSION: 1. There is left basilar consolidation and a small left pleural effusion, similar appearance to previ ous. The appearance is typical for pneumonia/aspiration pneumonitis and radiographic follow-up to res olution is recommended. 2. Airspace opacities at the right lung base have cleared from previous. 3. Cardiomegaly with prominence of the central pulmonary vasculature. Correlate clinically for a comp onent of mild congestive failure. 4. Emphysema. Electronically signed by: Matt Izaguirre M.D. 12/11/2018 8:36 AM
[2018-12-11] MEDS: DEXTROSE 50% 50 ML SYRINGE IV PRN (08:41)
--- NOTE | 2018-12-11 08:58 | Critical Care Progress Note ---
Date of Service December 11, 2018 Assessment & Plan (1) Admitted to intensive care unit: Reason Critically Ill: 83 y/o male with long-standing hx of dementia; possible end-stage acute hypoxic respiratory failure. Neuro: Acute encephalopathy - History of underlying dementia, long-standing resides in personal fpc - Likely metabolic/multifactorial - No meningeal signs Cardiac/Vascular: - BP this am 149/69 - Pulse decreased from low 100s to now 90s. - Previous tachycardia response to fever - Trops previous negative x1 Pulm: -Acute hypoxic respiratory failure -Infiltrates on CXR with differential aspiration pnuemonia vs aspiration pnuemonitis -On Vancomycin, Cefepime. Will add Flagyl coverage for aneorobes. -On BiPAP maintaining adequate oxygenation with stable O2 stats overnight -Albuterol Duoneb q6hour scheduled GI/Nutrition: -Coresafe feeding tube in place, CXR today shows appropriate positioning -Elevated Alk Phos -Hypoalbuminemia and hypoproteinemia - Sarcopena Renal/electrolytes" - Hypernatremia with free water deficit, 2.04 liters - Creatinine today 1.82, trending down from high of 2.59 on 12/09 consistent with AMBER - Was on 08/30 NSS @ 125ml/hr - I&O: 24 hour total = +1510; cumulative +1537.5 - Measured Urine Output 1.10mg/kg/hr -Stafford cath in place Endo:Diabetes Mellitus II - Had some low glucose this morning of 64 at 8:30am with correction to 128 at 9am after administration of Dextrose 25mL overnight sugars ranging 110-165 - Continue with ICU hyperglycemia protocol Heme: - Anemia, 9.8 this morning and stable without any signs of bleed. ID: Febrile Illness - Pro calcitonin=0.4 - Infiltrates on CXR, definitive oxygen requirement - Leukocytosis from yesterday 11.52, resolved to within normal limits today of 8.11. - Afebrile this morning with last dose of Tylenol given two days ago 12/09 at 15:28. -Cultures - Urine no growth - less than 1,000 colonies/mL - Blood cultures x2, no growth to date Lines-Peripheral IVs DVT prophylaxis: Heparin 5000 BID Resuscitation status: DNR in event of cardiac arrest Palliative care consult for readdressing goals of care. Plan for discussion with family members later today at 3pm. Supervising Physician Co-Signing Physician Notes Dr. Gao was resident physician during care of patient. I separately evaluated patient for conrad portions of the history and the exam. I was present during the critical portion of medical decision making, and I discussed the case with the resident. I generally agree with the findings and plan. Patient was discussed in multidisciplinary rounds. I had an extensive discussion with the patient's family at bedside with Dr. Ford and Ema Jefferson of palliative care. Patient has not showed significant improvement in aspiration, he remains febrile, he is still dealing with acute hypoxic r espiratory failure. All family members present want to daughters and 1 son are in agreement that the patient would not want to continue with life sustaining efforts and feel the patient would be best facilitated by being made comfort measures. We will discontinue noninvasive ventilation at this time, discontinue antibiotics, discontinue artificial hydration and nutrition. Patient will be transferred to the medical floor. I have personally spent 40 minutes of critical care time in the direct management of this patient. This is a life/limb threatening event. This includes time spent evaluating patient, direct bedside care, chart review, placing orders, interpretation of diagnostic studies, discussion with consultants, patient, and/or family members regarding treatment decisions, as well as other required patient management activities. This time is exclusive of all separately billable procedures, and teaching time and separate from and in addition to any other critical care service time. Subjective Caveat: History Limited by Dementia. Too was non-verbal with questioning this morning. Physical Exam Vital Signs (Past 24 Hours): Last Vital Signs Temp 38.0 C H 12/09/18 18:00 Pulse 90 12/11/18 07:20 Resp 21 12/11/18 07:20 BP 149/69 H 12/11/18 06:01 Pulse Ox 94 12/11/18 07:20 Constitutional: + thin and + frail appearing; no acute distress Neck: trachea midline Respiratory: Auscultation: + diminished lung sounds Cardiovascular: Rate/Rhythm: regular rate irregularly irregular. diminished heart sounds Gastrointestinal (Abdomen): Inspection/Auscultation: normal bowel sounds Percussion/Palpation: abdomen soft Neurologic: sleepy but is easily arousable to stimulus Psychiatric: does not respond to questioning for orientation Genitourinary: stafford cath in place, returning light yellow urine Results & Data Laboratory Results Laboratory Results - last 24 hr 12/10/18 12/10/18 12/10/18 09:09 12:19 16:24 WBC RBC Hgb Hct MCV MCH MCHC RDW Std Deviation RDW Coeff of Hollie Plt Count MPV Immature Gran % (Auto) Neut % (Auto) Lymph % (Auto) [place] % (Auto) Eos % (Auto) Baso % (Auto) Immature Gran # (Auto) Neut # (Auto) Lymph # (Auto) [place] # (Auto) Eos # (Auto) Baso # (Auto) Sodium Potassium Chloride Carbon Dioxide Anion Gap BUN Creatinine Est Cr Clr Drug Dosing Est GFR ( Amer) Est GFR (Non-Af Amer) BUN/Creatinine Ratio Glucose POC Glucose 127 H 110 H 149 H Estimat Average Glucose Hemoglobin A1c Calcium Total Bilirubin Direct Bilirubin AST ALT Alkaline Phosphatase Total Protein Albumin Random Vancomycin 12/10/18 12/10/18 12/11/18 20:00 20:00 00:17 WBC RBC Hgb Hct MCV MCH MCHC RDW Std Deviation RDW Coeff of Hollie Plt Count MPV Immature Gran % (Auto) Neut % (Auto) Lymph % (Auto) [place] % (Auto) Eos % (Auto) Baso % (Auto) Immature Gran # (Auto) Neut # (Auto) Lymph # (Auto) [place] # (Auto) Eos # (Auto) Baso # (Auto) Sodium Potassium Chloride Carbon Dioxide Anion Gap BUN Creatinine Est Cr Clr Drug Dosing Est GFR ( Amer) Est GFR (Non-Af Amer) BUN/Creatinine Ratio Glucose POC Glucose 165 H 166 H Estimat Average Glucose Hemoglobin A1c Calcium Total Bilirubin Direct Bilirubin AST ALT Alkaline Phosphatase Total Protein Albumin Random Vancomycin 12.8 12/11/18 12/11/18 12/11/18 03:59 04:35 04:35 WBC 8.11 RBC 3.16 L Hgb 9.8 L Hct 31.1 L MCV 98.4 MCH 31.0 MCHC 31.5 L RDW Std Deviation 51.0 H RDW Coeff of Hollie 14.0 Plt Count 183 MPV 10.8 H Immature Gran % (Auto) 0.5 Neut % (Auto) 79.6 Lymph % (Auto) 9.1 [place] % (Auto) 5.9 Eos % (Auto) 4.7 Baso % (Auto) 0.2 Immature Gran # (Auto) 0.04 H Neut # (Auto) 6.45 Lymph # (Auto) 0.74 L [place] # (Auto) 0.48 Eos # (Auto) 0.38 Baso # (Auto) 0.02 Sodium Potassium Chloride Carbon Dioxide Anion Gap BUN Creatinine Est Cr Clr Drug Dosing Est GFR ( Amer) Est GFR (Non-Af Amer) BUN/Creatinine Ratio Glucose POC Glucose 115 H Estimat Average Glucose 252 Hemoglobin A1c 10.4 H Calcium Total Bilirubin Direct Bilirubin AST ALT Alkaline Phosphatase Total Protein Albumin Random Vancomycin 12/11/18 12/11/18 12/11/18 04:35 08:33 08:35 WBC RBC Hgb Hct MCV MCH MCHC RDW Std Deviation RDW Coeff of Hollie Plt Count MPV Immature Gran % (Auto) Neut % (Auto) Lymph % (Auto) [place] % (Auto) Eos % (Auto) Baso % (Auto) Immature Gran # (Auto) Neut # (Auto) Lymph # (Auto) [place] # (Auto) Eos # (Auto) Baso # (Auto) Sodium Potassium Chloride Carbon Dioxide Anion Gap BUN Creatinine Est Cr Clr Drug Dosing Est GFR ( Amer) Est GFR (Non-Af Amer) BUN/Creatinine Ratio Glucose POC Glucose 64 L* 64 L* Estimat Average Glucose Hemoglobin A1c Calcium Total Bilirubin 0.4 Direct Bilirubin 0.1 AST 30 ALT 32 Alkaline Phosphatase 161 H Total Protein 5.4 L Albumin 1.9 L Random Vancomycin 12/11/18 12/11/18 12/11/18 08:43 08:43 09:02 WBC RBC Hgb Hct MCV MCH MCHC RDW Std Deviation RDW Coeff of Hollie Plt Count MPV Immature Gran % (Auto) Neut % (Auto) Lymph % (Auto) [place] % (Auto) Eos % (Auto) Baso % (Auto) Immature Gran # (Auto) Neut # (Auto) Lymph # (Auto) [place] # (Auto) Eos # (Auto) Baso # (Auto) Sodium 150 H Potassium 3.6 Chloride 121 H Carbon Dioxide 21 Anion Gap 8.0 BUN 43 H Creatinine 1.82 H Est Cr Clr Drug Dosing 23.9 Est GFR ( Amer) 38.4 Est GFR (Non-Af Amer) 33.1 BUN/Creatinine Ratio 23.5 H Glucose 140 H POC Glucose 128 H Estimat Average Glucose Hemoglobin A1c Calcium 8.0 L Total Bilirubin Direct Bilirubin AST ALT Alkaline Phosphatase Total Protein Albumin Random Vancomycin 14.9 Medications Administered Albuterol (Duoneb) 3 ml NEB Q6R MANUELITO Stop: 01/08/19 01:59 Last Admin: 12/11/18 07:19 Dose: 3 ml Documented by: [id number] Admin: 12/11/18 02:18 Dose: 3 ml Documented by: [id number] Admin: 12/10/18 19:01 Dose: 3 ml Documented by: [id number] Admin: 12/10/18 15:22 Dose: 3 ml Documented by: [id number] Admin: 12/10/18 07:44 Dose: 3 ml Documented by: [id number] Admin: 12/10/18 02:36 Dose: Not Given Documented by: [id number] Admin: 12/09/18 20:12 Dose: 3 ml Documented by: [id number] Admin: 12/09/18 14:21 Dose: 3 ml Documented by: [id number] Admin: 12/09/18 07:42 Dose: 3 ml Documented by: [id number] Admin: 12/09/18 01:56 Dose: 3 ml Documented by: [id number] Dextrose (Dextrose 50%) 25 - 50 ml IV UD PRN; Protocol PRN Reason: Hypoglycemia Protocol Stop: 01/07/19 20:44 Last Admin: 12/11/18 08:41 Dose: 25 ml Documented by: [id number] Admin: 12/10/18 08:50 Dose: 50 ml Documented by: [id number] Admin: 12/10/18 08:10 Dose: 25 ml Documented by: [id number] Admin: 12/10/18 04:06 Dose: 25 ml Documented by: [id number] Heparin Sodium (Porcine) (Heparin Sodium (Porcine)) 5,000 units SQ Q12 MANUELITO Stop: 01/08/19 20:59 Last Admin: 12/11/18 08:26 Dose: 5,000 units Documented by: [id number] Cosigned by: [id number] Admin: 12/10/18 20:04 Dose: 5,000 units Documented by: [id number] Cosigned by: [id number] Admin: 12/10/18 08:01 Dose: 5,000 units Documented by: [id number] Cosigned by: [id number] Admin: 12/09/18 20:18 Dose: 5,000 units Documented by: [id number] Cosigned by: [id number] Acetaminophen (Ofirmev) 65 mls @ 200 mls/hr IV Q8H PRN PRN Reason: fever Stop: 01/07/19 20:44 Last Infusion: 12/09/18 15:28 Dose: 0 mls/hr Documented by: [id number] Admin: 12/09/18 14:44 Dose: 200 mls/hr Documented by: [id number] Infusion: 12/09/18 07:57 Dose: 0 mls/hr Documented by: [id number] Admin: 12/09/18 06:42 Dose: 200 mls/hr Documented by: [id number] Infusion: 12/08/18 21:55 Dose: 0 mls/hr Documented by: [id number] Admin: 12/08/18 21:29 Dose: 200 mls/hr Documented by: [id number] Lorazepam (Ativan) 0.5 mg in 1 mls @ 1 mls/min IV Q12 PRN PRN Reason: Anxiety/Agitation Stop: 01/08/19 16:34 Last Admin: 12/09/18 20:42 Dose: 1 mls/min Documented by: [id number] Cefepime HCl 2,000 mg/ Syringe 12.5 mls @ 5 mls/min IV Q24H [facility] Stop: 12/17/18 08:59 Last Admin: 12/11/18 08:26 Dose: 5 mls/min Documented by: [id number] Admin: 12/10/18 09:14 Dose: 5 mls/min Documented by: [id number] Metronidazole (Flagyl) 500 mg in 100 mls @ 100 mls/hr IV Q8H MANUELITO Stop: 12/18/18 08:29 Last Infusion: 12/11/18 10:05 Dose: 0 mls/hr Documented by: [id number] Admin: 12/11/18 09:02 Dose: 100 mls/hr Documented by: [id number] Metoprolol Tartrate (Lopressor) 5 mg IV Q6 PRN PRN Reason: HR>110 Stop: 01/09/19 00:00 Last Admin: 12/09/18 21:18 Dose: 5 mg Documented by: [id number] Nutritional Formula (Peptamen Intense Vhp) 1,000 ml GT UD PRN; Protocol PRN Reason: Undecided Stop: 01/09/19 10:53 Last Admin: 12/10/18 13:00 Dose: 1,000 ml Documented by: [id number] Resident Activity Tracking Resident Involvement: Resident Care Provided Care Provided: Adult Hospital Medicine
[2018-12-11] MEDS: metroNIDAZOLE 500 MG/100 ML BAG IV SCH ×2 (09:02→17:38)
[2018-12-11 09:20] LABS: BUN Creatinine Ratio 23.5 (10-20); Creatinine Clr Calc Pharmacy 23.9 ml/min; Est GFR (African American) 38.4; Est GFR (Non-African American) 33.1; Potassium 3.6 mmol/L (3.5-5.1)
--- NOTE | 2018-12-11 09:37 | Pharmacy Report ---
Pharmacy Glycemic Short Note 2 - Date of Service December 11, 2018 - Glycemic Short BSG Results (Last 24 hours): 12/10/18 12/10/18 12/10/18 09:09 12:19 16:24 Glucose POC Glucose 127 H 110 H 149 H 12/10/18 12/11/18 12/11/18 20:00 00:17 03:59 Glucose POC Glucose 165 H 166 H 115 H 12/11/18 12/11/18 12/11/18 08:33 08:35 08:43 Glucose 140 H POC Glucose 64 L* 64 L* 12/11/18 09:02 Glucose POC Glucose 128 H OUTPATIENT ANTIDIABETIC REGIMEN: * Glipizide 2.5mg PO daily * A1c = 10.4% 12/11/18 ASSESSMENT: 12/11/18 * Type 2 diabetic admitted to ICU for aspiration pneumonia, hypoxemic resp failure * Mild hypoglycemia observed this AM. FBS 64 with 12 units of Lantus on board. Will hold basal insulin this AM and resume at greatly reduced dosage this evening. * Patient with dementia and dysphagia. Tube feeds restarted this AM (were held overnight due to CPAP) at 10cc/hr. * Metronidazole IV added to ABX regimen this AM due to ongoing fevers yesterday despite vancomycin + cefepime PLAN FOR INPATIENT GLYCEMIC CONTROL: * Hold outpatient oral diabetes medications (glipizide) * Basal insulin (decrease in dose) * No basal insulin this AM * Lantus SQ BID per the following scale: * 0 units if less than 120 * 3 units if 121-200 * 5 units if BSG above 200 * Bolus insulin (no change) * NovoLog per scale Q6hrs * Goal Range: Low 140 mg/dL - High 180 mg/dL * Correction Factor: 40 mg/dL/unit * Nutritional / Prandial insulin per carb ratio of 1 unit per 14 grams CHO consumed PLAN FOR DISCHARGE: * to be determined based upon goals of treatment
[2018-12-11] MEDS ORDERED: VANCOMYCIN HCL 1,000 MG in SODIUM CHLORIDE 0.9% 250 ML IV ONE (10:00)
--- NOTE | 2018-12-11 10:00 | Pharmacy Report ---
Pharmacy Abx Dose Short Note - Date of Service December 11, 2018 - Assessment & Plan Assessment * 83 year old M receiving VANCOMYCIN + CEFEPIME + METRONIDAZOLE for aspiration pneumonia * Day # 4 VANCO, Day # 3 CEFEPIME (but did receive ZOSYN x 1 day before starting CEFEPIME), Day # 1 METRONIDAZOLE * Renal fxn stable. SCr similar to yesterday. U.O. 2225 last 24 hrs. Plan Vancomycin * Patient's p'kinetics do not appear to be following those calculated based upon population estimates and predictive equations * Vancomycin 1000mg x 1 given yesterday @0801. Random level at ~2000 12.8mcg/mL. Additional 750mg IV x 1 given @2143 yesterday. * Random level @~0900 14.9mcg/mL indicating need for redosing. * Although equations to calc vanco elimination predict a half-life greater than 24 hrs, it appears that this is not the case for this patient. One possibility is that his volume of distribution is also very large and multiple doses were required to achieve a therapeutic level. * Will give 1000mg (~17.5mg/kg) x 1 this AM and recheck random level in ~ 12 hours. If level is less than 20, will redose this evening. * Goal trough = 15-20mcg/mL for pulm infxn Cefepime * 2gm IV Q 24 hrs is the max recommended dose for current estimates of renal fxn (eCrCl 20-30cc/min) Pharmacy will continue to follow and will adjust dose/frequency as necessary. Thank you.
[2018-12-11] MEDS ORDERED: INSULIN ASPART 100 UNITS/ML 3 ML PEN SC SCH ×2 (12:00→16:00)
--- NOTE | 2018-12-11 14:35 | Palliative Care Consultation ---
Date of Consultation December 11, 2018 Assessment & Plan (1) Goals of care, counseling/discussion: -83 year old male with PMH advanced/end-stage dementia, CAD, bioprosthetic valve, HTN, HLP, COPD and dysphagia. Presented to the hospital over the weekend as a transfer from [facility] with respiratory failure 2/2 aspiration. Apparently the patient is a known aspirator, lives at a shelter and is about a 7c-7d on FAST scale at baseline. He was transferred from [place] to our ICU and has been requiring bipap for ventilatory supportive. Patient is DNR/DNI. Patient continues to aspirate, tube feedings were started via Core Safe nasogastric tube. Uncertain of long-term goals of care. Palliative care is consulted. -Met with patient this morning. He is awake at times, but not able to participate in any conversation, answer questions. or follow commands. -FAST score 7c-7d at baseline. PPS 30% at this time. Albumin 1.9 indicative of long-standing protein-calorie malnutrition. -Family meeting this afternoon at 3pm. -Update: Met with three daughters including Elvira Camihira CHAYOViola, Raissa Susanna, and patient's son. Dr. Ford and Dr. Tolliver present. Patient was on bipap, lethargic and not oriented. -Patient's family confirmed his debilitated state at baseline. They stated that patient never wanted a feeding tube and was always adamant that if he reached this state, he would not want heroic measures to sustain his life. -We discussed removing the bipap, stopping all active treatment, and transitioning to comfort measures only. Family all in agreement that this is what patient would want at this point. -Remove bipap and give morphine as needed. Rec morphine 2mg IV Q1h PRN pain or SOB. -Atropine 1% oph soln 4 drops SL Q1h PRN secretions. -Lorazepam 0.5mg IV Q4h PRN anxiety/agitation. -Palliative care will continue to follow. (2) Sepsis: (3) Dysphagia: (4) AMBER (acute kidney injury): -Creatinine peaked at 2.59, down to 1.82 today. Was 1.2 in December 2017. (5) Dementia: -FAST score 7c-7d. Severe at baseline. Could be considered end-stage. -Resides at SNF shelter and is bed bound. (6) Hypernatremia: History of Present Illness Attending Physician: Henna Ford MD Allergies Allergy/AdvReac Type Severity Reaction Status Date / Time No Known Allergies Allergy Unverified 07/03/17 21:04 Home Medications Home Medications Medication Instructions Recorded Confirmed Type aspirin 81 mg PO DAILY 12/09/18 12/09/18 History atorvastatin 40 mg PO HS 12/09/18 12/09/18 History cyanocobalamin (vitamin B-12) 1,000 mcg PO BID 12/09/18 12/09/18 History [Vitamin B-12] dextran 70-hypromellose 1 drp OPHTHALMIC (EYE) Q12 PRN 12/09/18 12/09/18 History [Artificial Tears (PF)] donepezil [Aricept] 10 mg PO HS 12/09/18 12/09/18 History ferrous sulfate 325 mg PO BID 12/09/18 12/09/18 History fluoxetine 40 mg PO HS 12/09/18 12/09/18 History folic acid 1 mg PO DAILY 12/09/18 12/09/18 History glipizide 2.5 mg PO DAILY 12/09/18 12/09/18 History hyoscyamine sulfate [Levsin/SL] 0.125 mg SUBLINGUAL BID 12/09/18 12/09/18 History ipratropium-albuterol 3 ml INHALATION QID PRN 12/09/18 12/09/18 History isosorbide mononitrate 60 mg PO QAM 12/09/18 12/09/18 History ketoconazole 1 applic TOPICAL Q3D 12/09/18 12/09/18 History levofloxacin [Levaquin] 500 mg PO DAILY 12/09/18 12/09/18 History lorazepam 0.5 mg PO QAM 12/09/18 12/09/18 History lorazepam 1 mg PO HS 12/09/18 12/09/18 History metoprolol tartrate 50 mg PO BID 12/09/18 12/09/18 History mirtazapine 7.5 mg PO HS 12/09/18 12/09/18 History prednisone 40 mg PO DAILY 12/09/18 12/09/18 History sennosides [senna] 17.2 mg PO DAILY PRN 12/09/18 12/09/18 History therapeutic multivitamin [Therems] 1 tab PO DAILY 12/09/18 12/09/18 History Patient History Medical History CAD (coronary artery disease) COPD (chronic obstructive pulmonary disease) Dementia Diabetes Dysphagia Hyperlipidemia Hypertension Surgical History H/O heart surgery Family History Other Family history non-contributory Social History Communication Ability: Unable Beliefs That Will Affect Care: None Current Living Situation: Personal Care Facility Other Information That Helps Us Care for You: No (UNKNOWN AT THIS TIME) Feels Safe at Home: Declines to Answer Smoking Status: Unknown if ever smoked Hx Alcohol Use: No (UNKNOWN AT THIS TIME) Hx Substance Use: No (UNKNOWN AT THIS TIME) Review of Systems unable to obtain due to cognitive status Physical Exam Vital Signs (Past 24 Hours): Last Vital Signs Temp 36.2 C L 12/11/18 10:00 Pulse 102 H 12/11/18 14:08 Resp 27 H 12/11/18 14:08 BP 139/65 12/11/18 12:00 Pulse Ox 100 12/11/18 14:08 Constitutional: + ill appearing (acute and chronically) and + cachectic; no acute distress ENMT: external ear and nose normal, oropharynx normal Neck: normal visual inspection Respiratory: no respiratory distress Auscultation: + diminished lung sounds and + rhonchi (coarse throughout) Cardiovascular: Rate/Rhythm: regular rhythm and + tachycardic Vessels: dorsalis pedis pulses present Extremities: no edema Gastrointestinal (Abdomen): Inspection/Auscultation: abdomen normal to inspection and normal bowel sounds; abdomen not distended Percussion/Palpation: abdomen soft Skin: no rashes, warm and dry Neurologic: awake (but very lethargic, does not follow commands) Psychiatric: Orientation: + not alert and + not oriented x 3 Time Spent Midlevel 80 minutes with >50% of time spent at bedside with patient, family, IDT, and physicians discussing condition, GOC, and plan of care.
[2018-12-11] MEDS ORDERED: MoRPHine SULFATE 2 MG/ML CARP IV PRN (15:34)
[2018-12-11] MEDS ORDERED: ATROPINE SULFATE 1% OP SOLN 2 ML BTL SL PRN (15:38)
--- NOTE | 2018-12-11 19:06 | Hospitalist Progress Note ---
Date of Service December 11, 2018 Assessment & Plan (1) Hypoxia: This patient is an 83yo male with history of CAD, HTN, HLP, COPD and dysphagia. NH resident sent to OSH with concern for aspiration event after PO feeding resumed. He was transferred here as per patient's family request. He was unresponsive upon admission and there was concern for CVA on outpatient CT Head. MRI of the brain negative for CVA He was found to have aspiration pneumonia, sepsis, severe hypernatremia, acute kidney injury, and acute hypoxic respiratory failure -Admitted to the ICU Continues to be lethargic and is now dependent on BiPAP after continued aspiration -Was treated for aspiration pneumonia and now transitioning to comfort measures only -We will remove BiPAP and transition to facemask or nasal cannula-whichever is more comfortable (2) Aspiration pneumonia: - patient with history of COPD, with aspiration event at [facility]. Was febrile times 2 days after admission Chest x-ray with left basilar infiltrate Initially treated with BiPAP 14/7, 50% and then weaned to 4 L nasal cannula; now back on BiPAP secondary to recurrent aspiration and remains dependent for over 24 hours on BiPAP without improvement in oxygenation Failed bedside swallow miserably and has a history now for a while of aspiration secondary to severe dementia procalcitonin negative Treated with antibiotics but now will discontinue antibiotics, and remove BiPAP as above for transition to comfort measures only (3) Hypernatremia: Sodium severely elevated upon admission at 164 but when corrected for hyperglycemia, would be 169. Is severely dehydrated likely secondary to poor p.o. intake due to chronic aspiration Now discontinuing all fluids for transition to WILDLIFE REMOVAL SPECIALIST (4) AMBER (acute kidney injury): Creatinine elevated at 2.59 and then trended downward with hydration to 1.8, BUN elevated likely secondary to prerenal azotemia from severe dehydration Transitioning to WILDLIFE REMOVAL SPECIALIST, no further lab draws (5) Hypertension: -Discontinued all medications (6) Heart disease: Has history of CAD, HTN, HLP, bioprosthetic valve Troponin here is negative at 0.033 EKG with sinus tachycardia with a rate of 106 with old septal infarct present, no acute ischemia Holding all oral medications from home (7) COPD (chronic obstructive pulmonary disease): No further nebulizers needed (8) Acute metabolic encephalopathy: Secondary to sepsis, hypernatremia Remains obtunded WILDLIFE REMOVAL SPECIALIST (9) Dementia: Fairly severe as per report from RN who spoke with the daughter-he is mostly nonverbal on some days assisted notes do report that he walks with a walker but at times is in a wheelchair (10) Sinus tachycardia: Continues (11) Dysphagia: Chronic -speech therapy consultation appreciated-had overt aspiration at the bedside No plans for feeding tube as per patient's wishes and family discussion (12) Diabetes mellitus: With hyperglycemia here secondary to stress initially, then hypoglycemic No further Accu-Cheks or insulin needed as transition is WILDLIFE REMOVAL SPECIALIST (13) Sepsis: Present on admission, with persistent fevers, tachycardia, with pneumonia from aspiration -Plan as above (14) DVT prophylaxis: Discontinue heparin SQ for comfort Disposition-transition to medical floor with comfort measures only DNR/DNI Appreciate palliative care consultation-extensive family meeting held today and decision was made to make him comfort measures only -We will continue morphine as needed for breathlessness or pain, Ativan as needed for anxiety or agitation, atropine drops for secretions Subjective Patient was obtunded today. He remained quite hypoxic requiring BiPAP since yesterday. Family meeting was had with myself, Ema Freire from palliative care, the patient's 3 daughters, 1 son, and [id number], and son-in-law's. Decision was made given his chronic aspiration and poor condition, to take off his BiPAP mask and transition him to comfort measures only. They report that the patient has always said he did not want any life-sustaining treatment if he was in this condition, and he certainly would not want a feeding tube. Review of Systems All systems reviewed & are unremarkable except as noted in HPI & below Physical Exam Vital Signs (Past 24 Hours): Last Vital Signs Temp 36.2 C L 12/11/18 10:00 Pulse 86 12/11/18 18:01 Resp 25 H 12/11/18 18:01 BP 142/61 H 12/11/18 18:01 Pulse Ox 90 12/11/18 18:01 Constitutional: + ill appearing (And lethargic) and + thin ENMT: Nose: no external nose abnormality (BiPAP mask in place) Mouth: + tongue abnormality (Dry with black coating) Neck: trachea midline, no thyromegaly Respiratory: normal respiratory effort (On BiPAP) Cardiovascular: Rate/Rhythm: + tachycardic Musculoskeletal: Extremities: extremities normal to inspection; no cyanosis and no clubbing Skin: no rashes, warm and dry Psychiatric: Orientation: + not alert (Lethargic) Results & Data Laboratory Results 12/11/18 12/11/18 12/11/18 Range/Units 12:45 09:02 08:43 WBC (4.8-10.8) K/uL RBC (4.7-6.1) M/uL Hgb (14.0-18.0) g/dL Hct (42-52) % MCV (80-100) fL MCH (25-34) pg MCHC (32-36) g/dL RDW Std Deviation (36.4-46.3) fL RDW Coeff of Hollie (11.5-14.5) % Plt Count (130-400) K/uL MPV (7.4-10.4) fL Immature Gran % (Auto) % Neut % (Auto) % Lymph % (Auto) % Wilson % (Auto) % Eos % (Auto) % Baso % (Auto) % Immature Gran # (Auto) (0.00-0.02) K/uL Neut # (Auto) (1.4-6.5) K/uL Lymph # (Auto) (1.2-3.4) K/uL Wilson # (Auto) (0.11-0.59) K/uL Eos # (Auto) (0-0.5) K/uL Baso # (Auto) (0-0.2) K/uL Sodium 150 H (136-145) mmol/L Potassium 3.6 (3.5-5.1) mmol/L Chloride 121 H (98-107) mmol/L Carbon Dioxide 21 (21-32) mmol/L Anion Gap 8.0 (3-11) BUN 43 H (7-18) mg/dl Creatinine 1.82 H (0.6-1.4) mg/dl Est Cr Clr Drug Dosing 23.9 ml/min Est GFR ( Amer) 38.4 Est GFR (Non-Af Amer) 33.1 BUN/Creatinine Ratio 23.5 H (10-20) Glucose 140 H (70-99) mg/dl POC Glucose 98 128 H (70-99) Estimat Average Glucose mg/dl Hemoglobin A1c (4.5-5.6) % Calcium 8.0 L (8.5-10.1) mg/dl Total Bilirubin (0.2-1) mg/dl Direct Bilirubin (0-0.2) mg/dl AST (15-37) U/L ALT (12-78) U/L Alkaline Phosphatase (45-117) U/L Total Protein (6.4-8.2) gm/dl Albumin (3.4-5.0) gm/dl Random Vancomycin mcg/ml 12/11/18 12/11/18 12/11/18 Range/Units 08:43 08:35 08:33 WBC (4.8-10.8) K/uL RBC (4.7-6.1) M/uL Hgb (14.0-18.0) g/dL Hct (42-52) % MCV (80-100) fL MCH (25-34) pg MCHC (32-36) g/dL RDW Std Deviation (36.4-46.3) fL RDW Coeff of Hollie (11.5-14.5) % Plt Count (130-400) K/uL MPV (7.4-10.4) fL Immature Gran % (Auto) % Neut % (Auto) % Lymph % (Auto) % Wilson % (Auto) % Eos % (Auto) % Baso % (Auto) % Immature Gran # (Auto) (0.00-0.02) K/uL Neut # (Auto) (1.4-6.5) K/uL Lymph # (Auto) (1.2-3.4) K/uL Wilson # (Auto) (0.11-0.59) K/uL Eos # (Auto) (0-0.5) K/uL Baso # (Auto) (0-0.2) K/uL Sodium (136-145) mmol/L Potassium (3.5-5.1) mmol/L Chloride (98-107) mmol/L Carbon Dioxide (21-32) mmol/L Anion Gap (3-11) BUN (7-18) mg/dl Creatinine (0.6-1.4) mg/dl Est Cr Clr Drug Dosing ml/min Est GFR ( Amer) Est GFR (Non-Af Amer) BUN/Creatinine Ratio (10-20) Glucose (70-99) mg/dl POC Glucose 64 L* 64 L* (70-99) Estimat Average Glucose mg/dl Hemoglobin A1c (4.5-5.6) % Calcium (8.5-10.1) mg/dl Total Bilirubin (0.2-1) mg/dl Direct Bilirubin (0-0.2) mg/dl AST (15-37) U/L ALT (12-78) U/L Alkaline Phosphatase (45-117) U/L Total Protein (6.4-8.2) gm/dl Albumin (3.4-5.0) gm/dl Random Vancomycin 14.9 mcg/ml 12/11/18 12/11/18 12/11/18 Range/Units 04:35 04:35 04:35 WBC 8.11 (4.8-10.8) K/uL RBC 3.16 L (4.7-6.1) M/uL Hgb 9.8 L (14.0-18.0) g/dL Hct 31.1 L (42-52) % MCV 98.4 (80-100) fL MCH 31.0 (25-34) pg MCHC 31.5 L (32-36) g/dL RDW Std Deviation 51.0 H (36.4-46.3) fL RDW Coeff of Hollie 14.0 (11.5-14.5) % Plt Count 183 (130-400) K/uL MPV 10.8 H (7.4-10.4) fL Immature Gran % (Auto) 0.5 % Neut % (Auto) 79.6 % Lymph % (Auto) 9.1 % Wilson % (Auto) 5.9 % Eos % (Auto) 4.7 % Baso % (Auto) 0.2 % Immature Gran # (Auto) 0.04 H (0.00-0.02) K/uL Neut # (Auto) 6.45 (1.4-6.5) K/uL Lymph # (Auto) 0.74 L (1.2-3.4) K/uL Wilson # (Auto) 0.48 (0.11-0.59) K/uL Eos # (Auto) 0.38 (0-0.5) K/uL Baso # (Auto) 0.02 (0-0.2) K/uL Sodium (136-145) mmol/L Potassium (3.5-5.1) mmol/L Chloride (98-107) mmol/L Carbon Dioxide (21-32) mmol/L Anion Gap (3-11) BUN (7-18) mg/dl Creatinine (0.6-1.4) mg/dl Est Cr Clr Drug Dosing ml/min Est GFR ( Amer) Est GFR (Non-Af Amer) BUN/Creatinine Ratio (10-20) Glucose (70-99) mg/dl POC Glucose (70-99) Estimat Average Glucose 252 mg/dl Hemoglobin A1c 10.4 H (4.5-5.6) % Calcium (8.5-10.1) mg/dl Total Bilirubin 0.4 (0.2-1) mg/dl Direct Bilirubin 0.1 (0-0.2) mg/dl AST 30 (15-37) U/L ALT 32 (12-78) U/L Alkaline Phosphatase 161 H (45-117) U/L Total Protein 5.4 L (6.4-8.2) gm/dl Albumin 1.9 L (3.4-5.0) gm/dl Random Vancomycin mcg/ml 12/11/18 12/11/18 12/10/18 Range/Units 03:59 00:17 20:00 WBC (4.8-10.8) K/uL RBC (4.7-6.1) M/uL Hgb (14.0-18.0) g/dL Hct (42-52) % MCV (80-100) fL MCH (25-34) pg MCHC (32-36) g/dL RDW Std Deviation (36.4-46.3) fL RDW Coeff of Hollie (11.5-14.5) % Plt Count (130-400) K/uL MPV (7.4-10.4) fL Immature Gran % (Auto) % Neut % (Auto) % Lymph % (Auto) % Wilson % (Auto) % Eos % (Auto) % Baso % (Auto) % Immature Gran # (Auto) (0.00-0.02) K/uL Neut # (Auto) (1.4-6.5) K/uL Lymph # (Auto) (1.2-3.4) K/uL Wilson # (Auto) (0.11-0.59) K/uL Eos # (Auto) (0-0.5) K/uL Baso # (Auto) (0-0.2) K/uL Sodium (136-145) mmol/L Potassium (3.5-5.1) mmol/L Chloride (98-107) mmol/L Carbon Dioxide (21-32) mmol/L Anion Gap (3-11) BUN (7-18) mg/dl Creatinine (0.6-1.4) mg/dl Est Cr Clr Drug Dosing ml/min Est GFR ( Amer) Est GFR (Non-Af Amer) BUN/Creatinine Ratio (10-20) Glucose (70-99) mg/dl POC Glucose 115 H 166 H 165 H (70-99) Estimat Average Glucose mg/dl Hemoglobin A1c (4.5-5.6) % Calcium (8.5-10.1) mg/dl Total Bilirubin (0.2-1) mg/dl Direct Bilirubin (0-0.2) mg/dl AST (15-37) U/L ALT (12-78) U/L Alkaline Phosphatase (45-117) U/L Total Protein (6.4-8.2) gm/dl Albumin (3.4-5.0) gm/dl Random Vancomycin mcg/ml 12/10/18 12/10/18 Range/Units 20:00 16:24 WBC (4.8-10.8) K/uL RBC (4.7-6.1) M/uL Hgb (14.0-18.0) g/dL Hct (42-52) % MCV (80-100) fL MCH (25-34) pg MCHC (32-36) g/dL RDW Std Deviation (36.4-46.3) fL RDW Coeff of Hollie (11.5-14.5) % Plt Count (130-400) K/uL MPV (7.4-10.4) fL Immature Gran % (Auto) % Neut % (Auto) % Lymph % (Auto) % Wilson % (Auto) % Eos % (Auto) % Baso % (Auto) % Immature Gran # (Auto) (0.00-0.02) K/uL Neut # (Auto) (1.4-6.5) K/uL Lymph # (Auto) (1.2-3.4) K/uL Wilson # (Auto) (0.11-0.59) K/uL Eos # (Auto) (0-0.5) K/uL Baso # (Auto) (0-0.2) K/uL Sodium (136-145) mmol/L Potassium (3.5-5.1) mmol/L Chloride (98-107) mmol/L Carbon Dioxide (21-32) mmol/L Anion Gap (3-11) BUN (7-18) mg/dl Creatinine (0.6-1.4) mg/dl Est Cr Clr Drug Dosing ml/min Est GFR ( Amer) Est GFR (Non-Af Amer) BUN/Creatinine Ratio (10-20) Glucose (70-99) mg/dl POC Glucose 149 H (70-99) Estimat Average Glucose mg/dl Hemoglobin A1c (4.5-5.6) % Calcium (8.5-10.1) mg/dl Total Bilirubin (0.2-1) mg/dl Direct Bilirubin (0-0.2) mg/dl AST (15-37) U/L ALT (12-78) U/L Alkaline Phosphatase (45-117) U/L Total Protein (6.4-8.2) gm/dl Albumin (3.4-5.0) gm/dl Random Vancomycin 12.8 mcg/ml (1) Diabetes mellitus Diabetes mellitus complication status: with hyperglycemia Diabetes mellitus terminal block assembler insulin use: without terminal block assembler use Diabetes mellitus type: type 2 Qualified Code(s): E11.65 - Type 2 diabetes mellitus with hyperglycemia
[2018-12-11] MEDS ORDERED: INSULIN GLARGINE SOLOSTAR 100 UNITS/ML 3 ML PEN SC SCH (21:00)
[2018-12-11] MEDS: LORazepam 0.5 MG/1 ML VIAL IV PRN (21:48)
[2018-12-12] MEDS: LORazepam 0.5 MG/1 ML VIAL IV PRN (05:09)
[2018-12-12] MEDS ORDERED: FAMOTIDINE 20 MG TAB OG SCH (09:00)
[2018-12-12] MEDS: LORazepam 1 MG TAB SL PRN ×2 (12:14→13:12)
[2018-12-12] MEDS: MoRPHine SULFATE 5 MG/0.25 ML UDP PO PRN ×3 (12:22→21:14)
--- NOTE | 2018-12-12 16:27 | Palliative Care Progress Note ---
Date of Service December 12, 2018 Assessment & Plan (1) Palliative care encounter: Pt is an 83 year old male with PMH advanced/end-stage dementia, CAD, bioprosthetic valve, HTN, HLD, COPD and dysphagia. Presented to the hospital over the weekend as a transfer from [facility] with respiratory failure 2/2 aspiration. Apparently the patient is a known aspirator, lives at a assisted and is about a 7c-7d on FAST scale at baseline. He was transferred from [place] to our ICU and initially requiried bipap for ventilatory supportive. Patient is DNR/DNI. -Family meeting outcome - comfort care. BiPAP removed, pt on O 2 at 5L NC with prn morphine for SOB/pain -Atropine 1% oph soln 4 drops SL Q1h PRN secretions. -Lorazepam 0.5mg IV Q4h PRN anxiety/agitation. -Palliative care will continue to follow. (2) Sepsis: comfort care (3) Dysphagia: mouth swabs for moisture - may dip in liquid of choice (4) Dementia: end stage - comfort care as per pt's previiously stated wishes (5) Hypoxia - O2 as tolerated, OK to stop if pt continues to remove it. (6) Restlessness - prn ativan effective (2) Dementia: End stage - on comfort care (3) Dysphagia: Comfort feeds, mouth swab with liquid of choice for moisture (4) Hypoxia: O2 via NC as tolerated, OK to d/c if pt keeps removing it (5) Aspiration pneumonia: Comfort care Subjective Patient seen and examined this afternoon with patient's daughter, son-in-law and granddaughter at bedside. Patient less responsive-received PRN Roxanol recently for agitation. Patient appears comfortable, episodes of terminal restlessness as described by family. Discussed end-of-life issues at length with family at bedside. Physical Exam Vital Signs (Past 24 Hours): Last Vital Signs Temp 36.7 C 12/12/18 07:08 Pulse 95 H 12/12/18 07:08 Resp 20 12/12/18 07:08 BP 130/62 12/12/18 07:08 Pulse Ox 98 12/12/18 07:08 Physical Exam: PE: Patient appears comfortable Neck: Hyperextended HEENT: Dry mucous met brains, no excess secretions, eyes open, sometimes gaze is focused Respirations: Unlabored CV: Regular rate Abdomen: Not distended Extremities: Cool to touch from the knees on down-no mottling Time Spent Attending Total time spent 40 minutes with greater than 50% of the time spent at bedside assessing patient's comfort as well as discussing end-of-life issues at length with family at bedside.
--- NOTE | 2018-12-12 18:07 | Hospitalist Progress Note ---
Date of Service December 12, 2018 Assessment & Plan (1) Hypoxia: This patient is an 83yo male with history of CAD, HTN, HLP, COPD and dysphagia. NH resident sent to OSH with concern for aspiration event after PO feeding resumed. He was transferred here as per patient's family request. He was unresponsive upon admission and there was concern for CVA on outpatient CT Head. MRI of the brain negative for CVA He was found to have aspiration pneumonia, sepsis, severe hypernatremia, acute kidney injury, and acute hypoxic respiratory failure -Admitted to the ICU intially and now on medical floor Was dependent on BiPAP after continued aspiration , now on NC at 6 LNC and sats 98% -Was treated for aspiration pneumonia and now transitioned to comfort measures only -can continue O2 via NC for comfort (2) Aspiration pneumonia: - patient with history of COPD, with aspiration event at [facility]. Was febrile times 2 days after admission Chest x-ray with left basilar infiltrate Initially treated with BiPAP 14/7, 50% and then weaned to 4 L nasal cannula;then back on BiPAP secondary to recurrent aspiration and remains dependent for over 24 hours on BiPAP without improvement in oxygenation Failed bedside swallow miserably and has a history now for a while of aspiration secondary to severe dementia procalcitonin negative Treated with antibiotics but then discontinued antibiotics, and removed BiPAP as above for transition to comfort measures only (3) Hypernatremia: Sodium severely elevated upon admission at 164 but when corrected for hyperglycemia, would be 169. Is severely dehydrated likely secondary to poor p.o. intake due to chronic aspiration Now discontinued all fluids for transition to MACHINE FILLER SHREDDER (4) AMBER (acute kidney injury): Creatinine elevated at 2.59 and then trended downward with hydration to 1.8, BUN elevated likely secondary to prerenal azotemia from severe dehydration Transitioned to MACHINE FILLER SHREDDER, no further lab draws (5) Hypertension: -Discontinued all medications (6) Heart disease: Has history of CAD, HTN, HLP, bioprosthetic valve Troponin here is negative at 0.033 EKG with sinus tachycardia with a rate of 106 with old septal infarct present, no acute ischemia Holding all oral medications from home (7) COPD (chronic obstructive pulmonary disease): No further nebulizers needed (8) Acute metabolic encephalopathy: Secondary to sepsis, hypernatremia Remains obtunded MACHINE FILLER SHREDDER (9) Dementia: Fairly severe as per report from RN who spoke with the daughter-he is mostly nonverbal on some days senior living notes do report that he walks with a walker but at times is in a wheelchair (10) Sinus tachycardia: Continues (11) Dysphagia: Chronic -speech therapy consultation appreciated-had overt aspiration at the bedside No plans for feeding tube as per patient's wishes and family discussion (12) Diabetes mellitus: With hyperglycemia here secondary to stress initially, then hypoglycemic No further Accu-Cheks or insulin needed as transition is MACHINE FILLER SHREDDER (13) Sepsis: Present on admission, with persistent fevers, tachycardia, with pneumonia from aspiration -Plan as above (14) DVT prophylaxis: Discontinued heparin SQ for comfort Disposition-remain on medical floor with comfort measures only DNR/DNI Appreciate palliative care consultation- -We will continue morphine as needed for breathlessness or pain, Ativan as needed for anxiety or agitation, atropine drops for secretions Does have a bed hold at [facility] if prolonged dying process, could return there with Hospice Subjective With some agitation overnight and pulled out IV. More agitation today and now relieved with ativan and morphine prn Daughter Melisa at bedside and reports he has been sleeping quietly since she got here 2 hours ago Review of Systems Unobtainable due to reduced consciousness Physical Exam Vital Signs (Past 24 Hours): Last Vital Signs Temp 36.7 C 12/12/18 07:08 Pulse 95 H 12/12/18 07:08 Resp 20 12/12/18 07:08 BP 130/62 12/12/18 07:08 Pulse Ox 98 12/12/18 07:08 Constitutional: well developed (obtunded); no acute distress Neck: trachea midline, no thyromegaly Respiratory: normal respiratory effort, lungs clear to auscultation Cardiovascular: RRR, no murmur, no edema Gastrointestinal (Abdomen): normal bowel sounds, soft, nontender, no hepatosplenomegaly Musculoskeletal: Extremities: extremities normal to inspection; no cyanosis and no clubbing Skin: no rashes, warm and dry Neurologic: Motor/Sensory: no tremor Psychiatric: Orientation: + not alert (Lethargic) (1) Diabetes mellitus Diabetes mellitus type: type 2 Diabetes mellitus senior care insulin use: without bulb sorter use Diabetes mellitus complication status: with hyperglycemia Qualified Code(s): E11.65 - Type 2 diabetes mellitus with hyperglycemia
[2018-12-13] MEDS: MoRPHine SULFATE 5 MG/0.25 ML UDP PO PRN ×6 (00:51→19:21)
--- NOTE | 2018-12-13 17:22 | Hospitalist Progress Note ---
Date of Service December 13, 2018 Assessment & Plan (1) Hypoxia: This patient is an 83yo male with history of CAD, HTN, HLP, COPD and dysphagia. NH resident sent to OSH with concern for aspiration event after PO feeding resumed. He was transferred here as per patient's family request. He was unresponsive upon admission and there was concern for CVA on outpatient CT Head. MRI of the brain negative for CVA He was found to have aspiration pneumonia, sepsis, severe hypernatremia, acute kidney injury, and acute hypoxic respiratory failure -Admitted to the ICU intially and now on medical floor Was dependent on BiPAP after continued aspiration , now on comfort measures and he has self discontinued his oxygen but does not appear to be in significant respiratory distress -Was treated for aspiration pneumonia and now transitioned to comfort measures only -Continue Roxanol as needed for breathlessness (2) Aspiration pneumonia: - patient with history of COPD, with aspiration event at [facility]. Was febrile times 2 days after admission Chest x-ray with left basilar infiltrate Initially treated with BiPAP 14/7, 50% and then weaned to 4 L nasal cannula;then back on BiPAP secondary to recurrent aspiration and remains dependent for over 24 hours on BiPAP without improvement in oxygenation Failed bedside swallow miserably and has a history now for a while of aspiration secondary to severe dementia procalcitonin negative Treated with antibiotics but then discontinued antibiotics, and removed BiPAP as above for transition to comfort measures only (3) Hypernatremia: Sodium severely elevated upon admission at 164 but when corrected for hyperglycemia, would be 169. Is severely dehydrated likely secondary to poor p.o. intake due to chronic aspiration Now discontinued all fluids for transition to VIROLOGIST (4) AMBER (acute kidney injury): Creatinine elevated at 2.59 and then trended downward with hydration to 1.8, BUN elevated likely secondary to prerenal azotemia from severe dehydration Transitioned to VIROLOGIST, no further lab draws (5) Hypertension: -Discontinued all medications (6) Heart disease: Has history of CAD, HTN, HLP, bioprosthetic valve Troponin here is negative at 0.033 EKG with sinus tachycardia with a rate of 106 with old septal infarct present, no acute ischemia Holding all oral medications from home (7) COPD (chronic obstructive pulmonary disease): No further nebulizers needed (8) Acute metabolic encephalopathy: Secondary to sepsis, hypernatremia Remains obtunded VIROLOGIST (9) Dementia: Fairly severe as per report from RN who spoke with the daughter-he is mostly nonverbal on some days pen[facility]iary notes do report that he walks with a walker but at times is in a wheelchair (10) Sinus tachycardia: (11) Dysphagia: Chronic -speech therapy consultation appreciated-had overt aspiration at the bedside No plans for feeding tube as per patient's wishes and family discussion (12) Diabetes mellitus: With hyperglycemia here secondary to stress initially, then hypoglycemic No further Accu-Cheks or insulin needed as transition is VIROLOGIST (13) Sepsis: Present on admission, with persistent fevers, tachycardia, with pneumonia from aspiration -Plan as above (14) DVT prophylaxis: Discontinued heparin SQ for comfort Disposition-remain on medical floor with comfort measures only DNR/DNI Appreciate palliative care consultation- -We will continue morphine as needed for breathlessness or pain, Ativan as needed for anxiety or agitation, atropine drops for secretions Does have a bed hold at [facility] if prolonged dying process, could return there with Hospice Subjective Patient awake and looking at me, but cannot meaningfully answer any questions. He mumbles. He keeps trying to bite his own fingers. Nursing reports that he has been a little agitated at times. He kept removing his oxygen so they left it off and he does not seem to be in respiratory distress. 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
[2018-12-13] MEDS: LORazepam 1 MG TAB SL PRN (20:15)
[2018-12-14] MEDS: MoRPHine SULFATE 5 MG/0.25 ML UDP PO PRN ×3 (08:21→14:08)
--- NOTE | 2018-12-14 12:07 | Hospitalist Progress Note ---
Date of Service December 14, 2018 Assessment & Plan (1) Hypoxia: This patient is an 83yo male with history of CAD, HTN, HLP, COPD and dysphagia. NH resident sent to OSH with concern for aspiration event after PO feeding resumed. He was transferred here as per patient's family request. He was unresponsive upon admission and there was concern for CVA on outpatient CT Head. MRI of the brain negative for CVA He was found to have aspiration pneumonia, sepsis, severe hypernatremia, acute kidney injury, and acute hypoxic respiratory failure -Admitted to the ICU intially and now on medical floor Was dependent on BiPAP after continued aspiration , now on comfort measures and he has self discontinued his oxygen but does not appear to be in significant respiratory distress -Was treated for aspiration pneumonia and now transitioned to comfort measures only -Continue Roxanol as needed for breathlessness (2) Aspiration pneumonia: - patient with history of COPD, with aspiration event at [facility]. Was febrile times 2 days after admission Chest x-ray with left basilar infiltrate Initially treated with BiPAP 14/7, 50% and then weaned to 4 L nasal cannula;then back on BiPAP secondary to recurrent aspiration and remains dependent for over 24 hours on BiPAP without improvement in oxygenation Failed bedside swallow miserably and has a history now for a while of aspiration secondary to severe dementia procalcitonin negative Treated with antibiotics but then discontinued antibiotics, and removed BiPAP as above for transition to comfort measures only -advised family today they can let him drink for comfort as he is requesting, but to let RN know so we can properly manage his symptoms should aspiration recur (3) Hypernatremia: Sodium severely elevated upon admission at 164 but when corrected for hyperglycemia, would be 169. Is severely dehydrated likely secondary to poor p.o. intake due to chronic aspiration Now discontinued all fluids for transition to COSMETOLOGY EDUCATOR (4) AMBER (acute kidney injury): Creatinine elevated at 2.59 and then trended downward with hydration to 1.8, BUN elevated likely secondary to prerenal azotemia from severe dehydration Transitioned to COSMETOLOGY EDUCATOR, no further lab draws (5) Hypertension: -Discontinued all medications (6) Heart disease: Has history of CAD, HTN, HLP, bioprosthetic valve Troponin here is negative at 0.033 EKG with sinus tachycardia with a rate of 106 with old septal infarct present, no acute ischemia Holding all oral medications from home (7) COPD (chronic obstructive pulmonary disease): No further nebulizers needed (8) Acute metabolic encephalopathy: Secondary to sepsis, hypernatremia Remains obtunded COSMETOLOGY EDUCATOR (9) Dementia: Fairly severe as per report from RN who spoke with the daughter-he is mostly nonverbal on some days [facility] notes do report that he walks with a walker but at times is in a wheelchair (10) Sinus tachycardia: Continues (11) Dysphagia: Chronic -speech therapy consultation appreciated-had overt aspiration at the bedside No plans for feeding tube as per patient's wishes and family discussion (12) Diabetes mellitus: With hyperglycemia here secondary to stress initially, then hypoglycemic No further Accu-Cheks or insulin needed as transition is COSMETOLOGY EDUCATOR (13) Sepsis: Present on admission, with persistent fevers, tachycardia, with pneumonia from aspiration -Plan as above (14) DVT prophylaxis: Discontinued heparin SQ for comfort Disposition-remain on medical floor with comfort measures only, cold transition back to his SNF, but family wants him to remain here at this time DNR/DNI Appreciate palliative care consultation- -We will continue morphine as needed for breathlessness or pain, Ativan as needed for anxiety or agitation, atropine drops for secretions Subjective Pt awake but comfortable. No respiratory distress. Stares at me and tracks family members in the room with his eyes but does not speak when spoken to. Family reports they do not want him going back to the NH, they want him kept here. I explained to his granddaughter that he is still making a lot of urine, now off O2 and stable, could be 1-2 more weeks before he passes. She says all he asks for is a drink of water. I advised he could have that if they want to fulfill his wish, but to be prepared that it may hasten his . They will consider letting him drink. Discussed his care with Palliative Care GRADUATE ASSISTANT. Review of Systems Review of Systems: Unobtainable due to cognitive status Physical Exam Constitutional: well developed; no acute distress Eyes: + scleral abnormality (Mild injection of sclerae bilaterally) Neck: trachea midline, no thyromegaly Respiratory: normal respiratory effort Auscultation: + diminished lung sounds (At the bases) and + crackles (at bases bilat); no rhonchi and no wheezes Cardiovascular: RRR, no murmur, no edema Gastrointestinal (Abdomen): normal bowel sounds, soft, nontender, no hepatosplenomegaly Musculoskeletal: Extremities: + extremities abnormal to inspection (Missing half of multiple fingers on the right hand), no cyanosis and no clubbing Skin: no rashes, warm and dry Neurologic: awake and + confused Motor/Sensory: no tremor Genitourinary: Vargas catheter in place draining copious medium yellow urine (1) Diabetes mellitus Diabetes mellitus complication status: with hyperglycemia Diabetes mellitus custodial insulin use: without custodial use Diabetes mellitus type: type 2 Qualified Code(s): E11.65 - Type 2 diabetes mellitus with hyperglycemia
--- NOTE | 2018-12-14 15:21 | Palliative Care Progress Note ---
Date of Service December 14, 2018 Assessment & Plan (1) Goals of care, counseling/discussion: -83 year old male with PMH advanced/end-stage dementia, FAST score 7c-7d at baseline, who is bed bound and resides at [facility]. Presented with respiratory failure 2/2 aspiration. Was in ICU and made comfort measures only by family. -Patient is awake and comfortable on oral medications. Stable for discharge. -Discussed with patient's family today: daughter Susanna, two granddaughters, and male family member. Talked about sending patient back to SNF on hospice. Family is going to discuss and we will meet tomorrow when patient's other daughter, Raissa, is here. -Continue PRN Roxanol and lorazepam. -Will continue to follow. (2) Sepsis: (3) Dysphagia: (4) AMBER (acute kidney injury): (5) Dementia: -FAST score 7c-7d. Severe at baseline. Could be considered end-stage. -[facility]ides at [facility] and is bed bound. (6) Hypernatremia: Subjective Patient is awake and stable. Receiving periodic doses of Roxanol and Ativan. Family at bedside. See A&P. Review of Systems Review of Systems: Unobtainable due to cognitive status Physical Exam Constitutional: + ill appearing (acute and chronically) and + cachectic; no acute distress ENMT: external ear and nose normal, oropharynx normal Neck: normal visual inspection Respiratory: no respiratory distress Auscultation: + diminished lung sounds Cardiovascular: Rate/Rhythm: regular rhythm Vessels: dorsalis pedis pulses present Extremities: no edema Gastrointestinal (Abdomen): Inspection/Auscultation: abdomen normal to inspection and normal bowel sounds; abdomen not distended Percussion/Palpation: abdomen soft Skin: no rashes, warm and dry Neurologic: awake and + confused Psychiatric: Orientation: + not oriented x 3 Time Spent Midlevel 40 minutes with >50% of time spent at bedside with patient and family discussing comfort/hospice care and EOL issues.
[2018-12-14] MEDS: LORazepam 1 MG TAB SL PRN ×2 (16:24→21:08)
[2018-12-15] MEDS: MoRPHine SULFATE 5 MG/0.25 ML UDP PO PRN (09:14)
--- NOTE | 2018-12-15 09:48 | Palliative Care Progress Note ---
Date of Service December 15, 2018 Assessment & Plan (1) Goals of care, counseling/discussion: -83 year old male with PMH advanced/end-stage dementia, FAST score 7c-7d at baseline, who is bed bound and resides at [facility]. Presented with respiratory failure 2/2 aspiration. Was in ICU and made comfort measures only by family. -Patient is awake today, smiling at times. Did have some SOB and agitation this AM, was given Roxanol with good relief. -Still making urine. -Daughter Elvira at bedside today. Discussed for quite a while about comfort measures, EOL issues, etc. Elvira asked if patient could eat and drink. Explained that if patient is awake enough, sitting upright, and able to take sips, he is allowed but with the understanding that aspiration will likely occur. She verbalized understanding. -[facility] We again discussed sending him back there on hospice. Elvira will talk to her siblings/family about this. Case management will follow up. I reiterated that at any time patient could decline to a point of not being stable for transfer, Elvira verbalized understanding. (2) Sepsis: (3) Dysphagia: Comfort feeds, mouth swab with liquid of choice for moisture (4) AMBER (acute kidney injury): (5) Dementia: -FAST score 7c-7d. Severe at baseline. Could be considered end-stage. -Resides at [facility] and is bed bound. (6) Hypernatremia: Subjective Patient still awake today. Daughter Elvira at bedside. 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 Physical Exam Constitutional: + ill appearing (acute and chronically) and + cachectic; no acute distress ENMT: external ear and nose normal, oropharynx normal Neck: normal visual inspection Respiratory: no respiratory distress Auscultation: + diminished lung sounds Cardiovascular: Rate/Rhythm: regular rhythm and + tachycardic Vessels: dorsalis pedis pulses present Extremities: no edema Gastrointestinal (Abdomen): Inspection/Auscultation: abdomen normal to inspection and normal bowel sounds; abdomen not distended Percussion/Palpation: abdomen soft Skin: no rashes, warm and dry Neurologic: awake and + confused Psychiatric: Orientation: + not alert and + not oriented x 3 Time Spent Midlevel 40 minutes with >50% of time spent at bedside with patient and family discussing condition, WALLBOARD WORKER, and EOL issues.
--- NOTE | 2018-12-15 21:00 | Hospitalist Progress Note ---
Date of Service December 15, 2018 Assessment & Plan (1) Palliative care encounter: patient continues on comfort care pathway. cont morphine/ativan prn. stafford care. updated family at bedside. consider inpatient hospice status? (2) Dementia: advanced, end-stage. Subjective patient nonverbal during my visit. eyes open. doesn't follow commands. hands/arms in flexed position with +kern grasp. daughter, son in law at bedside -- confirm their dad has been comfortable today. has not eaten in days. has had dementia x 5+ years. Physical Exam Constitutional: + ill appearing, + thin and + altered mental status; + not well developed, + not well nourished and no acute distress ENMT: Mouth: + oral mucosal abnormality (MM dry) Respiratory: normal respiratory effort, lungs clear to auscultation Cardiovascular: Rate/Rhythm: regular rate and regular rhythm Heart Sounds: normal S1 and normal S2; no murmur Vessels: no JVD Extremities: no edema Gastrointestinal (Abdomen): normal bowel sounds, soft, nontender, no hepatosplenomegaly Inspection/Auscultation: + abdomen distended (mild) Neurologic: arms/legs flexed c/w advanced dementia; +palmar grasp Psychiatric: Orientation: + not alert and + not oriented x 3 (1) Dementia Dementia type: unspecified type Dementia behavioral disturbance: without behavioral disturbance Qualified Code(s): F03.90 - Unspecified dementia without behavioral disturbance
--- NOTE | 2018-12-16 20:53 | Hospitalist Progress Note ---
Date of Service December 16, 2018 Assessment & Plan (1) Palliative care encounter: patient continues on comfort care pathway. cont morphine/ativan prn. stafford care. updated family at bedside. much less responsive - in fact obtunded - during the visit today. may be developing infection in light of tactile fever. cont current care plan. I discussed the end-of-life journey w/ family including irregular breathing, apneas, fever, etc. (2) Dementia: advanced, end-stage. Subjective numerous family at bedside unresponsive since I saw him yesterday am has been resting peacefully per family Review of Systems Review of Systems: Unobtainable due to cognitive status and Unobtainable due to reduced consciousness Physical Exam Constitutional: + thin; no acute distress ENMT: Mouth: + oral mucosal abnormality (MM dry) Respiratory: normal respiratory effort, lungs clear to auscultation Cardiovascular: Rate/Rhythm: regular rhythm and + tachycardic Heart Sounds: normal S1 and normal S2; no murmur Vessels: posterior tibial pulses present and dorsalis pedis pulses present; no JVD Gastrointestinal (Abdomen): normal bowel sounds, soft, nontender, no hepatosplenomegaly Skin: warm to touch - suspect he is febrile Psychiatric: unresponsive (1) Dementia Dementia type: unspecified type Dementia behavioral disturbance: without behavioral disturbance Qualified Code(s): F03.90 - Unspecified dementia without behavioral disturbance
--- NOTE | 2018-12-17 15:52 | Hospitalist Progress Note ---
Date of Service December 17, 2018 Assessment & Plan (1) Palliative care encounter: patient continues on comfort care pathway. cont morphine/ativan prn but has not needed any in 2 days. stafford care. updated family at bedside. cont current care plan. Patient could be in this state for a period of time. Would family allow him to return to SNF in [place] for comfort care measures? Home with hospice? Other? Will d/w social work tomorrow. (2) Dementia: advanced, end-stage. Subjective unresponsive all night and today even during bathing, etc family at bedside questions answered Review of Systems Review of Systems: Unobtainable due to reduced consciousness Physical Exam Constitutional: + thin and + altered mental status; + not well developed, + not well nourished and no acute distress ENMT: Mouth: + oral mucosal abnormality (MM dry) Respiratory: normal respiratory effort, lungs clear to auscultation Cardiovascular: Rate/Rhythm: regular rate and regular rhythm Heart Sounds: normal S1 and normal S2; no murmur Vessels: posterior tibial pulses present and dorsalis pedis pulses present; no JVD Extremities: no edema Gastrointestinal (Abdomen): normal bowel sounds, soft, nontender, no hepatosplenomegaly Psychiatric: Orientation: + not alert (unresponsive to voice, touch) and + not oriented x 3 (1) Dementia Dementia type: unspecified type Dementia behavioral disturbance: without behavioral disturbance Qualified Code(s): F03.90 - Unspecified dementia without behavioral disturbance
--- NOTE | 2018-12-18 10:40 | Palliative Care Progress Note ---
Date of Service December 18, 2018 Assessment & Plan (1) Goals of care, counseling/discussion: -83 year old male with PMH advanced/end-stage dementia, FAST score 7c-7d at baseline, who is bed bound and resides at [facility]. Presented with respiratory failure 2/2 aspiration. Was in ICU and made comfort measures only by family. -Patient is unresponsive today and is tachypnic. Nursing to administer Roxanol. -Still making urine, however, this has decreased. -Avi Vincent at bedside today. Discussed for quite a while about comfort measures, EOL issues, etc. She expressed pt has not eaten or drank since and has not expressed interest in the oral mouth sponges. I did express that providing oral mouth care with a sponge may be comfortable for the patient, with known aspiration risk being likely. She did verbalize understanding. -Melisa stated that her and her siblings, including the POA, have talked over the weekend and if discharge would be recommended she would like to look into taking [place] [facility]. -I expressed that we would evaluate his stability for transfer each day and ensure he was stable for transfer if home hospice was pursued. Case management following and will be providing a list of Hospice agencies for choice. -I reiterated that at any time patient could decline to a point of not being stable for transfer, Melisa verbalized understanding. -Palliative Performance Scale: 10% (2) Sepsis: (3) Dysphagia: Comfort feeds, mouth swab with liquid of choice for moisture (4) AMBER (acute kidney injury): -Creatinine peaked at 2.59. Was 1.2 in December 2017. (5) Dementia: -FAST score 7f. Severe at baseline. End-stage -Resides at [facility] and is bed bound. (6) Hypernatremia: Subjective Pt remains unresponsive and does not withdraw to pain or stimuli Pt daughterMelisa at the bedside and all questions answered, including end of lif e progression and comfort care Review of Systems Review of Systems: Other (Unable to obtain due to patient being unresponsive) Physical Exam Constitutional: + acute distress, + thin and + cachectic ENMT: external ear and nose normal, oropharynx normal Neck: trachea midline, no thyromegaly Respiratory: + labored breathing and + tachypneic Auscultation: + diminished lung sounds Cardiovascular: RRR, no murmur, no edema Gastrointestinal (Abdomen): normal bowel sounds, soft, nontender, no hepatosplenomegaly Skin: + turgor decreased some mottling starting on knees, bilaterally Genitourinary: stafford catheter remains in place with decreased jasson urine output Time Spent Midlevel Total time spent 35 minutes with > 50% of that time spent reviewing the chart, assessing the patient, discussing end of life care with patient daughter at the bedside. (1) Dementia Dementia type: unspecified type Dementia behavioral disturbance: without behavioral disturbance Qualified Code(s): F03.90 - Unspecified dementia without behavioral disturbance
[2018-12-18] MEDS: MoRPHine SULFATE 5 MG/0.25 ML UDP PO PRN ×4 (11:06→17:30)
--- NOTE | 2018-12-18 18:23 | Death Summary ---
Date of Service date of admission - December 08, 2018 date of discharge - December 18, 2018 Pronouncement Note Date and Time of Date of : 12/18/18 Time of : 17:45 PCOD Preliminary cause of : Sepsis Contributing Factors (1) Acute respiratory failure with hypoxia: (2) Aspiration pneumonia: (3) Sepsis: (4) Dysphagia: (5) AMBER (acute kidney injury): (6) Dementia: (7) Hypernatremia: (8) Diabetes mellitus: (9) Hypertension: (10) Heart disease: (11) COPD (chronic obstructive pulmonary disease): (12) Acute metabolic encephalopathy: (13) Goals of care, counseling/discussion: Summary Additional details: Patient was an 83yo male intermediate resident who presented to [facility] with complaint of dyspnea. He was sent from his intermediate with reported O2 saturation of 84% in room air along with tachypnea as well as fever. Patient had history of dysphagia and was thought to have aspirated. At [facility] he was noted to be altered, unresponsive verbally, and was withdrawing from light touch. O2 saturations improved to 95% with placement of nonrebreather. He was administered Levaquin and Ceftriaxone and started on insulin drip for hyperglycemia. He was ultimately transferred to [facility] ICU. After admission to [facility] he needed placement of BIPAP due to his significant respiratory distress/failure. He was maintained on IV fluids for his severe hypernatremia, insulin infusion, IV antibiotic therapy, and other supportive care measures. The patient did poorly despite the above measures with significant obtundation/altered mental status. Palliative care was consulted, and after several discussions with his children, aggressive measures were stopped and he was transitioned to a comfort care pathway. He remained on comfort care measures until his on 12/18/18. Additional Data Confirmation of : no pulse, no respirations, no heart sounds, pupils fixed and dilated and other (no response to voice or pain) Family: at bedside Attending/PCP notified?: Yes Attending physician: Adi Berry Was code activated?: No Autopsy requested?: No forensic computer examiner notified?: No Organ bank notified?: No
== END 2018-12-18 17:45 | disposition expired | DRG 871 ==
LOC: SUATTDRO 20:10 → 1E 20:10 → 4E 12-11 16:31
DX: Z79.82 Long term (current) use of aspirin; A41.9 Sepsis, unspecified organism; Z51.5 Encounter for palliative care; Z79.899 Other long term (current) drug therapy; Z66 Do not resuscitate; I10 Essential (primary) hypertension; J96.01 Acute respiratory failure with hypoxia; E11.65 Type 2 diabetes mellitus with hyperglycemia; E87.0 Hyperosmolality and hypernatremia; J69.0 Pneumonitis due to inhalation of food and vomit; Z79.84 Long term (current) use of oral hypoglycemic drugs; J44.9 Chronic obstructive pulmonary disease, unspecified; F03.90 Unspecified dementia, unspecified severity, without behavioral disturbance, psychotic disturbance, mood disturbance, and anxiety; R13.10 Dysphagia, unspecified; N17.9 Acute kidney failure, unspecified; I25.10 Atherosclerotic heart disease of native coronary artery without angina pectoris; E78.5 Hyperlipidemia, unspecified; D63.8 Anemia in other chronic diseases classified elsewhere; G93.41 Metabolic encephalopathy